=== PATIENT | female | born 1955 | race Caucasian/White ===

== ENCOUNTER → 2017-12-18 15:18 | Outpatient (CLI) | payer BC, SELFPAY ==
--- NOTE | 2017-12-18 15:23 | MM_ITS ---
MM Dig screening mamm BI w/CAD CAD Screening COMPARISON: Digital mammograms 03/10/2014 and 05/18/2015 INDICATION: There is a history of breast cancer patient's mother diagnosed before menopause. TECHNIQUE: Standard CC and MLO images were obtained. R2 CAD reviewed. FINDINGS: Prominent somewhat heterogenic fibroglandular densities are seen in both breast. There is a mole marker left breast. There is arterial calcification left breast along with a benign-appearing calcification. There is no suspicious lesion and no suspicious microcalcifications. IMPRESSION: Moderately dense parenchymal pattern with no suspicious lesion seen BI-RADS Category: 2 Benign Finding(s) RECOMMENDED FOLLOW-UP: 1YR - 1 YEAR FOLLOW-UP (A letter has been sent to the patient regarding results of the study.)
== END ==
PROVIDERS: Family Provider Nurse Practitioner Family; PCP Nurse Practitioner Family; Visit Provider Nurse Practitioner Family
DX: Z12.31 Encounter for screening mammogram for malignant neoplasm of breast (principal)
CPT/HCPCS: 77067

== ENCOUNTER → 2020-05-11 10:08 | Outpatient (CLI) | payer OTHER, SELFPAY ==
[2020-05-11 14:39] LABS: Free T4 (Free Thyroxine) 0.85 ng/dl (0.78-2.19)
[2020-05-12 13:42] LABS: Triiodothyronine (T3) Free 3.4 pg/mL (2.0-4.4)
== END ==
PROVIDERS: Visit Provider Internal Medicine
DX: D49.7 Neoplasm of unspecified behavior of endocrine glands and other parts of nervous system (principal)
CPT/HCPCS: 36415; 82533; 82787; 84439; 84481

== ENCOUNTER → 2020-07-03 09:39 | Outpatient (CLI) | payer MEDICARE, OTHER, SELFPAY ==
[2020-07-03 15:10] LABS: Free T4 (Free Thyroxine) 0.92 ng/dl (0.78-2.19)
[2020-07-03 15:23] LABS: Thyroid Stimulating Hormone 3.71 uIU/mL (0.465-4.68)
== END ==
PROVIDERS: PCP Nurse Practitioner Family; Visit Provider Internal Medicine
DX: E03.9 Hypothyroidism, unspecified (principal)
CPT/HCPCS: 36415; 84439; 84443

== ENCOUNTER → 2020-09-25 14:14 | Outpatient (CLI) | payer MEDICARE, OTHER, SELFPAY ==
--- NOTE | 2020-09-25 14:16 | CA_ITS ---
APPROVED REPORT EXAM: Comprehensive 2D, Doppler, and color-flow Echocardiogram Body Artist: Antonieta Maharaj RT(R) Ht: 5 ft 4 in Wt: 103lbs BSA: 1.48 BP: 130/96 mmHg Indications: CP, ex smoker, fatigue, HTN, SOB, hyperlipidemia, anxiety, tachycardia 2D Dimensions LVOT 1.83 cm (M/F) 1.5-2.5 LVEF (Morales's) 56.10 % F: 54 - 74 LV Volume 64.40 mL F: 46 - 106 LV Volume Index 43.80 mL/m2 F: 29 - 61 M-Mode Dimensions RVDd 1.91 cm (0.9-2.6) LA Diam 2.07 cm (1.9-4.0) LVDd 4.20 cm (3.5-5.7) Ao Diam 2.61 cm (2.0-3.7) LVDs 3.20 cm (3.5-5.7) IVSd 1.16 cm (0.6-1.1) PWd 0.69 cm (0.6-1.1) EF (Teich) 47.80% FS 23.80% EDV (Teich) 78.60 mL ESV (Teich) 41.00 mL LV Diastology E Decel Time 153.00 (160-240 msec) E/A Ratio 0.7 MED E' 13.20 (< 7 cm/sec) E'/MED E' Ratio 3.80 (>14) LAT E' 12.20 (<10 cm/sec) E/LAT E' Ratio 4.11 (>14) Mitral Valve MV E Max Sj. 50.00 (40-130 cm/s) MV A Velocity 72.00 (40-130 cm/s) E/A Ratio 0.70 MV Decel. Time 153.00 (160-240 ms) MV PHT 45.00 ms Left Ventricle Left atrium is normal size, left ventricular normal size, left ventricle wall thickness is upper limit of the normal, there is preserved left ventricular systolic function, visually estimated ejection fraction 50% with no regional wall motion abnormality, diastolic parameters are within normal range. Right Ventricle Right atrium and right ventricle are normal size and contractility. Aortic Valve Aortic valve is minimally thickened and fibrosed. There is no aortic stenosis or aortic insufficiency. Mitral Valve Mitral valve is grossly normal, there is mild mitral regurgitation. Tricuspid Valve Tricuspid valve grossly normal, there is mild tricuspid regurgitation, tricuspid regurgitation jet velocity is inadequate for calculation of the right ventricular systolic pressure. Pulmonic Valve Pulmonic valve is poorly visualized. Great Vessels Aortic root is normal size. Pericardium No significant pericardial effusion noted. Conclusion 1. Normal left ventricular size, preserved left ventricular systolic function, visually estimated ejection fraction 50% with no regional wall motion abnormality, diastolic parameters are within normal range. 2. Mild mitral and tricuspid regurgitation. 3. No significant pericardial effusion noted. Electronically signed by : Indra Delgado, 09/26/2020 06:08:16
--- NOTE | 2020-09-25 14:18 | CT_ITS ---
PROCEDURE: CT CHEST WO CON CLINICAL INDICATION: cp/tachycardia Chest pain, tachycardia COMPARISON: No exams were available for comparison TECHNIQUE: Axial images obtained with sagittal and coronal reformats. All CT scans at the facility use one or more dose reduction, viz: automated exposure control, ma/kV adjustment per patient size (including targeted exams where dose is matched to indication, i.e. head), or iterative reconstruction technique. FINDINGS: HEART AND MEDIASTINAL STRUCTURES: No mediastinal or hilar mass or adenopathy. No evidence of aortic aneurysm. Cannot evaluate pulmonary embolus without IV contrast. Coronary artery calcifications are present. LUNGS AND PLEURAL SPACES: There is a 3 mm noncalcified pulmonary nodule in the right lower lobe laterally image number 49. A 4 mm noncalcified nodules present in the left lower lobe image 58 there is a linear area of increased density in the right middle lobe and may be due to and bronchial impaction. There is a 4 mm noncalcified nodule in the right middle lobe image 48. No evidence of pneumothorax. No acute bony findings. There is a mild pectus deformity. Upper abdominal images are unremarkable. IMPRESSION: 1. No acute finding. 2. Coronary artery calcifications. 3. Scattered small noncalcified pulmonary nodules. These are nonspecific. Consider 6-12 month follow-up to confirm stability. Dictated by: Slade Quintanilla MD 09/25/2020 14:59 Slade Quintanilla MD in [place] 09/25/2020 14:59
== END ==
PROVIDERS: PCP Nurse Practitioner Family; Visit Provider Physician Assistant
DX: R00.0 Tachycardia, unspecified (principal); R07.9 Chest pain, unspecified
CPT/HCPCS: 71250; 93306

== ENCOUNTER → 2020-10-02 14:05 | Outpatient (CLI) | payer MEDICARE, OTHER, SELFPAY | PROVIDERS: PCP Nurse Practitioner Family; Visit Provider Nurse Practitioner Family | DX: I25.10 Atherosclerotic heart disease of native coronary artery without angina pectoris (principal); R00.0 Tachycardia, unspecified; R06.00 Dyspnea, unspecified; R07.9 Chest pain, unspecified; R94.31 Abnormal electrocardiogram [ECG] [EKG]; Z87.891 Personal history of nicotine dependence | CPT/HCPCS: 93270 ==

== ENCOUNTER → 2020-10-09 06:52 | Outpatient (CLI) | payer MEDICARE, OTHER, SELFPAY ==
--- NOTE | 2020-10-09 06:53 | CA_ITS ---
APPROVED REPORT Exam: Pharmacologic Technologist: Alessia De La Garza, Ht: 5 ft 4 in Wt: 104 lbs BSA: 1.48 m2 HR: 93 bpm BP: 137/82 mmHg Medical History Medical History: HTN, Hyperlipidemia Medications: Amlodipine,,,,, Omeprazole,,,,, Lisinopril/HCTZ,,,,, Albuterol,,,,, FluTICASONE,,,,, Cardiac Risk Factors: HTN, Hyperlipidemia, FHX of CAD Stress Test Details Test: LEXISCAN HR Resting HR: 88 bpm Max Heart Rate (APMHR): 155 bpm Max HR Achieved: 125 bpm Target HR (85% APMHR): 131 bpm % of APMHR: 80 Recovery HR: 121 bpm BP Resting BP: 137.0/82.0 mmHg Max BP: 172.0/96.0 mmHg Recovery BP: 134.0/85.0 mmHg ECG Resting ECG: NSR,FREQUENT PVC'S,RAD Clinical Exercise duration: 04:01 min Highest Stage Achieved: Exercise capacity: 1.0 METs Stress ECG Conclusion DURING INFUSION PATIENT HAD A MILD HEADACHE. NO CHEST PAIN. FREQUENT ISOLATED PVC'S. 0.5-0.75MM HORIZONTAL ST DEPRESSION INFERIORLY AND LATERALLY. NON-DIAGNOSTIC LEXISCAN STRESS. MYOVIEW IMAGES REPORTED SEPARATELY. Test Summary REST . . . . . . . Sitting REST 04:53 . . 95 . 137/ 82 . . Stage 1 . . . . . . . Cardiolite injected Stage 1 01:00 . . 138 . . . . Stage 2 01:00 . . 135 . 172/ 96 . . Stage 3 01:00 . . 132 . 146/ 94 . . Stage 4 01:00 . . 127 . 158/ 89 . . Stage 4 01:14 . . 127 . 135/ 80 . Stop exercise at 04:14 RECOVERY 01:00 . . 120 . . . . RECOVERY 02:00 . . 119 . 134/ 85 . . RECOVERY 03:00 . . 117 . 139/ 85 . . RECOVERY 04:00 . . 110 . 145/ 87 . . RECOVERY 04:19 . . 115 . 145/ 87 . . Electronically signed by : Indra Delgado, 10/10/2020 06:33:17
--- NOTE | 2020-10-09 06:53 | NM_ITS ---
APPROVED REPORT Exam: Nuclear Stress Test Indication: Chest pain, SOB, Fatigue, HTN, High cholesterol, Family history Patient Location: Outpatient Stress Tech: Negin Veloz [place] Tech:Fe Zavaleta, ARRT, RT (R)(N) Ht: 5 ft 4 in Wt: 104 lbs Bra Size: 34B HR: 93 bpm BP: 137/82 mmHg BSA: 1.48 m2 BMI: 17.8 History: Chest pain, SOB, Fatigue, HTN, High cholesterol, Family history Procedure: Patient received a 0.4 mg of intravenous Lexiscan, resting heart rate 93 bpm, resting blood pressure 137/82 mmHg, with Lexiscan maximum heart rate achived was 138 bpm which is Less than 85 % of the maximum predicted heart rate and blood pressure was 172/96 mmHg. With Lexiscan, patient denied any complaint of chest pain. Electrocardiogram Resting electrocardiogram showed sinus rhythm, with Lexiscan there is less than 1.[address] segment depression noted from the baseline EKG. The EKG portion of the Lexiscan is nondiagnostic. Cardiac Stress and Resting SPECT Images: Cardiac Stress and Resting SPECT images were obtained using technetium 99m Myoview 31.2 mCi stress and 10.88 mCi at rest. Gated SPECT for analysis of segmental wall motion and calculation of the ejection fraction also done. Cardiac stress and resting SPECT images show uniform myocardial activity without segmental perfusion abnormality, computer derived ejection fraction is 59% with no regional wall motion abnormality, right ventricle is normal size and contractility. Conclusion: 1. The EKG portion of the Lexiscan is nondiagnostic. 2. No scintigraphic evidence of reversible ischemia seen, computer derived ejection fraction is 59% with no regional wall motion abnormality, right ventricle is normal size and contractility. 3. Normal Lexiscan Myoview study. Electronically signed by : Indra Delgado, 10/10/2020 06:40:57
--- NOTE | 2020-10-09 08:43 | HMH.ITSHM ---
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 []VENLAFAXINE METOPROLOL LISINOPRIL LEVOTHYROXINE HYDROXYZINE ATORVASTATIN ASA
== END ==
PROVIDERS: PCP Nurse Practitioner Family; Visit Provider Nurse Practitioner Family
DX: R07.9 Chest pain, unspecified
CPT/HCPCS: 78452; 93017; A9502; J2785

== ENCOUNTER → 2020-10-16 14:21 | Outpatient (CLI) | payer MEDICARE, OTHER, SELFPAY ==
[2020-10-16 15:40] LABS: Free T4 (Free Thyroxine) 1.19 ng/dl (0.78-2.19)
[2020-10-16 15:53] LABS: Thyroid Stimulating Hormone 1.77 uIU/mL (0.465-4.68)
== END ==
PROVIDERS: Visit Provider Urology
DX: F41.9 Anxiety disorder, unspecified (principal); I25.10 Atherosclerotic heart disease of native coronary artery without angina pectoris; R00.0 Tachycardia, unspecified; R06.00 Dyspnea, unspecified; R07.9 Chest pain, unspecified; R94.31 Abnormal electrocardiogram [ECG] [EKG]; Z82.49 Family history of ischemic heart disease and other diseases of the circulatory system; Z87.891 Personal history of nicotine dependence
CPT/HCPCS: 36415; 84439; 84443

== ENCOUNTER 2020-10-16 23:14 | Emergency (ER) | payer MEDICARE, OTHER, SELFPAY ==
[2020-10-16 23:10] VITALS: BP 171/88; PULSE 88; RESP 16; TEMP 36.7; O2SAT 98; BMI 17.8
--- NOTE | 2020-10-16 23:19 | ECG_ITS ---
APPROVED REPORT Exam: Resting ECG HR:75 bpm ECG Measurements Heart Rate 75 AXES MD 136 P 74 QRSd 98 QRS 88 QT 414 T 73 QTc 462 Conclusion Normal sinus rhythm Normal ECG Electronically signed by : Jose David Us, 10/17/2020 07:16:53
[2020-10-16 23:26] LABS: Microscopic, Urine URINE MICROSCOPIC (MICROSCOPIC)
[2020-10-16 23:30] LABS: Appearance,Urine CLEAR (Clear); Bilirubin,Urine Negative (Negative); Blood, Urine TRACE-I (Negative); Color,Urine YELLOW (Yellow); Glucose,Urine (UA) Negative (Negative); Ketones,Urine Negative (Negative); Leukocyte Esterase,Urine Negative (Negative); Nitrate,Urine Negative (Negative); Protein,Urine Negative (Negative); Urobilinogen,Urine 0.2 EU/dl (0.2)
[2020-10-16 23:31] LABS: Basophils # 0.1 K/mm3 (0-0.2); Basophils % 1.1 % (0.1-2.0); Eosinophils # 0.3 K/mm3 (0.0-0.4); Hematocrit 47.1 % (37.0-47.0); Hemoglobin 15.4 g/dL (12.2-16.2); Lymphocytes # 2.9 K/mm3 (0.7-4.5); Lymphocytes % 28.5 % (10-50); Mean Corpuscular HGB Conc 32.7 g/dL (31.8-35.4); Mean Corpuscular Hemoglobin 31.9 pg (27.0-31.2); Mean Corpuscular Volume 97.5 fl (81-99); Monocytes # 0.6 K/mm3 (0.1-1.0); Monocytes % 5.4 % (1.7-9.3); Neutrophils # 6.3 K/mm3 (1.8-7.8); Neutrophils % 62.1 % (37.0-80.0); Platelet Count 336 K/mm3 (142-424); Red Blood Count 4.83 M/mm3 (4.20-5.40); Red Cell Distribution Width 13.3 % (11.5-17.5); White Blood Count 10.2 K/mm3 (4.8-10.8)
--- NOTE | 2020-10-16 23:32 | PC.NURSE ---
pt on phone with daughter
[2020-10-16 23:40] VITALS: BP 121/75; PULSE 69; RESP 15; O2SAT 94
[2020-10-16 23:47] LABS: Chloride 104 mmol/L (98-107)
--- NOTE | 2020-10-16 23:47 | HMH.EDCP ---
ED Disposition Clinical Impression: Palpitations Chest pain Qualifiers: Chest pain type: precordial pain Qualified Code(s): R07.2 - Precordial pain Disposition: Home, Self-Care Condition on Discharge: Good Instructions: DI for Chest Pain Additional Instructions: see pcp and card for follow up Referrals: PCP,No [Primary Care Provider] - - Critical Care Critical Care Time: No Attestation: On 10/16/20, the high probability of a clinically significant, sudden or life threatening deterioration of the following system(s) required my full and direct attention, intervention and personal management. The time I documented below is in addition to time spent performing reported procedures but includes the following listed in this critical care notation. Medical Decision Making - Medical Records Medical records reviewed: Yes: I reviewed the patient's medical records. - Jefry Inquiry Pt receiving controlled substance: No Vital Signs: 10/16/20 23:10 10/16/20 23:40 10/17/20 00:20 Temperature 98.1 F Temperature Source Oral Pulse Rate [Left Radial] 88 69 64 Respiratory Rate 16 15 16 Blood Pressure [Right Arm] 171/88 H 121/75 124/72 Blood Pressure Mean [Right Arm] 115 90 89 Blood Pressure Source [Right Arm] Automatic Cuff Automatic Cuff Automatic Cuff Blood Pressure Position [Right Arm] Sitting Sitting Sitting 02 Sat by Pulse Oximetry 98 94 L 96 Oxygen Delivery Method Room Air Room Air Room Air - Lab Data Lab results reviewed: Yes: I reviewed the patient's lab results. Lab Results 10/16/20 23:10: WBC 10.2, RBC 4.83, Hgb 15.4, Hct 47.1 H, MCV 97.5, MCH 31.9 H, MCHC 32.7, RDW 13.3, Plt Count 336, MPV 8.0, Neut % (Auto) 62.1, Lymph % (Auto) 28.5, [place] % (Auto) 5.4, Eos % (Auto) 3.0, Baso % (Auto) 1.1, Neut # (Auto) 6.3, Lymph # (Auto) 2.9, [place] # (Auto) 0.6, Eos # (Auto) 0.3, Baso # (Auto) 0.1 10/16/20 23:10: Sodium 137, Potassium 3.4 L, Chloride 104, Carbon Dioxide 25, Anion Gap 11.4, BUN 13, Creatinine 0.80, Estimated Creat Clear 42, Estimated GFR 72, Est GFR ( Amer) 87, Glucose 118 H, Calcium 9.6, Troponin I < 0.01 10/16/20 23:10: Plasma/Serum Alcohol < 10 10/16/20 23:10: D-Dimer 0.79 10/16/20 23:18: Urine Color Yellow, Urine Appearance Clear, Urine pH 6.0, Ur Specific [place] 1.020, Urine Protein Negative, Urine Glucose (UA) Negative, Urine Ketones Negative, Urine Blood Trace-i, Urine Nitrate Negative, Urine Bilirubin Negative, Urine Urobilinogen 0.2, Ur Leukocyte Esterase Negative, Urine RBC 3-5, Urine WBC 3-5, Ur Squamous Epith Cells 3-5, Urine Bacteria 1+, Urine Mucus 1+ Result diagrams: 10/16/20 23:10 10/16/20 23:10 Orders (Tests/Meds): ED MEDICATIONS Generic Name Dose Route Start Last Admin Trade Name Freq PRN Reason Stop Dose Admin Sodium Chloride 1,000 mls @ 999 mls/hr 10/16/20 23:30 10/16/20 23:44 Sod Chlor 0.9% 1000ml Bag IV 10/17/20 00:30 999 mls/hr .Q1H1M YURIY Administration Sodium Chloride 10 ml 10/16/20 23:42 Sodium Chloride 0.9% 10ml Vial IV 11/15/20 23:41 NEEDED PRN to Dilute Lorazepam inj Discontinued Medications Generic Name Dose Route Start Last Admin Trade Name Freq PRN Reason Stop Dose Admin Lorazepam 0.5 mg 10/16/20 23:42 10/16/20 23:43 Lorazepam 2mg/Ml Vial IV 10/16/20 23:43 0.5 mg ONCE ONE Administration ORDERS Category Date Time Status XR chest 2V Stat Exams 10/17/20 00:02 Ordered Troponin I Q3H Lab 10/17/20 02:30 Ordered Troponin I Q3H Lab 10/17/20 05:30 Ordered - Radiology Data #1 Image(s): Chest Image Reviewed: Yes I reviewed the patient's radiology image Preliminary Findings: Normal/NAD - ECG Data Tracing #1 Normal Sinus Rhythm: Yes Ischemic changes: non-specific ST-T wave changes Medical Decision Narrative: will ask pt to use meds as directed and call card and pcp for follo wup Chest Pain HPI - General Chief Complaint: Arrhythmia/Palpitations Stated Complaint: palpitations
[2020-10-16 23:48] LABS: Potassium 3.4 mmoL/L (3.5-5.1); Sodium 137 mmol/L (136-145)
[2020-10-16 23:49] LABS: Bacteria,Urine 1+ /lpf; Mucus,Urine 1+ /lpf
[2020-10-16 23:51] LABS: Anion Gap 11.4 mEq/L (5-15); Blood Urea Nitrogen 13 mg/dl (7-17); Calcium 9.6 mg/dl (8.4-10.2); Carbon Dioxide 25 mmol/L (22.0-30.0); Creatinine Clearance Estimated 42 mL/min (50-200); Estimated Glomerular Filt Rate 72 ml/min (>60); GFR (African American) 87 ML/MIN (>60); Glucose 118 mg/dl (74-100)
[2020-10-16 23:55] LABS: Ethyl Alcohol < 10 mg/dl (0-10)
--- NOTE | 2020-10-17 00:02 | XR_ITS ---
PROCEDURE: XR CHEST 2V CLINICAL HISTORY: palpitations COMPARISON: CT CT CHEST WO CON from 09/25/2020 FINDINGS: The cardiomediastinal silhouette and pulmonary vascularity are within normal limits. Increased density is present in the right lung base which may in part be due to vascular crowding and pectus deformity. Cannot exclude superimposed infiltrate. The remaining lungs are clear. Bilateral nipple shadows are noted. No acute bony findings. IMPRESSION: Possible right basilar infiltrate Dictated by: Slade Quintanilla MD 10/17/2020 05:46 Slade Quintanilla MD in [place] 10/17/2020 05:46
[2020-10-17 00:06] LABS: Troponin I < 0.01 ng/ml (0.00-0.034)
[2020-10-17 00:20] VITALS: BP 124/72; PULSE 64; RESP 16; O2SAT 96
[2020-10-17 00:34] LABS: D-Dimer 0.79 ug/mL (0.15-8.0)
--- NOTE | 2020-10-17 00:54 | PC.NURSE ---
pt to XRAY
--- NOTE | 2020-10-17 01:01 | PC.NURSE ---
pt back from XRAY
--- NOTE | 2020-10-17 01:46 | PC.NURSE ---
pt attempting to find a ride
[2020-10-17 02:52] VITALS: BP 123/74; PULSE 71; RESP 17; TEMP 36.6; O2SAT 99
--- NOTE | 2020-10-17 20:09 | ECG_ITS ---
APPROVED REPORT Exam: Resting ECG HR:77 bpm ECG Measurements Heart Rate 77 AXES MO 132 P 74 QRSd 92 QRS 29 QT 402 T 70 QTc 454 Conclusion Normal sinus rhythm Normal ECG Electronically signed by : Jose David Us, 10/18/2020 14:26:06
== END 2020-10-17 02:55 | disposition home or self-care (01) ==
PROVIDERS: Emergency Provider Emergency Medicine
DX: R00.2 Palpitations (principal); R07.2 Precordial pain; F41.8 Other specified anxiety disorders; E78.5 Hyperlipidemia, unspecified; I10 Essential (primary) hypertension; E03.9 Hypothyroidism, unspecified; Z79.899 Other long term (current) drug therapy
CPT/HCPCS: 36415; 71046; 80048; 81001; 84439; 84443; 84484; 85025; 85378; 93005; 96365; 96375; 99283

== ENCOUNTER 2020-10-17 20:17 | Emergency (ER) | payer MEDICARE, OTHER, SELFPAY ==
[2020-10-17 20:17] VITALS: BP 162/91; PULSE 91; RESP 14; TEMP 37.3; O2SAT 97; BMI 17.8
--- NOTE | 2020-10-17 20:27 | XR_ITS ---
PROCEDURE: XR CHEST 2V CLINICAL HISTORY: chest pain COMPARISON: CT CT CHEST WO CON from 09/25/2020 CR XR CHEST 2V from 10/17/2020 FINDINGS: The cardiomediastinal silhouette and pulmonary vascularity are within normal limits. The lungs are clear without infiltrates, suspicious nodules, or pleural effusions. No acute bony abnormalities. IMPRESSION: No acute findings. Dictated by: Slade Quintanilla MD 10/18/2020 07:17 Slade Quintanilla MD in [place] 10/18/2020 07:17
--- NOTE | 2020-10-17 20:32 | HMH.EDCP ---
ED Disposition Clinical Impression: Atypical chest pain Disposition: Home, Self-Care Condition on Discharge: Good Instructions: DI for Atypical Chest Pain Additional Instructions: see card thursday at 0900 for follow up Referrals: PCPGabriela [Primary Care Provider] - Shawn Wolf MD [Staff Physician] - - Critical Care Critical Care Time: No Attestation: On 10/17/20, the high probability of a clinically significant, sudden or life threatening deterioration of the following system(s) required my full and direct attention, intervention and personal management. The time I documented below is in addition to time spent performing reported procedures but includes the following listed in this critical care notation. Medical Decision Making - Medical Records Medical records reviewed: Yes: I reviewed the patient's medical records. - Jefry Inquiry Pt receiving controlled substance: No Vital Signs: 10/17/20 20:17 10/17/20 21:19 Temperature 99.1 F Temperature Source Oral Pulse Rate [Right] 91 H 68 Respiratory Rate 14 16 Blood Pressure [Right Arm] 162/91 H 131/78 Blood Pressure Mean [Right Arm] 114 95 Blood Pressure Source [Right Arm] Automatic Cuff Automatic Cuff Blood Pressure Position [Right Arm] Supine Supine 02 Sat by Pulse Oximetry 97 98 Oxygen Delivery Method Room Air Room Air - Lab Data Lab results reviewed: Yes: I reviewed the patient's lab results. Lab Results 10/17/20 20:21: WBC 10.3, RBC 4.94, Hgb 15.6, Hct 48.8 H, MCV 98.7, MCH 31.5 H, MCHC 31.9, RDW 13.5, Plt Count 341, MPV 7.9, Neut % (Auto) 62.8, Lymph % (Auto) 28.9, [place] % (Auto) 5.0, Eos % (Auto) 2.4, Baso % (Auto) 0.9, Neut # (Auto) 6.4, Lymph # (Auto) 3.0, [place] # (Auto) 0.5, Eos # (Auto) 0.2, Baso # (Auto) 0.1, ESR 14 10/17/20 20:21: Sodium 137, Potassium 3.5, Chloride 105, Carbon Dioxide 25, Anion Gap 10.5, BUN 10, Creatinine 0.80, Estimated Creat Clear 42, Estimated GFR 72, Est GFR ( Amer) 87, Glucose 121 H, Calcium 9.7, Total Bilirubin 0.9, Direct Bilirubin 0.0, Conjugated Bilirubin 0.0, Indirect Bilirubin 0.9, Unconjugated Bilirubin 0.8, AST 34, ALT 35, Alkaline Phosphatase 71, Troponin I < 0.01, C-Reactive Protein 0.4, Total Protein 7.1, Albumin 4.4, Amylase 88, Lipase 122, Procalcitonin < 0.030 Result diagrams: 10/17/20 20:21 10/17/20 20:21 Orders (Tests/Meds): ED MEDICATIONS Generic Name Dose Route Start Last Admin Trade Name Freq PRN Reason Stop Dose Admin Sodium Chloride 1,000 mls @ 999 mls/hr 10/17/20 20:30 10/17/20 20:31 Sod Chlor 0.9% 1000ml Bag IV 10/17/20 21:30 999 mls/hr .Q1H1M YURIY Administration Sodium Chloride 8 ml 10/17/20 20:27 Sodium Chloride 0.9% 10ml Vial IV 11/16/20 20:26 NEEDED PRN dilute pepcid Discontinued Medications Generic Name Dose Route Start Last Admin Trade Name Freq PRN Reason Stop Dose Admin Famotidine 20 mg 10/17/20 20:27 10/17/20 20:31 Famotidine 20mg/2ml Vial IV 10/17/20 20:28 20 mg ONCE ONE Administration Ketorolac Tromethamine 30 mg 10/17/20 20:27 10/17/20 20:32 Ketorolac 30mg/Ml Vial IV 10/17/20 20:28 30 mg ONCE ONE Administration Metoclopramide HCl 10 mg 10/17/20 20:27 10/17/20 20:31 Metoclopramide Hcl 10mg/2ml Vial IVP 10/17/20 20:28 10 mg ONCE ONE Administration Ondansetron HCl 4 mg 10/17/20 20:27 10/17/20 20:32 Ondansetron 4mg/2ml Vial IV 10/17/20 20:28 4 mg ONCE ONE Administration ORDERS Category Date Time Status XR chest 2V Stat Exams 10/17/20 20:27 Taken Troponin I Q3H Lab 10/17/20 23:30 Ordered Troponin I Q3H Lab 10/18/20 02:30 Ordered - Radiology Data #1 Image(s): Chest Image Reviewed: Yes I reviewed the patient's radiology image Preliminary Findings: Normal/NAD - ECG Data Tracing #1 Normal Sinus Rhythm: Yes Ischemic changes: non-specific ST-T wave changes Medical Decision Narrative: atypical pain with stable eval in ed - Chest Pain HPI - Genera
[2020-10-17 20:36] LABS: Chloride 105 mmol/L (98-107); Potassium 3.5 mmoL/L (3.5-5.1); Sodium 137 mmol/L (136-145)
[2020-10-17 20:39] LABS: Alanine Aminotransferase 35 U/L (12-78); Alkaline Phosphatase 71 U/L (38-126); Amylase 88 U/L (30-110); Anion Gap 10.5 mEq/L (5-15); Aspartate Amino Transferase 34 U/L (14-36); Basophils # 0.1 K/mm3 (0-0.2); Basophils % 0.9 % (0.1-2.0); Bilirubin,Indirect 0.9 mg/dL (0.0-0.9); Bilirubin,Total 0.9 mg/dl (0.2-1.3); Bilirubin,Unconjugated 0.8 mg/dL (0.0-1.1); Blood Urea Nitrogen 10 mg/dl (7-17); Calcium 9.7 mg/dl (8.4-10.2); Carbon Dioxide 25 mmol/L (22.0-30.0); Creatinine Clearance Estimated 42 mL/min (50-200); Eosinophils # 0.2 K/mm3 (0.0-0.4); Eosinophils % 2.4 % (0.1-12.0); Estimated Glomerular Filt Rate 72 ml/min (>60); GFR (African American) 87 ML/MIN (>60); Glucose 121 mg/dl (74-100); Hematocrit 48.8 % (37.0-47.0); Hemoglobin 15.6 g/dL (12.2-16.2); Lymphocytes % 28.9 % (10-50); Mean Corpuscular HGB Conc 31.9 g/dL (31.8-35.4); Mean Corpuscular Hemoglobin 31.5 pg (27.0-31.2); Mean Corpuscular Volume 98.7 fl (81-99); Mean Platelet Volume 7.9 fl (7.4-10.4); Monocytes # 0.5 K/mm3 (0.1-1.0); Neutrophils # 6.4 K/mm3 (1.8-7.8); Neutrophils % 62.8 % (37.0-80.0); Platelet Count 341 K/mm3 (142-424); Red Blood Count 4.94 M/mm3 (4.20-5.40); Red Cell Distribution Width 13.5 % (11.5-17.5); White Blood Count 10.3 K/mm3 (4.8-10.8)
[2020-10-17 20:40] LABS: Albumin Level 4.4 g/dl (3.5-5.0); Lipase 122 U/L (23-300); Total Protein,Serum 7.1 g/dl (6.3-8.2)
[2020-10-17 20:56] LABS: C-Reactive Protein 0.4 mg/L (0-4)
[2020-10-17 21:08] LABS: Procalcitonin < 0.030 ng/mL (0.0-2.0)
[2020-10-17 21:11] LABS: Troponin I < 0.01 ng/ml (0.00-0.034)
[2020-10-17 21:19] VITALS: BP 131/78; PULSE 68; RESP 16; O2SAT 98
[2020-10-17 21:30] VITALS: BP 140/82; PULSE 80; O2SAT 96
[2020-10-17 21:33] LABS: Erythrocyte Sedimentation Rate 14 mm/hr (0-30)
[2020-10-17 22:01] VITALS: BP 140/82; PULSE 78; RESP 16; TEMP 37; O2SAT 97
== END 2020-10-17 22:05 | disposition home or self-care (01) ==
PROVIDERS: Emergency Provider Emergency Medicine
DX: R07.89 Other chest pain (principal); R10.13 Epigastric pain; F41.8 Other specified anxiety disorders; I10 Essential (primary) hypertension; E78.5 Hyperlipidemia, unspecified; Z87.891 Personal history of nicotine dependence; Z79.899 Other long term (current) drug therapy
CPT/HCPCS: 71046; 80048; 80076; 82150; 83690; 84145; 84484; 85025; 85651; 86140; 96365; 96375; 99283; J2405

== ENCOUNTER 2020-11-06 14:20 | Emergency (ER) | payer MEDICARE, OTHER, SELFPAY ==
--- NOTE | 2020-11-06 14:18 | ECG_ITS ---
APPROVED REPORT Exam: Resting ECG HR:77 bpm ECG Measurements Heart Rate 77 AXES RI 132 P 89 QRSd 94 QRS 67 QT 406 T 66 QTc 459 Conclusion Normal sinus rhythm Normal ECG Electronically signed by : Jose David Us, 11/08/2020 19:31:57
[2020-11-06 14:21] VITALS: BP 166/91; PULSE 87; RESP 18; TEMP 36.9; O2SAT 99; BMI 17.2
[2020-11-06 14:22] VITALS: BMI 17.2
--- NOTE | 2020-11-06 14:22 | XR_ITS ---
PROCEDURE: XR CHEST 2V CLINICAL HISTORY: epigastric pain Pain COMPARISON: CT CT CHEST WO CON from 09/25/2020 CR XR CHEST 2V from 10/17/2020 CR XR CHEST 2V from 10/17/2020 FINDINGS: The cardiomediastinal silhouette and pulmonary vascularity are within normal limits. There is a mild pectus deformity. Lungs are clear bilaterally. No acute bony abnormalities. IMPRESSION: No acute findings. Dictated by: Slade Quintanilla MD 11/06/2020 16:26 Slade Quintanilla MD in [place] 11/06/2020 16:26
--- NOTE | 2020-11-06 14:29 | HMH.EDGENADL ---
ED Disposition Clinical Impression: Atypical chest pain, Anxiety state Disposition: Home, Self-Care Condition on Discharge: Good Instructions: DI for Atypical Chest Pain Additional Instructions: Protonix as prescribed. Additional instructions for CHEST PAIN: See your physician as soon as possible for further evaluation. Return immediately if worsening chest pain, vomiting, shortness of breath, fever, coughing of blood. Prescriptions: Pantoprazole Sodium [Protonix 40mg tablet] 40 mg PO DAILY #15 tab Transmission Status: Received by Joosy Referrals: PCP,No [Non-Staff] - - Critical Care Critical Care Time: No Attestation: On , the high probability of a clinically significant, sudden or life threatening deterioration of the following system(s) required my full and direct attention, intervention and personal management. The time I documented below is in addition to time spent performing reported procedures but includes the following listed in this critical care notation. Medical Decision Making - Medical Records Medical records reviewed: Yes: I reviewed the patient's medical records. MR Comment: Reviewed prior Myoview stress result. Reviewed last cardiology office visit on 10/30/2020. At that time it appears that her complaints were felt to be mostly anxiety related. I would concur that that is also the appearance today. - Jefry Inquiry Pt receiving controlled substance: No Vital Signs: 11/06/20 14:21 11/06/20 16:35 11/06/20 17:17 Temperature 98.5 F Temperature Source Oral Pulse Rate Pulse Rate [Apical] 87 72 70 Respiratory Rate 18 Blood Pressure Blood Pressure [Right Arm] 166/91 H 139/77 132/79 Blood Pressure Mean [Right Arm] 116 97 96 Blood Pressure Source [Right Arm] Automatic Cuff Automatic Cuff Automatic Cuff Blood Pressure Position [Right Arm] Sitting Sitting 02 Sat by Pulse Oximetry 99 97 98 Oxygen Delivery Method Room Air Room Air Room Air 11/06/20 18:00 11/06/20 18:27 Temperature 98.5 F Temperature Source Pulse Rate 70 Pulse Rate [Apical] 70 Respiratory Rate 18 Blood Pressure 119/78 Blood Pressure [Right Arm] 119/78 Blood Pressure Mean [Right Arm] 91 Blood Pressure Source [Right Arm] Automatic Cuff Blood Pressure Position [Right Arm] Sitting 02 Sat by Pulse Oximetry 97 Oxygen Delivery Method Room Air Room Air - Lab Data Lab Results 11/06/20 14:34: WBC 9.8, RBC 5.27, Hgb 16.9 H, Hct 51.4 H, MCV 97.5, MCH 32.1 H, MCHC 32.9, RDW 12.9, Plt Count 291, MPV 8.3, Neut % (Auto) 69.9, Lymph % (Auto) 24.5, [place] % (Auto) 4.0, Eos % (Auto) 0.6, Baso % (Auto) 1.0, Neut # (Auto) 6.9, Lymph # (Auto) 2.4, [place] # (Auto) 0.4, Eos # (Auto) 0.1, Baso # (Auto) 0.1 11/06/20 14:34: Sodium 139, Potassium 3.6, Chloride 104, Carbon Dioxide 26, Anion Gap 12.6, BUN 19 H, Creatinine 0.90, Estimated Creat Clear 40, Estimated GFR 63, Est GFR ( Amer) 76, Glucose 130 H, Calcium 10.0 11/06/20 14:34: Total Bilirubin 1.1, Direct Bilirubin 0.2, Conjugated Bilirubin 0.0, Indirect Bilirubin 0.9, Unconjugated Bilirubin 0.9, AST 40 H, ALT 39, Alkaline Phosphatase 71, Total Protein 7.9, Albumin 4.9, Lipase 122 11/06/20 14:34: Troponin I < 0.01 11/06/20 17:35: Troponin I < 0.01 Result diagrams: 11/06/20 14:34 11/06/20 14:34 Orders (Tests/Meds): ORDERS Category Date Time Status Troponin I Q3H Lab 11/06/20 21:15 Ordered - Radiology Data #1 Image(s): Chest Image Reviewed: Yes I reviewed the patient's radiology image Preliminary Findings: Normal/NAD No change from 10/17/2020 - ECG Data Tracing #1 EKG interpreted by Barrington Menendez MD: Rhythm: sinus Rate: 77 [place]: normal Ectopy: none Conduction: normal ST Segment Changes: none T Wave Changes: none Q Waves: none No evidence of acute ischemia or injury Baseline artifact and wander present, but I consider the EKG adequate for accurate interpretation. Normal electrocardiogram. - KIZZY Fuentes
[2020-11-06 14:50] LABS: Basophils # 0.1 K/mm3 (0-0.2); Eosinophils # 0.1 K/mm3 (0.0-0.4); Eosinophils % 0.6 % (0.1-12.0); Hematocrit 51.4 % (37.0-47.0); Hemoglobin 16.9 g/dL (12.2-16.2); Lymphocytes # 2.4 K/mm3 (0.7-4.5); Lymphocytes % 24.5 % (10-50); Mean Corpuscular HGB Conc 32.9 g/dL (31.8-35.4); Mean Corpuscular Hemoglobin 32.1 pg (27.0-31.2); Mean Corpuscular Volume 97.5 fl (81-99); Mean Platelet Volume 8.3 fl (7.4-10.4); Monocytes # 0.4 K/mm3 (0.1-1.0); Neutrophils # 6.9 K/mm3 (1.8-7.8); Neutrophils % 69.9 % (37.0-80.0); Platelet Count 291 K/mm3 (142-424); Red Blood Count 5.27 M/mm3 (4.20-5.40); Red Cell Distribution Width 12.9 % (11.5-17.5); White Blood Count 9.8 K/mm3 (4.8-10.8)
[2020-11-06 14:52] LABS: Chloride 104 mmol/L (98-107); Sodium 139 mmol/L (136-145)
[2020-11-06 14:53] LABS: Potassium 3.6 mmoL/L (3.5-5.1)
[2020-11-06 14:55] LABS: Blood Urea Nitrogen 19 mg/dl (7-17); Creatinine Clearance Estimated 40 mL/min (50-200); Estimated Glomerular Filt Rate 63 ml/min (>60); GFR (African American) 76 ML/MIN (>60)
[2020-11-06 14:56] LABS: Alanine Aminotransferase 39 U/L (12-78); Albumin Level 4.9 g/dl (3.5-5.0); Alkaline Phosphatase 71 U/L (38-126); Anion Gap 12.6 mEq/L (5-15); Aspartate Amino Transferase 40 U/L (14-36); Bilirubin,Direct 0.2 mg/dl (0.0-0.4); Bilirubin,Indirect 0.9 mg/dL (0.0-0.9); Bilirubin,Total 1.1 mg/dl (0.2-1.3); Bilirubin,Unconjugated 0.9 mg/dL (0.0-1.1); Carbon Dioxide 26 mmol/L (22.0-30.0); Glucose 130 mg/dl (74-100); Lipase 122 U/L (23-300); Total Protein,Serum 7.9 g/dl (6.3-8.2)
[2020-11-06 15:38] LABS: Troponin I < 0.01 ng/ml (0.00-0.034)
[2020-11-06 16:35] VITALS: BP 139/77; PULSE 72; O2SAT 97
[2020-11-06 17:17] VITALS: BP 132/79; PULSE 70; O2SAT 98
--- NOTE | 2020-11-06 17:29 | PC.NURSE ---
lab drawing second trop
[2020-11-06 18:00] VITALS: BP 119/78; PULSE 70; O2SAT 97
[2020-11-06 18:10] LABS: Troponin I < 0.01 ng/ml (0.00-0.034)
[2020-11-06 18:27] VITALS: BP 119/78; PULSE 70; RESP 18; TEMP 36.9; O2SAT 97
== END 2020-11-06 18:29 | disposition home or self-care (01) ==
PROVIDERS: Emergency Provider Emergency Medicine; PCP Nurse Practitioner Family
DX: R07.89 Other chest pain (principal); F41.8 Other specified anxiety disorders; I10 Essential (primary) hypertension; E78.5 Hyperlipidemia, unspecified; Z87.891 Personal history of nicotine dependence
CPT/HCPCS: 71046; 80048; 80076; 83690; 84484; 85025; 93005; 99283

== ENCOUNTER 2020-11-17 15:04 | Emergency (ER) | payer MEDICARE, OTHER, SELFPAY ==
[2020-11-17] VITALS (9 sets, daily range): BP systolic 125–158; BP diastolic 83–98; PULSE 66–83; RESP 14–16; TEMP 37.1; O2SAT 96–100; BMI 16.9
--- NOTE | 2020-11-17 14:56 | ECG_ITS ---
APPROVED REPORT Exam: Resting ECG HR:72 bpm ECG Measurements Heart Rate 72 AXES DE 126 P 58 QRSd 82 QRS -5 QT 408 T 73 QTc 446 Conclusion Normal sinus rhythm Normal ECG Electronically signed by : Jose David Us, 11/18/2020 20:55:56
--- NOTE | 2020-11-17 15:04 | XR_ITS ---
PROCEDURE: XR CHEST 2V CLINICAL HISTORY: Chest Pain COMPARISON: CT CT CHEST WO CON from 09/25/2020 CR XR CHEST 2V from 10/17/2020 CR XR CHEST 2V from 10/17/2020 CR XR CHEST 2V from 11/06/2020 FINDINGS: The cardiomediastinal silhouette and pulmonary vascularity are within normal limits. The lungs are clear without infiltrates, suspicious nodules, or pleural effusions. Nodular density overlies the left lower lobe and may be due to nipple shadow. IMPRESSION: No acute findings. Dictated by: Slade Quintanilla MD 11/17/2020 18:15 Slade Quintanilla MD in [place] 11/17/2020 18:15
[2020-11-17 15:20] LABS: Basophils # 0.1 K/mm3 (0-0.2); Basophils % 0.9 % (0.1-2.0); Eosinophils # 0.1 K/mm3 (0.0-0.4); Eosinophils % 0.6 % (0.1-12.0); Hematocrit 49.6 % (37.0-47.0); Hemoglobin 16.7 g/dL (12.2-16.2); Lymphocytes # 2.8 K/mm3 (0.7-4.5); Lymphocytes % 34.9 % (10-50); Mean Corpuscular HGB Conc 33.7 g/dL (31.8-35.4); Mean Corpuscular Hemoglobin 31.8 pg (27.0-31.2); Mean Corpuscular Volume 94.5 fl (81-99); Mean Platelet Volume 7.7 fl (7.4-10.4); Monocytes # 0.3 K/mm3 (0.1-1.0); Monocytes % 4.2 % (1.7-9.3); Neutrophils # 4.8 K/mm3 (1.8-7.8); Neutrophils % 59.3 % (37.0-80.0); Platelet Count 288 K/mm3 (142-424); Red Blood Count 5.25 M/mm3 (4.20-5.40); White Blood Count 8.1 K/mm3 (4.8-10.8)
[2020-11-17 15:26] LABS: Chloride 104 mmol/L (98-107); Potassium 3.7 mmoL/L (3.5-5.1); Sodium 141 mmol/L (136-145)
[2020-11-17 15:29] LABS: Anion Gap 11.7 mEq/L (5-15); Blood Urea Nitrogen 11 mg/dl (7-17); Carbon Dioxide 29 mmol/L (22.0-30.0); Creatinine Clearance Estimated 40 mL/min (50-200); Estimated Glomerular Filt Rate 72 ml/min (>60); GFR (African American) 87 ML/MIN (>60)
[2020-11-17 15:30] LABS: Glucose 115 mg/dl (74-100)
--- NOTE | 2020-11-17 15:34 | HMH.EDGENADL ---
ED Disposition Clinical Impression: Chest pain Qualifiers: Chest pain type: unspecified Qualified Code(s): R07.9 - Chest pain, unspecified Disposition: Home, Self-Care Condition on Discharge: Good Instructions: DI for Chest Pain Additional Instructions: See Dr. Wolf in his office at 9 AM on Thursday morning 11/19/2020. Additional instructions for CHEST PAIN: Return immediately if worsening chest pain, vomiting, shortness of breath, fever, coughing of blood. Referrals: PCP,No [Non-Staff] - - Critical Care Critical Care Time: No Attestation: On 11/17/20, the high probability of a clinically significant, sudden or life threatening deterioration of the following system(s) required my full and direct attention, intervention and personal management. The time I documented below is in addition to time spent performing reported procedures but includes the following listed in this critical care notation. Medical Decision Making - Medical Records Medical records reviewed: Yes: I reviewed the patient's medical records. MR Comment: Reviewed prior ER visit on 11/06/2020, cardiology visit on 11/13/2020. Prior echocardiogram and stress test result. Echocardiogram and stress test were unremarkable. She has had a chest CT that showed coronary artery calcifications. She has been to the emergency department several times for chest pain or palpitations. - Jefry Inquiry Pt receiving controlled substance: No Vital Signs: 11/17/20 15:04 11/17/20 15:25 11/17/20 16:02 Temperature 98.7 F Temperature Source Oral Pulse Rate [Left Radial] 77 66 72 Respiratory Rate 14 Blood Pressure [Right Arm] 158/98 H 158/98 H 125/83 Blood Pressure Mean [Right Arm] 118 118 97 Blood Pressure Source [Right Arm] Automatic Cuff Automatic Cuff Automatic Cuff Blood Pressure Position [Right Arm] Sitting Sitting Sitting 02 Sat by Pulse Oximetry 99 100 96 Oxygen Delivery Method Room Air Room Air Room Air 11/17/20 16:33 11/17/20 17:05 11/17/20 17:40 Temperature Temperature Source Pulse Rate [Left Radial] 69 70 69 Respiratory Rate Blood Pressure [Right Arm] 137/84 134/85 148/87 H Blood Pressure Mean [Right Arm] 101 101 107 Blood Pressure Source [Right Arm] Automatic Cuff Automatic Cuff Automatic Cuff Blood Pressure Position [Right Arm] Sitting Sitting Sitting 02 Sat by Pulse Oximetry 97 97 98 Oxygen Delivery Method Room Air Room Air Room Air 11/17/20 18:06 Temperature Temperature Source Pulse Rate [Left Radial] 69 Respiratory Rate Blood Pressure [Right Arm] 146/84 H Blood Pressure Mean [Right Arm] 104 Blood Pressure Source [Right Arm] Automatic Cuff Blood Pressure Position [Right Arm] Sitting 02 Sat by Pulse Oximetry 97 Oxygen Delivery Method Room Air - Lab Data Lab Results 11/17/20 15:05: WBC 8.1, RBC 5.25, Hgb 16.7 H, Hct 49.6 H, MCV 94.5, MCH 31.8 H, MCHC 33.7, RDW 13.0, Plt Count 288, MPV 7.7, Neut % (Auto) 59.3, Lymph % (Auto) 34.9, [place] % (Auto) 4.2, Eos % (Auto) 0.6, Baso % (Auto) 0.9, Neut # (Auto) 4.8, Lymph # (Auto) 2.8, [place] # (Auto) 0.3, Eos # (Auto) 0.1, Baso # (Auto) 0.1 11/17/20 15:05: Sodium 141, Potassium 3.7, Chloride 104, Carbon Dioxide 29, Anion Gap 11.7, BUN 11, Creatinine 0.80, Estimated Creat Clear 40, Estimated GFR 72, Est GFR ( Amer) 87, Glucose 115 H, Calcium 10.0, Troponin I < 0.01 11/17/20 17:47: Troponin I < 0.01 Result diagrams: 11/17/20 15:05 11/17/20 15:05 Orders (Tests/Meds): ORDERS Category Date Time Status Troponin I Q3 Lab 11/17/20 21:15 Ordered - ECG Data Tracing #1 EKG interpreted by Barrington Menendez MD: Rhythm: sinus Rate: 72 [place]: normal Ectopy: none Conduction: normal ST Segment Changes: none T Wave Changes: none Q Waves: none No evidence of acute ischemia or injury Normal electrocardiogram - Physician Consults Physician Consulted: Maryann Time: 17:22 Reason -: Cardiology Eval/Care Comment/Response: Discharge if second troponin
--- NOTE | 2020-11-17 15:37 | PC.NURSE ---
Pt going to rad.
[2020-11-17 15:42] LABS: Troponin I < 0.01 ng/ml (0.00-0.034)
--- NOTE | 2020-11-17 15:42 | PC.NURSE ---
Pt returned from rad
--- NOTE | 2020-11-17 17:15 | PC.NURSE ---
paged Dr Wolf
[2020-11-17 18:22] LABS: Troponin I < 0.01 ng/ml (0.00-0.034)
== END 2020-11-17 18:57 | disposition home or self-care (01) ==
PROVIDERS: Emergency Provider Emergency Medicine; PCP Nurse Practitioner Family
DX: R07.9 Chest pain, unspecified (principal); E78.5 Hyperlipidemia, unspecified; I10 Essential (primary) hypertension; F41.9 Anxiety disorder, unspecified; Z79.899 Other long term (current) drug therapy
CPT/HCPCS: 36415; 71046; 80048; 84484; 85025; 93005; 99283

== ENCOUNTER → 2020-11-27 13:02 | Outpatient (CLI) | payer MEDICARE, OTHER, SELFPAY | PROVIDERS: PCP Nurse Practitioner Family; Visit Provider Urology | DX: Z87.891 Personal history of nicotine dependence (principal); R00.0 Tachycardia, unspecified; R07.89 Other chest pain; R06.00 Dyspnea, unspecified; F41.9 Anxiety disorder, unspecified; I25.10 Atherosclerotic heart disease of native coronary artery without angina pectoris; R00.2 Palpitations; Z82.49 Family history of ischemic heart disease and other diseases of the circulatory system; G47.33 Obstructive sleep apnea (adult) (pediatric) | CPT/HCPCS: G0399 ==

== ENCOUNTER 2020-12-01 12:39 | Emergency (ER) | payer MEDICARE, OTHER, SELFPAY ==
--- NOTE | 2020-12-01 12:36 | ECG_ITS ---
APPROVED REPORT Exam: Resting ECG HR:68 bpm ECG Measurements Heart Rate 68 AXES AL 140 P QRSd 94 QRS 126 QT 404 T 124 QTc 429 Conclusion Normal sinus rhythm Left posterior fascicular block Abnormal ECG Electronically signed by : Jose David Us, 12/01/2020 17:25:56
[2020-12-01 12:39] VITALS: BP 165/92; PULSE 78; RESP 16; TEMP 37.2; O2SAT 98; BMI 17.3
--- NOTE | 2020-12-01 12:45 | HMH.EDGENADL ---
ED Disposition Clinical Impression: Atypical chest pain Disposition: Home, Self-Care Condition on Discharge: Good Instructions: DI for Atypical Chest Pain Additional Instructions: Additional instructions for CHEST PAIN: See your physician as soon as possible for further evaluation. Return immediately if worsening chest pain, vomiting, shortness of breath, fever, coughing of blood. Referrals: Argelia Hughes [Primary Care Provider] - - Critical Care Critical Care Time: No Attestation: On , the high probability of a clinically significant, sudden or life threatening deterioration of the following system(s) required my full and direct attention, intervention and personal management. The time I documented below is in addition to time spent performing reported procedures but includes the following listed in this critical care notation. Medical Decision Making - Medical Records Medical records reviewed: Yes: I reviewed the patient's medical records. MR Comment: Reviewed cardiology office visit on 11/19/2020. Reviewed Myoview result, see below. - Jefry Inquiry Pt receiving controlled substance: No Vital Signs: 12/01/20 12:39 12/01/20 13:05 12/01/20 13:36 Temperature 99.0 F Temperature Source Oral Pulse Rate [Right Radial] 78 67 68 Respiratory Rate 16 Blood Pressure [Right Arm] 165/92 H 149/84 H 142/80 H Blood Pressure Mean [Right Arm] 116 105 100 Blood Pressure Source [Right Arm] Automatic Cuff Automatic Cuff Automatic Cuff Blood Pressure Position [Right Arm] Sitting Sitting Sitting 02 Sat by Pulse Oximetry 98 97 97 Oxygen Delivery Method Room Air Room Air Room Air 12/01/20 14:04 Temperature Temperature Source Pulse Rate [Right Radial] 67 Respiratory Rate Blood Pressure [Right Arm] 142/83 H Blood Pressure Mean [Right Arm] 102 Blood Pressure Source [Right Arm] Automatic Cuff Blood Pressure Position [Right Arm] Sitting 02 Sat by Pulse Oximetry 98 Oxygen Delivery Method Room Air - Lab Data Lab Results 12/01/20 12:00: WBC 9.1, RBC 5.04, Hgb 15.6, Hct 48.0 H, MCV 95.4, MCH 31.0, MCHC 32.6, RDW 12.9, Plt Count 279, MPV 8.5, Neut % (Auto) 61.7, Lymph % (Auto) 31.7, [place] % (Auto) 5.0, Eos % (Auto) 0.9, Baso % (Auto) 0.8, Neut # (Auto) 5.6, Lymph # (Auto) 2.9, [place] # (Auto) 0.5, Eos # (Auto) 0.1, Baso # (Auto) 0.1 12/01/20 12:00: Sodium 141, Potassium 3.7, Chloride 105, Carbon Dioxide 29, Anion Gap 10.7, BUN 18 H, Creatinine 0.90, Estimated Creat Clear 41, Estimated GFR 63, Est GFR ( Amer) 76, Glucose 152 H, Calcium 9.5, Troponin I < 0.01 Result diagrams: 12/01/20 12:00 12/01/20 12:00 Orders (Tests/Meds): ORDERS Category Date Time Status Troponin I Q3H Lab 12/01/20 16:15 Ordered Troponin I Q3H Lab 12/01/20 19:15 Ordered - Radiology Data #1 Image(s): Chest Image Reviewed: Yes I reviewed the patient's radiology image PROCEDURE: XR CHEST PORTABLE CLINICAL HISTORY: chest pain COMPARISON: CT CT CHEST WO CON from 09/25/2020 CR XR CHEST 2V from 10/17/2020 CR XR CHEST 2V from 11/06/2020 CR XR CHEST 2V from 11/17/2020 FINDINGS: The cardiomediastinal silhouette and pulmonary vascularity are within normal limits. The lungs are clear without infiltrates, suspicious nodules, or pleural effusions. No acute bony abnormalities. IMPRESSION: No acute findings. Dictated by: Slade Quintanilla MD 12/01/2020 13:33 Slade Quintanilla MD in [place] 12/01/2020 13:33 - ECG Data Tracing #1 EKG interpreted by Barrington Menendez MD: Rhythm: sinus Rate: 68 [place]: normal Ectopy: none Conduction: normal ST Segment Changes: none T Wave Changes: none Q Waves: none No evidence of acute ischemia or injury Prior electrocardiagrams reviewed. No change from prior tracings. Medical Decision Narrative: History: Chest pain, SOB, Fatigue, HTN, High cholesterol, Family history Procedure: Patient received a 0.4 mg of intravenous Lexiscan, resting heart rate 93 bpm,
[2020-12-01 13:05] VITALS: BP 149/84; PULSE 67; O2SAT 97
--- NOTE | 2020-12-01 13:05 | XR_ITS ---
PROCEDURE: XR CHEST PORTABLE CLINICAL HISTORY: chest pain COMPARISON: CT CT CHEST WO CON from 09/25/2020 CR XR CHEST 2V from 10/17/2020 CR XR CHEST 2V from 11/06/2020 CR XR CHEST 2V from 11/17/2020 FINDINGS: The cardiomediastinal silhouette and pulmonary vascularity are within normal limits. The lungs are clear without infiltrates, suspicious nodules, or pleural effusions. No acute bony abnormalities. IMPRESSION: No acute findings. Dictated by: Slade Quintanilla MD 12/01/2020 13:33 Slade Quintanilla MD in [place] 12/01/2020 13:33
[2020-12-01 13:12] LABS: Basophils # 0.1 K/mm3 (0-0.2); Basophils % 0.8 % (0.1-2.0); Eosinophils # 0.1 K/mm3 (0.0-0.4); Eosinophils % 0.9 % (0.1-12.0); Hemoglobin 15.6 g/dL (12.2-16.2); Lymphocytes # 2.9 K/mm3 (0.7-4.5); Lymphocytes % 31.7 % (10-50); Mean Corpuscular HGB Conc 32.6 g/dL (31.8-35.4); Mean Corpuscular Volume 95.4 fl (81-99); Mean Platelet Volume 8.5 fl (7.4-10.4); Monocytes # 0.5 K/mm3 (0.1-1.0); Neutrophils # 5.6 K/mm3 (1.8-7.8); Neutrophils % 61.7 % (37.0-80.0); Platelet Count 279 K/mm3 (142-424); Red Blood Count 5.04 M/mm3 (4.20-5.40); Red Cell Distribution Width 12.9 % (11.5-17.5); White Blood Count 9.1 K/mm3 (4.8-10.8)
[2020-12-01 13:13] LABS: Sodium 141 mmol/L (136-145)
[2020-12-01 13:14] LABS: Potassium 3.7 mmoL/L (3.5-5.1)
[2020-12-01 13:16] LABS: Blood Urea Nitrogen 18 mg/dl (7-17); Creatinine Clearance Estimated 41 mL/min (50-200); Estimated Glomerular Filt Rate 63 ml/min (>60); GFR (African American) 76 ML/MIN (>60)
[2020-12-01 13:17] LABS: Calcium 9.5 mg/dl (8.4-10.2); Carbon Dioxide 29 mmol/L (22.0-30.0); Glucose 152 mg/dl (74-100)
[2020-12-01 13:21] LABS: Anion Gap 10.7 mEq/L (5-15); Chloride 105 mmol/L (98-107)
[2020-12-01 13:31] LABS: Troponin I < 0.01 ng/ml (0.00-0.034)
[2020-12-01 13:36] VITALS: BP 142/80; PULSE 68; O2SAT 97
[2020-12-01 14:04] VITALS: BP 142/83; PULSE 67; O2SAT 98
[2020-12-01 15:15] VITALS: BP 147/85; PULSE 67; RESP 16; TEMP 37.2; O2SAT 98
== END 2020-12-01 15:15 | disposition home or self-care (01) ==
PROVIDERS: Emergency Provider Emergency Medicine; PCP Nurse Practitioner Family
DX: R07.89 Other chest pain (principal); F41.8 Other specified anxiety disorders; E78.5 Hyperlipidemia, unspecified; I10 Essential (primary) hypertension; E03.9 Hypothyroidism, unspecified; Z79.899 Other long term (current) drug therapy
CPT/HCPCS: 71045; 80048; 84484; 85025; 93005; 99283

== ENCOUNTER → 2020-12-25 12:37 | Outpatient (CLI) | payer MEDICARE, OTHER, SELFPAY ==
[2020-12-25 13:44] LABS: Coronavirus 19 IgG Antibody Negative (Negative); Coronavirus 19 IgM Antibody Negative (Negative)
== END ==
PROVIDERS: Visit Provider Urology
DX: Z01.818 Encounter for other preprocedural examination (principal); Z20.822 Contact with and (suspected) exposure to COVID-19; G47.30 Sleep apnea, unspecified
CPT/HCPCS: 36415; 86328

== ENCOUNTER → 2020-12-26 19:34 | Outpatient (CLI) | payer MEDICARE, OTHER, SELFPAY | PROVIDERS: PCP Nurse Practitioner Family; Visit Provider Urology | DX: G47.30 Sleep apnea, unspecified (principal); R06.83 Snoring; R06.00 Dyspnea, unspecified | CPT/HCPCS: 95810 ==

== ENCOUNTER → 2021-01-02 14:27 | Outpatient (CLI) | payer MEDICARE, OTHER, SELFPAY ==
[2021-01-02 16:10] LABS: Ferritin 216 ng/ml (11.1-264)
[2021-01-02 16:16] LABS: Thyroid Stimulating Hormone 2.63 uIU/mL (0.465-4.68)
== END ==
PROVIDERS: Visit Provider Nurse Practitioner Family
DX: E83.10 Disorder of iron metabolism, unspecified (principal); G25.81 Restless legs syndrome; E07.9 Disorder of thyroid, unspecified; F41.9 Anxiety disorder, unspecified; Z68.1 Body mass index [BMI] 19.9 or less, adult
CPT/HCPCS: 36415; 82728; 84443

== ENCOUNTER 2021-01-05 13:44 | Emergency (ER) | payer MEDICARE, OTHER, SELFPAY ==
--- NOTE | 2021-01-05 13:38 | ECG_ITS ---
APPROVED REPORT Exam: Resting ECG HR:78 bpm ECG Measurements Heart Rate 78 AXES GA 130 P 65 QRSd 94 QRS 75 QT 400 T 67 QTc 456 Conclusion Normal sinus rhythm Normal ECG Electronically signed by : Jose David Us, 01/06/2021 20:24:52
[2021-01-05 13:44] VITALS: BP 143/97; PULSE 77; RESP 16; TEMP 36.9; O2SAT 99; BMI 17.6
--- NOTE | 2021-01-05 13:49 | XR_ITS ---
PROCEDURE: XR CHEST PORTABLE CLINICAL HISTORY: cp Chest pain and chest tightness COMPARISON: CT CT CHEST WO CON from 09/25/2020 CR XR CHEST 2V from 11/06/2020 CR XR CHEST 2V from 11/17/2020 CR XR CHEST PORTABLE from 12/01/2020 FINDINGS: The cardiomediastinal silhouette and pulmonary vascularity are within normal limits. The lungs are clear without infiltrates, suspicious nodules, or pleural effusions. Nipple shadows are present bilaterally. No acute bony finding. Minimal midthoracic scoliosis convex left. IMPRESSION: No acute findings. Dictated by: Slade Quintanilla MD 01/05/2021 19:55 Slade Quintanilla MD in [place] 01/05/2021 19:55
--- NOTE | 2021-01-05 13:52 | HMH.EDCP ---
ED Disposition Clinical Impression: Atypical chest pain Disposition: Home, Self-Care Condition on Discharge: Good Referrals: PCP,No [Non-Staff] - - Critical Care Critical Care Time: No Attestation: On 01/05/21, the high probability of a clinically significant, sudden or life threatening deterioration of the following system(s) required my full and direct attention, intervention and personal management. The time I documented below is in addition to time spent performing reported procedures but includes the following listed in this critical care notation. Medical Decision Making - Medical Records Medical records reviewed: Yes: I reviewed the patient's medical records. - Jefry Inquiry Pt receiving controlled substance: No Vital Signs: 01/05/21 13:44 01/05/21 13:59 Temperature 98.5 F Temperature Source Oral Pulse Rate [Right Radial] 77 71 Respiratory Rate 16 16 Blood Pressure [Right Arm] 143/97 H 96/54 L Blood Pressure Mean [Right Arm] 112 68 Blood Pressure Source [Right Arm] Automatic Cuff Automatic Cuff Blood Pressure Position [Right Arm] Sitting Supine 02 Sat by Pulse Oximetry 99 98 Oxygen Delivery Method Room Air - Lab Data Lab results reviewed: Yes: I reviewed the patient's lab results. Lab Results 01/05/21 13:45: WBC 10.7, RBC 4.85, Hgb 14.5, Hct 46.0, MCV 94.8, MCH 29.8, MCHC 31.4 L, RDW 12.8, Plt Count 298, MPV 7.6, Neut % (Auto) 67.7, Lymph % (Auto) 27.1, [place] % (Auto) 4.0, Eos % (Auto) 0.4, Baso % (Auto) 0.8, Neut # (Auto) 7.2, Lymph # (Auto) 2.9, [place] # (Auto) 0.4, Eos # (Auto) 0.0, Baso # (Auto) 0.1 01/05/21 13:45: Sodium 140, Potassium 3.7, Chloride 106, Carbon Dioxide 27, Anion Gap 10.7, BUN 15, Creatinine 0.90, Estimated Creat Clear 41, Estimated GFR 63, Est GFR ( Amer) 76, Glucose 113 H, Calcium 9.7, Troponin I < 0.01, NT-Pro-B Natriuret Pep 138 H 01/05/21 13:50: VBG pH 7.33, VBG pCO2 49.1, VBG pO2 46.0 H, VBG HCO3 25.2, VBG Total CO2 26.7, VBG O2 Saturation 80.6 H, VBG Base Excess -0.8 Result diagrams: 01/05/21 13:45 01/05/21 13:45 Orders (Tests/Meds): ED MEDICATIONS Generic Name Dose Route Start Last Admin Trade Name Freq PRN Reason Stop Dose Admin Nitroglycerin 0.4 mg 01/05/21 13:51 01/05/21 13:52 Nitroglycerin 0.4mg Sl Tablet SL 02/04/21 13:50 0.4 mg Q5MINP PRN Administration Chest Pain Discontinued Medications Generic Name Dose Route Start Last Admin Trade Name Freq PRN Reason Stop Dose Admin Aspirin 243 mg 01/05/21 13:50 01/05/21 13:52 Aspirin 81mg Chewable Tablet PO 01/05/21 13:51 243 mg ONCE ONE Administration ORDERS Category Date Time Status XR chest portable Stat Exams 01/05/21 13:49 Taken Troponin I Q3H Lab 01/05/21 17:00 Ordered Troponin I Q3H Lab 01/05/21 20:00 Ordered - Radiology Data #1 Image(s): Chest Image Reviewed: Yes I reviewed the patient's radiology results Preliminary Findings: Normal/NAD - ECG Data Tracing #1 ECG initial impression date: 01/05/21 ECG initial impression time: 13:40 ECG normal with no acute: arrhythmias, ischemia, conduction abnormalities, chamber hypertrophy Normal Sinus Rhythm: Yes Chest Pain HPI - General Chief Complaint: Chest Pain Stated Complaint: chest tightness Time Seen by Provider: 01/05/21 13:45 Mode of Arrival: Ambulatory Limitations: No Limitations Description of Symptoms (Recalled from ER Triage Doc. by RN): Pt reports chest tightness, states tightness began lastnight. Pt also reports her bp has been elevated today. - History of Present Illness HPI narrative: This is a 65-year-old female who presents with chest discomfort. She describes this as tightness. Pain is rated at 5 out of 10 in intensity currently. Pain ongoing since last night approximately 18 hours since initiation of her symptoms. No shortness of breath or nausea or vomiting. No diaphoresis. No exacerbating or alleviating measures. - Related Data Home Medicatio
--- NOTE | 2021-01-05 13:53 | PC.NURSE ---
notified rt of vbg order
[2021-01-05 13:59] VITALS: BP 96/54; PULSE 71; RESP 16; O2SAT 98
[2021-01-05 13:59] LABS: Basophils # 0.1 K/mm3 (0-0.2); Basophils % 0.8 % (0.1-2.0); Eosinophils % 0.4 % (0.1-12.0); Hemoglobin 14.5 g/dL (12.2-16.2); Lymphocytes # 2.9 K/mm3 (0.7-4.5); Lymphocytes % 27.1 % (10-50); Mean Corpuscular HGB Conc 31.4 g/dL (31.8-35.4); Mean Corpuscular Hemoglobin 29.8 pg (27.0-31.2); Mean Corpuscular Volume 94.8 fl (81-99); Mean Platelet Volume 7.6 fl (7.4-10.4); Monocytes # 0.4 K/mm3 (0.1-1.0); Neutrophils # 7.2 K/mm3 (1.8-7.8); Neutrophils % 67.7 % (37.0-80.0); Platelet Count 298 K/mm3 (142-424); Red Blood Count 4.85 M/mm3 (4.20-5.40); Red Cell Distribution Width 12.8 % (11.5-17.5); White Blood Count 10.7 K/mm3 (4.8-10.8)
[2021-01-05 14:08] LABS: Anion Gap 10.7 mEq/L (5-15); Blood Urea Nitrogen 15 mg/dl (7-17); Calcium 9.7 mg/dl (8.4-10.2); Carbon Dioxide 27 mmol/L (22.0-30.0); Chloride 106 mmol/L (98-107); Creatinine Clearance Estimated 41 mL/min (50-200); Estimated Glomerular Filt Rate 63 ml/min (>60); GFR (African American) 76 ML/MIN (>60); Glucose 113 mg/dl (74-100); Potassium 3.7 mmoL/L (3.5-5.1); Sodium 140 mmol/L (136-145)
[2021-01-05 14:09] LABS: VBG Base Excess -0.8 mmol/L (-2.4-2.3); VBG HCO3 25.2 mmol/L (23-30); VBG Oxygen Saturation 80.6 % (50-70); VBG PCO2 49.1 mmol/L (35-51); VBG PH 7.33 mmol/L (7.31-7.41); VBG Total CO2 26.7 mmol/L (23-27)
--- NOTE | 2021-01-05 14:11 | PC.NURSE ---
rad in room taking chest xray
[2021-01-05 14:21] LABS: NT Pro Brain Natriuretic Pep. 138 pg/mL (0-125)
[2021-01-05 14:31] LABS: Troponin I < 0.01 ng/ml (0.00-0.034)
[2021-01-05 14:49] VITALS: BP 120/78; PULSE 66; RESP 16; TEMP 36.9; O2SAT 99
== END 2021-01-05 14:49 | disposition home or self-care (01) ==
PROVIDERS: Emergency Provider Emergency Medicine; PCP Nurse Practitioner Family
DX: R07.89 Other chest pain (principal); I10 Essential (primary) hypertension; F41.8 Other specified anxiety disorders; E78.5 Hyperlipidemia, unspecified; Z87.891 Personal history of nicotine dependence; Z79.899 Other long term (current) drug therapy; E03.9 Hypothyroidism, unspecified
CPT/HCPCS: 71045; 80048; 82803; 83880; 84484; 85025; 93005; 99283

== ENCOUNTER 2021-01-07 15:52 | Emergency (ER) | payer MEDICARE, OTHER, SELFPAY ==
[2021-01-07 15:54] VITALS: BP 160/107; PULSE 85; RESP 18; TEMP 37.4; O2SAT 99; BMI 17.5
--- NOTE | 2021-01-07 15:55 | XR_ITS ---
PROCEDURE: XR CHEST PORTABLE CLINICAL HISTORY: sob Shortness of breath COMPARISON: CT CT CHEST WO CON from 09/25/2020 CR XR CHEST 2V from 11/17/2020 CR XR CHEST PORTABLE from 12/01/2020 CR XR CHEST PORTABLE from 01/05/2021 FINDINGS: The cardiomediastinal silhouette and pulmonary vascularity are within normal limits. The lungs are clear without infiltrates, suspicious nodules, or pleural effusions. No acute bony abnormalities. IMPRESSION: No acute findings. Dictated by: Slade Quintanilla MD 01/07/2021 16:44 Slade Quintanilla MD in [place] 01/07/2021 16:44
--- NOTE | 2021-01-07 15:55 | HMH.EDGENADL ---
ED Disposition Clinical Impression: Acute anxiety Disposition: Home, Self-Care Condition on Discharge: Good Referrals: Argelia Hughes [Primary Care Provider] - Time of Disposition: 17:20 - Critical Care Critical Care Time: No Attestation: On , the high probability of a clinically significant, sudden or life threatening deterioration of the following system(s) required my full and direct attention, intervention and personal management. The time I documented below is in addition to time spent performing reported procedures but includes the following listed in this critical care notation. Medical Decision Making - Medical Records Medical records reviewed: Yes: I reviewed the patient's medical records. - Jefry Inquiry Pt receiving controlled substance: No Vital Signs: 01/07/21 15:54 Temperature 99.3 F Temperature Source Oral Pulse Rate [Right Radial] 85 Respiratory Rate 18 Blood Pressure [Right Arm] 160/107 H Blood Pressure Mean [Right Arm] 124 Blood Pressure Source [Right Arm] Automatic Cuff Blood Pressure Position [Right Arm] Sitting 02 Sat by Pulse Oximetry 99 Oxygen Delivery Method Room Air - Lab Data Lab results reviewed: Yes: I reviewed the patient's lab results. Lab Results 01/07/21 16:17: Troponin I < 0.01 01/07/21 16:17: Sodium 140, Potassium 3.7, Chloride 106, Carbon Dioxide 26, Anion Gap 11.7, BUN 11 D, Creatinine 0.90, Estimated Creat Clear 41, Estimated GFR 63, Est GFR ( Amer) 76, Glucose 120 H, Calcium 9.8 Result diagrams: 01/07/21 16:17 Orders (Tests/Meds): ORDERS Category Date Time Status Troponin I Q3H Lab 01/07/21 19:00 Ordered Troponin I Q3H Lab 01/07/21 22:00 Ordered - Radiology Data #1 Image(s): Chest Image Reviewed: Yes I have reviewed radiologist's interpretation Preliminary Findings: Normal/NAD - ECG Data Tracing #1 71 bpm, normal sinus rhythm, no ST elevation or depression, no ectopy, normal intervals. ECG initial impression date: 01/07/21 ECG initial impression time: 16:17 Medical Decision Narrative: 65yo F evaluated for tremor. Patient appears anxious on initial evaluation. Her EKG is unremarkable. Patient has been seen numerous times for this. Patient reports undergoing stress test and echocardiogram with normal findings. Patient is taking home medications as directed. Labs are unremarkable. Troponin is 0.01. Chest x-ray unremarkable. EKG unremarkable as above. Patient is appropriate stable for discharge home at this time follow-up with PCP versus counseling for better control of her anxiety. General Adult HPI - General Stated complaint: cant stop shaking short of breath Time Seen by Provider: 01/07/21 15:55 Mode of Arrival: Ambulatory Source of Information: Patient - History of Present Illness HPI narrative: 65yo F with past medical history significant for anxiety and hypertension presents the emergency department secondary to tremor and anxiety. Patient reports symptoms began earlier today. She reports taking extra anxiety medication. She states this happens frequently. 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 She is concerned that her radiation treatments have permanently changed her brain and made her feel this way. She states that she has these symptoms frequently and this episode is no different than previous episodes. She denies chest pain, shortness of breath, nausea/vomit/diarrhea. No recent sick contact. - Related Data Home Medications Medication Instructions Recorded Confirmed aspirin 81 mg tablet,delayed 81 mg PO DAILY 09/25/20 01/02/21 release atorvastatin 10 mg tablet 10 mg PO DAILY tab 09/25/20 01/02/21 hydroxyzine pamoate 25 mg capsule 25 mg PO TID PRN cap 09/25/20 01/02/21 levothyroxine 25 mcg tablet 25 mcg PO DAILY tab 09/25/20 01/02/21 lisinopril 10 mg tablet 10 mg PO BID tab 09/25/20 01/02/21 Previous Rx's Medication Ins
--- NOTE | 2021-01-07 16:10 | ECG_ITS ---
APPROVED REPORT Exam: Resting ECG HR:71 bpm ECG Measurements Heart Rate 71 AXES [place] 144 P 67 QRSd 90 QRS 34 QT 408 T 58 QTc 443 Conclusion Normal sinus rhythm Normal ECG Electronically signed by : Jose David Us, 01/08/2021 19:37:17
[2021-01-07 16:53] LABS: Troponin I < 0.01 ng/ml (0.00-0.034)
[2021-01-07 17:00] VITALS: BP 132/82; PULSE 77; RESP 19; O2SAT 97
[2021-01-07 17:01] LABS: Anion Gap 11.7 mEq/L (5-15); Blood Urea Nitrogen 11 mg/dl (7-17); Calcium 9.8 mg/dl (8.4-10.2); Carbon Dioxide 26 mmol/L (22.0-30.0); Chloride 106 mmol/L (98-107); Creatinine Clearance Estimated 41 mL/min (50-200); Estimated Glomerular Filt Rate 63 ml/min (>60); GFR (African American) 76 ML/MIN (>60); Glucose 120 mg/dl (74-100); Potassium 3.7 mmoL/L (3.5-5.1); Sodium 140 mmol/L (136-145)
[2021-01-07 17:27] VITALS: BP 142/78; PULSE 77; RESP 19; TEMP 36.6; O2SAT 98
== END 2021-01-07 17:29 | disposition home or self-care (01) ==
PROVIDERS: Emergency Provider Family Medicine; PCP Nurse Practitioner Family
DX: F41.0 Panic disorder [episodic paroxysmal anxiety] (principal); I10 Essential (primary) hypertension; E78.5 Hyperlipidemia, unspecified; E03.9 Hypothyroidism, unspecified; Z87.891 Personal history of nicotine dependence; Z79.899 Other long term (current) drug therapy
CPT/HCPCS: 71045; 80048; 84484; 93005; 99283

== ENCOUNTER 2021-03-23 10:12 | Emergency (ER) | payer MEDICARE, OTHER, SELFPAY ==
[2021-03-23 10:13] VITALS: BP 164/95; PULSE 84; RESP 18; TEMP 36.8; O2SAT 97; BMI 18.8
--- NOTE | 2021-03-23 10:25 | HMH.EDGENADL ---
ED Disposition Clinical Impression: UTI (urinary tract infection) Qualifiers: Urinary tract infection type: site unspecified Hematuria presence: with hematuria Qualified Code(s): N39.0 - Urinary tract infection, site not specified; R31.9 - Hematuria, unspecified Diarrhea Qualifiers: Diarrhea type: unspecified type Qualified Code(s): R19.7 - Diarrhea, unspecified Disposition: Home, Self-Care Condition on Discharge: Good Instructions: DI for Urinary Tract Infection (UTI), DI for Diarrhea and Traveler's Diarrhea -- Adult Additional Instructions: Additional instructions for URINARY TRACT INFECTION: Take antibiotic as prescribed. See your physician in 2-3 days for follow up and culture results. Return immediately if you have an uncontrollable fever greater than 102 degrees, severe back or abdominal pain, inability to urinate, or repetitive vomiting. Prescriptions: Cefdinir [Omnicef 300mg Capsule] 300 mg PO BID #20 cap Transmission Status: Pending to [facility] Referrals: Argelia Hughes [Primary Care Provider] - - Critical Care Critical Care Time: No Attestation: On , the high probability of a clinically significant, sudden or life threatening deterioration of the following system(s) required my full and direct attention, intervention and personal management. The time I documented below is in addition to time spent performing reported procedures but includes the following listed in this critical care notation. Medical Decision Making - Jefry Inquiry Pt receiving controlled substance: No Vital Signs: 03/23/21 10:13 03/23/21 10:30 03/23/21 10:46 Temperature 98.2 F Temperature Source Oral Pulse Rate 80 75 Pulse Rate [Right] 84 Respiratory Rate 18 Blood Pressure 162/94 H 128/81 Blood Pressure [Right Arm] 164/95 H Blood Pressure Mean [Right Arm] 118 02 Sat by Pulse Oximetry 97 97 96 Oxygen Delivery Method Room Air 03/23/21 11:30 Temperature Temperature Source Pulse Rate 69 Pulse Rate [Right] Respiratory Rate Blood Pressure 140/80 Blood Pressure [Right Arm] Blood Pressure Mean [Right Arm] 02 Sat by Pulse Oximetry 97 Oxygen Delivery Method - Lab Data Lab Results 03/23/21 10:20: WBC 11.6 H, RBC 5.03, Hgb 15.0, Hct 45.0, MCV 89.5, MCH 29.7, MCHC 33.2, RDW 13.4, Plt Count 289, MPV 9.0, Neut % (Auto) 75.8, Lymph % (Auto) 19.1, [place] % (Auto) 3.2, Eos % (Auto) 1.1, Baso % (Auto) 0.9, Neut # (Auto) 8.8 H, Lymph # (Auto) 2.2, [place] # (Auto) 0.4, Eos # (Auto) 0.1, Baso # (Auto) 0.1 03/23/21 10:20: Sodium 139, Potassium 4.2, Chloride 107, Carbon Dioxide 27, Anion Gap 9.2, BUN 10, Creatinine 0.80, Estimated Creat Clear 44, Estimated GFR 72, Est GFR ( Amer) 87, Glucose 101 H, Calcium 9.0, Total Bilirubin 0.5, AST 36, ALT 33, Alkaline Phosphatase 79, Total Protein 6.8, Albumin 4.1, Globulin 2.7, Albumin/Globulin Ratio 1.5 03/23/21 11:05: Lactate 0.6 L 03/23/21 11:09: Urine Color Yellow, Urine Appearance Clear, Urine pH 6.0, Ur Specific [place] 1.020, Urine Protein Negative, Urine Glucose (UA) Negative, Urine Ketones Negative, Urine Blood Trace-i, Urine Nitrate Negative, Urine Bilirubin Negative, Urine Urobilinogen 0.2, Ur Leukocyte Esterase 2+ A, Urine RBC 3-5, Urine WBC 10-20, Ur Squamous Epith Cells 3-5, Urine Bacteria 1+ Result diagrams: 03/23/21 10:20 03/23/21 10:20 Orders (Tests/Meds): ED MEDICATIONS Generic Name Dose Route Start Last Admin Trade Name [place]selmo PRN Reason Stop Dose Admin Ceftriaxone Sodium 1 gm/ 50 mls @ 100 mls/hr 03/23/21 11:53 Sodium Chloride IV 03/23/21 12:22 ONCE ONE Protocol ORDERS Category Date Time Status Diarrhea 6-11 Panel, Cdiff PCR Stat Lab 03/23/21 10:36 Ordered Blood Culture Stat Micro 03/23/21 10:37 Received Urine Culture Stat Micro 03/23/21 11:09 Received - Radiology Data #1 Image(s): Chest Image Reviewed: Yes I have reviewed radiologist's interpretation PROCEDURE INFORMATION: Exam: XR Chest
[2021-03-23 10:30] VITALS: BP 162/94; PULSE 80; O2SAT 97
--- NOTE | 2021-03-23 10:36 | XR_ITS ---
PROCEDURE INFORMATION: Exam: XR Chest Exam date and time: 03/23/2021 10:36 AM Age: 65 years old Clinical indication: Other: Shakiness; Patient HX: Shaking since this morning, headache TECHNIQUE: Imaging protocol: XR of the chest. Views: 2 views. COMPARISON: CR XR CHEST PORTABLE 01/07/2021 4:15 PM FINDINGS: Lungs: No consolidation. Pleural spaces: No pleural effusion. No pneumothorax. Heart/Mediastinum: No cardiomegaly. Bones/joints: No acute abnormality. IMPRESSION: No acute cardiopulmonary disease.
[2021-03-23 10:44] LABS: Basophils # 0.1 K/mm3 (0-0.2); Basophils % 0.9 % (0.1-2.0); Eosinophils # 0.1 K/mm3 (0.0-0.4); Eosinophils % 1.1 % (0.1-12.0); Lymphocytes # 2.2 K/mm3 (0.7-4.5); Lymphocytes % 19.1 % (10-50); Mean Corpuscular HGB Conc 33.2 g/dL (31.8-35.4); Mean Corpuscular Hemoglobin 29.7 pg (27.0-31.2); Mean Corpuscular Volume 89.5 fl (81-99); Monocytes # 0.4 K/mm3 (0.1-1.0); Monocytes % 3.2 % (1.7-9.3); Neutrophils # 8.8 K/mm3 (1.8-7.8); Neutrophils % 75.8 % (37.0-80.0); Platelet Count 289 K/mm3 (142-424); Red Blood Count 5.03 M/mm3 (4.20-5.40); Red Cell Distribution Width 13.4 % (11.5-17.5); White Blood Count 11.6 K/mm3 (4.8-10.8)
[2021-03-23 10:46] VITALS: BP 128/81; PULSE 75; O2SAT 96
--- NOTE | 2021-03-23 10:50 | ECG_ITS ---
APPROVED REPORT Exam: Resting ECG HR:73 bpm ECG Measurements Heart Rate 73 AXES [place] 132 P 88 QRSd 92 QRS -7 QT 402 T 41 QTc 442 Conclusion Sinus rhythm with occasional premature ventricular complexes Otherwise normal ECG Electronically signed by : Jose David Us, 03/24/2021 07:53:22
[2021-03-23 11:12] LABS: Microscopic, Urine URINE MICROSCOPIC (MICROSCOPIC)
[2021-03-23 11:18] LABS: Appearance,Urine CLEAR (Clear); Bilirubin,Urine Negative (Negative); Blood, Urine TRACE-I (Negative); Color,Urine YELLOW (Yellow); Glucose,Urine (UA) Negative (Negative); Ketones,Urine Negative (Negative); Leukocyte Esterase,Urine 2+ (Negative); Nitrate,Urine Negative (Negative); Protein,Urine Negative (Negative); Urobilinogen,Urine 0.2 EU/dl (0.2)
[2021-03-23 11:20] LABS: Chloride 107 mmol/L (98-107); Sodium 139 mmol/L (136-145)
[2021-03-23 11:21] LABS: Potassium 4.2 mmoL/L (3.5-5.1)
[2021-03-23 11:23] LABS: Lactic Acid 0.6 mmol/L (0.7-2.1)
[2021-03-23 11:23] LABS: Alanine Aminotransferase 33 U/L (12-78); Albumin Level 4.1 g/dl (3.5-5.0); Albumin/Globulin Ratio 1.5 (1.1-1.8); Alkaline Phosphatase 79 U/L (38-126); Anion Gap 9.2 mEq/L (5-15); Aspartate Amino Transferase 36 U/L (14-36); Bilirubin,Total 0.5 mg/dl (0.2-1.3); Blood Urea Nitrogen 10 mg/dl (7-17); Carbon Dioxide 27 mmol/L (22.0-30.0); Creatinine Clearance Estimated 44 mL/min (50-200); Estimated Glomerular Filt Rate 72 ml/min (>60); GFR (African American) 87 ML/MIN (>60); Globulin 2.7 g/dL (1.3-3.2); Glucose 101 mg/dl (74-100); Total Protein,Serum 6.8 g/dl (6.3-8.2)
[2021-03-23 11:26] LABS: Bacteria,Urine 1+ /lpf
[2021-03-23 11:30] VITALS: BP 140/80; PULSE 69; O2SAT 97
[2021-03-23 12:12] VITALS: BP 140/80; PULSE 69; RESP 18; TEMP 36.7; O2SAT 97
== END 2021-03-23 12:14 | disposition home or self-care (01) ==
PROVIDERS: Emergency Provider Emergency Medicine; PCP Nurse Practitioner Family
DX: N30.01 Acute cystitis with hematuria (principal); F41.8 Other specified anxiety disorders; I10 Essential (primary) hypertension; Z79.899 Other long term (current) drug therapy
CPT/HCPCS: 71046; 80053; 81001; 83605; 85025; 87040; 87086; 93005; 96365; 99282

== ENCOUNTER → 2021-04-15 13:40 | Outpatient (CLI) | payer MEDICARE, OTHER, SELFPAY ==
--- NOTE | 2021-04-15 13:52 | XR_ITS ---
PROCEDURE: XR CHEST 2V CLINICAL HISTORY: chest pain COMPARISON: CT CT CHEST WO CON from 09/25/2020 CR XR CHEST PORTABLE from 01/05/2021 CR XR CHEST PORTABLE from 01/07/2021 CR XR CHEST 2V from 03/23/2021 FINDINGS: The cardiomediastinal silhouette and pulmonary vascularity are within normal limits. The lungs are clear without infiltrates, suspicious nodules, or pleural effusions. Nodular opacity overlies the left lower lobe and may be due to nipple artifact. No acute bony findings. There is a mild pectus deformity. IMPRESSION: No change with no acute finding Dictated by: Slade Quintanilla MD 04/15/2021 14:12 Slade Quintanilla MD in [place] 04/15/2021 14:12
[2021-04-15 14:50] LABS: Alanine Aminotransferase 29 U/L (12-78); Albumin Level 4.7 g/dl (3.5-5.0); Alkaline Phosphatase 85 U/L (38-126); Aspartate Amino Transferase 36 U/L (14-36); Bilirubin,Direct 0.3 mg/dl (0.0-0.4); Bilirubin,Indirect 0.5 mg/dL (0.0-0.9); Bilirubin,Total 0.8 mg/dl (0.2-1.3); Bilirubin,Unconjugated 0.6 mg/dL (0.0-1.1); Chol/HDL Ratio 2.5 (1-3.5); Cholesterol 203 mg/dl (140-200); HDL Cholesterol 81 mg/dl (40-60); Total Protein,Serum 7.6 g/dl (6.3-8.2); Triglycerides 119 mg/dl (30-150); VLDL Cholesterol 24 mg/dL (0-40)
[2021-04-15 15:01] LABS: Direct LDL Cholesterol 89.92 mg/dL (100-129)
== END ==
PROVIDERS: Visit Provider Urology
DX: F41.9 Anxiety disorder, unspecified (principal); I25.10 Atherosclerotic heart disease of native coronary artery without angina pectoris; R06.00 Dyspnea, unspecified; R00.2 Palpitations
CPT/HCPCS: 36415; 71046; 80061; 80076

== ENCOUNTER 2021-04-18 19:10 | Emergency (ER) | payer MEDICARE, OTHER, SELFPAY ==
[2021-04-18] VITALS (9 sets, daily range): BP systolic 130–145; BP diastolic 82–96; PULSE 58–80; RESP 12–16; TEMP 37.1; O2SAT 95–99; BMI 18.7
--- NOTE | 2021-04-18 19:05 | ECG_ITS ---
APPROVED REPORT Exam: Resting ECG HR:84 bpm ECG Measurements Heart Rate 84 AXES KS 142 P 72 QRSd 94 QRS 57 QT 402 T 65 QTc 475 Conclusion Sinus rhythm with occasional premature ventricular complexes Otherwise normal ECG Electronically signed by : Jose David Us, 04/19/2021 15:58:36
--- NOTE | 2021-04-18 19:11 | HMH.EDGENADL ---
ED Disposition Condition on Discharge: Good - Critical Care Critical Care Time: No <GemmaBarrington - Last Filed: 04/18/21 20:06> Condition on Discharge: Good <Torsten Wilkerson - Last Filed: 04/18/21 23:03> Clinical Impression: Atypical chest pain Disposition: Home, Self-Care Referrals: Argelia Hughes [Primary Care Provider] - Attestation: On 04/18/21, the high probability of a clinically significant, sudden or life threatening deterioration of the following system(s) required my full and direct attention, intervention and personal management. The time I documented below is in addition to time spent performing reported procedures but includes the following listed in this critical care notation. Medical Decision Making - Medical Records Medical records reviewed: Yes: I reviewed the patient's medical records. Comment: Reviewed recent cardiology office visit 04/15/2021. Reported intermittent chest pain since her last visit. Chest x-ray ordered, EKG performed, return to clinic in 1 week. Reviewed previous stress Myoview September 2020, see results below. Repeated visits for chest pain since September 2020. She is also had a chest CT which showed coronary artery calcifications, she has had an echocardiogram that was unremarkable. - Jefry Inquiry Pt receiving controlled substance: No - Lab Data Result diagrams: 04/18/21 19:10 04/18/21 19:10 - Radiology Data #1 Image(s): Chest Image Reviewed: Yes I reviewed the patient's radiology image, Yes I have reviewed radiologist's interpretation <GemmaBarrington - Last Filed: 04/18/21 20:06> - Lab Data Result diagrams: 04/18/21 19:10 04/18/21 19:10 <Torsten Wilkerson - Last Filed: 04/18/21 23:03> Vital Signs: 04/18/21 19:12 04/18/21 19:31 04/18/21 20:00 Temperature 98.7 F Temperature Source Oral Pulse Rate 77 69 Pulse Rate [Right] 80 Respiratory Rate 14 15 14 Blood Pressure 142/85 H 137/88 Blood Pressure [Right Arm] 139/86 Blood Pressure Mean Blood Pressure Mean [Right Arm] 103 Blood Pressure Source [Right Arm] Automatic Cuff Blood Pressure Position [Right Arm] Supine 02 Sat by Pulse Oximetry 99 96 96 Oxygen Delivery Method Room Air 04/18/21 20:30 04/18/21 21:00 04/18/21 21:30 Temperature Temperature Source Pulse Rate 73 69 74 Pulse Rate [Right] Respiratory Rate 14 12 14 Blood Pressure 130/89 143/90 H 140/96 H Blood Pressure [Right Arm] Blood Pressure Mean 109 113 117 Blood Pressure Mean [Right Arm] Blood Pressure Source [Right Arm] Blood Pressure Position [Right Arm] 02 Sat by Pulse Oximetry 96 96 95 Oxygen Delivery Method Room Air Room Air Room Air 04/18/21 22:00 04/18/21 22:30 Temperature Temperature Source Pulse Rate 60 58 L Pulse Rate [Right] Respiratory Rate 12 13 Blood Pressure 141/88 H 145/90 H Blood Pressure [Right Arm] Blood Pressure Mean 110 Blood Pressure Mean [Right Arm] Blood Pressure Source [Right Arm] Blood Pressure Position [Right Arm] 02 Sat by Pulse Oximetry 97 97 Oxygen Delivery Method Room Air - Lab Data Lab Results 04/18/21 19:10: WBC 10.8, RBC 4.73, Hgb 14.4, Hct 42.5, MCV 89.9, MCH 30.4, MCHC 33.8, RDW 13.1, Plt Count 251, MPV 8.4, Neut % (Auto) 46.3, Lymph % (Auto) 47.0, [place] % (Auto) 4.8, Eos % (Auto) 0.7, Baso % (Auto) 1.2, Neut # (Auto) 5.0, Lymph # (Auto) 5.1 H, [place] # (Auto) 0.5, Eos # (Auto) 0.1, Baso # (Auto) 0.1 04/18/21 19:10: Sodium 138, Potassium 3.2 L, Chloride 101, Carbon Dioxide 27, Anion Gap 13.2, BUN 15, Creatinine 0.90, Estimated Creat Clear 44, Estimated GFR 63, Est GFR ( Amer) 76, Glucose 96, Calcium 8.8, Troponin I < 0.01 04/18/21 22:15: Troponin I < 0.01 Orders (Tests/Meds): ED MEDICATIONS Discontinued Medications Generic Name Dose Route Start Last Admin Trade Name Freq PRN Reason Stop Dose Admin Aspirin 243 mg 04/18/21 19:32 04/18/21 19:34 Aspirin 81mg Chewable Tablet PO 04/18/21 19:33 243 mg
--- NOTE | 2021-04-18 19:26 | XR_ITS ---
PROCEDURE INFORMATION: Exam: XR Chest Exam date and time: 04/18/21 07:26 PM Age: 65 years old Clinical indication: Left-sided; Patient HX: Left sided chest pain TECHNIQUE: Imaging protocol: XR of the chest. Views: 2 views. COMPARISON: CR XR CHEST 2V 04/15/21 01:54 PM FINDINGS: Lungs: Unremarkable. No consolidation. Pleural spaces: Unremarkable. No pleural effusion. No pneumothorax. Heart/Mediastinum: Unremarkable. No cardiomegaly. Bones/joints: Unremarkable. IMPRESSION: No acute findings.
--- NOTE | 2021-04-18 19:33 | PC.NURSE ---
Pt took an 81 mg ASA today, 3 more given in ED
[2021-04-18 19:44] LABS: Basophils # 0.1 K/mm3 (0-0.2); Basophils % 1.2 % (0.1-2.0); Eosinophils # 0.1 K/mm3 (0.0-0.4); Eosinophils % 0.7 % (0.1-12.0); Hematocrit 42.5 % (37.0-47.0); Hemoglobin 14.4 g/dL (12.2-16.2); Lymphocytes # 5.1 K/mm3 (0.7-4.5); Mean Corpuscular HGB Conc 33.8 g/dL (31.8-35.4); Mean Corpuscular Hemoglobin 30.4 pg (27.0-31.2); Mean Corpuscular Volume 89.9 fl (81-99); Mean Platelet Volume 8.4 fl (7.4-10.4); Monocytes # 0.5 K/mm3 (0.1-1.0); Monocytes % 4.8 % (1.7-9.3); Neutrophils % 46.3 % (37.0-80.0); Platelet Count 251 K/mm3 (142-424); Red Blood Count 4.73 M/mm3 (4.20-5.40); Red Cell Distribution Width 13.1 % (11.5-17.5); White Blood Count 10.8 K/mm3 (4.8-10.8)
[2021-04-18 19:45] LABS: Anion Gap 13.2 mEq/L (5-15); Blood Urea Nitrogen 15 mg/dl (7-17); Calcium 8.8 mg/dl (8.4-10.2); Carbon Dioxide 27 mmol/L (22.0-30.0); Chloride 101 mmol/L (98-107); Creatinine Clearance Estimated 44 mL/min (50-200); Estimated Glomerular Filt Rate 63 ml/min (>60); GFR (African American) 76 ML/MIN (>60); Glucose 96 mg/dl (74-100); Potassium 3.2 mmoL/L (3.5-5.1); Sodium 138 mmol/L (136-145)
[2021-04-18 20:01] LABS: Troponin I < 0.01 ng/ml (0.00-0.034)
[2021-04-18 22:45] LABS: Troponin I < 0.01 ng/ml (0.00-0.034)
== END 2021-04-18 23:11 | disposition home or self-care (01) ==
PROVIDERS: Emergency Provider Emergency Medicine; PCP Nurse Practitioner Family
DX: R07.89 Other chest pain (principal); F41.9 Anxiety disorder, unspecified; E78.5 Hyperlipidemia, unspecified; I10 Essential (primary) hypertension; Z87.891 Personal history of nicotine dependence
CPT/HCPCS: 71046; 80048; 84484; 85025; 93005; 96365; 99283

== ENCOUNTER → 2021-04-22 15:33 | Outpatient (CLI) | payer MEDICARE, OTHER, SELFPAY | PROVIDERS: Visit Provider Nurse Practitioner Family | DX: F41.9 Anxiety disorder, unspecified (principal); I25.118 Atherosclerotic heart disease of native coronary artery with other forms of angina pectoris; R06.00 Dyspnea, unspecified; Z01.818 Encounter for other preprocedural examination; Z11.52 Encounter for screening for COVID-19 | CPT/HCPCS: U0003 ==

== ENCOUNTER 2021-04-24 08:22 | Day surgery (SDC) | payer MEDICARE, OTHER, SELFPAY ==
[2021-04-24] VITALS (13 sets, daily range): BP systolic 81–146; BP diastolic 51–101; PULSE 51–77; RESP 13–18; TEMP 36.8–36.9; O2SAT 95–98; BMI 19.9
--- NOTE | 2021-04-24 | IR_ITS ---
APPROVED REPORT Patient Location: Outpatient PROCEDURES Left heart catheterization Left ventriculogram Selective coronary angiogram INDICATION Angina pectoris, Calcification on coronary CT, Informed consent was obtained prior to the procedure. COMPLICATIONS None Estimated Blood Loss: Less than 10 mls TECHNIQUE One percent lidocaine used to anesthetize the right anterior aspect of the wrist. The right radial artery was accessed via the Seldinger technique. A 6 Malay sheath was placed in the right radial artery. 2.5 mg of verapamil, 800 mcg of nitroglycerin, 1mg Lidocaine and 5000 U Heparin were given through the arterial sheath. The trap catheter was also used to perform left heart catheterization, left ventriculogram and selective coronary angiogram. At the end of the procedure the sheath was removed good hemostasis was achieved using Traclet band, patient was transferred to the postop holding area in stable condition. ANGIOGRAPHIC RESULTS The left main artery Normal The left anterior descending artery Normal The circumflex artery Small nondominant normal The right coronary artery Massively large dominant and normal The RYAN ventriculogram reveals Normal 65% The left ventricular end-diastolic pressure 10 mmHg IMPRESSION Normal coronary arteries Normal ejection fraction Normal left ventricular end-diastolic pressure PLAN 1. Evaluate for noncardiac symptoms Electronically signed by : Shawn Wolf, 04/24/2021 12:00:45
== END 2021-04-24 14:39 | disposition home or self-care (01) ==
LOC: CATHLAB 08:24
PROVIDERS: PCP Nurse Practitioner Family; Visit Provider Internal Medicine
DX: I25.118 Atherosclerotic heart disease of native coronary artery with other forms of angina pectoris (principal); F41.9 Anxiety disorder, unspecified; R06.00 Dyspnea, unspecified; E78.5 Hyperlipidemia, unspecified; Z79.899 Other long term (current) drug therapy
CPT/HCPCS: 93458; 99152; 99153; C1725; C1769; J1644; Q9967

== ENCOUNTER 2021-05-12 15:20 | Emergency (ER) | payer MEDICARE, OTHER, SELFPAY ==
[2021-05-12 15:21] VITALS: BP 159/94; PULSE 78; RESP 24; TEMP 37; O2SAT 97; BMI 18.3
[2021-05-12 16:30] VITALS: BP 155/88; PULSE 66; RESP 16; O2SAT 97
--- NOTE | 2021-05-12 16:57 | HMH.EDGENADL ---
ED Disposition Clinical Impression: Burning sensation, Shakiness Disposition: Home, Self-Care Condition on Discharge: Good Additional Instructions: See your primary care provider tomorrow as scheduled. Referrals: Argelia Hughes [Primary Care Provider] - - Critical Care Critical Care Time: No Attestation: On 05/12/21, the high probability of a clinically significant, sudden or life threatening deterioration of the following system(s) required my full and direct attention, intervention and personal management. The time I documented below is in addition to time spent performing reported procedures but includes the following listed in this critical care notation. Medical Decision Making - Jefry Inquiry Pt receiving controlled substance: No Vital Signs: 05/12/21 15:21 05/12/21 16:30 05/12/21 17:00 Temperature 98.6 F Temperature Source Oral Pulse Rate 66 70 Pulse Rate [Right] 78 Respiratory Rate 24 16 16 Blood Pressure 155/88 H 161/92 H Blood Pressure [Right Arm] 159/94 H Blood Pressure Mean 110 115 Blood Pressure Mean [Right Arm] 115 Blood Pressure Source [Right Arm] Automatic Cuff 02 Sat by Pulse Oximetry 97 97 94 L Oxygen Delivery Method Room Air - Lab Data Lab Results 05/12/21 15:50: WBC 9.9, RBC 4.87, Hgb 14.6, Hct 43.5, MCV 89.2, MCH 29.9, MCHC 33.5, RDW 13.4, Plt Count 249, MPV 8.3, Neut % (Auto) 68.6, Lymph % (Auto) 26.0, [place] % (Auto) 4.2, Eos % (Auto) 0.3, Baso % (Auto) 0.9, Neut # (Auto) 6.8, Lymph # (Auto) 2.6, [place] # (Auto) 0.4, Eos # (Auto) 0.0, Baso # (Auto) 0.1 05/12/21 15:50: Sodium 139, Potassium 3.8, Chloride 104, Carbon Dioxide 25, Anion Gap 13.8, BUN 11, Creatinine 0.90, Estimated Creat Clear 43, Estimated GFR 63, Est GFR ( Amer) 76, Glucose 109 H, Calcium 9.2, Troponin I < 0.01 Result diagrams: 05/12/21 15:50 05/12/21 15:50 Orders (Tests/Meds): ORDERS Category Date Time Status Troponin I Q3H Lab 05/12/21 20:00 Ordered Troponin I Q3H Lab 05/12/21 23:00 Ordered ECG Request by /Lilian Stat Y 05/12/21 16:59 Ordered - ECG Data Tracing #1 EKG interpreted by Barrington Menendez MD: Rhythm: sinus Rate: 72 Follett: normal Ectopy: none Conduction: normal ST Segment Changes: none T Wave Changes: none Q Waves: none No evidence of acute ischemia or injury Normal electrocardiogram Medical Decision Narrative: Blood pressure is consistently elevated in the emergency department and I advised her she will need to follow-up with her primary care provider for this tomorrow. She does not need acute intervention. General Adult HPI - General Chief complaint: Anxiety Stated complaint: KIM,Burning all over body,shanking Time Seen by Provider: 05/12/21 16:58 Mode of Arrival: Ambulatory Limitations: No Limitations Description of Symptoms (Recalled from ER Triage Doc. by RN): patient states that she has had an intermittent burning sensation in her chest since this am, plus a continuous headache 6/10 pain. patient states that she was on pantoprazole, but quit taking medication because she read online that youre only supposed to take that medication for 8 weeks. patient states now that her burning sensation is now localized in her chest area. patient also states that she started jerking and uncontrollably shaking since around 1500 today and cant stop it. - History of Present Illness HPI narrative: States that off and on all day today she has had a sensation that her whole body is burning, seems to particularly bother her in her armpits. Also shakiness. She has been getting this symptom off and on for six or 7 months, but says it is just worse today. Denies chest pain. The patient is known to me for multiple previous emergency department visits. She has had cardiology work-up, recent normal cardiac cath in March. She also takes medications for GERD, but says that she stopped taking that 4 days ago. She is also on anxiety medication. She has an appoint wi
--- NOTE | 2021-05-12 16:59 | ECG_ITS ---
APPROVED REPORT Exam: Resting ECG HR:72 bpm ECG Measurements Heart Rate 72 AXES PA 144 P 78 QRSd 92 QRS 75 QT 424 T 73 QTc 464 Conclusion Normal sinus rhythm Normal ECG Electronically signed by : Jose David Us, 05/13/2021 22:12:10
[2021-05-12 17:00] VITALS: BP 161/92; PULSE 70; RESP 16; O2SAT 94
[2021-05-12 17:15] LABS: Basophils # 0.1 K/mm3 (0-0.2); Basophils % 0.9 % (0.1-2.0); Eosinophils % 0.3 % (0.1-12.0); Hematocrit 43.5 % (37.0-47.0); Hemoglobin 14.6 g/dL (12.2-16.2); Lymphocytes # 2.6 K/mm3 (0.7-4.5); Mean Corpuscular HGB Conc 33.5 g/dL (31.8-35.4); Mean Corpuscular Hemoglobin 29.9 pg (27.0-31.2); Mean Corpuscular Volume 89.2 fl (81-99); Mean Platelet Volume 8.3 fl (7.4-10.4); Monocytes # 0.4 K/mm3 (0.1-1.0); Monocytes % 4.2 % (1.7-9.3); Neutrophils # 6.8 K/mm3 (1.8-7.8); Neutrophils % 68.6 % (37.0-80.0); Platelet Count 249 K/mm3 (142-424); Red Blood Count 4.87 M/mm3 (4.20-5.40); Red Cell Distribution Width 13.4 % (11.5-17.5); White Blood Count 9.9 K/mm3 (4.8-10.8)
[2021-05-12 18:11] LABS: Chloride 104 mmol/L (98-107); Sodium 139 mmol/L (136-145)
[2021-05-12 18:12] LABS: Potassium 3.8 mmoL/L (3.5-5.1)
[2021-05-12 18:14] LABS: Blood Urea Nitrogen 11 mg/dl (7-17); Creatinine Clearance Estimated 43 mL/min (50-200); Estimated Glomerular Filt Rate 63 ml/min (>60); GFR (African American) 76 ML/MIN (>60)
[2021-05-12 18:15] LABS: Anion Gap 13.8 mEq/L (5-15); Calcium 9.2 mg/dl (8.4-10.2); Carbon Dioxide 25 mmol/L (22.0-30.0); Glucose 109 mg/dl (74-100)
[2021-05-12 18:30] LABS: Troponin I < 0.01 ng/ml (0.00-0.034)
[2021-05-12 18:42] VITALS: BP 143/80; PULSE 71; RESP 18; TEMP 36.7; O2SAT 97
== END 2021-05-12 19:06 | disposition home or self-care (01) ==
PROVIDERS: Emergency Provider Emergency Medicine; PCP Nurse Practitioner Family
DX: R20.8 Other disturbances of skin sensation (principal); R25.1 Tremor, unspecified; K21.9 Gastro-esophageal reflux disease without esophagitis; F41.9 Anxiety disorder, unspecified; I10 Essential (primary) hypertension; E78.5 Hyperlipidemia, unspecified; E03.9 Hypothyroidism, unspecified; Z79.899 Other long term (current) drug therapy
CPT/HCPCS: 80048; 84484; 85025; 93005; 99283

== ENCOUNTER 2021-06-25 14:10 | Emergency (ER) | payer MEDICARE, OTHER, SELFPAY ==
[2021-06-25 15:45] VITALS: BP 180/104; PULSE 90; RESP 19; TEMP 37; O2SAT 96; BMI 19.5
--- NOTE | 2021-06-25 16:12 | HMH.EDUTC ---
[facility] [place] Disposition Clinical Impression: Exposure to COVID-19 virus Headache Qualifiers: Headache type: unspecified Headache chronicity pattern: unspecified pattern Intractability: not intractable Qualified Code(s): R51.9 - Headache, unspecified Disposition: Home, Self-Care Condition on Discharge: Good Instructions: DI for Headache, DI for COVID-19 (Suspected or Confirmed ), Preventing the Spread of Coronavirus Discharge Instructions Additional Instructions: Go home and rest and try to sleep off remaining of your headache Make sure to follow up with your Family Doctor and discuss where you said that at night you sometimes have hallucinations Return if needed Straight to ER if any life threatening symptoms Referrals: Argelia Hughes [Primary Care Provider] - As needed Time of Disposition: 16:58 Medical Decision Making - Jefry Inquiry Pt receiving controlled substance: No Jefry was queried for this patient: No Vital Signs: 06/25/21 15:45 06/25/21 16:15 06/25/21 16:21 Temperature 98.6 F 98.6 F Temperature Source Oral Pulse Rate 90 Pulse Rate [Right Brachial] 90 Respiratory Rate 19 19 Blood Pressure 164/72 H Blood Pressure [Right Arm] 180/104 H 176/86 H Blood Pressure Mean [Right Arm] 129 116 Blood Pressure Source [Right Arm] Automatic Cuff Automatic Cuff Blood Pressure Position [Right Arm] Sitting Sitting 02 Sat by Pulse Oximetry 96 Oxygen Delivery Method Room Air 06/25/21 16:30 Temperature Temperature Source Pulse Rate Pulse Rate [Right Brachial] Respiratory Rate Blood Pressure Blood Pressure [Right Arm] 164/72 H Blood Pressure Mean [Right Arm] 102 Blood Pressure Source [Right Arm] Automatic Cuff Blood Pressure Position [Right Arm] Sitting 02 Sat by Pulse Oximetry Oxygen Delivery Method Orders (Tests/Meds): ED MEDICATIONS Discontinued Medications Generic Name Dose Route Start Last Admin Trade Name Freq PRN Reason Stop Dose Admin Ketorolac Tromethamine 30 mg 06/25/21 16:24 06/25/21 16:29 Ketorolac 60mg/2ml Vial IM 06/25/21 16:25 30 mg ONCE ONE Administration ORDERS Category Date Time Status Covid-19 Nasal PCR ([facility]) Routine Lab 06/25/21 16:16 Received Medical Decision Narrative: Patient aware of surrounding and where she is states that when she has hallucinations it is at night States that she is not having them now Discussed transfer to the ED for further evaluation of headache due to blood pressure being elevated and PMH and patient declined States that it is time for her blood pressure medication and she took it in the [facility] and states that she is worried that she may have COVID due to son in law having it and she was around him and wanted to get tested because someone told her that headache is a symptom of it Medication discussed with Pharmacy patient has taken Toradol in the past Patient state that headache is almost gone now and she is feeling much better Patient still alert and able to advise where she is, what time it is and her name Recommended again transfer to the ED for more extensive workup and evaluation and patient declined blood pressure now appears to be coming down 164/72 and patient state that she wanted to go home Patient advised that she has been taking Benadryl at night to help her rest informed patient to make sure to discuss this with her PCP as this maybe aiding to her hallucinations and possibly even the cause them [facility] [place] HPI - General Stated complaint: headache Time Seen by Provider: 06/25/21 16:12 Mode of Arrival: Ambulatory Source of Information: Patient Limitations: No Limitations Description of Symptoms (Recalled from Triage Doc. by RN): PATIENT C/O NON-STOP HEADACHE THAT STARTED LAST NIGHT, ALONG WITH HALLUCINATIONS AT NIGHT. HEENT Symptoms (Recalled from RN notes): Yes Resp Symptoms (Recalled from RN notes): No Skin Symptoms (Recalled from RN notes): No MS Symptoms (Recalled from RN notes): No Functional Status (Recall
[2021-06-25 16:15] VITALS: BP 176/86
[2021-06-25 16:21] VITALS: BP 164/72; PULSE 90; RESP 19; TEMP 37; O2SAT 96
[2021-06-25 16:30] VITALS: BP 164/72
--- NOTE | 2021-06-26 17:50 | PC.NURSE ---
RELAYED POSITIVE COVID RESULTS.
== END 2021-06-25 17:00 | disposition home or self-care (01) ==
PROVIDERS: Emergency Provider Nurse Practitioner; PCP Nurse Practitioner Family
DX: U07.1 COVID-19 (principal); I10 Essential (primary) hypertension; E78.5 Hyperlipidemia, unspecified; F41.8 Other specified anxiety disorders; Z87.891 Personal history of nicotine dependence
CPT/HCPCS: G0463; 96372; 99202; U0003

== ENCOUNTER 2021-06-26 18:36 | Emergency (ER) | payer MEDICARE, OTHER, SELFPAY ==
--- NOTE | 2021-06-26 18:34 | ECG_ITS ---
APPROVED REPORT Exam: Resting ECG HR:79 bpm ECG Measurements Heart Rate 79 AXES [place] 128 P 38 QRSd 84 QRS 40 QT 412 T 64 QTc 472 Conclusion Normal sinus rhythm Nonspecific ST abnormality Abnormal ECG Electronically signed by : Jose David Us MD 07/01/2021 21:06:32
[2021-06-26 18:36] VITALS: BP 187/103; PULSE 80; RESP 13; TEMP 36.9; O2SAT 95; BMI 19.5
[2021-06-26 18:54] LABS: Basophils # 0.1 K/mm3 (0-0.2); Basophils % 1.3 % (0.1-2.0); Eosinophils % 0.5 % (0.1-12.0); Hematocrit 44.3 % (37.0-47.0); Hemoglobin 14.6 g/dL (12.2-16.2); Lymphocytes # 1.8 K/mm3 (0.7-4.5); Lymphocytes % 25.3 % (10-50); Mean Corpuscular Hemoglobin 30.5 pg (27.0-31.2); Mean Corpuscular Volume 92.3 fl (81-99); Mean Platelet Volume 8.7 fl (7.4-10.4); Monocytes # 0.6 K/mm3 (0.1-1.0); Monocytes % 9.1 % (1.7-9.3); Neutrophils # 4.4 K/mm3 (1.8-7.8); Neutrophils % 63.7 % (37.0-80.0); Platelet Count 212 K/mm3 (142-424); Red Cell Distribution Width 14.6 % (11.5-17.5); White Blood Count 6.9 K/mm3 (4.8-10.8)
[2021-06-26 18:59] LABS: Anion Gap 12.5 mEq/L (5-15); Blood Urea Nitrogen 10 mg/dl (7-17); Calcium 8.7 mg/dl (8.4-10.2); Carbon Dioxide 27 mmol/L (22.0-30.0); Chloride 104 mmol/L (98-107); Creatinine Clearance Estimated 45 mL/min (50-200); Estimated Glomerular Filt Rate 63 ml/min (>60); GFR (African American) 76 ML/MIN (>60); Glucose 90 mg/dl (74-100); Potassium 3.5 mmoL/L (3.5-5.1); Sodium 140 mmol/L (136-145)
--- NOTE | 2021-06-26 19:04 | HMH.EDGENADL ---
ED Disposition Clinical Impression: COVID-19 Disposition: Home, Self-Care Condition on Discharge: Good Instructions: DI for COVID-19 (Suspected or Confirmed ) Referrals: Argelia Hughes [Primary Care Provider] - - Critical Care Critical Care Time: No Attestation: On 06/26/21, the high probability of a clinically significant, sudden or life threatening deterioration of the following system(s) required my full and direct attention, intervention and personal management. The time I documented below is in addition to time spent performing reported procedures but includes the following listed in this critical care notation. Medical Decision Making - Medical Records Medical records reviewed: Yes: I reviewed the patient's medical records. - Jefry Inquiry Pt receiving controlled substance: No Vital Signs: 06/26/21 18:36 Temperature 98.4 F Temperature Source Oral Pulse Rate [Right Radial] 80 Respiratory Rate 13 Blood Pressure [Right Arm] 187/103 H Blood Pressure Mean [Right Arm] 131 Blood Pressure Source [Right Arm] Automatic Cuff Blood Pressure Position [Right Arm] Sitting 02 Sat by Pulse Oximetry 95 Oxygen Delivery Method Room Air - Lab Data Lab Results 06/26/21 18:42: WBC 6.9, RBC 4.80, Hgb 14.6, Hct 44.3, MCV 92.3, MCH 30.5, MCHC 33.0, RDW 14.6, Plt Count 212, MPV 8.7, Neut % (Auto) 63.7, Lymph % (Auto) 25.3, [place] % (Auto) 9.1, Eos % (Auto) 0.5, Baso % (Auto) 1.3, Neut # (Auto) 4.4, Lymph # (Auto) 1.8, [place] # (Auto) 0.6, Eos # (Auto) 0.0, Baso # (Auto) 0.1 06/26/21 18:42: Sodium 140, Potassium 3.5, Chloride 104, Carbon Dioxide 27, Anion Gap 12.5, BUN 10, Creatinine 0.90, Estimated Creat Clear 45, Estimated GFR 63, Est GFR ( Amer) 76, Glucose 90, Calcium 8.7, Troponin I < 0.01 Result diagrams: 06/26/21 18:42 06/26/21 18:42 Orders (Tests/Meds): ORDERS Category Date Time Status Troponin I Q3H Lab 09/01/21 22:00 Ordered Troponin I Q3H Lab 06/27/21 01:00 Ordered Medical Decision Narrative: 66-year-old female presents the ED today for evaluation of Covid concerns. Patient is endorsing chest pain has a recent cardiac cath that is negative. Differential diagnosis includes ACS, PE, pneumonia, pleural effusion, COVID-19 related pneumonia., CBC CMP troponin for further evaluation. Has declined chest x-ray, states that her proofer black and white has told her that she has had a lot of chest x-rays and that she should not get any more. Reiterated that we are unable to diagnose majority of pulmonary conditions that could be emergent without this, the patient states she understands this risk and does not want to have a chest x-ray. I have also discussed the requirement of the patient possibly for having a CT pulmonary embolism study, which would be more radiation than her chest x-ray and she has declined this as well. Have had extensive discussion with the patient regarding risk of pulmonary embolism, symptoms, none of which she meets better we are unable to rule out since her age without D-dimer testing and pulmonary embolism study CT. Patient's labs have been obtained, troponin within normal limits, no significant elevation of creatinine, liver enzymes within normal limits, do not believe patient is dehydrated. Have extensive discussion return precautions given to the patient for worsening symptoms at home, specifically discussed worsening shortness of breath with exertion, chest pain, abdominal pain, nausea or vomiting. General Adult HPI - General Chief complaint: PAIN Stated complaint: Chest Pain, COVID + Time Seen by Provider: 06/26/21 19:04 Mode of Arrival: Ambulatory Limitations: No Limitations Description of Symptoms (Recalled from ER Triage Doc. by RN): Pt c/o CP that began today after she called to receive her COVID test results, which were positive. Pt denies cardiac history. Pt states that she was told that her blood becomes thicker with COVID and increases her risk of blood clots that can go to he
[2021-06-26 19:12] LABS: Troponin I < 0.01 ng/ml (0.00-0.034)
[2021-06-26 20:55] VITALS: BP 156/95; PULSE 77; RESP 20; TEMP 37.2; O2SAT 95
== END 2021-06-26 20:57 | disposition home or self-care (01) ==
PROVIDERS: Emergency Provider Student in an Organized Health Care Education/Training Program; PCP Nurse Practitioner Family
DX: U07.1 COVID-19 (principal); F41.8 Other specified anxiety disorders; E78.5 Hyperlipidemia, unspecified; I10 Essential (primary) hypertension; Z87.891 Personal history of nicotine dependence; Z79.899 Other long term (current) drug therapy
CPT/HCPCS: 80048; 84484; 85025; 93005; 99282

== ENCOUNTER 2021-07-14 12:50 | Emergency (ER) | payer MEDICARE, OTHER, SELFPAY ==
[2021-07-14 14:48] VITALS: BP 151/96; PULSE 80; RESP 18; TEMP 36.7; O2SAT 98; BMI 18.8
--- NOTE | 2021-07-14 14:56 | HMH.EDUTC ---
[facility] [place] Clinical Impression: Generalized body aches Disposition: Home, Self-Care Condition on Discharge: Good Instructions: DI for Headache Additional Instructions: Over the counter Tylenol may help with body aches and headache Follow up with your Family Doctor for further evaluation and treatment Return if needed Straight to ER if any life threatening symptoms Referrals: Argelia Hughes [Primary Care Provider] - As needed Time of Disposition: 15:00 Medical Decision Making - Jefry Inquiry Pt receiving controlled substance: No Jefry was queried for this patient: No Vital Signs: 07/14/21 14:48 Temperature 98.1 F Temperature Source Oral Pulse Rate [Right Brachial] 80 Respiratory Rate 18 Blood Pressure [Right Arm] 151/96 H Blood Pressure Mean [Right Arm] 114 Blood Pressure Source [Right Arm] Automatic Cuff Blood Pressure Position [Right Arm] Sitting 02 Sat by Pulse Oximetry 98 Oxygen Delivery Method Room Air Orders (Tests/Meds): ED MEDICATIONS Discontinued Medications Generic Name Dose Route Start Last Admin Trade Name Freq PRN Reason Stop Dose Admin Ketorolac Tromethamine 30 mg 07/14/21 14:58 07/14/21 15:05 Ketorolac 60mg/2ml Vial IM 07/14/21 14:59 30 mg ONCE ONE Administration [facility] [place] HPI - General Stated complaint: headache, soa, congestin loss of taste and smell Time Seen by Provider: 07/14/21 14:56 Mode of Arrival: Ambulatory Source of Information: Patient Description of Symptoms (Recalled from Triage Doc. by RN): feel bad all over HEENT Symptoms (Recalled from RN notes): No Resp Symptoms (Recalled from RN notes): No Skin Symptoms (Recalled from RN notes): No MS Symptoms (Recalled from RN notes): No Functional Status (Recalled from RN notes): yes - History of Present Illness Provider Complaint: Patient state that she recently had COVID and that she was given and shot for her headache and it worked really well States that today she is having body aches and hurting all over and wanted to come in and get another shot to help her Denies any other symptoms - Related Data Home Medications Medication Instructions Recorded Confirmed aspirin 81 mg tablet,delayed 81 mg PO DAILY 09/25/20 05/07/21 release atorvastatin 10 mg tablet 10 mg PO DAILY tab 09/25/20 05/07/21 hydroxyzine pamoate 25 mg capsule 25 mg PO TID PRN cap 09/25/20 05/07/21 levothyroxine 25 mcg tablet 25 mcg PO DAILY tab 09/25/20 05/07/21 lisinopril 10 mg tablet 10 mg PO BID tab 09/25/20 05/07/21 lorazepam 0.5 mg tablet 0.5 mg PO BID PRN tab 01/28/21 05/07/21 Omeprazole 40 mg PO DAILY 04/24/21 05/07/21 Previous Rx's Medication Instructions Recorded bisoprolol fumarate 5 mg tablet 5 mg PO DAILY #90 tab 05/07/21 Allergies Allergy/AdvReac Type Severity Reaction Status Date / Time isosorbide AdvReac chest pain Verified 07/14/21 14:56 - Worker's Comp Is this a Worker's Comp case?: No Is this an H Worker's Comp?: No Is this a [place] Worker's Comp?: No [facility] History - Hepatitis A Screen Drug use history?: No High risk sexual behaviors?: No History of sexually transmitted infection?: No Currently employed?: No Childcare worker?: No Do you have indoor plumbing?: Yes Do you have electricity?: Yes Attestation statement:: This patient has been screened for Hepatitis A risk factors. Medical History: Reports:: Anxiety, Depression, Hyperlipidemia, Hypertension Denies:: Diabetes Mellitus Type 1, Diabetes Mellitus Type 2, Seizures Other Medical History: Reports: Thyroid Disease Other Surgeries: Yes: Cancer Surgery, Cardiac Catheterization, Colonoscopy, Hysterectomy-Partial Amputation: No Fractures: No - Social History Smoking Status: Former smoker Tobacco Type: cigarettes # Packs/Day (cigarettes): 1 #Yrs smoked (if former smoker): 20 Alcohol Intake: never Alcohol Intake Frequency:: a few times a week Substance Use Type: denies use Occupational Status: other Housing: house
[2021-07-14 15:50] VITALS: BP 151/96; PULSE 80; RESP 18; TEMP 36.7; O2SAT 98
== END 2021-07-14 15:50 | disposition home or self-care (01) ==
PROVIDERS: Emergency Provider Nurse Practitioner; PCP Nurse Practitioner Family
DX: R51.9 Headache, unspecified (principal); R43.9 Unspecified disturbances of smell and taste; I10 Essential (primary) hypertension; E78.5 Hyperlipidemia, unspecified; Z87.891 Personal history of nicotine dependence; M79.18 Myalgia, other site
CPT/HCPCS: G0463; 96372; 99202

== ENCOUNTER 2021-08-13 11:56 | Emergency (ER) | payer MEDICARE, OTHER, SELFPAY ==
[2021-08-13 13:28] VITALS: BP 174/103; PULSE 71; RESP 16; TEMP 36.8; O2SAT 98; BMI 18.8
--- NOTE | 2021-08-13 13:37 | HMH.EDUTC ---
[facility] [place] Clinical Impression: Chest pain Qualifiers: Chest pain type: unspecified Qualified Code(s): R07.9 - Chest pain, unspecified Disposition: Still a Patient Condition on Discharge: Fair Referrals: Argelia Hughes [Primary Care Provider] - Time of Disposition: 13:45 Medical Decision Making - Medical Records Medical records reviewed: No: I reviewed the patient's medical records. - Jefry Inquiry Pt receiving controlled substance: No Vital Signs: 08/13/21 13:28 Temperature 98.2 F Temperature Source Oral Pulse Rate [Left] 71 Respiratory Rate 16 Blood Pressure [Right Arm] 174/103 H Blood Pressure Mean [Right Arm] 126 02 Sat by Pulse Oximetry 98 Medical Decision Narrative: She was transferred to the er for her complaints of chest pain and her elevated blood pressure [facility] [place] - General Stated complaint: bloated Time Seen by Provider: 08/13/21 13:37 Mode of Arrival: Ambulatory Source of Information: Patient Limitations: No Limitations Description of Symptoms (Recalled from Triage Doc. by RN): pt states she has been having intermittant L sided chest pain x1 year. pt states it happens 3-4x per day. pt has been seen in the ED here previously for the same thing. pt also states she has had a heart cath, xrays, and a stress test without any obvious answers to whats going on. pt states she is not having pain at this time but it is coming and going. HEENT Symptoms (Recalled from RN notes): No Resp Symptoms (Recalled from RN notes): No Skin Symptoms (Recalled from RN notes): No MS Symptoms (Recalled from RN notes): No Functional Status (Recalled from RN notes): na - History of Present Illness Provider Complaint: She states that she has been having intermittent chest pain today. She denies any pain now, but it was hurting before she came in today. She denies any shortness of breath. She states she has been seen in the Er multiple times for these same complaints. She is also followed by Dr. Wolf (cardiology) and he has performed a heart cath on her several months ago and it was ok. - Related Data Home Medications Medication Instructions Recorded Confirmed aspirin 81 mg tablet,delayed 81 mg PO DAILY 09/25/20 05/07/21 release atorvastatin 10 mg tablet 10 mg PO DAILY tab 09/25/20 05/07/21 hydroxyzine pamoate 25 mg capsule 25 mg PO TID PRN cap 09/25/20 05/07/21 levothyroxine 25 mcg tablet 25 mcg PO DAILY tab 09/25/20 05/07/21 lisinopril 10 mg tablet 10 mg PO BID tab 09/25/20 05/07/21 lorazepam 0.5 mg tablet 0.5 mg PO BID PRN tab 01/28/21 05/07/21 Omeprazole 40 mg PO DAILY 04/24/21 05/07/21 Previous Rx's Medication Instructions Recorded bisoprolol fumarate 5 mg tablet 5 mg PO DAILY #90 tab 05/07/21 Allergies Allergy/AdvReac Type Severity Reaction Status Date / Time isosorbide AdvReac chest pain Verified 07/14/21 14:56 - Worker's Comp Is this a Worker's Comp case?: No [facility] History - Hepatitis A Screen Drug use history?: No High risk sexual behaviors?: No History of sexually transmitted infection?: No Currently employed?: No Childcare worker?: No Do you have indoor plumbing?: Yes Do you have electricity?: Yes Attestation statement:: This patient has been screened for Hepatitis A risk factors. I have reviewed the patient's past medical history: Yes Medical History: Reports:: Anxiety, Depression, Hyperlipidemia, Hypertension Denies:: Diabetes Mellitus Type 1, Diabetes Mellitus Type 2, Seizures Other Medical History: Reports: Thyroid Disease Other Surgeries: Yes: Cancer Surgery, Cardiac Catheterization, Colonoscopy, Hysterectomy-Partial Amputation: No Fractures: No - Social History Smoking Status: Former smoker Tobacco Type: cigarettes # Packs/Day (cigarettes): 1 #Yrs smoked (if former smoker): 20 Alcohol Intake: never Alcohol Intake Frequency:: a few times a week Substance Use Type: denies use Occupational Status: other Housing: house Household Members: spouse
[2021-08-13 14:00] VITALS: BP 206/113; PULSE 78; RESP 16; TEMP 37.2; O2SAT 98; BMI 18.8
--- NOTE | 2021-08-13 14:24 | ECG_ITS ---
APPROVED REPORT Exam: Resting ECG HR:60 bpm ECG Measurements Heart Rate 60 AXES TN 140 P 55 QRSd 90 QRS 52 QT 434 T 69 QTc 434 Conclusion Normal sinus rhythm Normal ECG Electronically signed by : Jose David Us MD 08/14/2021 17:28:15
--- NOTE | 2021-08-13 14:25 | HMH.EDGENADL ---
ED Disposition Clinical Impression: Atypical chest pain, Essential hypertension Disposition: Home, Self-Care Condition on Discharge: Good Instructions: DI for Atypical Chest Pain, DI for High Blood Pressure Additional Instructions: Take your usual dose of lorazepam when you get home. Continue your usual blood pressure medication. Call your primary care provider tomorrow to arrange follow-up. Referrals: Argelia Hughes [Primary Care Provider] - - Critical Care Critical Care Time: No Attestation: On 08/13/21, the high probability of a clinically significant, sudden or life threatening deterioration of the following system(s) required my full and direct attention, intervention and personal management. The time I documented below is in addition to time spent performing reported procedures but includes the following listed in this critical care notation. Medical Decision Making - Jefry Inquiry Pt receiving controlled substance: No Vital Signs: 08/13/21 13:28 08/13/21 14:00 Temperature 98.2 F 99 F Temperature Source Oral Oral Pulse Rate [Left] 71 78 Respiratory Rate 16 16 Blood Pressure [Right Arm] 174/103 H 206/113 H Blood Pressure Mean [Right Arm] 126 144 Blood Pressure Position [Right Arm] Sitting 02 Sat by Pulse Oximetry 98 98 Oxygen Delivery Method Room Air Orders (Tests/Meds): ORDERS Category Date Time Status Troponin I Q3H Lab 08/13/21 17:30 Ordered Troponin I Q3H Lab 08/13/21 20:30 Ordered - ECG Data Tracing #1 EKG interpreted by Barrington Menendez MD: Rhythm: sinus Rate: 60 [place]: normal Ectopy: none Conduction: normal ST Segment Changes: none T Wave Changes: none Q Waves: none No evidence of acute ischemia or injury Normal electrocardiogram Medical Decision Narrative: The patient has the same symptoms that she has had recurrently for 1 year and that have been extensively evaluated including numerous emergency department visits as well as cardiac cath/cardiology evaluation. I do not feel that she needs another complete evaluation. Her EKG is normal. Her blood pressure is again elevated and I have again advised her to follow-up with her primary care provider. Her blood pressure very well may improve when she goes home and takes her lorazepam. She also has another dose of lisinopril coming up this evening. General Adult HPI - General Chief complaint: Chest Pain Stated complaint: bloated Time Seen by Provider: 08/13/21 13:37 Mode of Arrival: Ambulatory Limitations: No Limitations Description of Symptoms (Recalled from ER Triage Doc. by RN): TO ED PT SENT FROM [facility] FOR EVAL DUE TO LT SIDE CHEST PAIN. PT DENIES PAIN AT PRESENT. STATES HAS HAD INTERMITTENT EPISODES OF CP LASTING SEVERAL SECONDS X 1 YEAR PT HAS SEEN DR MALDONADO AND HAS HAD A HEART CATH SEVERAL MONTHS AGO WITH NORMAL RESULTS. PT DENIES ANY SOB, NAUSEA, VOMITING, RADIATION OF PAIN. PT STATES I JUST WANT TO KNOW WHAT IS CAUSING THIS PAIN . PT ALSO STATES SHE HAS HAD COVID 06/26. - History of Present Illness HPI narrative: Sent from the urgent treatment center. The patient is known to me from multiple previous emergency department visits for the same complaint. She complains of intermittent very brief fleeting chest pains in her left anterior chest that has been going on for a year. They seem to come on in flurries at which time she presents to the emergency department, then they will go away for days at a time. She has been extensively evaluated including a heart cath, which was normal. Cardiology has cleared her as noncardiac chest pain. She also had Covid diagnosed on 06/25/2021. She has recovered except she has not recovered her sense of taste and smell. Last time I saw the patient emergency department she had a negative work-up for chest pain and had hypertension and was advised to follow-up with her primary care provider. She says she followed up and was started on lorazepam. She says she has not take
[2021-08-13 15:32] VITALS: BP 206/113; PULSE 78; RESP 16; TEMP 37.2; O2SAT 99
== END 2021-08-13 15:15 | disposition home or self-care (01) ==
LOC: UTC 13:45 → ER 13:53
PROVIDERS: Emergency Provider Emergency Medicine; PCP Nurse Practitioner Family
DX: R07.89 Other chest pain (principal); I10 Essential (primary) hypertension; E78.5 Hyperlipidemia, unspecified; F41.8 Other specified anxiety disorders; Z87.891 Personal history of nicotine dependence
CPT/HCPCS: 93005; 99282

== ENCOUNTER → 2021-09-16 09:12 | Outpatient (CLI) | payer MEDICARE, OTHER, SELFPAY ==
[2021-09-16 14:46] LABS: Albumin Level 3.7 g/dl (3.5-5.0); Anion Gap 10.1 mEq/L (5-15); Blood Urea Nitrogen 18 mg/dl (7-17); Calcium 8.3 mg/dl (8.4-10.2); Carbon Dioxide 28 mmol/L (22.0-30.0); Chloride 94 mmol/L (98-107); Estimated Glomerular Filt Rate 63 ml/min (>60); GFR (African American) 76 ML/MIN (>60); Glucose 79 mg/dl (74-100); Phosphorous 4.4 mg/dl (2.5-4.5); Potassium 4.1 mmoL/L (3.5-5.1); Sodium 128 mmol/L (136-145)
== END ==
PROVIDERS: Visit Provider Nurse Practitioner Family
DX: R10.30 Lower abdominal pain, unspecified (principal)
CPT/HCPCS: 36415; 80069

== ENCOUNTER → 2021-09-18 10:03 | Outpatient (CLI) | payer MEDICARE, OTHER, SELFPAY ==
--- NOTE | 2021-09-18 10:09 | CT_ITS ---
PROCEDURE: CT ABDOMEN PELVIS W CON CLINICAL INDICATION: LOWER ABD PAIN COMPARISON: No exams were available for comparison TECHNIQUE: IV Contrast: 75ML Isovue 370 Oral Contrast 450ml Redicat Axial images obtained with sagittal and coronal reformats. All CT scans at the facility use one or more dose reduction, viz: automated exposure control, ma/kV adjustment per patient size (including targeted exams where dose is matched to indication, i.e. head), or iterative reconstruction technique. FINDINGS: LOWER THORAX: No acute finding ABDOMEN & PELVIS: There is is a 7 mm hypodensity in lobe inferiorly segment 6 with a peripheral focus of possibly due to a hemangioma. Liver is otherwise. The spleen, adrenal glands, and pancreas have an unremarkable appearance. There are small bilateral renal cyst and there is prominence of the right pelvis. No renal or ureteral calculi evident. No intestinal obstruction or free air. Prior appendectomy. Small umbilical hernia containing fat. Mild thickening of the urinary bladder. Prior hysterectomy. No acute bony findings. There is mild posterior angulation of the coccyx which could be due to an old injury. IMPRESSION: 1. 7 mm liver lesion possibly due to a hemangioma. 2. There is mild urinary bladder wall thickening which may be seen with incomplete distention or cystitis 3. Prominent right renal pelvicaliceal system. No obstructing ureteral calculi. 4. Other nonacute findings as described above Dictated by: Slade Quintanilla MD 09/19/2021 09:46 Slade Quintanilla MD in [place] 09/19/2021 09:46
== END ==
PROVIDERS: PCP Nurse Practitioner Family; Visit Provider Nurse Practitioner Family
DX: R10.30 Lower abdominal pain, unspecified (principal)
CPT/HCPCS: 74177; Q9967

== ENCOUNTER 2021-10-07 17:45 | Emergency (ER) | payer MEDICARE, OTHER, SELFPAY ==
[2021-10-07 19:30] VITALS: BP 144/88; PULSE 70; RESP 20; TEMP 36.8; O2SAT 98; BMI 19.5
--- NOTE | 2021-10-07 20:15 | ECG_ITS ---
APPROVED REPORT Exam: Resting ECG HR:67 bpm ECG Measurements Heart Rate 67 AXES MS 136 P 51 QRSd 92 QRS 81 QT 416 T 59 QTc 439 Conclusion Normal sinus rhythm Normal ECG Electronically signed by : Jose David Us MD 10/08/2021 17:56:39
[2021-10-07 20:35] LABS: Basophils # 0.1 K/mm3 (0-0.2); Eosinophils # 0.1 K/mm3 (0.0-0.4); Eosinophils % 0.8 % (0.1-12.0); Hematocrit 45.2 % (37.0-47.0); Hemoglobin 14.6 g/dL (12.2-16.2); Lymphocytes # 2.4 K/mm3 (0.7-4.5); Lymphocytes % 25.6 % (10-50); Mean Corpuscular HGB Conc 32.4 g/dL (31.8-35.4); Mean Corpuscular Hemoglobin 31.3 pg (27.0-31.2); Mean Corpuscular Volume 96.6 fl (81-99); Mean Platelet Volume 7.9 fl (7.4-10.4); Monocytes # 0.4 K/mm3 (0.1-1.0); Monocytes % 3.7 % (1.7-9.3); Neutrophils # 6.6 K/mm3 (1.8-7.8); Neutrophils % 68.9 % (37.0-80.0); Platelet Count 247 K/mm3 (142-424); Red Blood Count 4.68 M/mm3 (4.20-5.40); Red Cell Distribution Width 13.7 % (11.5-17.5); White Blood Count 9.5 K/mm3 (4.8-10.8)
--- NOTE | 2021-10-07 20:40 | HMH.EDCP ---
ED Disposition Clinical Impression: Anxiety state, Atypical chest pain Chest pain Qualifiers: Chest pain type: precordial pain Qualified Code(s): R07.2 - Precordial pain Disposition: Home, Self-Care Condition on Discharge: Good Instructions: DI for Atypical Chest Pain Additional Instructions: see pcp for follow up Referrals: Argelia Hughes [Primary Care Provider] - - Critical Care Critical Care Time: No Attestation: On 10/07/21, the high probability of a clinically significant, sudden or life threatening deterioration of the following system(s) required my full and direct attention, intervention and personal management. The time I documented below is in addition to time spent performing reported procedures but includes the following listed in this critical care notation. Medical Decision Making - Medical Records Medical records reviewed: Yes: I reviewed the patient's medical records. - Jefry Inquiry Pt receiving controlled substance: No Vital Signs: 10/07/21 19:30 Temperature 98.2 F Temperature Source Oral Pulse Rate [Right] 70 Respiratory Rate 20 Blood Pressure [Right Arm] 144/88 H Blood Pressure Mean [Right Arm] 106 02 Sat by Pulse Oximetry 98 Oxygen Delivery Method Room Air - Lab Data Lab results reviewed: Yes: I reviewed the patient's lab results. Lab Results 10/07/21 20:10: WBC 9.5, RBC 4.68, Hgb 14.6, Hct 45.2, MCV 96.6, MCH 31.3 H, MCHC 32.4, RDW 13.7, Plt Count 247, MPV 7.9, Neut % (Auto) 68.9, Lymph % (Auto) 25.6, [place] % (Auto) 3.7, Eos % (Auto) 0.8, Baso % (Auto) 1.0, Neut # (Auto) 6.6, Lymph # (Auto) 2.4, [place] # (Auto) 0.4, Eos # (Auto) 0.1, Baso # (Auto) 0.1 10/07/21 20:10: Sodium 141, Potassium 3.8, Chloride 105, Carbon Dioxide 30, Anion Gap 9.8, BUN 10, Creatinine 0.80, Estimated Creat Clear 45, Estimated GFR 72, Est GFR ( Amer) 87, Glucose 103 H, Calcium 9.6, Total Bilirubin 0.5, AST 51 H, ALT 62, Alkaline Phosphatase 79, Troponin I < 0.01, C-Reactive Protein 0.5, Total Protein 7.3, Albumin 4.6, Globulin 2.7, Albumin/Globulin Ratio 1.7 Result diagrams: 10/07/21 20:10 10/07/21 20:10 Orders (Tests/Meds): ORDERS Category Date Time Status C-Reactive Protein Stat Lab 10/07/21 20:10 Results Complete Blood Count Auto Diff Stat Lab 10/07/21 20:10 Results Comprehensive Metabolic Panel Stat Lab 10/07/21 20:10 Results Erythrocyte Sedimentation Rate Stat Lab 10/07/21 20:10 Results Procalcitonin Stat Lab 10/07/21 20:10 Results Troponin I Q3H Lab 10/07/21 23:30 Ordered Troponin I Q3H Lab 10/08/21 02:30 Ordered Troponin I Stat Lab 10/07/21 20:10 Results ECG Request by /Lilian Stat Y 10/07/21 20:23 Ordered - ECG Data Tracing #1 Normal Sinus Rhythm: Yes Ischemic changes: non-specific ST-T wave changes Medical Decision Narrative: stable exam and labs and will ask pt to follow up with pcp Chest Pain HPI - General Chief Complaint: Anxiety Stated Complaint: body shaking since 1600 Time Seen by Provider: 10/07/21 20:00 Mode of Arrival: Family Vehicle Source of Information: Patient, Medical Record Limitations: No Limitations Description of Symptoms (Recalled from ER Triage Doc. by RN): Pt c/o shaking and increased anxiety. Pt took lorazepam and hydroxyzine ~ 1700 and it has gotten a little better but I still want checked out . Pt denies any pain, N/V/D, SOA, or dyspnea. Denies any fever or chills. Denies dizziness. - History of Present Illness HPI narrative: has hx of anxiety related chest pain - feels better now and no new sx reported - has seen card in past has had nl heart cath, myoview and echo MD complaint: chest pain indicative of cardiac Onset (ago): hour(s) Duration: now resolved Activity at onset: during rest Pain location: substernal Severity: similar to previous episodes Quality: aching Pain radiation: none Risk Factors for CAD: Hypertension, Hypercholesterolemia, Family Hx of CAD Treatments prior to or on arrival for Cardiac Chest Lee
[2021-10-07 20:42] LABS: Alanine Aminotransferase 62 U/L (12-78); Albumin Level 4.6 g/dl (3.5-5.0); Albumin/Globulin Ratio 1.7 (1.1-1.8); Alkaline Phosphatase 79 U/L (38-126); Anion Gap 9.8 mEq/L (5-15); Aspartate Amino Transferase 51 U/L (14-36); Bilirubin,Total 0.5 mg/dl (0.2-1.3); Blood Urea Nitrogen 10 mg/dl (7-17); Calcium 9.6 mg/dl (8.4-10.2); Carbon Dioxide 30 mmol/L (22.0-30.0); Chloride 105 mmol/L (98-107); Creatinine Clearance Estimated 45 mL/min (50-200); Estimated Glomerular Filt Rate 72 ml/min (>60); GFR (African American) 87 ML/MIN (>60); Globulin 2.7 g/dL (1.3-3.2); Glucose 103 mg/dl (74-100); Potassium 3.8 mmoL/L (3.5-5.1); Sodium 141 mmol/L (136-145); Total Protein,Serum 7.3 g/dl (6.3-8.2)
[2021-10-07 20:47] LABS: C-Reactive Protein 0.5 mg/L (0-4)
[2021-10-07 20:56] LABS: Troponin I < 0.01 ng/ml (0.00-0.034)
[2021-10-07 20:59] LABS: Erythrocyte Sedimentation Rate 3 mm/hr (0-30)
[2021-10-07 21:01] LABS: Procalcitonin 0.034 ng/mL (0.0-2.0)
[2021-10-07 21:13] VITALS: BP 137/78; PULSE 72; RESP 20; TEMP 36.8; O2SAT 98
== END 2021-10-07 21:14 | disposition home or self-care (01) ==
PROVIDERS: Emergency Provider Emergency Medicine; PCP Nurse Practitioner Family
DX: R07.89 Other chest pain (principal); F41.8 Other specified anxiety disorders; I10 Essential (primary) hypertension; E78.5 Hyperlipidemia, unspecified; Z87.891 Personal history of nicotine dependence; Z79.899 Other long term (current) drug therapy
CPT/HCPCS: 80053; 84145; 84484; 85025; 85651; 86140; 93005; 99282

== ENCOUNTER → 2021-10-16 09:44 | Outpatient (CLI) | payer MEDICARE, OTHER, SELFPAY ==
--- NOTE | 2021-10-16 09:49 | MR_ITS ---
PROCEDURE INFORMATION: Exam: MR Abdomen Without and With Contrast Exam date and time: 10/16/2021 9:49 AM Age: 66 years old Clinical indication: Abnormal findings; Abnormal radiologic finding of the abdomen; Radiologic exam and body structure: CT abd/pelvis; Patient HX: Hemangioma protocol area seen on liver on prior CT scan TECHNIQUE: Imaging protocol: MR of the abdomen without and with intravenous contrast. Contrast material: PROHANCE; Contrast volume: 22 ml; Contrast route: IV; COMPARISON: CT ABDOMEN PELVIS W CON 09/18/2021 10:21 AM FINDINGS: Liver: A tiny, approximate 6 mm lesion in posterior segment in the right lobe of liver showing STIR hyperintensity series 13, image 11, corresponding with the tiny hypoattenuating lesion seen on the prior CT from 09/18/2021. However, this is poorly seen on both the precontrast and postcontrast T1 series. This is too small to accurately characterize, the imaging characteristics on this study would be compatible with a tiny hemangioma. Aggressive lesion would be much less likely, as no suspicious appearing lesions are seen on the postcontrast scans, but could escape detection due to tiny size. No hepatomegaly. No other hepatic mass. Gallbladder and bile ducts: The gallbladder is unremarkable. No intraluminal filling defects/stones or biliary dilatation. Pancreas: The pancreas is normal. Spleen: The spleen is normal. Adrenal glands: The adrenal glands are normal. Kidneys and ureters: Some tiny left renal cortical cystic lesions, largest approximately 6 mm in the lateral mid left kidney on coronal T2 series 5, image 19, showing no significant enhancement series 21, image 31. Other lesions are approximately 2-3 mm diameter, too small to accurately characterize. No hydronephrosis. No suspicious mass. Stomach and bowel: No acute findings in the visualized bowel and stomach. A tiny fatty umbilical hernia, no herniated bowel loops. Intraperitoneal space: There is no significant free intraperitoneal fluid. Arteries: There is no aortic aneurysm. Veins: Patent enhancing portal vein. Lymph nodes: No significantly enlarged lymph nodes by short axis criteria. Bones/joints: Mild spinal degenerative changes, multilevel disc degeneration and mild spondylosis. No acute fractures or lytic lesions, as visualized. Soft tissues: There are no soft tissue masses or fluid collections. IMPRESSION: 1. 6 mm segment liver lesion is too small to accurately characterize, most likely a tiny hemangioma as suggested on prior CT from 09/18/2021, see discussion above. 2. No aggressive appearing hepatic lesions. 3. Tiny left renal cortical cystic lesions up to 6 mm, also too small to accurately characterize, but with simple benign appearance on this exam. 4. Additional nonemergency and chronic findings as above.
== END ==
PROVIDERS: PCP Nurse Practitioner Family; Visit Provider Nurse Practitioner Family
DX: D37.6 Neoplasm of uncertain behavior of liver, gallbladder and bile ducts (principal)
CPT/HCPCS: 74183; A9576

== ENCOUNTER 2021-11-11 13:08 | Emergency (ER) | payer MEDICARE, OTHER, SELFPAY ==
--- NOTE | 2021-11-11 13:08 | ECG_ITS ---
APPROVED REPORT Exam: Resting ECG HR:81 bpm ECG Measurements Heart Rate 81 AXES NH 134 P 55 QRSd 92 QRS 73 QT 394 T 64 QTc 457 Conclusion Normal sinus rhythm Normal ECG Electronically signed by : Jose David Us MD 11/12/2021 19:57:03
[2021-11-11 13:18] VITALS: BP 162/96; PULSE 80; RESP 19; TEMP 36.8; O2SAT 98; BMI 19.7
--- NOTE | 2021-11-11 13:20 | XR_ITS ---
FINAL REPORT TECHNIQUE: Single view chest CLINICAL HISTORY: chest pain COMPARISON: 04/18/2021 FINDINGS: A single view of the chest was obtained. The heart and mediastinum are within normal limits. There is mild right base atelectasis or pneumonia. There is no pneumothorax. Osseous structures are unremarkable. IMPRESSION: Mild right base atelectasis or pneumonia. Reviewed, Interpreted and Dictated by Campos Ashley III, MD Transcribed by Katia Wisdom Authenticated by Campos Ashley III, MD on 11/11/2021 02:50:15 PM [facility]
--- NOTE | 2021-11-11 13:26 | PC.NURSE ---
Spoke with blair in RAD for chest xray
[2021-11-11 13:30] VITALS: BP 152/89; PULSE 72; RESP 14; O2SAT 97
--- NOTE | 2021-11-11 13:30 | HMH.EDCP ---
ED Disposition Clinical Impression: Pneumonia Disposition: Home, Self-Care Condition on Discharge: Good Instructions: Pneumonia-Adult Additional Instructions: Please follow up with your primary care physician in 2-3 days for further management. Please take tylenol and ibuprofen for pain control. You have also been given zpak antibiotic given concern for pneumonia, please take as prescribed. Please return for difficulty breathing, worsening chest pain, inability to eat and drink or any other concerning symptoms. Prescriptions: Azithromycin [Z-Andrew 250mg Tab*] 250 mg PO UD DOSE PK #6 tab Transmission Status: Received by [facility] Azithromycin [Z-Andrew 250mg Tab] 250 mg PO DIRECTED #6 tab Referrals: Argelia Hughes [Primary Care Provider] - Time of Disposition: 15:15 - Critical Care Critical Care Time: No Attestation: On 11/11/21, the high probability of a clinically significant, sudden or life threatening deterioration of the following system(s) required my full and direct attention, intervention and personal management. The time I documented below is in addition to time spent performing reported procedures but includes the following listed in this critical care notation. Medical Decision Making - Medical Records Medical records reviewed: Yes: I reviewed the patient's medical records. - Jefry Inquiry Pt receiving controlled substance: No Vital Signs: 11/11/21 13:18 11/11/21 13:30 11/11/21 14:00 Temperature 98.3 F Temperature Source Oral Pulse Rate 72 68 Pulse Rate [Right Radial] 80 Respiratory Rate 19 14 14 Blood Pressure 152/89 H 140/88 Blood Pressure [Right Arm] 162/96 H Blood Pressure Mean [Right Arm] 118 Blood Pressure Source Blood Pressure Source [Right Arm] Manual Cuff/ Doppler Blood Pressure Position Blood Pressure Position [Right Arm] Supine 02 Sat by Pulse Oximetry 98 97 97 Oxygen Delivery Method Room Air 11/11/21 14:30 11/11/21 15:00 11/11/21 15:26 Temperature 98.3 F Temperature Source Oral Pulse Rate 72 67 66 Pulse Rate [Right Radial] Respiratory Rate 14 13 19 Blood Pressure 148/90 H 151/89 H 151/89 H Blood Pressure [Right Arm] Blood Pressure Mean [Right Arm] Blood Pressure Source Automatic Cuff Blood Pressure Source [Right Arm] Blood Pressure Position Supine Blood Pressure Position [Right Arm] 02 Sat by Pulse Oximetry 98 98 Oxygen Delivery Method Room Air - Lab Data Lab results reviewed: Yes: I reviewed the patient's lab results. Lab Results 11/11/21 13:27: WBC 8.5, RBC 4.53, Hgb 14.4, Hct 45.3, MCV 100.0 H, MCH 31.9 H, MCHC 31.9, RDW 13.5, Plt Count 261, MPV 8.5, Neut % (Auto) 58.5, Lymph % (Auto) 33.5, [place] % (Auto) 5.9, Eos % (Auto) 1.1, Baso % (Auto) 1.0, Neut # (Auto) 5.0, Lymph # (Auto) 2.9, [place] # (Auto) 0.5, Eos # (Auto) 0.1, Baso # (Auto) 0.1 11/11/21 13:27: Sodium 142, Potassium 3.4 L, Chloride 108 H, Carbon Dioxide 28, Anion Gap 9.4, BUN 16, Creatinine 0.90, Estimated Creat Clear 46, Estimated GFR 63, Est GFR ( Amer) 76, Glucose 102 H, Calcium 9.0, Total Bilirubin 0.7, AST 47 H, ALT 47, Alkaline Phosphatase 54, Troponin I < 0.01, Total Protein 7.2, Albumin 4.4, Globulin 2.8, Albumin/Globulin Ratio 1.6 Result diagrams: 11/11/21 13:27 11/11/21 13:27 Orders (Tests/Meds): ED MEDICATIONS Discontinued Medications Generic Name Dose Route Start Last Admin Trade Name Zayq PRN Reason Stop Dose Admin Aspirin 324 mg 11/11/21 13:25 11/11/21 13:29 Aspirin 81mg Chewable Tablet PO 11/11/21 13:26 243 mg ONCE ONE Administration Medical Decision Narrative: Miss Casas is a 66 yo female w/ PMH for chronic left sided chest pain who presents to the ED for intermittent (R) sided chest pain. Patient is afebrile and hemodynamically stable on arrival. Physical exam patient has no pain at this time. Patient has clear breath sounds bilaterally. Pain not reproducible. Differentials to consider inclu
[2021-11-11 13:35] LABS: Basophils # 0.1 K/mm3 (0-0.2); Eosinophils # 0.1 K/mm3 (0.0-0.4); Eosinophils % 1.1 % (0.1-12.0); Hematocrit 45.3 % (37.0-47.0); Hemoglobin 14.4 g/dL (12.2-16.2); Lymphocytes # 2.9 K/mm3 (0.7-4.5); Lymphocytes % 33.5 % (10-50); Mean Corpuscular HGB Conc 31.9 g/dL (31.8-35.4); Mean Corpuscular Hemoglobin 31.9 pg (27.0-31.2); Mean Platelet Volume 8.5 fl (7.4-10.4); Monocytes # 0.5 K/mm3 (0.1-1.0); Monocytes % 5.9 % (1.7-9.3); Neutrophils % 58.5 % (37.0-80.0); Platelet Count 261 K/mm3 (142-424); Red Blood Count 4.53 M/mm3 (4.20-5.40); Red Cell Distribution Width 13.5 % (11.5-17.5); White Blood Count 8.5 K/mm3 (4.8-10.8)
[2021-11-11 13:41] LABS: Chloride 108 mmol/L (98-107); Sodium 142 mmol/L (136-145)
[2021-11-11 13:42] LABS: Potassium 3.4 mmoL/L (3.5-5.1)
[2021-11-11 13:44] LABS: Alanine Aminotransferase 47 U/L (12-78); Albumin Level 4.4 g/dl (3.5-5.0); Albumin/Globulin Ratio 1.6 (1.1-1.8); Alkaline Phosphatase 54 U/L (38-126); Anion Gap 9.4 mEq/L (5-15); Aspartate Amino Transferase 47 U/L (14-36); Bilirubin,Total 0.7 mg/dl (0.2-1.3); Blood Urea Nitrogen 16 mg/dl (7-17); Carbon Dioxide 28 mmol/L (22.0-30.0); Creatinine Clearance Estimated 46 mL/min (50-200); Estimated Glomerular Filt Rate 63 ml/min (>60); GFR (African American) 76 ML/MIN (>60); Globulin 2.8 g/dL (1.3-3.2); Total Protein,Serum 7.2 g/dl (6.3-8.2)
[2021-11-11 13:45] LABS: Glucose 102 mg/dl (74-100)
[2021-11-11 13:57] LABS: Troponin I < 0.01 ng/ml (0.00-0.034)
[2021-11-11 14:00] VITALS: BP 140/88; PULSE 68; RESP 14; O2SAT 97
[2021-11-11 14:30] VITALS: BP 148/90; PULSE 72; RESP 14; O2SAT 98
[2021-11-11 15:00] VITALS: BP 151/89; PULSE 67; RESP 13; O2SAT 98
[2021-11-11 15:26] VITALS: BP 151/89; PULSE 66; RESP 19; TEMP 36.8; O2SAT 98
== END 2021-11-11 15:26 | disposition home or self-care (01) ==
PROVIDERS: Emergency Provider Student in an Organized Health Care Education/Training Program; PCP Nurse Practitioner Family
DX: J18.9 Pneumonia, unspecified organism (principal); I10 Essential (primary) hypertension; E78.5 Hyperlipidemia, unspecified; F41.8 Other specified anxiety disorders
CPT/HCPCS: 71045; 80053; 84484; 85025; 93005; 99283

== ENCOUNTER → 2021-11-25 11:04 | Outpatient (CLI) | payer MEDICARE, OTHER, SELFPAY | PROVIDERS: PCP Nurse Practitioner Family; Visit Provider Internal Medicine Gastroenterology | DX: Z01.812 Encounter for preprocedural laboratory examination; Z11.52 Encounter for screening for COVID-19 | CPT/HCPCS: C9803; U0003; U0005 ==

== ENCOUNTER 2022-01-12 13:25 | Emergency (ER) | payer MEDICARE, OTHER, SELFPAY ==
[2022-01-12] VITALS (7 sets, daily range): BP systolic 161–177; BP diastolic 89–106; PULSE 70–98; RESP 20; TEMP 37.1; O2SAT 98–99; BMI 17.5
--- NOTE | 2022-01-12 16:37 | ECG_ITS ---
APPROVED REPORT Exam: Resting ECG HR:72 bpm ECG Measurements Heart Rate 72 AXES GA 150 P 51 QRSd 95 QRS 72 QT 412 T 58 QTc 436 Conclusion SINUS RHYTHM NORMAL ECG UNCONFIRMED REPORT Electronically signed by : Jose David Us MD 01/14/2022 16:50:43
--- NOTE | 2022-01-12 17:26 | HMH.EDGENADL ---
ED Disposition Clinical Impression: Anxiety state, Atypical chest pain Disposition: Home, Self-Care Condition on Discharge: Good Instructions: DI for Anxiety -- Adult, DI for Atypical Chest Pain Additional Instructions: Take your evening medications when you return home, including Ativan. Follow-up with primary care provider, call for appointment. Referrals: Argelia Hughes [Primary Care Provider] - - Critical Care Critical Care Time: No Attestation: On 01/12/22, the high probability of a clinically significant, sudden or life threatening deterioration of the following system(s) required my full and direct attention, intervention and personal management. The time I documented below is in addition to time spent performing reported procedures but includes the following listed in this critical care notation. Medical Decision Making - Jefry Inquiry Pt receiving controlled substance: No Vital Signs: 01/12/22 13:26 01/12/22 15:30 01/12/22 15:42 Temperature 98.7 F Temperature Source Oral Pulse Rate 88 77 Pulse Rate [Left Radial] 98 H Respiratory Rate 20 Blood Pressure 161/90 H 168/106 H Blood Pressure [Right Arm] 177/105 H Blood Pressure Mean 126 126 Blood Pressure Mean [Right Arm] 129 Blood Pressure Source [Right Arm] Automatic Cuff Blood Pressure Position [Right Arm] Sitting 02 Sat by Pulse Oximetry 98 Oxygen Delivery Method Room Air 01/12/22 16:00 01/12/22 16:30 01/12/22 17:00 Temperature Temperature Source Pulse Rate 88 70 70 Pulse Rate [Left Radial] Respiratory Rate Blood Pressure 174/99 H 170/104 H 163/94 H Blood Pressure [Right Arm] Blood Pressure Mean 124 126 126 Blood Pressure Mean [Right Arm] Blood Pressure Source [Right Arm] Blood Pressure Position [Right Arm] 02 Sat by Pulse Oximetry Oxygen Delivery Method - ECG Data Tracing #1 EKG interpreted by Barrington Menendez MD: Rhythm: sinus Rate: 72 [place]: normal Ectopy: none Conduction: normal ST Segment Changes: none T Wave Changes: none Q Waves: none No evidence of acute ischemia or injury Normal electrocardiogram General Adult HPI - General Chief complaint: Anxiety Stated complaint: shaking and can't calm down Time Seen by Provider: 01/12/22 16:15 Mode of Arrival: Ambulatory Limitations: No Limitations Description of Symptoms (Recalled from ER Triage Doc. by RN): c/o feeling anxious, shaking, cant relax, took anxiety meds today but hasnt help - History of Present Illness HPI narrative: Patient is known to me from multiple previous emergency department visits. She says that she was at home today at about noon, just prior to coming to the emergency department and felt like she just could not calm down. She has Ativan at home which she takes twice a day. She had already taken her morning dose earlier. She says after leaving here in the emergency room she feels better. However she says that she has some sharp chest pains while lying in the emergency department. They are now gone. She has a history of atypical chest pain. She has been extensively evaluated including a heart cath. - Related Data Home Medications Medication Instructions Recorded Confirmed aspirin 81 mg tablet,delayed 81 mg PO DAILY 09/25/20 10/01/21 release atorvastatin 10 mg tablet 10 mg PO DAILY tab 09/25/20 10/01/21 hydroxyzine pamoate 25 mg capsule 25 mg PO TID PRN cap 09/25/20 10/01/21 levothyroxine 25 mcg tablet 25 mcg PO DAILY tab 09/25/20 10/01/21 lisinopril 10 mg tablet 10 mg PO BID tab 09/25/20 10/01/21 lorazepam 0.5 mg tablet 0.5 mg PO BID PRN tab 01/28/21 10/01/21 Omeprazole 40 mg PO DAILY 04/24/21 10/01/21 Previous Rx's Medication Instructions Recorded bisoprolol fumarate 5 mg tablet 5 mg PO DAILY #90 tab 05/07/21 Azithromycin [Z-Andrew 250mg Tab] 250 mg PO DIRECTED #6 tab 11/11/21 Azithromycin [Z-Andrew 250mg Tab*] 250 mg PO UD DOSE PK #6 tab 11/11/21 Allergies
== END 2022-01-12 18:32 | disposition home or self-care (01) ==
PROVIDERS: Emergency Provider Emergency Medicine; PCP Nurse Practitioner Family
DX: F41.9 Anxiety disorder, unspecified (principal); R07.89 Other chest pain; Z91.19 Patient's noncompliance with other medical treatment and regimen; F32.A Depression, unspecified; E78.5 Hyperlipidemia, unspecified; I10 Essential (primary) hypertension; Z87.891 Personal history of nicotine dependence
CPT/HCPCS: 93005; 99283

== ENCOUNTER → 2022-01-13 14:58 | Outpatient (CLI) | payer MEDICARE, OTHER, SELFPAY ==
[2022-01-13 16:43] LABS: Free T4 (Free Thyroxine) 0.76 ng/dl (0.78-2.19)
[2022-01-13 16:52] LABS: Erythrocyte Sedimentation Rate 11 mm/hr (0-30)
[2022-01-13 16:59] LABS: Thyroid Stimulating Hormone 2.44 uIU/mL (0.465-4.68)
[2022-01-13 17:34] LABS: Vitamin B12 337 pg/mL (239-931)
[2022-01-13 17:42] LABS: Folate 6.72 ng/mL
[2022-01-15 08:36] LABS: Prolactin 38.3 ng/mL (4.8-23.3)
[2022-01-15 12:14] LABS: Rapid Plasma Reagin Ab Titer Non Reactive (NonRea<1:1)
[2022-01-15 13:15] LABS: Anti-Centromere B Antibodies <0.2 AI (0.0-0.9); Anti-DNA (DS) Ab Qn 1 IU/mL (0-9); Anti-Jo-1 <0.2 AI (0.0-0.9); Anti-Smith Antibody <0.2 AI (0.0-0.9); Antichromatin Antibodies <0.2 AI (0.0-0.9); Antiscleroderma-70 Antibodies <0.2 AI (0.0-0.9); RNP Antibodies 0.2 AI (0.0-0.9); Sjogren's Anti-SS-A <0.2 AI (0.0-0.9); Sjogren's Anti-SS-B <0.2 AI (0.0-0.9)
== END ==
PROVIDERS: PCP Nurse Practitioner Family; Visit Provider Specialist
DX: F41.1 Generalized anxiety disorder (principal); G93.40 Encephalopathy, unspecified; R44.1 Visual hallucinations; Z86.011 Personal history of benign neoplasm of the brain; Z92.3 Personal history of irradiation
CPT/HCPCS: 36415; 82607; 82746; 84146; 84439; 84443; 85651; 86225; 86235; 86592

== ENCOUNTER → 2022-01-21 09:39 | Outpatient (CLI) | payer MEDICARE, OTHER, SELFPAY ==
--- NOTE | 2022-01-21 09:39 | MR_ITS ---
FINAL REPORT CLINICAL HISTORY: Bilateral mydriasis, history of macrodenoma, hx of pituitary tumor FINDINGS: Multiplanar MR imaging of the brain was performed without and with contrast with attention to the pituitary. There are scattered foci of increased signal in the cerebral white matter bilaterally which are nonspecific, may represent mild chronic ischemic/gliotic changes. There is no evidence of intracranial hemorrhage or mass. No abnormal extra-axial fluid collection is seen. The ventricular size is within normal limits. There is no evidence of shift of the midline structures. The posterior fossa and brainstem have an unremarkable appearance. No area of abnormal restricted diffusion is identified. No abnormal contrast enhancement is seen. Normal major vessel vascular flow voids are noted. There is soft tissue in the left side of the sella measuring 6 x 5 mm on the coronal images, may represent residual pituitary tissue after postoperative change. The pituitary stalk is markedly deviated to the left. There is a cystic mass involving the right side of the sella extending into the right cavernous sinus measuring 18 x 15 x 14 mm. There is increased signal on the T1-weighted images, may represent a hematoma or proteinaceous fluid. This abuts the cavernous and post-cavernous ICA. This does not show definite contrast enhancement, may represent postoperative change versus residual cystic mass. There is mucosal thickening versus postoperative change in the posterior sphenoid region. There is postoperative change in the posterior ethmoid region. The optic chiasm is normal. IMPRESSION: Presumed postoperative changes of the pituitary, sella, and sphenoid sinuses. Cystic area on the right, may represent postoperative change versus residual cystic mass. Comparison with prior study may be helpful or MRI follow-up to evaluate for stability. Reviewed, Interpreted and Dictated by Campos Ashley III, MD Transcribed by Loretta Jones Authenticated by Campos Ashley III, MD on 01/21/2022 02:06:44 PM [facility]
[2022-01-21 11:26] LABS: Alanine Aminotransferase 55 U/L (12-78); Albumin Level 4.4 g/dl (3.5-5.0); Albumin/Globulin Ratio 1.6 (1.1-1.8); Alkaline Phosphatase 60 U/L (38-126); Anion Gap 7.2 mEq/L (5-15); Aspartate Amino Transferase 50 U/L (14-36); Bilirubin,Total 0.8 mg/dl (0.2-1.3); Blood Urea Nitrogen 19 mg/dl (7-17); Calcium 8.6 mg/dl (8.4-10.2); Carbon Dioxide 29 mmol/L (22.0-30.0); Chloride 108 mmol/L (98-107); Estimated Glomerular Filt Rate 84 ml/min (>60); GFR (African American) 101 ML/MIN (>60); Globulin 2.7 g/dL (1.3-3.2); Glucose 105 mg/dl (74-100); Potassium 4.2 mmoL/L (3.5-5.1); Sodium 140 mmol/L (136-145); Total Protein,Serum 7.1 g/dl (6.3-8.2)
== END ==
PROVIDERS: PCP Nurse Practitioner Family; Visit Provider Specialist
DX: H57.04 Mydriasis (principal); Z86.011 Personal history of benign neoplasm of the brain; G93.40 Encephalopathy, unspecified; R44.1 Visual hallucinations
CPT/HCPCS: 36415; 70553; 80053; A9576

== ENCOUNTER 2022-01-21 12:38 | Emergency (ER) | payer MEDICARE, OTHER, SELFPAY ==
[2022-01-21 15:10] VITALS: BP 145/86; PULSE 81; RESP 21; TEMP 37.1; O2SAT 100; BMI 19.7
[2022-01-21 15:28] LABS: Strep Scrn Group A (Rapid) Negative (Negative)
--- NOTE | 2022-01-21 15:31 | HMH.EDUTC ---
[facility] [place] Disposition Clinical Impression: URI (upper respiratory infection) Qualifiers: URI type: unspecified URI Qualified Code(s): J06.9 - Acute upper respiratory infection, unspecified Disposition: Home, Self-Care Condition on Discharge: Good Instructions: Sore Throat, DI for Sinusitis Additional Instructions: * No sign of bacterial infection. Likely viral. Virus can take 7-14 days to run their course *Nasal saline and bulb syringe or nose meg to remove nasal drainage and help with nasal congestion. Hard to eat, drink, or sleep with nasal congestion so important to keep nose cleaned out. *Monitor Temp, Over the counter Motrin or Tylenol as directed/as needed Tylenol every 4 hours and Motrin every 6 hours (as long as your family doctor has told you that you can take it) for fever or pain. and straight to ER if unable to lower temp less than 101.0 after medication given *Warm salt water gargles may help to soothe the throat *Throat Lozenges *Warm fluids like tea with honey may help to soothe the throat *Sleep elevated *Humidifier/Vaporizer *Take medication as prescribed Your throat swab was sent for culture. Those results are typically sent to your primary care. Be sure to follow up in 2-3 days with your family doctor/primary care physician if no improvement so they can review those result and treat if necessary. If you don?t have a primary care doctor, I recommend you get one but in the mean time, you will have to return to a walk in clinic Follow up IMMEDIATELY for new or worsening symptoms or no Noticeable improvement over the next 48-72 hours. 911 for difficulty breathing or swallowing Prescriptions: Azithromycin [Z-Andrew 250mg Tab] 250 mg PO DIRECTED #6 tab Transmission Status: Pending to [facility] Referrals: Argelia Hughes [Primary Care Provider] - As needed Time of Disposition: 15:41 Medical Decision Making - Jefry Inquiry Pt receiving controlled substance: No Jefry was queried for this patient: No Vital Signs: 01/21/22 15:10 Temperature 98.8 F Temperature Source Oral Pulse Rate [Left] 81 Respiratory Rate 21 Blood Pressure [Right Arm] 145/86 H Blood Pressure Mean [Right Arm] 105 02 Sat by Pulse Oximetry 100 - Lab Data Lab results reviewed: Yes: I reviewed the patient's lab results. Lab Results 01/21/22 15:10: Group A Strep Rapid Negative Orders (Tests/Meds): ORDERS Category Date Time Status Full Resp Panel w/COVID ([facility]) Routine Lab 01/21/22 15:35 Ordered Strep Screen Confirmation Stat Micro 01/21/22 15:10 Received [facility] [place] HPI - General Stated complaint: sore throat, congestion Time Seen by Provider: 01/21/22 15:31 Mode of Arrival: Ambulatory Source of Information: Patient Limitations: No Limitations Description of Symptoms (Recalled from Triage Doc. by RN): pt c/o a sore throat x3 days. HEENT Symptoms (Recalled from RN notes): Yes Resp Symptoms (Recalled from RN notes): No Skin Symptoms (Recalled from RN notes): No MS Symptoms (Recalled from RN notes): No Functional Status (Recalled from RN notes): wnl - History of Present Illness Provider Complaint: Patient states that she has been having sore throat for 3 days and sinus pain and pressure for a couple of weeks State that she thinks she may have a sinus infection or strep thrato States that she tested yesterday for COVID and Flu - Related Data Home Medications Medication Instructions Recorded Confirmed aspirin 81 mg tablet,delayed 81 mg PO DAILY 09/25/20 01/13/22 release atorvastatin 10 mg tablet 10 mg PO DAILY tab 09/25/20 01/13/22 levothyroxine 25 mcg tablet 25 mcg PO DAILY tab 09/25/20 01/13/22 lisinopril 10 mg tablet 10 mg PO BID tab 09/25/20 01/13/22 Omeprazole 40 mg PO DAILY 04/24/21 01/13/22 diphenhydramine HCl 25 mg capsule 25 mg PO HS 01/13/22 01/13/22 hydroxyzine pamoate 25 mg capsule 25 mg PO BID cap 01/13/22 01/13/22 lorazepam 0.5 mg tablet 0.5 mg PO BID tab 01/13/22 01/13/22 polyethyl
[2022-01-21 15:47] LABS: Adenovirus,PCR Not Detected (NotDetected); Bordetella Pertussis Not Detected (NotDetected); Chlamydophila Pneumoniae, PCR Not Detected (NotDetected); Coronavirus 19, PCR Not Detected (NotDetected); Coronavirus 229E Not Detected (NotDetected); Coronavirus NL63 Not Detected (NotDetected); Coronavirus OC43 Not Detected (NotDetected); Coronovirus HKU1,PCR Not Detected (NotDetected); Human Metapneumovirus Not Detected (NotDetected); Influenza A, PCR Not Detected (NotDetected); Influenza AH1, 2009 Not Detected (NotDetected); Influenza AH1, PCR Not Detected (NotDetected); Influenza AH3,PCR Not Detected (NotDetected); Influenza B, PCR Not Detected (NotDetected); Mycoplasma Pneumoniae, PCR Not Detected (NotDetected); Parainfluenza 1, PCR Not Detected (NotDetected); Parainfluenza 2, PCR Not Detected (NotDetected); Parainfluenza 3, PCR Not Detected (NotDetected); Parainfluenza 4, PCR Not Detected (NotDetected); Respiratory Syncytial Virus Not Detected (NotDetected); Rhinovirus/Enterovirus Not Detected (NotDetected)
[2022-01-21 15:56] VITALS: BP 145/86; PULSE 81; RESP 21; TEMP 37.1
== END 2022-01-21 16:10 | disposition home or self-care (01) ==
PROVIDERS: Emergency Provider Nurse Practitioner; PCP Nurse Practitioner Family
DX: J06.9 Acute upper respiratory infection, unspecified (principal); F41.8 Other specified anxiety disorders; E78.5 Hyperlipidemia, unspecified; I10 Essential (primary) hypertension; Z87.891 Personal history of nicotine dependence
CPT/HCPCS: 36415; 70553; 80053; 87430; 87581; 87632; 87798; 96372; 99213; A9576; C9803; G0463; U0003; U0005

== ENCOUNTER → 2022-01-28 11:17 | Outpatient (CLI) | payer MEDICARE, OTHER, SELFPAY ==
--- NOTE | 2022-01-28 11:22 | CT_ITS ---
FINAL REPORT CLINICAL HISTORY: Ascitis COMPARISON: September 18, 2021 FINDINGS: Axial CT images of the abdomen and pelvis were obtained without intravenous contrast. Coronal reformatted images were also obtained.This study was performed with techniques to keep radiation doses as low as reasonably achievable (ALARA). Individualized dose reduction techniques using automated exposure control or adjustment of mA and/or kV according to the patient's size were employed. Abdomen: There is a small left pleural effusion. There is no evidence of renal stone or hydronephrosis. The small mass previously seen in the posterior right hepatic lobe is not identified on this non-contrast exam. There are possible stones or sludge in the gallbladder. The spleen and pancreas have an unremarkable, unenhanced appearance. There is a small umbilical hernia containing fat. No inflammatory process is identified. Pelvis: Images of the pelvis reveal no evidence of ureteral dilation or ureteral stone.No mass or abnormal fluid collection is identified. The appendix is not identified. There has been hysterectomy. IMPRESSION: Possible stones or sludge in the gallbladder. Consider right upper quadrant ultrasound. Small left pleural effusion. No ascites. Reviewed, Interpreted and Dictated by Campos Ashley III, MD Transcribed by Lasha Schwartz Authenticated by Campos Ashley III, MD on 01/28/2022 02:05:54 PM [facility]
--- NOTE | 2022-01-28 11:23 | XR_ITS ---
FINAL REPORT CLINICAL HISTORY: ABN FINDING OF LUNG FIELD FINDINGS: Two views of the chest were obtained. The heart size and pulmonary vascularity are within normal limits. The mediastinum is normal. No acute pulmonary abnormality is identified. There is no pneumothorax. The bony thorax is intact. IMPRESSION: No active cardiopulmonary disease. Reviewed, Interpreted and Dictated by Campos Ashley III, MD Transcribed by Loretta Jones Authenticated by Campos Ashley III, MD on 01/28/2022 01:53:13 PM [facility]
== END ==
PROVIDERS: PCP Nurse Practitioner Family; Visit Provider Specialist
DX: R14.0 Abdominal distension (gaseous) (principal); R18.8 Other ascites
CPT/HCPCS: 71046; 74176

== ENCOUNTER 2022-03-19 22:15 | Emergency (ER) | payer MEDICARE, OTHER, SELFPAY ==
[2022-03-19 22:15] VITALS: BP 169/104; PULSE 77; RESP 17; TEMP 37.4; O2SAT 100; BMI 20.5
--- NOTE | 2022-03-19 22:37 | XR_ITS ---
PROCEDURE INFORMATION: Exam: XR Chest Exam date and time: 03/19/22 10:39 PM Age: 66 years old Clinical indication: Shortness of breath; Patient HX: PT states she started taking new medicine and was unsure if that could be affecting her breathing; Additional info: Chest pain TECHNIQUE: Imaging protocol: XR of the chest. Views: 2 views. COMPARISON: CR XR CHEST 2V 01/28/22 11:27 AM FINDINGS: Lungs: Unremarkable. No consolidation. Pleural spaces: Unremarkable. No pleural effusion. No pneumothorax. Heart/Mediastinum: Unremarkable. No cardiomegaly. Bones/joints: Unremarkable. IMPRESSION: No acute findings.
--- NOTE | 2022-03-19 22:40 | ECG_ITS ---
APPROVED REPORT Exam: Resting ECG HR:78 bpm ECG Measurements Heart Rate 78 AXES [place] 155 P 64 QRSd 90 QRS 74 QT 376 T 70 QTc 409 Conclusion SINUS RHYTHM WITH OCCASIONAL VENTRICULAR PREMATURE COMPLEXES BORDERLINE ECG UNCONFIRMED REPORT Electronically signed by : Jose David Us MD 03/21/2022 10:31:46
--- NOTE | 2022-03-19 22:47 | PC.NURSE ---
Pt gone to RAD
--- NOTE | 2022-03-19 22:50 | PC.NURSE ---
Pt back from RAD
[2022-03-19 22:51] LABS: Basophils # 0.3 K/mm3 (0-0.2); Basophils % 3.6 % (0.1-2.0); Eosinophils # 0.2 K/mm3 (0.0-0.4); Eosinophils % 2.1 % (0.1-12.0); Hematocrit 42.1 % (37.0-47.0); Hemoglobin 14.3 g/dL (12.2-16.2); Lymphocytes # 3.2 K/mm3 (0.7-4.5); Lymphocytes % 43.6 % (10-50); Mean Corpuscular Hemoglobin 32.7 pg (27.0-31.2); Mean Corpuscular Volume 96.1 fl (81-99); Mean Platelet Volume 9.1 fl (7.4-10.4); Monocytes # 0.5 K/mm3 (0.1-1.0); Monocytes % 6.9 % (1.7-9.3); Neutrophils # 3.3 K/mm3 (1.8-7.8); Neutrophils % 43.7 % (37.0-80.0); Platelet Count 212 K/mm3 (142-424); Red Blood Count 4.38 M/mm3 (4.20-5.40); Red Cell Distribution Width 14.1 % (11.5-17.5); White Blood Count 7.4 K/mm3 (4.8-10.8)
[2022-03-19 23:00] VITALS: BP 177/99; PULSE 86; RESP 17; O2SAT 97
[2022-03-19 23:03] LABS: Alanine Aminotransferase 47 U/L (12-78); Albumin Level 4.3 g/dl (3.5-5.0); Albumin/Globulin Ratio 1.7 (1.1-1.8); Alkaline Phosphatase 69 U/L (38-126); Anion Gap 11.7 mEq/L (5-15); Aspartate Amino Transferase 50 U/L (14-36); Bilirubin,Total 0.4 mg/dl (0.2-1.3); Blood Urea Nitrogen 9 mg/dl (7-17); Calcium 9.3 mg/dl (8.4-10.2); Carbon Dioxide 27 mmol/L (22.0-30.0); Chloride 105 mmol/L (98-107); Creatinine Clearance Estimated 48 mL/min (50-200); Estimated Glomerular Filt Rate 72 ml/min (>60); GFR (African American) 87 ML/MIN (>60); Globulin 2.6 g/dL (1.3-3.2); Glucose 107 mg/dl (74-100); Potassium 3.7 mmoL/L (3.5-5.1); Sodium 140 mmol/L (136-145); Total Protein,Serum 6.9 g/dl (6.3-8.2)
[2022-03-19 23:18] LABS: Troponin I < 0.01 ng/ml (0.00-0.034)
[2022-03-19 23:21] LABS: T4 (Thyroxine) 9.1 ug/dl (5.53-11.0)
[2022-03-19 23:30] VITALS: BP 149/98; PULSE 78; RESP 16; O2SAT 96
[2022-03-20] VITALS: BP 155/90; PULSE 78; RESP 17; O2SAT 97
--- NOTE | 2022-03-20 00:02 | HMH.EDSOB ---
ED Disposition Clinical Impression: Dyspnea Qualifiers: Dyspnea type: unspecified Qualified Code(s): R06.00 - Dyspnea, unspecified Disposition: Home, Self-Care Condition on Discharge: Good Instructions: DI for Shortness of Breath Additional Instructions: call pcp for follow up Referrals: Argelia Hughes [Primary Care Provider] - - Critical Care Critical Care Time: No Attestation: On 03/19/22, the high probability of a clinically significant, sudden or life threatening deterioration of the following system(s) required my full and direct attention, intervention and personal management. The time I documented below is in addition to time spent performing reported procedures but includes the following listed in this critical care notation. Medical Decision Making - Medical Records Medical records reviewed: Yes: I reviewed the patient's medical records. - Jefry Inquiry Pt receiving controlled substance: No Vital Signs: 03/19/22 22:15 03/19/22 23:00 03/19/22 23:30 Temperature 99.3 F Temperature Source Oral Pulse Rate 86 78 Pulse Rate [Left Radial] 77 Respiratory Rate 17 17 16 Blood Pressure 177/99 H 149/98 H Blood Pressure [Right Arm] 169/104 H Blood Pressure Mean 133 120 Blood Pressure Mean [Right Arm] 125 Blood Pressure Position [Right Arm] Sitting 02 Sat by Pulse Oximetry 100 97 96 Oxygen Delivery Method Room Air - Lab Data Lab results reviewed: Yes: I reviewed the patient's lab results. Lab Results 03/19/22 22:45: WBC 7.4, RBC 4.38, Hgb 14.3, Hct 42.1, MCV 96.1, MCH 32.7 H, MCHC 34.0, RDW 14.1, Plt Count 212, MPV 9.1, Neut % (Auto) 43.7, Lymph % (Auto) 43.6, Harvey % (Auto) 6.9, Eos % (Auto) 2.1, Baso % (Auto) 3.6 H, Neut # (Auto) 3.3, Lymph # (Auto) 3.2, Harvey # (Auto) 0.5, Eos # (Auto) 0.2, Baso # (Auto) 0.3 H 03/19/22 22:45: Sodium 140, Potassium 3.7, Chloride 105, Carbon Dioxide 27, Anion Gap 11.7, BUN 9, Creatinine 0.80, Estimated Creat Clear 48, Estimated GFR 72, Est GFR ( Amer) 87, Glucose 107 H, Calcium 9.3, Total Bilirubin 0.4, AST 50 H, ALT 47, Alkaline Phosphatase 69, Troponin I < 0.01, Total Protein 6.9, Albumin 4.3, Globulin 2.6, Albumin/Globulin Ratio 1.7, TSH 13.20 H, Thyroxine (T4) 9.1 Result diagrams: 03/19/22 22:45 03/19/22 22:45 Orders (Tests/Meds): ED MEDICATIONS Generic Name Dose Route Start Last Admin Trade Name Freq PRN Reason Stop Dose Admin Sodium Chloride 1,000 mls @ 999 mls/hr 03/19/22 23:00 03/19/22 22:53 Sod Chlor 0.9% 1000ml Bag IV 03/20/22 00:00 999 mls/hr .Q1H1M YURIY Administration ORDERS Category Date Time Status Troponin I Q3H Lab 03/20/22 01:45 Ordered Troponin I Q3H Lab 03/20/22 04:45 Ordered - Radiology Data #1 Image(s): Chest Image Reviewed: Yes I have reviewed radiologist's interpretation Preliminary Findings: Normal/NAD - ECG Data Tracing #1 Normal Sinus Rhythm: Yes Ischemic changes: non-specific ST-T wave changes Medical Decision Narrative: stable exam and labs and will call pcp for discussion about meds Resp/SOB HPI - General Chief Complaint: Shortness of Breath/Dyspnea Stated Complaint: short of breath, put on new medication today Time Seen by Provider: 03/19/22 23:00 Mode of Arrival: Ambulatory Source of Information: Patient, Medical Record Limitations: No Limitations Description of Symptoms (Recalled from ER Triage Doc. by RN): PT WAS STARTED ON NEW MEDICATION FROM HER PSYCHIATRIST TODAY- SHE TOOK HER FIRST DOSE AT 1900. SHE LAYED DOWN AT 2030 AND BEGAN THINKING SHE WAS SHORT OF BREATH- PT WANTED TO MAKE SURE IT HAD NOTHING TO DO WITH HER NEW MED. - History of Present Illness after taking new med had feeling sob but no chest pain MD Complaint: shortness of breath Onset (ago): hour(s) Context: other (possible medication) Severity: moderate Associated symptoms: denies other symptoms Treatment prior to arrival: none - Related Data Home oxygen amount: none Home Medicati
[2022-03-20 00:46] VITALS: BP 160/100; PULSE 64; RESP 16; TEMP 36.6; O2SAT 97
== END 2022-03-20 00:48 | disposition home or self-care (01) ==
PROVIDERS: Emergency Provider Emergency Medicine; PCP Nurse Practitioner Family
DX: R06.00 Dyspnea, unspecified (principal); I10 Essential (primary) hypertension; F41.8 Other specified anxiety disorders; E78.5 Hyperlipidemia, unspecified; Z87.891 Personal history of nicotine dependence; Z79.899 Other long term (current) drug therapy
CPT/HCPCS: 71046; 80053; 84436; 84443; 84484; 85025; 93005; 99283

== ENCOUNTER → 2022-03-25 14:56 | Outpatient (CLI) | payer MEDICARE, OTHER, SELFPAY ==
[2022-03-27 13:23] LABS: H. pylori Breath Test Negative (Negative)
== END ==
PROVIDERS: PCP Nurse Practitioner Family; Visit Provider Internal Medicine Gastroenterology
DX: B96.81 Helicobacter pylori [H. pylori] as the cause of diseases classified elsewhere (principal); R14.0 Abdominal distension (gaseous)
CPT/HCPCS: 83013

== ENCOUNTER → 2022-05-06 13:56 | Outpatient (CLI) | payer MEDICARE, OTHER, SELFPAY ==
[2022-05-06 17:45] LABS: Blood Urea Nitrogen 7 mg/dl (7-17); Estimated Glomerular Filt Rate 72 ml/min (>60); GFR (African American) 87 ML/MIN (>60)
== END ==
PROVIDERS: PCP Nurse Practitioner Family; Visit Provider Nurse Practitioner Family
DX: R06.00 Dyspnea, unspecified (principal)
CPT/HCPCS: 36415; 82565; 84520

== ENCOUNTER → 2022-05-12 09:26 | Outpatient (CLI) | payer MEDICARE, OTHER, SELFPAY ==
--- NOTE | 2022-05-12 09:26 | US_ITS ---
FINAL REPORT CLINICAL HISTORY: chest pain; diarrhea; low body weight FINDINGS: Sonographic images of the right upper quadrant were obtained. The pancreas is partially obscured.The liver has an unremarkable appearance.The gallbladder appears normal without evidence of gallstones.There is no evidence of biliary ductal dilatation.The common duct measures 2 mm. Limited images of the right kidney are unremarkable. IMPRESSION: Unremarkable right upper quadrant ultrasound. Reviewed, Interpreted and Dictated by Campos Ashley III, MD Transcribed by Jessica Rain Authenticated and . [facility]
--- NOTE | 2022-05-12 10:45 | CT_ITS ---
FINAL REPORT CLINICAL HISTORY: chest pain, gallbladder ultrasound as well, non smoker, lung nodules previously COMPARISON: 09/25/2020 FINDINGS: CT CHEST W/CONTRAST Axial CT images of the chest were obtained with contrast. Coronal reformatted images were also obtained. This study was performed with techniques to keep radiation doses as low as reasonably achievable, (ALARA). Individualized dose reduction techniques using automated exposure control or adjustment of mA and/or KV according to the patient's size were employed. There is no evidence of mediastinal or hilar mass or adenopathy. No axillary mass or adenopathy is identified. On lung window images, there is mild pulmonary scarring. There are several small pulmonary nodules measuring less than 5 mm. For example, there is a 3 mm right lower lobe nodule on image 45 which is stable. Other small nodules are stable. No localized pulmonary inflammatory process is identified. Limited images of the upper abdomen reveal no mass or localized inflammatory process. IMPRESSION: Stable small nodules which are most likely benign. If indicated, follow-up chest CT in 12 months. Reviewed, Interpreted and Dictated by Campos Ashley III, MD Transcribed by Jessica Rain Authenticated and [facility]
== END ==
PROVIDERS: PCP Nurse Practitioner Family; Visit Provider Nurse Practitioner Family
DX: F41.9 Anxiety disorder, unspecified (principal); I25.10 Atherosclerotic heart disease of native coronary artery without angina pectoris; R06.00 Dyspnea, unspecified; R07.9 Chest pain, unspecified
CPT/HCPCS: 71260; 76705

== ENCOUNTER → 2022-05-26 16:20 | Outpatient (CLI) | payer MEDICARE, OTHER, SELFPAY ==
--- NOTE | 2022-05-26 16:22 | MM_ITS ---
PROCEDURE INFORMATION: Exam: MG Bilateral Screening 3D Mammography Exam date and time: 05/26/2022 4:16 PM Age: 66 years old Clinical indication: Screening examination history of intermittent right milky nipple discharge with manual expression. Her mother had breast cancer. TECHNIQUE: Imaging protocol: Bilateral Screening tomosynthesis and 2D mammography including computer-aided detection (CAD) when performed. COMPARISON: 1. MG SCBI MM Dig screening mamm BI w/CAD 12/18/2017 3:27 PM 2. MG DMSB DIG MAMM-SCREEN EMIL 05/18/2015 3:22 PM 3. MG DMSB DIG MAMM-SCREEN EMIL 03/10/2014 3:46 PM 4. MG DIGMAMMS MAMMOGRAM SCREEN-EQUIPMENT VALIDATION ENGINEER N/C 03/28/2010 8:30 AM FINDINGS: MAMMOGRAPHY: Breast composition: The breasts are heterogeneously dense, which may obscure small masses. Mass: None. Architectural distortion: None. Calcifications: No suspicious calcifications. Asymmetric density: Possible 0.5 cm asymmetry in the inner right breast ,CC frame 19 Skin thickening: None. Axillary adenopathy: None. IMPRESSION: Patient to be recalled for right diagnostic mammography with spot compression in the CC projection and full field true right lateral projection, as well as right breast ultrasound, 12-3-6 approximately 5 cm from the nipple. ASSESSMENT: BI-RADS Category 0: Incomplete- Need Additional Imaging Evaluation and/or Prior Mammograms for Comparison
== END ==
PROVIDERS: PCP Nurse Practitioner Family; Visit Provider Nurse Practitioner Family
DX: Z12.31 Encounter for screening mammogram for malignant neoplasm of breast (principal)
CPT/HCPCS: 77063; 77067

== ENCOUNTER → 2022-06-06 13:34 | Outpatient (CLI) | payer MEDICARE, OTHER, SELFPAY ==
--- NOTE | 2022-06-06 13:37 | MM_ITS ---
PROCEDURE INFORMATION: Exam: US Right Breast Limited MG Right Diagnostic Breast Tomosynthesis Exam date and time: 06/06/2022 1:46 PM Age: 67 years old Clinical indication: Patient recalled on the basis of a screening mammogram for further evaluation; Right breast; asymmetry TECHNIQUE: Imaging protocol: Limited ultrasound of Right breast with image documentation, including axilla when performed. Exam focused on the search and evaluation for mass. Right Diagnostic tomosynthesis and 2D mammography including computer-aided detection (CAD) when performed. Unilateral or bilateral exam. COMPARISON: 1. MG MM DIG SCREENING MAMM BI W/CAD 05/26/2022 4:16 PM 2. MG Screening-Bilateral Mammography 05/24/2021 4:18 PM FINDINGS: MAMMOGRAPHY: Digital diagnostic spot compression view of the right breast and 90 degree lateral view of the right breast demonstrate normal overlapping fibroglandular structures without persistent mass or asymmetry identified. ULTRASOUND: Sonographic images of the right breast including the retroareolar region, all 4 quadrants and the axilla do not demonstrate any solid or cystic masses. No architectural distortion or acoustical shadowing. No skin thickening or axillary adenopathy. IMPRESSION: No mammographic or sonographic evidence of malignancy. Annual bilateral mammographic screening is recommended unless otherwise clinically indicated. ASSESSMENT: Assessment: BI-RADS Category 1: Negative
== END ==
PROVIDERS: PCP Nurse Practitioner Family; Visit Provider Nurse Practitioner Family
DX: R92.2 Inconclusive mammogram (principal)
CPT/HCPCS: 76642; 77061; 77065; G0279

== ENCOUNTER 2022-06-18 22:36 | Emergency (ER) | payer MEDICARE, OTHER, SELFPAY ==
[2022-06-18] VITALS (8 sets, daily range): BP systolic 137–151; BP diastolic 92–99; PULSE 64–75; RESP 16; TEMP 36.8; O2SAT 96–98; BMI 19.7
--- NOTE | 2022-06-18 22:34 | ECG_ITS ---
APPROVED REPORT Exam: Resting ECG HR:64 bpm ECG Measurements Heart Rate 64 AXES [place] 155 P 67 QRSd 97 QRS 76 QT 400 T 60 QTc 410 Conclusion SINUS RHYTHM NORMAL ECG UNCONFIRMED REPORT Electronically signed by : Jose David Us MD 06/21/2022 08:10:38
--- NOTE | 2022-06-18 22:52 | XR_ITS ---
PROCEDURE INFORMATION: Exam: XR Chest Exam date and time: 06/18/2022 10:55 PM Age: 67 years old Clinical indication: Sternal or substernal pain; Additional info: Chest pain TECHNIQUE: Imaging protocol: Radiologic exam of the chest. Views: 2 views. COMPARISON: CT CHEST W CON 05/12/2022 10:59 AM FINDINGS: Lungs: Normal pulmonary expansion. Pulmonary vasculature grossly normal. No gross pulmonary infiltrates or edema pattern. Pleural spaces: No pleural effusion. No pneumothorax. Heart/Mediastinum: Heart size normal. No tracheal/mediastinal shift. Vasculature: Mild aortic ectasia/tortuosity. Bones/joints: No acute osseous abnormalities are identified. IMPRESSION: No acute thoracic process.
[2022-06-18 23:01] LABS: Basophils # 0.2 K/mm3 (0-0.2); Basophils % 1.6 % (0.1-2.0); Eosinophils # 0.1 K/mm3 (0.0-0.4); Eosinophils % 1.4 % (0.1-12.0); Hematocrit 45.7 % (37.0-47.0); Hemoglobin 14.4 g/dL (12.2-16.2); Lymphocytes # 3.8 K/mm3 (0.7-4.5); Lymphocytes % 42.1 % (10-50); Mean Corpuscular HGB Conc 31.5 g/dL (31.8-35.4); Mean Corpuscular Hemoglobin 30.8 pg (27.0-31.2); Mean Corpuscular Volume 97.8 fl (81-99); Mean Platelet Volume 8.8 fl (7.4-10.4); Monocytes # 0.6 K/mm3 (0.1-1.0); Monocytes % 6.1 % (1.7-9.3); Neutrophils # 4.5 K/mm3 (1.8-7.8); Neutrophils % 48.8 % (37.0-80.0); Platelet Count 272 K/mm3 (142-424); Red Blood Count 4.67 M/mm3 (4.20-5.40); Red Cell Distribution Width 13.7 % (11.5-17.5); White Blood Count 9.1 K/mm3 (4.8-10.8)
[2022-06-18 23:05] LABS: Alanine Aminotransferase 56 U/L (12-78); Albumin Level 4.3 g/dl (3.5-5.0); Albumin/Globulin Ratio 1.8 (1.1-1.8); Alkaline Phosphatase 63 U/L (38-126); Anion Gap 9.7 mEq/L (5-15); Aspartate Amino Transferase 45 U/L (14-36); Bilirubin,Total 0.6 mg/dl (0.2-1.3); Blood Urea Nitrogen 10 mg/dl (7-17); Calcium 9.5 mg/dl (8.4-10.2); Carbon Dioxide 31 mmol/L (22.0-30.0); Chloride 102 mmol/L (98-107); Creatinine Clearance Estimated 45 mL/min (50-200); Estimated Glomerular Filt Rate 55 ml/min (>60); GFR (African American) 67 ML/MIN (>60); Globulin 2.4 g/dL (1.3-3.2); Glucose 107 mg/dl (74-100); Potassium 3.7 mmoL/L (3.5-5.1); Sodium 139 mmol/L (136-145); Total Protein,Serum 6.7 g/dl (6.3-8.2)
[2022-06-18 23:23] LABS: Troponin I < 0.01 ng/ml (0.00-0.034)
--- NOTE | 2022-06-18 23:34 | HMH.EDCP ---
Discharge Plan Disposition Patient Disposition: Home, Self-Care Chief Complaint: Chest Pain Prescriptions Prescriptions: No Action lorazepam 0.5 mg tablet 0.5 mg PO BID Label Comments: TAKE 1 TABLET 2 TIMES EACH DAY FOR ANXIETY Metamucil 3.4 gram/5.4 gram powder 1 tbsp PO DAILY Rx Instructions: mix into at least 8 oz of water or juice before administering lisinopril 10 mg tablet 10 mg PO BID levothyroxine 25 mcg tablet 25 mcg PO DAILY Label Comments: TAKE 1 TABLET ONCE A DAY IN THE MORNING ON AN EMPTY STOMACH. atorvastatin 10 mg tablet 10 mg PO DAILY aspirin [Adult Low Dose Aspirin] 81 mg tablet,delayed release (DR/EC) 81 mg PO DAILY polyethylene glycol 3350 [Miralax] 17 gram/dose powder 17 g PO DAILY bisoprolol fumarate 5 mg tablet 5 mg PO DAILY Qty: 90 2RF Referrals Referrals: Argelia Hughes [Primary Care Provider] - Enter time for follow up Clinical Impressions Clinical Impression: Chest pain Instructions Patient Instructions: DI for Atypical Chest Pain Discharge ED Provider: Hugo New Chest Pain HPI General Chief Complaint: Chest Pain Stated Complaint: chest pain Time Seen by Provider: 06/18/22 23:35 Mode of Arrival: Ambulatory Source of Information: Patient Limitations: No Limitations Description of Symptoms (Recalled from ER Triage Doc. by RN): pt reports having a brief chest pain that she has been expierencing for a few moths the pt states the pain appears mid sternal then radiates slightly to the left or right a few inches then goes away. pt has seen daksha and had a heart cath recently. pt states nothing has been found History of Present Illness HPI narrative: pt with chest pain with hx of same with no fever or trauma MD complaint: chest pain indicative of cardiac Onset (ago): hour(s) Duration: now resolved Activity at onset: during rest Pain location: left chest Severity: moderate Quality: sharp Pain radiation: none Risk Factors for CAD: Hypertension, Hypercholesterolemia and Family Hx of CAD Treatments prior to or on arrival for Cardiac Chest Pain: none KIZZY Score for Non-Stemi Age of Patient: 60-69 years old Heart Rate: 70-89 bpm Systolic Blood Pressure: 140-159 mmHg Serum Creatinine: 0.80-1.19 mg/dl CHF Kill[place] Class: I-No CHF Other Risk Factors: None Non-Stemi Risk Score: 98 Related Data Prior Cardiac Testing/Procedures: Cardiac Angiogram On Oral Contraceptives: No Home Medications Medication Instructions Recorded Confirmed aspirin 81 mg tablet,delayed 81 mg PO DAILY 09/25/20 05/06/22 release (Adult Low Dose Aspirin) atorvastatin 10 mg tablet 10 mg PO DAILY Cholesterol 09/25/20 05/06/22 levothyroxine 25 mcg tablet 25 mcg PO DAILY thyroid 09/25/20 05/06/22 lisinopril 10 mg tablet 10 mg PO BID High blood pressure 09/25/20 05/06/22 lorazepam 0.5 mg tablet 0.5 mg PO BID Anxiety 01/13/22 05/06/22 polyethylene glycol 3350 17 17 g PO DAILY 01/13/22 05/06/22 gram/dose oral powder (Miralax) psyllium husk 3.4 gram/5.4 gram 1 tbsp PO DAILY 01/28/22 05/06/22 oral powder (Metamucil) Previous Rx's Medication Instructions Recorded bisoprolol fumarate 5 mg tablet 5 mg PO DAILY high blood pressure 04/23/22 #90 tabs Allergies Allergy/AdvReac Type Severity Reaction Status Date / Time buspirone Allergy Mild Verified 05/06/22 13:21 pravastatin Allergy Mild Verified 05/06/22 13:21 paroxetine [From Paxil] Allergy Verified 05/06/22 13:21 isosorbide AdvReac chest pain Verified 05/06/22 13:21 [facility] Medical History (Updated 06/19/22 @ 00:17 by Hugo New MD) Abnormal EKG Anxiety Coronary artery calcification seen on CT scan Dyspnea Ex-smoker Family history of heart disease Social History Smoking Status: Former smoker pack-years: 20 second hand exposure: No alcohol intake: current substance use type: denies use current occupational status: other household members:
[2022-06-19 00:04] VITALS: BP 150/96; PULSE 70; RESP 16; TEMP 36.8; O2SAT 96
== END 2022-06-19 00:22 | disposition home or self-care (01) ==
PROVIDERS: Emergency Provider Emergency Medicine; PCP Nurse Practitioner Family
DX: R07.9 Chest pain, unspecified (principal); Z79.82 Long term (current) use of aspirin; Z79.899 Other long term (current) drug therapy; Z88.8 Allergy status to other drugs, medicaments and biological substances; Z87.891 Personal history of nicotine dependence; I10 Essential (primary) hypertension; I25.10 Atherosclerotic heart disease of native coronary artery without angina pectoris; F41.9 Anxiety disorder, unspecified; E78.5 Hyperlipidemia, unspecified
CPT/HCPCS: 71046; 80053; 84484; 85025; 93005; 96365; 96375; 99284

== ENCOUNTER 2022-07-19 17:54 | Emergency (ER) | payer MEDICARE, OTHER, SELFPAY ==
[2022-07-19 17:56] VITALS: BP 118/82; PULSE 77; RESP 16; TEMP 37.1; O2SAT 98; BMI 19.7
--- NOTE | 2022-07-19 18:11 | HMH.EDGENADL ---
Discharge Plan Disposition Patient Disposition: Home, Self-Care Condition: Good Prescriptions Prescriptions: No Action lorazepam 0.5 mg tablet 0.5 mg PO BID Label Comments: TAKE 1 TABLET 2 TIMES EACH DAY FOR ANXIETY Metamucil 3.4 gram/5.4 gram powder 1 tbsp PO DAILY Rx Instructions: mix into at least 8 oz of water or juice before administering lisinopril 10 mg tablet 10 mg PO BID levothyroxine 25 mcg tablet 25 mcg PO DAILY Label Comments: TAKE 1 TABLET ONCE A DAY IN THE MORNING ON AN EMPTY STOMACH. atorvastatin 10 mg tablet 10 mg PO DAILY aspirin [Adult Low Dose Aspirin] 81 mg tablet,delayed release (DR/EC) 81 mg PO DAILY polyethylene glycol 3350 [Miralax] 17 gram/dose powder 17 g PO DAILY bisoprolol fumarate 5 mg tablet 5 mg PO DAILY Qty: 90 2RF Referrals Follow up/Referrals: Argelia Hughes [Primary Care Provider] - See instructions Clinical Impressions Clinical Impression: Accidental overdose Instructions Patient Instructions: DI for Drug Overdose in Adults, Lisinopril Discharge ED Provider: Vin Culver Adult HPI General Chief complaint: Recheck/Abnormal Lab/Rx Stated complaint: possible OD of Medication Time Seen by Provider: 07/19/22 18:13 Mode of Arrival: Ambulatory Source of Information: Patient Limitations: No Limitations Description of Symptoms (Recalled from ER Triage Doc. 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 pt denies any weakness, dizziness, or feeling lightheaded History of Present Illness HPI narrative: 67-year-old female with history of essential hypertension on lisinopril, takes 10 mg twice daily, took her regular medication and then accidentally forgot and took an additional 10 mg once. She denies any significant symptoms, she was just concerned about dropping blood pressure. Related Data Home Medications Medication Instructions Recorded Confirmed aspirin 81 mg tablet,delayed 81 mg PO DAILY 09/25/20 07/07/22 release (Adult Low Dose Aspirin) atorvastatin 10 mg tablet 10 mg PO DAILY Cholesterol 09/25/20 07/07/22 levothyroxine 25 mcg tablet 25 mcg PO DAILY thyroid 09/25/20 07/07/22 lisinopril 10 mg tablet 10 mg PO BID High blood pressure 09/25/20 07/07/22 lorazepam 0.5 mg tablet 0.5 mg PO BID Anxiety 01/13/22 07/07/22 polyethylene glycol 3350 17 17 g PO DAILY 01/13/22 07/07/22 gram/dose oral powder (Miralax) psyllium husk 3.4 gram/5.4 gram 1 tbsp PO DAILY 01/28/22 07/07/22 oral powder (Metamucil) Previous Rx's Medication Instructions Recorded bisoprolol fumarate 5 mg tablet 5 mg PO DAILY high blood pressure 04/23/22 #90 tabs Allergies Allergy/AdvReac Type Severity Reaction Status Date / Time buspirone Allergy Mild Verified 07/07/22 12:05 pravastatin Allergy Mild Verified 07/07/22 12:05 paroxetine [From Paxil] Allergy Verified 07/07/22 12:05 isosorbide AdvReac chest pain Verified 07/07/22 12:05 [facility] Medical History Abnormal EKG Anxiety Coronary artery calcification seen on CT scan Dyspnea Ex-smoker Family history of heart disease Social History Smoking Status: Never smoker second hand exposure: No alcohol intake: current substance use type: denies use current occupational status: other Travel in the last 8 weeks: None household members: spouse housing: house current occupational exposures/hazards: No ROS Obtained: Yes All systems reviewed & no additional complaints except as documented Constitutional Constitutional: Reports system reviewed and no additional complaints, except as documented Eyes Eyes: Reports system reviewed and no additional complaints, except as documented ENT Ears, Nose, Mouth, and Throat: Reports system reviewed and no additional complaints, except as documented
[2022-07-19 19:00] VITALS: BP 112/75; PULSE 63; O2SAT 97
--- NOTE | 2022-07-19 19:00 | PC.NURSE ---
PT LYING IN BED, NOTHING NEEDED AT THIS TIME,
[2022-07-19 19:26] VITALS: BP 112/75; PULSE 84; PULSE 87; RESP 16; RESP 18; TEMP 36.6; O2SAT 98
--- NOTE | 2022-07-19 19:29 | PC.NURSE ---
PT UPDATED AND AWARE OF PLAN TO CONTINUE MONITORING UNTIL 2114 TONIGHT. PT DENIES DIZZINESS OR CHEST PAIN AT THIS TIME. VS NOTED.
[2022-07-19 19:30] VITALS: BP 132/76; PULSE 73; O2SAT 99
[2022-07-19 19:31] VITALS: BP 132/76; PULSE 81; RESP 16; O2SAT 98
== END 2022-07-19 19:46 | disposition home or self-care (01) ==
PROVIDERS: Emergency Provider Emergency Medicine; PCP Nurse Practitioner Family
DX: T46.4X1A Poisoning by angiotensin-converting-enzyme inhibitors, accidental (unintentional), initial encounter (principal)
CPT/HCPCS: 99282

== ENCOUNTER 2022-09-14 16:40 | Emergency (ER) | payer MEDICARE, OTHER, SELFPAY ==
[2022-09-14 16:46] VITALS: BP 139/100; PULSE 81; RESP 17; TEMP 36.7; O2SAT 97; BMI 20.5
--- NOTE | 2022-09-14 17:09 | XR_ITS ---
PROCEDURE INFORMATION: Exam: XR Chest Exam date and time: 09/14/2022 5:35 PM Age: 67 years old Clinical indication: Sternal or substernal pain; Additional info: Chest pain TECHNIQUE: Imaging protocol: Radiologic exam of the chest. Views: 1 view. COMPARISON: CR XR CHEST 2V 06/18/2022 10:55 PM FINDINGS: Lungs: Unremarkable. No consolidation. Pleural spaces: Unremarkable. No pleural effusion. No pneumothorax. Heart/Mediastinum: Unremarkable. No cardiomegaly. Bones/joints: Unremarkable. IMPRESSION: No acute findings.
--- NOTE | 2022-09-14 17:09 | ECG_ITS ---
APPROVED REPORT Exam: Resting ECG HR:75 bpm ECG Measurements Heart Rate 75 AXES DC 132 P 25 QRSd 96 QRS 45 QT 369 T 57 QTc 398 Conclusion SINUS RHYTHM NORMAL ECG UNCONFIRMED REPORT Electronically signed by : Jose David Us MD 09/14/2022 20:48:57
[2022-09-14 17:22] LABS: Chloride 104 mmol/L (98-107); Potassium 3.3 mmoL/L (3.5-5.1); Sodium 142 mmol/L (136-145)
[2022-09-14 17:25] LABS: Anion Gap 12.3 mEq/L (5-15); Blood Urea Nitrogen 13 mg/dl (7-17); Calcium 9.5 mg/dl (8.4-10.2); Carbon Dioxide 29 mmol/L (22.0-30.0); Creatinine Clearance Estimated 47 mL/min (50-200); Estimated Glomerular Filt Rate 72 ml/min (>60); GFR (African American) 87 ML/MIN (>60); Glucose 101 mg/dl (74-100)
[2022-09-14 17:26] LABS: Basophils # 0.1 K/mm3 (0-0.2); Basophils % 1.6 % (0.1-2.0); Eosinophils # 0.1 K/mm3 (0.0-0.4); Eosinophils % 0.8 % (0.1-12.0); Hematocrit 42.6 % (37.0-47.0); Hemoglobin 13.8 g/dL (12.2-16.2); Lymphocytes # 2.6 K/mm3 (0.7-4.5); Lymphocytes % 30.4 % (10-50); Mean Corpuscular HGB Conc 32.4 g/dL (31.8-35.4); Mean Corpuscular Hemoglobin 31.1 pg (27.0-31.2); Mean Corpuscular Volume 95.9 fl (81-99); Mean Platelet Volume 8.8 fl (7.4-10.4); Monocytes # 0.5 K/mm3 (0.1-1.0); Monocytes % 5.4 % (1.7-9.3); Neutrophils # 5.2 K/mm3 (1.8-7.8); Neutrophils % 61.8 % (37.0-80.0); Platelet Count 274 K/mm3 (142-424); Red Blood Count 4.44 M/mm3 (4.20-5.40); Red Cell Distribution Width 13.3 % (11.5-17.5); White Blood Count 8.5 K/mm3 (4.8-10.8)
[2022-09-14 17:30] VITALS: BP 144/89; BP 153/87; PULSE 71; PULSE 78; RESP 16; RESP 18; O2SAT 98
[2022-09-14 17:52] LABS: Troponin I < 0.01 ng/ml (0.00-0.034)
--- NOTE | 2022-09-14 18:48 | HMH.EDGENADL ---
Discharge Plan Disposition Patient Disposition: Home, Self-Care Condition: Good Prescriptions Prescriptions: New ibuprofen 600 mg tablet 600 mg PO Q6H PRN (Reason: moderate pain ) Qty: 20 0RF No Action lorazepam 0.5 mg tablet 0.5 mg PO BID Label Comments: TAKE 1 TABLET 2 TIMES EACH DAY FOR ANXIETY Metamucil 3.4 gram/5.4 gram powder 1 tbsp PO DAILY Rx Instructions: mix into at least 8 oz of water or juice before administering lisinopril 10 mg tablet 10 mg PO BID levothyroxine 25 mcg tablet 25 mcg PO DAILY Label Comments: TAKE 1 TABLET ONCE A DAY IN THE MORNING ON AN EMPTY STOMACH. atorvastatin 10 mg tablet 10 mg PO DAILY aspirin [Adult Low Dose Aspirin] 81 mg tablet,delayed release (DR/EC) 81 mg PO DAILY polyethylene glycol 3350 [Miralax] 17 gram/dose powder 17 g PO DAILY bisoprolol fumarate 5 mg tablet 5 mg PO DAILY Qty: 90 2RF Referrals Follow up/Referrals: Argelia Hughes [Primary Care Provider] - See instructions Activity Restrictions/Add. Instructions Additional Instructions/Restrictions: Ibuprofen for pain. Additional instructions for CHEST PAIN: See your physician as soon as possible for further evaluation. Return immediately if worsening chest pain, vomiting, shortness of breath, fever, coughing of blood. Clinical Impressions Clinical Impression: Acute costochondritis Instructions Patient Instructions: DI for Atypical Chest Pain, DI for Costochondritis Discharge ED Provider: Barrington Menendez Adult HPI General Chief complaint: Chest Pain Stated complaint: chest pain Time Seen by Provider: 09/14/22 18:47 Mode of Arrival: Ambulatory Limitations: No Limitations Description of Symptoms (Recalled from ER Triage Doc. by RN): PT REPORTS STERNAL CHEST PAIN THAT STARTED LAST NIGHT, DENIES SHORTNESS OF BREATH OR RADIATION OF PAIN. PAINFUL TO PALPATION History of Present Illness HPI narrative: The patient is known to me from previous emergency department visits for chest pain. She has been extensively evaluated for chest pain including a heart cath that showed normal coronary arteries last year. She now presents stating that she has a new pain, different than her usual. It has been there since last night. She has a constant pain but notices that it is tender in her right parasternal area she says it feels like it is in the bone . Denies associated symptoms. No injury. No radiation, no shortness of breath. Related Data Home Medications Medication Instructions Recorded Confirmed aspirin 81 mg tablet,delayed 81 mg PO DAILY 09/25/20 07/07/22 release (Adult Low Dose Aspirin) atorvastatin 10 mg tablet 10 mg PO DAILY Cholesterol 09/25/20 07/07/22 levothyroxine 25 mcg tablet 25 mcg PO DAILY thyroid 09/25/20 07/07/22 lisinopril 10 mg tablet 10 mg PO BID High blood pressure 09/25/20 07/07/22 lorazepam 0.5 mg tablet 0.5 mg PO BID Anxiety 01/13/22 07/07/22 polyethylene glycol 3350 17 17 g PO DAILY 01/13/22 07/07/22 gram/dose oral powder (Miralax) psyllium husk 3.4 gram/5.4 gram 1 tbsp PO DAILY 01/28/22 07/07/22 oral powder (Metamucil) Previous Rx's Medication Instructions Recorded bisoprolol fumarate 5 mg tablet 5 mg PO DAILY high blood pressure 04/23/22 #90 tabs ibuprofen 600 mg tablet 600 mg PO Q6H PRN moderate pain 09/14/22 #20 tabs Allergies Allergy/AdvReac Type Severity Reaction Status Date / Time buspirone Allergy Mild Verified 07/07/22 12:05 pravastatin Allergy Mild Verified 07/07/22 12:05 paroxetine [From Paxil] Allergy Verified 07/07/22 12:05 isosorbide AdvReac chest pain Verified 07/07/22 12:05 [facility] [place] Medical History Abnormal EKG Anxiety Coronary artery calcification seen on CT scan Dyspnea Ex-smoker Family history of heart disease Family History (Updated 09/14/22 @ 18:55 by Elisa Bassett RN) Other No significa
--- NOTE | 2022-09-14 18:51 | PC.NURSE ---
REBECCA VELASQUEZ AT BEDSIDE FOR EVALUATION
[2022-09-14 19:09] VITALS: BP 142/82; PULSE 64; RESP 16; TEMP 36.6; O2SAT 98
== END 2022-09-14 19:11 | disposition home or self-care (01) ==
PROVIDERS: Emergency Provider Emergency Medicine; PCP Nurse Practitioner Family
DX: R07.2 Precordial pain (principal); M94.0 Chondrocostal junction syndrome [Tietze]; R94.31 Abnormal electrocardiogram [ECG] [EKG]; F41.9 Anxiety disorder, unspecified; Z79.1 Long term (current) use of non-steroidal anti-inflammatories (NSAID); Z79.82 Long term (current) use of aspirin; Z79.899 Other long term (current) drug therapy; Z88.8 Allergy status to other drugs, medicaments and biological substances; Z87.891 Personal history of nicotine dependence; Z82.49 Family history of ischemic heart disease and other diseases of the circulatory system
CPT/HCPCS: 71045; 80048; 84484; 85025; 93005; 99284

== ENCOUNTER 2022-10-13 08:30 | Emergency (ER) | payer MEDICARE, OTHER, SELFPAY ==
[2022-10-13 09:30] VITALS: BP 124/84; PULSE 74; RESP 18; TEMP 36.7; O2SAT 98; BMI 19.7
--- NOTE | 2022-10-13 09:46 | EXP.UTC ---
Discharge Plan Disposition Patient Disposition: Home, Self-Care Condition: Good Prescriptions Prescriptions: New benzonatate 100 mg capsule 100 mg PO TID PRN (Reason: cough) Qty: 15 0RF cefdinir 300 mg capsule 300 mg PO BID Qty: 20 0RF No Action lorazepam 0.5 mg tablet 0.5 mg PO BID Label Comments: TAKE 1 TABLET 2 TIMES EACH DAY FOR ANXIETY Metamucil 3.4 gram/5.4 gram powder 1 tbsp PO DAILY Rx Instructions: mix into at least 8 oz of water or juice before administering lisinopril 10 mg tablet 10 mg PO BID levothyroxine 25 mcg tablet 25 mcg PO DAILY Label Comments: TAKE 1 TABLET ONCE A DAY IN THE MORNING ON AN EMPTY STOMACH. atorvastatin 10 mg tablet 10 mg PO DAILY aspirin [Adult Low Dose Aspirin] 81 mg tablet,delayed release (DR/EC) 81 mg PO DAILY polyethylene glycol 3350 [Miralax] 17 gram/dose powder 17 g PO DAILY bisoprolol fumarate 5 mg tablet 5 mg PO DAILY Qty: 90 2RF ibuprofen 600 mg tablet 600 mg PO Q6H PRN (Reason: moderate pain ) Qty: 20 0RF Referrals Follow up/Referrals: Argelia Hughes [Primary Care Provider] - See instructions Activity Restrictions/Add. Instructions Additional Instructions/Restrictions: *Monitor Temp, Over the counter Motrin or Tylenol as directed/as needed Tylenol every 4 hours and Motrin every 6 hours (as long as your family doctor has told you that you can take it) for fever or pain. and straight to ER if unable to lower temp less than 101.0 after medication given *Warm salt water gargles may help to soothe the throat *Throat Lozenges? *Warm fluids like tea with honey may help to soothe the throat? *Sleep elevated *Humidifier/Vaporizer Your throat swab was sent for culture. Those results are typically sent to your primary care. Be sure to follow up in 2-3 days with your family doctor/primary care physician if no improvement so they can review those result and treat if necessary. If you don?t have a primary care doctor, I recommend you get one but in the mean time, you will have to return to a walk in clinic Follow up IMMEDIATELY for new or worsening symptoms or no Noticeable improvement over the next 48-72 hours. 911 for difficulty breathing or swallowing Clinical Impressions Clinical Impression: Sinusitis Instructions Patient Instructions: DI for Sinusitis, Sinusitis Discharge ED Provider: Leida Evans [facility] [place] General Stated complaint: Sore throat,Cough,Burning nose Time Seen by Provider: 10/13/22 09:46 History of Present Illness Provider Complaint: Patient states that she has been sick for over a week States that she was seen at her PCP last week and they did some tests and they was all negative States that she has continued to get worse and can barely swallow because of the pain States that today she was having pressure behind her eyes and her throat had blisters on it so she came in Related Data Home Medications Medication Instructions Recorded Confirmed aspirin 81 mg tablet,delayed 81 mg PO DAILY 09/25/20 07/07/22 release (Adult Low Dose Aspirin) atorvastatin 10 mg tablet 10 mg PO DAILY Cholesterol 09/25/20 07/07/22 levothyroxine 25 mcg tablet 25 mcg PO DAILY thyroid 09/25/20 07/07/22 lisinopril 10 mg tablet 10 mg PO BID High blood pressure 09/25/20 07/07/22 lorazepam 0.5 mg tablet 0.5 mg PO BID Anxiety 01/13/22 07/07/22 polyethylene glycol 3350 17 17 g PO DAILY 01/13/22 07/07/22 gram/dose oral powder (Miralax) psyllium husk 3.4 gram/5.4 gram 1 tbsp PO DAILY 01/28/22 07/07/22 oral powder (Metamucil) Previous Rx's Medication Instructions Recorded bisoprolol fumarate 5 mg tablet 5 mg PO DAILY high blood pressure 04/23/22 #90 tabs ibuprofen 600 mg tablet 600 mg PO Q6H PRN moderate pain 09/14/22 #20 tabs benzonatate 100 mg capsule 100 mg PO TID PRN cough #15 caps 10/13/22 cefdinir 300 mg capsule 300 mg PO BID #20 caps 10/13/22
[2022-10-13 10:07] LABS: UTC Strep Screen (Rapid) Negative (Negative)
[2022-10-13 10:22] VITALS: BP 124/84; PULSE 74; RESP 18; TEMP 36.7; O2SAT 98
== END 2022-10-13 10:26 | disposition home or self-care (01) ==
PROVIDERS: Emergency Provider Nurse Practitioner; PCP Nurse Practitioner Family
DX: J32.9 Chronic sinusitis, unspecified (principal)
CPT/HCPCS: 87880; 99212; G0463

== ENCOUNTER → 2022-11-25 12:13 | Outpatient (CLI) | payer MEDICARE, OTHER, SELFPAY | PROVIDERS: PCP Nurse Practitioner Family; Visit Provider Obstetrics & Gynecology | DX: N64.52 Nipple discharge (principal) | CPT/HCPCS: 36415; 84146 ==

== ENCOUNTER → 2022-12-01 13:39 | Outpatient (CLI) | payer MEDICARE, OTHER, SELFPAY ==
--- NOTE | 2022-12-01 13:39 | MM_ITS ---
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 Unilateral or bilateral exam. COMPARISON: 1. MG MM DIG MAMM DX UNILAT RT CAD 06/06/2022 1:46 PM 2. MG MM DIG SCREENING MAMM BI W/CAD 05/26/2022 4:16 PM FINDINGS: MAMMOGRAPHY: The breasts are heterogeneously dense, which may obscure small masses. There is no stellate mass, architectural distortion or suspicious microcalcifications in either breast to suggest malignancy. No skin thickening or axillary adenopathy. IMPRESSION: No mammographic evidence of malignancy. Patient has a known pituitary tumor. If the discharge is galactorrhea than further evaluation with serum prolactin levels would prove useful. If however the nipple discharge is hemorrhagic and/or spontaneous and clear, unrelated to galactorrhea, MRI may be performed for further evaluation. Annual bilateral mammographic screening is recommended unless otherwise clinically indicated. ASSESSMENT: BI-RADS Category 1: Negative
--- NOTE | 2022-12-01 14:15 | US_ITS ---
FINAL REPORT CLINICAL HISTORY: . FINDINGS: Transvaginal Ultrasound Technique: Transvaginal sonographic images of the pelvis were obtained. Findings: The uterus is surgically absent. The ovaries are not visualized. No abnormal fluid collection identified. IMPRESSION: Ovaries not visualized. Uterus surgically absent. Reviewed, Interpreted and Dictated by Martin Fragoso MD Transcribed by Lasha Schwartz Authenticated and [facility]
== END ==
PROVIDERS: PCP Nurse Practitioner Family; Visit Provider Obstetrics & Gynecology
DX: N64.59 Other signs and symptoms in breast (principal); R14.0 Abdominal distension (gaseous)
CPT/HCPCS: 76830; 77062; 77066; G0279

== ENCOUNTER → 2023-01-06 13:53 | Outpatient (CLI) | payer MEDICARE, OTHER, SELFPAY ==
--- NOTE | 2023-01-06 13:55 | CA_ITS ---
APPROVED REPORT EXAM: Comprehensive 2D, Doppler, and color-flow Echocardiogram Chemical Supervisor: Kelli Medina, RCS, RVS Ht: 5 ft 4 in Wt: 19lbs BSA: 0.72 BP: 122/72 mmHg Indications: CP, Dyspnea, Ex-smoker, Hx-pituitary tumor with partial removal, HLD 2D Dimensions IVSd 0.97 cm LVEF (Visual) 63.10 % PWd 1.01 cm LA Volume 23.50 mL LVDd 4.14 cm LA Volume Index 31.80 mL/m2 (M/F) 16-34 LVDs 2.74 cm Aortic Root 2.86 cm Left Atrium 2.57 cm LVOT 2.09 cm (M/F) 1.5-2.5 M-Mode Dimensions RVDd 2.11 cm (0.9-2.6) LA Diam 3.00 cm (1.9-4.0) LVDd 4.79 cm (3.5-5.7) Ao Diam 3.01 cm (2.0-3.7) LVDs 2.86 cm (3.5-5.7) IVSd 1.11 cm (0.6-1.1) PWd 0.79 cm (0.6-1.1) EF (Teich) 70.90% EPSs 0.61 cm FS 40.30% EDV (Teich) 107.00 mL ESV (Teich) 31.10 mL LV Diastology E Decel Time 198.00 (160-240 msec) E/A Ratio 0.81 MED E' 6.20 (< 7 cm/sec) MED A' 7.20 cm/s E'/MED E' Ratio 7.92 (>14) LAT E' 5.60 (<10 cm/sec) LAT A' 7.80 cm/s E/LAT E' Ratio 8.77 (>14) Aortic Valve LVOT Max 78.00 (70-110 cm/s) LVOT VTI 16.43 cm AoV Peak Sj. 99.00 (50-130 cm/s) AO Peak GR. 3.90 mmHg AO Mean GR. 2.00 (<5 mmHg) AO VTI 21.25 (18-25 cm) DANIEL (VTI) 2.65 (2.5-4.5 cm2) Mitral Valve MV A Velocity 60.00 (40-130 cm/s) E/A Ratio 0.81 MV Decel. Time 198.00 (160-240 ms) Pulmonary Valve PV Peak Velocity 69.00 (50-150 cm/s) Tricuspid Valve TR P. Velocity 169.00 cm/s RAP Estimate 10.00 mmHg RVSP 21.40 mmHg Left Ventricle Left atrium is mildly enlarged left ventricle is normal size, estimated ejection fraction 55% with no regional wall motion abnormality, grade 1 diastolic dysfunction seen without tissue Doppler evidence of late left atrial pressure. Right Ventricle Right atrium and right ventricular normal size and contractility. Aortic Valve Aortic valve is minimally thickened and fibrosed there is no aortic stenosis or aortic insufficiency. Mitral Valve Mitral valve is grossly normal, there is trace mitral regurgitation. Tricuspid Valve Tricuspid grossly normal, there is trace tricuspid regurgitation, tricuspid regurgitation jet velocity is inadequate for calculation of the right ventricular systolic pressure. Pulmonic Valve Pulmonic valve is poorly visualized. Great Vessels Aortic root is normal size. Inferior vena cava is poorly visualized. Pericardium No significant pericardial effusion noted. Conclusion 1. Mildly enlarged left atrium, normal left ventricular size, mild concentric left ventricular hypertrophy, estimated ejection fraction 55% with no regional wall motion abnormality, grade 1 diastolic dysfunction seen without tissue Doppler evidence of late left atrial pressure. 2. Trace mitral and tricuspid regurgitation. 3. No significant pericardial effusion. 4. Inferior vena cava is poorly visualized. Electronically signed by : Indra Delgado MD 01/06/2023 19:23:55
== END ==
PROVIDERS: PCP Nurse Practitioner Family; Visit Provider Nurse Practitioner Family
DX: E78.2 Mixed hyperlipidemia (principal); I10 Essential (primary) hypertension; R06.00 Dyspnea, unspecified; R07.9 Chest pain, unspecified; R91.8 Other nonspecific abnormal finding of lung field
CPT/HCPCS: 93306

== ENCOUNTER → 2023-05-20 12:29 | Outpatient (CLI) | payer MEDICARE, OTHER, SELFPAY ==
--- NOTE | 2023-05-20 13:47 | CT_ITS ---
FINAL REPORT TECHNIQUE: Axial images were obtained from the lung apex to the mid abdomen by computed tomography. Coronal reformatted images were obtained. This study was performed with techniques to keep radiation doses as low as reasonably achievable, (ALARA). Individualized dose reduction techniques using automated exposure control or adjustment of mA and/or kV according to the patient''s size were employed. CLINICAL HISTORY: Nodule F/U COMPARISON: 05/12/2022 FINDINGS: A few scattered pulmonary nodules are stable within the bilateral lungs, right greater than left, and most likely represent granulomas. There is mild bronchiectasis. No pleural or pericardial effusion is seen. No adenopathy or mass lesion is present. IMPRESSION: Stable benign-appearing nodules. No acute lung disease Reviewed, Interpreted and Dictated by Mayur Guzman MD Transcribed by Sarah Sainz Authenticated and [facility]
== END ==
PROVIDERS: PCP Nurse Practitioner Family; Visit Provider Internal Medicine Pulmonary Disease
DX: R91.8 Other nonspecific abnormal finding of lung field (principal); R06.02 Shortness of breath
CPT/HCPCS: 71250; 94060; 94618; 94726; 94729

== ENCOUNTER 2023-05-24 04:22 | Emergency (ER) | payer MEDICARE, OTHER, SELFPAY ==
[2023-05-24 04:24] VITALS: BP 116/105; PULSE 66; RESP 18; TEMP 36.9; O2SAT 98; BMI 21.2
--- NOTE | 2023-05-24 04:45 | HMH.EDGENADL ---
Discharge Plan Disposition Chief Complaint: Shortness of Breath/Dyspnea Prescriptions Prescriptions: No Action lorazepam 0.5 mg tablet 0.5 mg PO BID Patient Comments: TAKE 1 TABLET 2 TIMES EACH DAY FOR ANXIETY Metamucil 3.4 gram/5.4 gram powder 1 tbsp PO DAILY Rx Instructions: mix into at least 8 oz of water or juice before administering cabergoline 0.5 mg tablet 0.5 mg PO lisinopril 10 mg tablet 10 mg PO BID levothyroxine 25 mcg tablet 25 mcg PO DAILY Patient Comments: TAKE 1 TABLET ONCE A DAY IN THE MORNING ON AN EMPTY STOMACH. atorvastatin 10 mg tablet 10 mg PO DAILY aspirin [Adult Low Dose Aspirin] 81 mg tablet,delayed release (DR/EC) 81 mg PO DAILY polyethylene glycol 3350 [Miralax] 17 gram/dose powder 17 g PO DAILY levomefolate calcium [L-Methylfolate] 7.5 mg tablet 7.5 mg PO DAILY bisoprolol fumarate 5 mg tablet 5 mg PO DAILY Qty: 90 2RF Referrals Follow up/Referrals: Argelia Hughes [Primary Care Provider] - See instructions Discharge ED Provider: Izaiah Bliss General Adult HPI General Chief complaint: Shortness of Breath/Dyspnea Stated complaint: SOA,diarrhea Time Seen by Provider: 05/24/23 04:25 Mode of Arrival: Ambulatory Source of Information: Patient Limitations: No Limitations Description of Symptoms (Recalled from ER Triage Doc. by RN): Pt presents with complaints of feeling SOA due to abdominal swelling that she states has been going on for 8 weeks. PCP in process of scheduling CT of abdomen. Pt denies any pain at this time. Oxygenation is 98% on room air. History of Present Illness HPI narrative: 67-year-old female presents for multiple complaints. She reports that she is having worsening abdominal swelling for the last 8 weeks or so. No significant abdominal pain. She is being worked up for this by PCP. Reports that she has had normal blood work recently. Patient also presents for shortness of breath. She reports that her shortness of breath has been present for quite some time, but was worse tonight, especially with laying down. She was unable to sleep secondary to shortness of breath. Denies any history of DVT or PE, denies any recent infectious symptoms. Reports that she has chronic chest pain but is currently chest pain free. Related Data Home Medications Medication Instructions Recorded Confirmed aspirin 81 mg tablet,delayed 81 mg PO DAILY 09/25/20 02/20/23 release (Adult Low Dose Aspirin) atorvastatin 10 mg tablet 10 mg PO DAILY Cholesterol 09/25/20 02/20/23 levothyroxine 25 mcg tablet 25 mcg PO DAILY thyroid 09/25/20 02/20/23 lisinopril 10 mg tablet 10 mg PO BID High blood pressure 09/25/20 02/20/23 lorazepam 0.5 mg tablet 0.5 mg PO BID Anxiety 01/13/22 02/20/23 polyethylene glycol 3350 17 17 g PO DAILY 01/13/22 02/20/23 gram/dose oral powder (Miralax) psyllium husk 3.4 gram/5.4 gram 1 tbsp PO DAILY 01/28/22 02/20/23 oral powder (Metamucil) cabergoline 0.5 mg tablet 0.5 mg PO 12/29/22 02/20/23 levomefolate calcium 7.5 mg tablet 7.5 mg PO DAILY 02/20/23 02/20/23 (L-Methylfolate) Previous Rx's Medication Instructions Recorded bisoprolol fumarate 5 mg tablet 5 mg PO DAILY high blood pressure 04/23/22 #90 tabs Allergies Allergy/AdvReac Type Severity Reaction Status Date / Time buspirone Allergy Mild Verified 02/20/23 11:09 pravastatin Allergy Mild Verified 02/20/23 11:09 paroxetine [From Paxil] Allergy Verified 02/20/23 11:09 isosorbide AdvReac chest pain Verified 02/20/23 11:09 [facility] Disclaimer: The information contained in this section may have been updated after the patient was seen, as this information can be updated by other users. Medical History (Updated 02/20/23 @ 11:34 by Sae Gilliam MD) Abnormal EKG Anxiety Chest pain Coronary artery calcification seen on CT scan Depression Dyspnea Dyspnea on exertion Ex-smoker Family history of heart diseas
--- NOTE | 2023-05-24 04:46 | XR_ITS ---
PROCEDURE INFORMATION: Exam: XR Chest Exam date and time: 05/24/2023 4:50 AM Age: 67 years old Clinical indication: Shortness of breath; Additional info: SOA TECHNIQUE: Imaging protocol: Radiologic exam of the chest. Views: 1 view. COMPARISON: CT CHEST WO CON 05/20/2023 1:47 PM and chest x-ray 09/14/2022 FINDINGS: Lungs: Unremarkable. No consolidation. Pleural spaces: Unremarkable. No pleural effusion. No pneumothorax. Heart/Mediastinum: Unremarkable. No cardiomegaly. Bones/joints: Unremarkable. IMPRESSION: Stable chest x-ray with no acute disease.
[2023-05-24 04:59] LABS: Basophils # 0.1 K/mm3 (0-0.2); Basophils % 1.1 % (0.1-2.0); Eosinophils # 0.2 K/mm3 (0.0-0.4); Eosinophils % 2.4 % (0.1-12.0); Hematocrit 44.1 % (37.0-47.0); Lymphocytes # 3.5 K/mm3 (0.7-4.5); Lymphocytes % 48.4 % (10-50); Mean Corpuscular HGB Conc 31.7 g/dL (31.8-35.4); Mean Corpuscular Hemoglobin 29.7 pg (27.0-31.2); Mean Corpuscular Volume 93.6 fl (81-99); Mean Platelet Volume 8.6 fl (7.4-10.4); Monocytes # 0.5 K/mm3 (0.1-1.0); Neutrophils % 41.1 % (37.0-80.0); Platelet Count 237 K/mm3 (142-424); Red Blood Count 4.72 M/mm3 (4.20-5.40); Red Cell Distribution Width 13.4 % (11.5-17.5); White Blood Count 7.2 K/mm3 (4.8-10.8)
[2023-05-24 05:08] LABS: Alanine Aminotransferase 45 U/L (12-78); Albumin Level 4.1 g/dl (3.5-5.0); Albumin/Globulin Ratio 1.6 (1.1-1.8); Alkaline Phosphatase 85 U/L (38-126); Anion Gap 7.7 mEq/L (5-15); Aspartate Amino Transferase 47 U/L (14-36); Bilirubin,Total 0.4 mg/dl (0.2-1.3); Blood Urea Nitrogen 14 mg/dl (7-17); Calcium 9.2 mg/dl (8.4-10.2); Carbon Dioxide 29 mmol/L (22.0-30.0); Chloride 105 mmol/L (98-107); Creatinine Clearance Estimated 48 mL/min (50-200); Estimated Glomerular Filt Rate 55 ml/min (>60); GFR (African American) 67 ML/MIN (>60); Globulin 2.6 g/dL (1.3-3.2); Glucose 108 mg/dl (74-100); Potassium 3.7 mmoL/L (3.5-5.1); Sodium 138 mmol/L (136-145); Total Protein,Serum 6.7 g/dl (6.3-8.2)
[2023-05-24 05:11] LABS: Lipase 191 U/L (23-300)
[2023-05-24 05:14] LABS: D-Dimer 0.58 ug/mL (0.0-0.5)
--- NOTE | 2023-05-24 05:16 | ECG_ITS ---
APPROVED REPORT Exam: Resting ECG HR:76 bpm ECG Measurements Heart Rate [address] 160 P 41 QRSd 89 QRS 53 QT 403 T 41 QTc 433 Conclusion SINUS RHYTHM WITH FREQUENT VENTRICULAR PREMATURE COMPLEXES ABNORMAL RHYTHM ECG UNCONFIRMED REPORT Electronically signed by : Jose David Us MD 05/25/2023 19:56:03
--- NOTE | 2023-05-24 05:22 | CT_ITS ---
PROCEDURE INFORMATION: Exam: CTA Chest With Contrast Exam date and time: 05/24/2023 5:40 AM Age: 67 years old Clinical indication: Shortness of breath; Additional info: SOA, positive d-dimer TECHNIQUE: Imaging protocol: Computed tomographic angiography of the chest with contrast. Exam focused on the arteries. 3D rendering (Not supervised by radiologist): MIP and/or 3D reconstructed images were created by the technologist. Radiation optimization: All CT scans at this facility use at least one of these dose optimization techniques: automated exposure control; mA and/or kV adjustment per patient size (includes targeted exams where dose is matched to clinical indication); or iterative reconstruction. Contrast material: ISOVUE; Contrast volume: 70 ml; Contrast route: INTRAVENOUS (IV); REPORTING DATA: Count of CT and Cardiac NM exams in prior 12 months: This patient has received [address] and 0 known cardiac nuclear medicine studies in the 12 months prior to the current study. COMPARISON: 1. CT CHEST WO CON 05/20/2023 1:[address] CHEST W CON 05/12/2022 10:59 AM FINDINGS: Limitations: Mild motion artifact. Pulmonary arteries: No vascular intraluminal filling defects to suggest pulmonary embolism. Aorta: Mild atherosclerotic tortuosity of the thoracic aorta. No aortic aneurysm or dissection. Lungs: Mild bronchiectasis. Small right hilar and right lower lobe calcified granulomas as well as redemonstrated scattered small bilateral noncalcified nodules or granulomas measuring up to 5 mm. Minimal biapical scarring. No consolidation. Pleural spaces: No pleural effusion. No pneumothorax. Heart: Heart size is normal. Coronary arteries: Coronary artery calcifications. Lymph nodes: Small calcified right hilar lymph nodes. Bones/joints: No acute osseous abnormality. No acute fracture. Soft tissues: No significant soft tissue abnormalities. Other findings: Abdomen and pelvis findings reported separately. IMPRESSION: 1. No evidence of pulmonary embolism. 2. Mild bronchiectasis. 3. Small right hilar and right lower lobe calcified granulomas as well as redemonstrated scattered small bilateral noncalcified nodules or granulomas measuring up to 5 mm. Given 1 year stability no additional follow-up is recommended. 4. Atherosclerotic vascular disease including coronary artery disease.
--- NOTE | 2023-05-24 05:22 | CT_ITS ---
PROCEDURE INFORMATION: Exam: CT Abdomen And Pelvis With Contrast Exam date and time: 05/24/2023 5:40 AM Age: 67 years old Clinical indication: Abdominal pain; Additional info: Abd swelling TECHNIQUE: Imaging protocol: Computed tomography of the abdomen and pelvis with contrast. Radiation optimization: All CT scans at this facility use at least one of these dose optimization techniques: automated exposure control; mA and/or kV adjustment per patient size (includes targeted exams where dose is matched to clinical indication); or iterative reconstruction. Contrast material: ISOVUE; Contrast volume: 70 ml; Contrast route: IV; REPORTING DATA: Count of CT and Cardiac NM exams in prior 12 months: This patient has received [address] and 0 known cardiac nuclear medicine studies in the 12 months prior to the current study. COMPARISON: CT ABDOMEN PELVIS WO CON 01/28/2022 11:29 AM FINDINGS: Liver: No acute abnormality. No mass. Gallbladder and bile ducts: Small contracted gallbladder. No biliary ductal dilatation. Pancreas: No acute abnormality. No ductal dilation. Spleen: No acute abnormality. Adrenal glands: No significant or acute abnormality. Kidneys and ureters: Incidental tiny simple appearing left renal cysts measuring up to 7 mm. No hydronephrosis or hydroureter. Stomach and bowel: Small amount of fluid and ingested contents within stomach. No significant large or small bowel distention. Appearance of mild colonic thickening which may be secondary to nondistention versus mild nonspecific diffuse colitis. No evidence of diverticulitis. Appendix: No findings to suggest acute appendicitis. Intraperitoneal space: No significant fluid collection. No free air. Vasculature: No acute abnormality. No abdominal aortic aneurysm. Lymph nodes: No enlarged lymph nodes. Urinary bladder: Mildly thickened but incompletely distended urinary bladder. Reproductive: Previous hysterectomy. Bones/joints: No acute osseous abnormality. No dislocation. Soft tissues: Small fat containing umbilical hernia. IMPRESSION: 1. Appearance of mild colonic thickening which may be secondary to nondistention versus mild nonspecific diffuse colitis. 2. Mildly thickened urinary bladder which may be secondary to incomplete distention versus cystitis/UTI. 3. Previous hysterectomy. COMMENTS: Consistent with the [employer]'s Incidental Findings Committee white paper (J Am Oneyda Radiol 2018): Any incidental renal lesion less than 1 cm or classified as too small to characterize, or any incidental cystic renal lesion characterized as simple-appearing, is likely benign. No follow-up imaging is recommended for these lesions per consensus recommendations based on imaging criteria.
[2023-05-24 05:27] LABS: Troponin I < 0.01 ng/ml (0.00-0.034)
[2023-05-24 06:28] VITALS: BP 130/77; PULSE 74; RESP 18; TEMP 37
== END 2023-05-24 06:40 | disposition home or self-care (01) ==
PROVIDERS: Emergency Provider Emergency Medicine; PCP Nurse Practitioner Family
DX: R06.02 Shortness of breath (principal); R14.0 Abdominal distension (gaseous); F41.9 Anxiety disorder, unspecified; F32.A Depression, unspecified; I10 Essential (primary) hypertension; E78.5 Hyperlipidemia, unspecified; E07.9 Disorder of thyroid, unspecified
CPT/HCPCS: 71045; 71275; 74177; 80053; 83690; 84484; 85025; 85378; 93005; 99285; Q9967

== ENCOUNTER → 2023-05-30 14:19 | Outpatient (CLI) | payer MEDICARE, OTHER, SELFPAY ==
[2023-05-30 14:40] LABS: Adenovirus F 40/41, stool Not Detected (NotDetected); Astrovirus Not Detected (NotDetected); Clostridium Difficile A/B, PCR Not Detected (NotDetected); Cryptosporidium Not Detected (NotDetected); Cyclospora Cayetanesis Not Detected (NotDetected); Entamoeba histolytica Not Detected (NotDetected); Enteroaggregative E coli Not Detected (NotDetected); Enteropathogenic E coli Not Detected (NotDetected); Enterotoxigenic E coli Not Detected (NotDetected); Giardia lamblia Not Detected (NotDetected); Norovirus Not Detected (NotDetected); Plesimonas Shigalloides, PCR Not Detected (NotDetected); Rotavirus A Not Detected (NotDetected); Salmonella, PCR Not Detected (NotDetected); Sapovirus Not Detected (NotDetected); Shiga-like toxin E coli Not Detected (NotDetected); Shigella Enterovasive E coli Not Detected (NotDetected); Vibrio Cholerae Not Detected (NotDetected); Vibrio, PCR Not Detected (NotDetected); Yersinia Entercolitica, PCR Not Detected (NotDetected)
[2023-05-31 09:54] LABS: Campylobacter Detected (NotDetected)
[2023-06-03 14:45] LABS: Pancreatic Elastase, Fecal 168 (>200)
== END ==
PROVIDERS: PCP Nurse Practitioner Family; Visit Provider Nurse Practitioner Family
DX: R19.4 Change in bowel habit (principal); R14.0 Abdominal distension (gaseous); R93.3 Abnormal findings on diagnostic imaging of other parts of digestive tract; A04.5 Campylobacter enteritis
CPT/HCPCS: 82656; 87507

== ENCOUNTER → 2023-06-03 09:19 | Outpatient (CLI) | payer MEDICARE, OTHER, SELFPAY ==
--- NOTE | 2023-06-03 09:22 | NM_ITS ---
FINAL REPORT TECHNIQUE: Sequential anterior images were obtained after the ingestion of 2 whole eggs, white toast with butter, and 6 ounces of water radiolabeled with 0.55 mCi technetium 99M sulfur colloid. CLINICAL HISTORY: ALTERED BOWEL FUNCTION,BLOATING,CONSTIPATION,ABD DISTENTION, 10:00 am .55 uci sulfur colloid injected into 2 whole eggs white toast with butter 6oz of water COMPARISON: None FINDINGS: GASTRIC EMPTYING SCAN Static images show normal emptying of the stomach into the small bowel. Based on the time activity curve, the estimated half-emptying time is 104 minutes. IMPRESSION: Normal gastric emptying study. Reviewed, Interpreted and Dictated by Campos Ashley III, MD Transcribed by Sarah Sainz Authenticated and [facility]
== END ==
PROVIDERS: PCP Nurse Practitioner Family; Visit Provider Nurse Practitioner Family
DX: K59.00 Constipation, unspecified (principal); R14.0 Abdominal distension (gaseous); R93.3 Abnormal findings on diagnostic imaging of other parts of digestive tract
CPT/HCPCS: 78264; A9541

== ENCOUNTER → 2023-06-18 12:47 | Outpatient (CLI) | payer MEDICARE, OTHER, SELFPAY | PROVIDERS: PCP Nurse Practitioner Family; Visit Provider Nurse Practitioner Family | DX: Z12.31 Encounter for screening mammogram for malignant neoplasm of breast (principal) ==

== ENCOUNTER 2023-07-13 11:29 | Emergency (ER) | payer MEDICARE, SELFPAY ==
[2023-07-13] VITALS (8 sets, daily range): BP systolic 135–148; BP diastolic 67–99; PULSE 62–98; RESP 16–18; TEMP 36.5–36.6; O2SAT 96–99; BMI 21.2
--- NOTE | 2023-07-13 11:57 | CT_ITS ---
FINAL REPORT TECHNIQUE: After the administration of oral and intravenous contrast, axial images were obtained through the abdomen and pelvis by computed tomography. The study was performed with techniques to keep radiation dose as low as reasonably achievable, (ALARA). Individual dose reduction techniques using automated exposure control or adjustment of mA and/or kV according to the patient's size were employed. CLINICAL HISTORY: progressive abdominal swelling, previous pit tumor COMPARISON: 05/24/2023 FINDINGS: Abdomen: There is mild scarring in the lung bases. The liver parenchyma is homogeneous. The gallbladder is present. The spleen, pancreas, adrenals and kidneys appear unremarkable. The aorta is normal in caliber. There is no free fluid or adenopathy. Pelvis: The appendix is not identified. The urinary bladder is remarkable for mild wall thickening, noted on the prior CT of May 24.. There is no free fluid or adenopathy. The uterus is surgically absent. IMPRESSION: Mild wall thickening of the bladder is again noted, unchanged from the prior CT examination, compatible with mild chronic cystitis. Reviewed, Interpreted and Dictated by Martin Fragoso MD Transcribed by Sil Faustin Authenticated and [facility]
--- NOTE | 2023-07-13 12:00 | HMH.EDGENADL ---
Discharge Plan Disposition Patient Disposition: Home, Self-Care Prescriptions Prescriptions: New ondansetron 4 mg tablet,disintegrating 4 mg PO Q8H 4 Days Qty: 12 0RF No Action lorazepam 0.5 mg tablet 0.5 mg PO BID Patient Comments: TAKE 1 TABLET 2 TIMES EACH DAY FOR ANXIETY lisinopril 10 mg tablet 10 mg PO BID levothyroxine 25 mcg tablet 25 mcg PO DAILY Patient Comments: TAKE 1 TABLET ONCE A DAY IN THE MORNING ON AN EMPTY STOMACH. atorvastatin 10 mg tablet 10 mg PO DAILY aspirin [Adult Low Dose Aspirin] 81 mg tablet,delayed release (DR/EC) 81 mg PO DAILY bisoprolol fumarate 5 mg tablet 5 mg PO DAILY Qty: 90 2RF Referrals Follow up/Referrals: Argelia Hughes [Primary Care Provider] - See instructions Activity Restrictions/Add. Instructions Additional Instructions/Restrictions: At this time it was felt you are safe to be discharged home. If new or worsening symptoms please do not hesitate to return the emergency department. For constipation please take MiraLAX 1 capful a day and titrate to desired effect, generally 2 bowel movements per day that are soft. Please continue to follow-up with your doctor on an outpatient basis. Urine was negative for infection, no antibiotics needed at this time. 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 Patient has had early satiety and pancreatic exocrine insufficiency at baseline. Over the last 24 hours she has had rapidly progressive bloating. Still stooling and urinating. No vomiting however decreased p.o. intake at baseline. No other acute complaints at this time. Related Data Home Medications Medication Instructions Recorded Confirmed aspirin 81 mg tablet,delayed 81 mg PO DAILY 09/25/20 07/01/23 release (Adult Low Dose Aspirin) atorvastatin 10 mg tablet 10 mg PO DAILY Cholesterol 09/25/20 07/01/23 levothyroxine 25 mcg tablet 25 mcg PO DAILY thyroid 09/25/20 07/01/23 lisinopril 10 mg tablet 10 mg PO BID High blood pressure 09/25/20 07/01/23 lorazepam 0.5 mg tablet 0.5 mg PO BID Anxiety 01/13/22 07/01/23 Previous Rx's Medication Instructions Recorded bisoprolol fumarate 5 mg tablet 5 mg PO DAILY high blood pressure 04/23/22 #90 tabs ondansetron 4 mg disintegrating 4 mg PO Q8H 4 days #12 tabs 07/13/23 tablet Allergies Allergy/AdvReac Type Severity Reaction Status Date / Time buspirone Allergy Mild Verified 07/01/23 13:44 pravastatin Allergy Mild Verified 07/01/23 13:44 paroxetine [From Paxil] Allergy Verified 07/01/23 13:44 isosorbide AdvReac chest pain Verified 07/01/23 13:44 [facility] <Killian Becker MD - Last Filed: 07/13/23 15:36> [facility] Disclaimer: The information contained in this section may have been updated after the patient was seen, as this information can be updated by other users. Medical History Abnormal EKG Anxiety Chest pain Coronary artery calcification seen on CT scan Depression Dyspnea Dyspnea on exertion Ex-smoker Family history of heart disease Hyperlipidemia Hypertension Multiple lung nodules on CT SOB (shortness of breath) Thyroid disease Surgical History History of colonoscopy History of hysterectomy Family History (Reviewed 07/01/23 @ 13:44 by Erin Trujillo
[2023-07-13 12:22] LABS: Basophils # 0.1 K/mm3 (0-0.2); Basophils % 1.2 % (0.1-2.0); Eosinophils # 0.1 K/mm3 (0.0-0.4); Eosinophils % 1.2 % (0.1-12.0); Hematocrit 48.7 % (37.0-47.0); Hemoglobin 15.6 g/dL (12.2-16.2); Lymphocytes # 2.1 K/mm3 (0.7-4.5); Lymphocytes % 27.8 % (10-50); Mean Corpuscular Hemoglobin 29.7 pg (27.0-31.2); Mean Corpuscular Volume 92.8 fl (81-99); Mean Platelet Volume 8.5 fl (7.4-10.4); Monocytes # 0.3 K/mm3 (0.1-1.0); Monocytes % 4.2 % (1.7-9.3); Neutrophils # 4.9 K/mm3 (1.8-7.8); Neutrophils % 65.6 % (37.0-80.0); Platelet Count 246 K/mm3 (142-424); Red Blood Count 5.25 M/mm3 (4.20-5.40); Red Cell Distribution Width 13.1 % (11.5-17.5); White Blood Count 7.5 K/mm3 (4.8-10.8)
[2023-07-13 12:27] LABS: Alanine Aminotransferase 41 U/L (12-78); Albumin Level 4.4 g/dl (3.5-5.0); Albumin/Globulin Ratio 1.6 (1.1-1.8); Alkaline Phosphatase 60 U/L (38-126); Anion Gap 13.9 mEq/L (5-15); Aspartate Amino Transferase 43 U/L (14-36); Blood Urea Nitrogen 10 mg/dl (7-17); Calcium 9.2 mg/dl (8.4-10.2); Carbon Dioxide 24 mmol/L (22.0-30.0); Chloride 108 mmol/L (98-107); Creatinine Clearance Estimated 48 mL/min (50-200); Estimated Glomerular Filt Rate 62 ml/min (>60); GFR (African American) 75 ML/MIN (>60); Globulin 2.8 g/dL (1.3-3.2); Glucose 112 mg/dl (74-100); Lipase 131 U/L (23-300); Potassium 3.9 mmoL/L (3.5-5.1); Sodium 142 mmol/L (136-145); Total Protein,Serum 7.2 g/dl (6.3-8.2)
--- NOTE | 2023-07-13 14:42 | PC.NURSE ---
Rounded on patient; pt given a pillow for comfort. No other needs at this time. Call heart within reach.
--- NOTE | 2023-07-13 15:59 | PC.NURSE ---
pt ambulatory to restroom without complications
[2023-07-13 16:15] LABS: Microscopic, Urine URINE MICROSCOPIC (MICROSCOPIC)
[2023-07-13 16:30] LABS: Appearance,Urine CLEAR (Clear); Bilirubin,Urine Negative (Negative); Blood, Urine TRACE-I (Negative); Color,Urine YELLOW (Yellow); Glucose,Urine (UA) Negative (Negative); Ketones,Urine Negative (Negative); Leukocyte Esterase,Urine Negative (Negative); Nitrate,Urine Negative (Negative); PH,Urine 5.5 (5.0-8.5); Protein,Urine Negative (Negative); Specific Gravity, Urine 1.015 (1.005-1.030); Urobilinogen,Urine 0.2 EU/dl (0.2)
[2023-07-13 16:43] LABS: WBC,Urine Occasional #/hpf (0-3)
[2023-07-13 16:44] LABS: Squamous Epithelial Cell,Urine Occasional #/hpf (0-5)
== END 2023-07-13 16:54 | disposition home or self-care (01) ==
PROVIDERS: Emergency Medicine; Emergency Provider Emergency Medicine; PCP Nurse Practitioner Family
DX: R14.0 Abdominal distension (gaseous) (principal); K86.81 Exocrine pancreatic insufficiency; F41.9 Anxiety disorder, unspecified; F32.A Depression, unspecified; E78.5 Hyperlipidemia, unspecified; I10 Essential (primary) hypertension; E07.9 Disorder of thyroid, unspecified
CPT/HCPCS: 74177; 80053; 81001; 83690; 85025; 96374; 96375; 96376; 99285; J0131; J2405; Q9967

== ENCOUNTER → 2023-07-29 13:01 | Outpatient (CLI) | payer MEDICARE, SELFPAY ==
--- NOTE | 2023-07-29 13:25 | MM_ITS ---
PROCEDURE INFORMATION: Exam: US Left Breast, Complete MG Left Diagnostic Breast Tomosynthesis Exam date and time: 07/29/2023 2:52 PM Age: 68 years old Clinical indication: The patient describes sharp pain within her left nipple 1 single time 5 weeks ago with no pain since TECHNIQUE: Imaging protocol: Complete ultrasound of all four quadrants of the left breast and the retroareolar regions, including ultrasound of the axilla when performed. Left Diagnostic tomosynthesis and 2D mammography including computer-aided detection (CAD) when performed. Unilateral or bilateral exam. COMPARISON: MG MM DIG MAMM DX UNILAT LT CAD 07/29/2023 1:31 PM FINDINGS: MAMMOGRAPHY: The breast is heterogeneously dense, which may obscure small masses. Stable benign-appearing calcifications are present. No new mass, architectural distortion, or suspicious calcifications have developed to suggest malignancy. No axillary adenopathy. ULTRASOUND: Four quadrant and retroareolar left breast ultrasound and left axilla ultrasound Only normal glandular structures are present in the regions assessed No suspicious solid or cystic mass is present. No benign-appearing solid or cystic mass is present. No architectural distortion or shadowing is present. No axillary adenopathy is present. IMPRESSION: No mammographic or sonographic evidence of malignancy. Recommend annual screening mammography unless otherwise clinically indicated. ASSESSMENT: BI-RADS category 1: Negative
== END ==
PROVIDERS: PCP Nurse Practitioner Family; Visit Provider Nurse Practitioner Family
DX: N64.4 Mastodynia (principal)
CPT/HCPCS: 76641; 77061; 77065; G0279

== ENCOUNTER 2023-08-09 15:36 | Emergency (ER) | payer MEDICARE, SELFPAY ==
[2023-08-09 15:49] VITALS: BP 147/92; PULSE 87; RESP 19; TEMP 36.5; O2SAT 97; BMI 20.5
[2023-08-09 16:00] VITALS: BP 143/92; PULSE 79; O2SAT 95
--- NOTE | 2023-08-09 16:00 | HMH.EDGENADL ---
Discharge Plan Disposition Patient Disposition: Home, Self-Care Prescriptions Prescriptions: No Action lorazepam 0.5 mg tablet 0.5 mg PO BID Patient Comments: TAKE 1 TABLET 2 TIMES EACH DAY FOR ANXIETY lisinopril 10 mg tablet 10 mg PO BID levothyroxine 25 mcg tablet 25 mcg PO DAILY Patient Comments: TAKE 1 TABLET ONCE A DAY IN THE MORNING ON AN EMPTY STOMACH. atorvastatin 10 mg tablet 10 mg PO DAILY aspirin [Adult Low Dose Aspirin] 81 mg tablet,delayed release (DR/EC) 81 mg PO DAILY bisoprolol fumarate 5 mg tablet 5 mg PO DAILY Qty: 90 2RF ondansetron 4 mg tablet,disintegrating 4 mg PO Q8H 4 Days Qty: 12 0RF Referrals Follow up/Referrals: Argelia Hughes [Primary Care Provider] - See instructions Activity Restrictions/Add. Instructions Additional Instructions/Restrictions: At this time is felt you are safe to be discharged home. If new or worsening symptoms please do not hesitate to return the emergency department. Please follow-up with your ignition expert as soon as you are able for continued evaluation and management. Clinical Impressions Clinical Impression: Abdominal bloating, Chronic diarrhea Discharge ED Provider: Killian Becker General Adult HPI General Chief complaint: Nausea/Vomiting/Diarrhea Stated complaint: diarrhea X 2 weeks, stomach swollen Time Seen by Provider: 08/09/23 15:46 Mode of Arrival: Ambulatory Source of Information: Patient Limitations: No Limitations Description of Symptoms (Recalled from ER Triage Doc. by RN): pt to ed c/o diarrhea, abd distention and nausea. pt states she has been seeing GI for similar complaints and was started on creon. pt denies vomiting. pt denies abd pain. History of Present Illness HPI narrative: Patient is a 68-year-old female with past medical history of pancreatic exocrine insufficiency on Creon managed by GI who presents emergency department for repeat evaluation of bloating and diarrhea. Patient has had persistent bloating and diarrhea since she was last seen in the emergency department, no vomiting, no abdominal pain. Due to persistent symptoms and inability to follow-up with GI in an expeditious manner she presents here for repeat evaluation. Patient has had stool studies previously. Intermittent dysuria, no other acute complaints at this time. Related Data Home Medications Medication Instructions Recorded Confirmed aspirin 81 mg tablet,delayed 81 mg PO DAILY 09/25/20 07/01/23 release (Adult Low Dose Aspirin) atorvastatin 10 mg tablet 10 mg PO DAILY Cholesterol 09/25/20 07/01/23 levothyroxine 25 mcg tablet 25 mcg PO DAILY thyroid 09/25/20 07/01/23 lisinopril 10 mg tablet 10 mg PO BID High blood pressure 09/25/20 07/01/23 lorazepam 0.5 mg tablet 0.5 mg PO BID Anxiety 01/13/22 07/01/23 Previous Rx's Medication Instructions Recorded bisoprolol fumarate 5 mg tablet 5 mg PO DAILY high blood pressure 04/23/22 #90 tabs ondansetron 4 mg disintegrating 4 mg PO Q8H 4 days #12 tabs 07/13/23 tablet Allergies Allergy/AdvReac Type Severity Reaction Status Date / Time buspirone Allergy Mild Verified 07/01/23 13:44 pravastatin Allergy Mild Verified 07/01/23 13:44 paroxetine [From Paxil] Allergy Verified 07/01/23 13:44 isosorbide AdvReac chest pain Verified 07/01/23 13:44 [facility] Disclaimer: The information contained in this section may have been updated after the patient was seen, as this information can be updated by other users. Medical History Abnormal EKG Anxiety Chest pain Coronary artery calcification seen on CT scan Depression Dyspnea Dyspnea on exertion Ex-smoker Family history of heart disease Hyperlipidemia Hypertension Multiple lung nodules on CT SOB (shortness of breath) Thyroid disease Surgical History History of colonoscopy History of hysterectomy
[2023-08-09 16:02] LABS: Microscopic, Urine URINE MICROSCOPIC (MICROSCOPIC)
[2023-08-09 16:05] LABS: Appearance,Urine CLEAR (Clear); Bilirubin,Urine Negative (Negative); Blood, Urine Negative (Negative); Color,Urine YELLOW (Yellow); Glucose,Urine (UA) Negative (Negative); Ketones,Urine Negative (Negative); Leukocyte Esterase,Urine Negative (Negative); Nitrate,Urine Negative (Negative); Protein,Urine Negative (Negative); Urobilinogen,Urine 0.2 EU/dl (0.2)
[2023-08-09 16:18] LABS: Basophils % 0.6 % (0.1-2.0); Eosinophils # 0.1 K/mm3 (0.0-0.4); Eosinophils % 1.7 % (0.1-12.0); Lymphocytes # 2.7 K/mm3 (0.7-4.5); Lymphocytes % 35.4 % (10-50); Mean Corpuscular HGB Conc 34.9 g/dL (31.8-35.4); Mean Corpuscular Hemoglobin 31.8 pg (27.0-31.2); Mean Corpuscular Volume 91.2 fl (81-99); Mean Platelet Volume 8.4 fl (7.4-10.4); Monocytes # 0.4 K/mm3 (0.1-1.0); Monocytes % 5.5 % (1.7-9.3); Neutrophils # 4.3 K/mm3 (1.8-7.8); Neutrophils % 56.7 % (37.0-80.0); Platelet Count 222 K/mm3 (142-424); Red Blood Count 4.72 M/mm3 (4.20-5.40); Red Cell Distribution Width 13.2 % (11.5-17.5); White Blood Count 7.7 K/mm3 (4.8-10.8)
[2023-08-09 16:19] LABS: Squamous Epithelial Cell,Urine Occasional #/hpf (0-5)
[2023-08-09 16:22] LABS: Chloride 109 mmol/L (98-107); Potassium 3.5 mmoL/L (3.5-5.1); Sodium 138 mmol/L (136-145)
--- NOTE | 2023-08-09 16:22 | PC.NURSE ---
pt was given a warm blanket
[2023-08-09 16:24] LABS: Alanine Aminotransferase 42 U/L (12-78); Aspartate Amino Transferase 41 U/L (14-36); Blood Urea Nitrogen 10 mg/dl (7-17); Creatinine Clearance Estimated 46 mL/min (50-200); Estimated Glomerular Filt Rate 71 ml/min (>60); GFR (African American) 86 ML/MIN (>60)
[2023-08-09 16:25] LABS: Albumin Level 3.9 g/dl (3.5-5.0); Albumin/Globulin Ratio 1.4 (1.1-1.8); Alkaline Phosphatase 61 U/L (38-126); Anion Gap 11.5 mEq/L (5-15); Bilirubin,Total 0.7 mg/dl (0.2-1.3); Calcium 8.6 mg/dl (8.4-10.2); Carbon Dioxide 21 mmol/L (22.0-30.0); Globulin 2.8 g/dL (1.3-3.2); Glucose 137 mg/dl (74-100); Lipase 191 U/L (23-300); Total Protein,Serum 6.7 g/dl (6.3-8.2)
--- NOTE | 2023-08-09 16:48 | PC.NURSE ---
given water per ER MD for po challenge
[2023-08-09 17:03] VITALS: BP 133/80; PULSE 71; RESP 18; TEMP 36.5; O2SAT 94
== END 2023-08-09 17:06 | disposition home or self-care (01) ==
PROVIDERS: Emergency Provider Emergency Medicine; PCP Nurse Practitioner Family
DX: R19.7 Diarrhea, unspecified (principal); R14.0 Abdominal distension (gaseous); K86.81 Exocrine pancreatic insufficiency; E03.9 Hypothyroidism, unspecified; E78.5 Hyperlipidemia, unspecified; I10 Essential (primary) hypertension; R91.8 Other nonspecific abnormal finding of lung field; F41.9 Anxiety disorder, unspecified; F32.A Depression, unspecified; Z87.891 Personal history of nicotine dependence
CPT/HCPCS: 80053; 81001; 83690; 85025; 99283

== ENCOUNTER → 2023-08-14 14:43 | Outpatient (CLI) | payer MEDICARE, SELFPAY ==
[2023-08-14 15:19] LABS: Basophils # 0.1 K/mm3 (0-0.2); Basophils % 1.1 % (0.1-2.0); Eosinophils # 0.1 K/mm3 (0.0-0.4); Eosinophils % 1.3 % (0.1-12.0); Hematocrit 45.7 % (37.0-47.0); Hemoglobin 15.4 g/dL (12.2-16.2); Lymphocytes % 37.1 % (10-50); Mean Corpuscular HGB Conc 33.6 g/dL (31.8-35.4); Mean Corpuscular Hemoglobin 31.5 pg (27.0-31.2); Mean Corpuscular Volume 93.7 fl (81-99); Mean Platelet Volume 8.9 fl (7.4-10.4); Monocytes # 0.4 K/mm3 (0.1-1.0); Neutrophils # 4.5 K/mm3 (1.8-7.8); Neutrophils % 55.4 % (37.0-80.0); Platelet Count 261 K/mm3 (142-424); Red Blood Count 4.88 M/mm3 (4.20-5.40); Red Cell Distribution Width 13.2 % (11.5-17.5); White Blood Count 8.1 K/mm3 (4.8-10.8)
[2023-08-14 16:09] LABS: C-Reactive Protein 0.6 mg/L (0-4)
[2023-08-19 13:33] LABS: Antinuclear Antibodies (ANA) NEGATIVE
== END ==
PROVIDERS: Internal Medicine Pulmonary Disease; PCP Nurse Practitioner Family; Visit Provider Internal Medicine Gastroenterology
DX: R06.09 Other forms of dyspnea (principal); J45.909 Unspecified asthma, uncomplicated; J84.9 Interstitial pulmonary disease, unspecified
CPT/HCPCS: 36415; 85025; 86038; 86140

== ENCOUNTER → 2023-08-15 11:57 | Outpatient (CLI) | payer MEDICARE, SELFPAY ==
[2023-08-17 13:20] LABS: C difficile Toxins AB, EIA Negative (Negative)
== END ==
PROVIDERS: PCP Nurse Practitioner Family; Visit Provider Nurse Practitioner Family
DX: R19.4 Change in bowel habit (principal); R19.7 Diarrhea, unspecified
CPT/HCPCS: 87324

== ENCOUNTER 2023-09-07 17:11 | Emergency (ER) | payer MEDICARE, SELFPAY ==
[2023-09-07 17:14] VITALS: BP 143/93; PULSE 81; RESP 20; TEMP 36.9; O2SAT 96; BMI 20.5
[2023-09-07 17:30] VITALS: BP 143/89; PULSE 81; O2SAT 96
[2023-09-07 18:00] VITALS: BP 142/97; PULSE 74; O2SAT 94
--- NOTE | 2023-09-07 18:08 | CT_ITS ---
PROCEDURE INFORMATION: Exam: CT Head Without Contrast Exam date and time: 09/07/2023 6:41 PM Age: 68 years old Clinical indication: Pain; Headache not specified; Additional info: Headache severe calvarial TECHNIQUE: Imaging protocol: Computed tomography of the head without contrast. Radiation optimization: All CT scans at this facility use at least one of these dose optimization techniques: automated exposure control; mA and/or kV adjustment per patient size (includes targeted exams where dose is matched to clinical indication); or iterative reconstruction. REPORTING DATA: Count of CT and Cardiac NM exams in prior 12 months: This patient has received 4 known [address]s and 0 known cardiac nuclear medicine studies in the 12 months prior to the current study. COMPARISON: MR HEAD/BRAIN WO/W CON 01/21/2022 10:11 AM FINDINGS: Brain: Age-related involutional changes and chronic microvascular ischemic disease. No evidence for acute transcortical infarct. No mass effect or midline shift. No extra-axial collection. No acute intracranial hemorrhage. Basal cisterns are patent. Cerebral ventricles: No ventriculomegaly. Pituitary gland and sella: Enlarged sella turcica. Cystic area within the right sellar region appearing to invade the right cavernous sinus, similar in size to prior study. Paranasal sinuses: Visualized sinuses are unremarkable. No fluid levels. Mastoid air cells: Visualized mastoid air cells are well aerated. Bones/joints: Unremarkable. No acute fracture. Soft tissues: Unremarkable. IMPRESSION: 1. Enlarged sella turcica. Cystic area within the right sellar region appearing to invade the right cavernous sinus, similar in size to prior study. 2. No hydrocephalus, acute intracranial hemorrhage, or mass effect.
--- NOTE | 2023-09-07 18:13 | HMH.EDGENADL ---
Discharge Plan Disposition Patient Disposition: Home, Self-Care Chief Complaint: Nausea/Vomiting/Diarrhea Prescriptions Prescriptions: No Action lorazepam 0.5 mg tablet 0.5 mg PO BID Patient Comments: TAKE 1 TABLET 2 TIMES EACH DAY FOR ANXIETY lisinopril 10 mg tablet 10 mg PO BID levothyroxine 25 mcg tablet 25 mcg PO DAILY Patient Comments: TAKE 1 TABLET ONCE A DAY IN THE MORNING ON AN EMPTY STOMACH. atorvastatin 10 mg tablet 10 mg PO DAILY aspirin [Adult Low Dose Aspirin] 81 mg tablet,delayed release (DR/EC) 81 mg PO DAILY bisoprolol fumarate 5 mg tablet 5 mg PO DAILY Qty: 90 2RF ondansetron 4 mg tablet,disintegrating 4 mg PO Q8H 4 Days Qty: 12 0RF Referrals Follow up/Referrals: Argelia Hughes [Primary Care Provider] - See instructions Activity Restrictions/Add. Instructions Additional Instructions/Restrictions: At this time it was felt you are safe to be discharged home. If new or worsening symptoms please do not hesitate to return the emergency department. Please continue to follow-up with your family doctor if your diarrhea persists for possible diarrhea studies. Clinical Impressions Clinical Impression: Headache, Abnormal CT of the head, Diarrhea Discharge ED Provider: Killian Becker General Adult HPI General Chief complaint: Nausea/Vomiting/Diarrhea Stated complaint: Just feels sick and diarrhea Time Seen by Provider: 09/07/23 17:40 Mode of Arrival: Ambulatory Source of Information: Patient Limitations: No Limitations Description of Symptoms (Recalled from ER Triage Doc. by RN): pt is here today because she just dont feel right. she feels weak, anxious and shaky. she has also had yellow watery diarhhea for 3 weeks, dx with a uti last week and given macrobid and has two pills left. she feels dehydrated and has a headache and is scheduled for a colonoscopy with on thursday of this week History of Present Illness HPI narrative: Patient is a 68-year-old female with past medical history of hypertension, hyperlipidemia who presents emergency department for evaluation of weakness. Patient states that she has had yellow watery diarrhea for 3 weeks, recently diagnosed with urinary tract infection for which she has been compliant with her Macrobid. She has a calvarial headache that was onset over the last 24 hours. No sick contacts. No significant vomiting. No other acute complaints at this time. Related Data Home Medications Medication Instructions Recorded Confirmed aspirin 81 mg tablet,delayed 81 mg PO DAILY 09/25/20 07/01/23 release (Adult Low Dose Aspirin) atorvastatin 10 mg tablet 10 mg PO DAILY Cholesterol 09/25/20 07/01/23 levothyroxine 25 mcg tablet 25 mcg PO DAILY thyroid 09/25/20 07/01/23 lisinopril 10 mg tablet 10 mg PO BID High blood pressure 09/25/20 07/01/23 lorazepam 0.5 mg tablet 0.5 mg PO BID Anxiety 01/13/22 07/01/23 Previous Rx's Medication Instructions Recorded bisoprolol fumarate 5 mg tablet 5 mg PO DAILY high blood pressure 04/23/22 #90 tabs ondansetron 4 mg disintegrating 4 mg PO Q8H 4 days #12 tabs 07/13/23 tablet Allergies Allergy/AdvReac Type Severity Reaction Status Date / Time buspirone Allergy Mild Verified 07/01/23 13:44 pravastatin Allergy Mild Verified 07/01/23 13:44 paroxetine [From Paxil] Allergy Verified 07/01/23 13:44 isosorbide AdvReac chest pain Verified 07/01/23 13:44 [facility] Disclaimer: The information contained in this section may have been updated after the patient was seen, as this information can be updated by other users. Medical History Abnormal EKG Anxiety Chest pain Coronary artery calcification seen on CT scan Depression Dyspnea Dyspnea on exertion Ex-smoker Family history of heart disease Hyperlipidemia Hypertension Multiple lung nodules on CT SOB (shortness of breath) Thyroid disease Surgical
[2023-09-07 18:14] LABS: Microscopic, Urine URINE MICROSCOPIC (MICROSCOPIC)
[2023-09-07 18:19] LABS: Appearance,Urine CLEAR (Clear); Bilirubin,Urine Negative (Negative); Blood, Urine Negative (Negative); Color,Urine YELLOW (Yellow); Glucose,Urine (UA) Negative (Negative); Ketones,Urine Negative (Negative); Leukocyte Esterase,Urine Negative (Negative); Nitrate,Urine Negative (Negative); Protein,Urine Negative (Negative); Urobilinogen,Urine 0.2 EU/dl (0.2)
[2023-09-07 18:30] VITALS: BP 139/82; PULSE 70; O2SAT 93
[2023-09-07 18:37] LABS: Basophils # 0.1 K/mm3 (0-0.2); Basophils % 0.6 % (0.1-2.0); Eosinophils % 0.4 % (0.1-12.0); Hematocrit 44.8 % (37.0-47.0); Hemoglobin 15.5 g/dL (12.2-16.2); Lymphocytes % 28.2 % (10-50); Mean Corpuscular HGB Conc 34.6 g/dL (31.8-35.4); Mean Corpuscular Hemoglobin 31.7 pg (27.0-31.2); Mean Corpuscular Volume 91.5 fl (81-99); Mean Platelet Volume 8.8 fl (7.4-10.4); Monocytes # 0.6 K/mm3 (0.1-1.0); Monocytes % 5.5 % (1.7-9.3); Neutrophils # 6.9 K/mm3 (1.8-7.8); Neutrophils % 65.3 % (37.0-80.0); Platelet Count 275 K/mm3 (142-424); Red Blood Count 4.89 M/mm3 (4.20-5.40); Red Cell Distribution Width 13.3 % (11.5-17.5); White Blood Count 10.6 K/mm3 (4.8-10.8)
[2023-09-07 18:43] LABS: Squamous Epithelial Cell,Urine Occasional #/hpf (0-5)
[2023-09-07 18:46] LABS: Alanine Aminotransferase 47 U/L (12-78); Albumin Level 4.5 g/dl (3.5-5.0); Albumin/Globulin Ratio 1.6 (1.1-1.8); Alkaline Phosphatase 61 U/L (38-126); Anion Gap 13.4 mEq/L (5-15); Aspartate Amino Transferase 47 U/L (14-36); Blood Urea Nitrogen 5 mg/dl (7-17); Calcium 9.1 mg/dl (8.4-10.2); Carbon Dioxide 25 mmol/L (22.0-30.0); Chloride 102 mmol/L (98-107); Creatinine Clearance Estimated 46 mL/min (50-200); Estimated Glomerular Filt Rate 62 ml/min (>60); GFR (African American) 75 ML/MIN (>60); Globulin 2.9 g/dL (1.3-3.2); Glucose 125 mg/dl (74-100); Lipase 145 U/L (23-300); Potassium 3.4 mmoL/L (3.5-5.1); Sodium 137 mmol/L (136-145); Total Protein,Serum 7.4 g/dl (6.3-8.2)
[2023-09-07 19:04] LABS: Coronavirus 19, PCR Not Detected (NotDetected); Influenza A, PCR Not Detected (NotDetected); Influenza B, PCR Not Detected (NotDetected)
--- NOTE | 2023-09-07 19:43 | PC.NURSE ---
Anders Roman assisted patient to the bathroom, provided warm blanket and call light within reach.
[2023-09-07 20:03] VITALS: BP 143/90; PULSE 62; RESP 18; TEMP 36.9
== END 2023-09-07 20:04 | disposition home or self-care (01) ==
PROVIDERS: Emergency Provider Emergency Medicine; PCP Nurse Practitioner Family
DX: R51.9 Headache, unspecified (principal); R93.0 Abnormal findings on diagnostic imaging of skull and head, not elsewhere classified; R19.7 Diarrhea, unspecified; R53.1 Weakness; I10 Essential (primary) hypertension; E78.5 Hyperlipidemia, unspecified; E03.9 Hypothyroidism, unspecified; R91.8 Other nonspecific abnormal finding of lung field; Z87.891 Personal history of nicotine dependence
CPT/HCPCS: 70450; 80053; 81001; 83690; 85025; 87636; 96361; 96374; 96375; 99284; J0131

== ENCOUNTER 2023-09-13 13:26 | Emergency (ER) | payer MEDICARE, SELFPAY ==
[2023-09-13 13:45] VITALS: BP 104/64; PULSE 86; RESP 18; TEMP 36.8; O2SAT 96; BMI 20.5
[2023-09-13 14:06] LABS: Apearance,Urine Cloudy (Clear); Color,Urine Dark Yellow (Yellow)
[2023-09-13 14:08] LABS: Bilirubin,Urine Negative (Negative); Blood, Urine 2+ (Negative); Glucose,Urine (UA) Negative (Negative); Ketones,Urine Negative (Negative); Protein,Urine 1+ (Negative); Specific Gravity, Urine 1.015 (1.005-1.030); UTC Leukocyte Esterase,Urine 1+ (Negative); UTC Nitrate,Urine Negative (Negative); Urobilinogen,Urine 0.2 EU/dl (0.2)
--- NOTE | 2023-09-13 14:26 | EXP.UTC ---
Discharge Plan Disposition Patient Disposition: Home, Self-Care Condition: Good Prescriptions Prescriptions: New sulfamethoxazole-trimethoprim [Bactrim DS] 800-160 mg Tablet 1 tab PO BID Qty: 14 0RF phenazopyridine [Pyridium] 200 mg tablet 200 mg PO Q8H 2 Days Qty: 6 0RF No Action lorazepam 0.5 mg tablet 0.5 mg PO BID Patient Comments: TAKE 1 TABLET 2 TIMES EACH DAY FOR ANXIETY lisinopril 10 mg tablet 10 mg PO BID levothyroxine 25 mcg tablet 25 mcg PO DAILY Patient Comments: TAKE 1 TABLET ONCE A DAY IN THE MORNING ON AN EMPTY STOMACH. atorvastatin 10 mg tablet 10 mg PO DAILY aspirin [Adult Low Dose Aspirin] 81 mg tablet,delayed release (DR/EC) 81 mg PO DAILY bisoprolol fumarate 5 mg tablet 5 mg PO DAILY Qty: 90 2RF ondansetron 4 mg tablet,disintegrating 4 mg PO Q8H 4 Days Qty: 12 0RF sertraline 50 mg tablet 50 mg PO DAILY Patient Comments: TAKE ONE TABLET BY MOUTH EVERY DAY Creon 36,000-114,000- 180,000 unit capsule,delayed release(DR/EC) 1 cap PO TID Patient Comments: Take 1 capsule by mouth three times a day with meals Referrals Follow up/Referrals: Argelia Hughes [Primary Care Provider] - See instructions Activity Restrictions/Add. Instructions Additional Instructions/Restrictions: Drink plenty of fluids. Take tylenol or ibuprofen for pain or fever. Take the medications as directed. Follow up with your regular doctor. GO TO THE ER FOR ANY WORSENING SYMPTOMS The pyridium will make your urine turn orange, this is an expected side effect. It will stain your clothes if it comes into contact with them. We will culture the urine. That will tell what bacteria is causing your infection and which antibiotics will treat it best. Sometimes the first antibiotic we prescribe turns out to not work against different bacteria. So, make sure you follow up within 3 days if you are not getting better. Clinical Impressions Clinical Impression: UTI (urinary tract infection) Instructions Patient Instructions: Urinary Tract Infection, DI for Urinary Tract Infection (UTI) Discharge ED Provider: Haresh Tamayo [facility] General Stated complaint: BLOOD IN URINE, BURNING WHEN PEEING Mode of Arrival: Ambulatory Source of Information: Patient Limitations: No Limitations Time Seen by Provider: 09/13/23 14:26 Description of Symptoms (Recalled from Triage Doc. by RN): burning urination, blood in urine, Pt stated that she feels like she needs to urinate, but sometimes cannot. HEENT Symptoms (Recalled from RN notes): No Resp Symptoms (Recalled from RN notes): No Skin Symptoms (Recalled from RN notes): No MS Symptoms (Recalled from RN notes): No Functional Status (Recalled from RN notes): n/a History of Present Illness Provider Complaint: She states that for the past 2 days she has had urinary frequency and low back pain. She was being treated for a uti with macrobid, but she stopped the macrobid because it was upsetting her stomach. She states that once she stopped the macrobid her symptoms came back. Related Data Home Medications Medication Instructions Recorded Confirmed aspirin 81 mg tablet,delayed 81 mg PO DAILY 09/25/20 09/13/23 release (Adult Low Dose Aspirin) atorvastatin 10 mg tablet 10 mg PO DAILY Cholesterol 09/25/20 09/13/23 levothyroxine 25 mcg tablet 25 mcg PO DAILY thyroid 09/25/20 09/13/23 lisinopril 10 mg tablet 10 mg PO BID High blood pressure 09/25/20 09/13/23 lorazepam 0.5 mg tablet 0.5 mg PO BID Anxiety 01/13/22 09/13/23 [id number] 1 cap PO TID 09/13/23 09/13/23 36,000-114,000-180,000 unit capsule,delay rel (Creon) sertraline 50 mg tablet 50 mg PO DAILY 09/13/23 09/13/23 Previous Rx's Medication Instructions Recorded bisoprolol fumarate 5 mg tablet 5 mg PO DAILY high blood pressure 04/23/22 #90 tabs ondansetron 4 mg disintegrating 4 mg PO Q8H 4 days #12 tabs 07/13/23 tab
[2023-09-13 14:36] VITALS: BP 104/64; PULSE 86; RESP 18; TEMP 36.8; O2SAT 96
== END 2023-09-13 14:36 | disposition home or self-care (01) ==
PROVIDERS: Emergency Provider Nurse Practitioner Family; PCP Nurse Practitioner Family
DX: N39.0 Urinary tract infection, site not specified (principal); B96.5 Pseudomonas (aeruginosa) (mallei) (pseudomallei) as the cause of diseases classified elsewhere; I10 Essential (primary) hypertension; E78.5 Hyperlipidemia, unspecified; E03.9 Hypothyroidism, unspecified; Z87.891 Personal history of nicotine dependence
CPT/HCPCS: 81003; 87086; 99212; 99214; G0463

== ENCOUNTER 2024-02-04 09:48 | Outpatient (CLI) | payer MEDICARE, SELFPAY ==
--- NOTE | 2024-02-04 10:19 | US_ITS ---
FINAL REPORT CLINICAL HISTORY: ABD DISTENTION,BLOATING,COLITIS,PANCREATIC INSUFFICIENCY FINDINGS: Sonographic images of the right upper quadrant were obtained. The pancreas is partially obscured.The liver has an unremarkable appearance.The gallbladder appears normal without evidence of gallstones.There is no evidence of biliary ductal dilatation.The common duct measures 3mm. Limited images of the right kidney demonstrate cortical thinning but are otherwise unremarkable. IMPRESSION: Unremarkable right upper quadrant ultrasound. Reviewed, Interpreted and Dictated by Campos Ashley III, MD Transcribed by Katia Wisdom Authenticated and [facility]
[2024-02-04 10:41] LABS: Basophils # 0.1 K/mm3 (0-0.2); Basophils % 1.6 % (0.1-2.0); Eosinophils # 0.1 K/mm3 (0.0-0.4); Eosinophils % 0.8 % (0.1-12.0); Hematocrit 47.7 % (37.0-47.0); Hemoglobin 15.4 g/dL (12.2-16.2); Lymphocytes # 2.6 K/mm3 (0.7-4.5); Lymphocytes % 38.2 % (10-50); Mean Corpuscular HGB Conc 32.4 g/dL (31.8-35.4); Mean Corpuscular Hemoglobin 32.8 pg (27.0-31.2); Mean Corpuscular Volume 101.3 fl (81-99); Mean Platelet Volume 8.6 fl (7.4-10.4); Monocytes # 0.4 K/mm3 (0.1-1.0); Monocytes % 6.4 % (1.7-9.3); Neutrophils # 3.6 K/mm3 (1.8-7.8); Platelet Count 228 K/mm3 (142-424); Red Blood Count 4.71 M/mm3 (4.20-5.40); Red Cell Distribution Width 13.8 % (11.5-17.5); White Blood Count 6.8 K/mm3 (4.8-10.8)
[2024-02-04 11:19] LABS: Alanine Aminotransferase 55 U/L (12-78); Albumin Level 4.1 g/dl (3.5-5.0); Albumin/Globulin Ratio 1.8 (1.1-1.8); Alkaline Phosphatase 58 U/L (38-126); Aspartate Amino Transferase 43 U/L (14-36); Bilirubin,Total 0.9 mg/dl (0.2-1.3); Blood Urea Nitrogen 7 mg/dl (7-17); Calcium 9.6 mg/dl (8.4-10.2); Carbon Dioxide 32 mmol/L (22.0-30.0); Chloride 107 mmol/L (98-107); Estimated Glomerular Filt Rate 62 ml/min (>60); GFR (African American) 75 ML/MIN (>60); Globulin 2.3 g/dL (1.3-3.2); Glucose 96 mg/dl (74-100); Sodium 141 mmol/L (136-145); Total Protein,Serum 6.4 g/dl (6.3-8.2)
[2024-02-09 09:28] LABS: Fibrosis Stage F0-NO FIBROSIS; Steatosis Score 0.59
[2024-02-09 09:29] LABS: Alpha 2-Macroglobulins, Qn 171; Haptoglobin 99; NASH Grade N2; NASH Score 0.69; Steatosis Grade S2-S3
[2024-02-09 09:30] LABS: ALT (SGPT) P5P 55; AST (SGOT) P5P 34; Apolipoprotein A-1 174; Bilirubin, Total 0.6; GGT 27
[2024-02-09 09:31] LABS: Cholesterol, Total 204; Glucose 96; Triglycerides 126
== END 2024-02-04 23:59 | disposition home or self-care (01) ==
LOC: RAD 09:48
PROVIDERS: PCP Nurse Practitioner Family; Visit Provider Nurse Practitioner Family
DX: R14.0 Abdominal distension (gaseous) (principal); F10.21 Alcohol dependence, in remission; K52.89 Other specified noninfective gastroenteritis and colitis; K86.81 Exocrine pancreatic insufficiency
CPT/HCPCS: 36415; 76705; 80053; 85025

== ENCOUNTER 2024-02-08 13:11 | Emergency (ER) | payer MEDICARE, SELFPAY ==
[2024-02-08 13:40] VITALS: BP 164/91; PULSE 64; RESP 18; TEMP 36.7; O2SAT 98; BMI 21.8
--- NOTE | 2024-02-08 14:00 | ED_ITS ---
Discharge Plan Disposition Patient Disposition: Home, Self-Care Condition: Good Prescriptions Prescriptions: New metoclopramide HCl [Reglan] 5 mg tablet 5 mg PO BID Qty: 20 0RF No Action lorazepam 0.5 mg tablet 0.5 mg PO BID Patient Comments: TAKE 1 TABLET 2 TIMES EACH DAY FOR ANXIETY omeprazole 20 mg capsule,delayed release(DR/EC) 20 mg PO DAILY Patient Comments: Take 1 capsule by mouth every morning for 30 days budesonide 3 mg capsule,delayed,extend.release PO Patient Comments: TAKE THREE CAPSULES BY MOUTH EVERY DAY AT BEDTIME Creon 24,000-76,000 -120,000 unit capsule,delayed release(DR/EC) PO Patient Comments: Take 1 capsule by mouth three times a day with meals levothyroxine 25 mcg tablet 25 mcg PO DAILY Patient Comments: TAKE 1 TABLET ONCE A DAY IN THE MORNING ON AN EMPTY STOMACH. atorvastatin 10 mg tablet 10 mg PO DAILY aspirin [Adult Low Dose Aspirin] 81 mg tablet,delayed release (DR/EC) 81 mg PO DAILY bisoprolol fumarate 10 mg tablet 10 mg PO DAILY Qty: 30 2RF lisinopril 40 mg tablet 40 mg PO DAILY Qty: 30 3RF sertraline 50 mg tablet 50 mg PO DAILY Patient Comments: TAKE ONE TABLET BY MOUTH EVERY DAY Creon 36,000-114,000- 180,000 unit capsule,delayed release(DR/EC) 1 cap PO TID Patient Comments: Take 1 capsule by mouth three times a day with meals Referrals Follow up/Referrals: Argelia Hughes [Primary Care Provider] - See instructions Activity Restrictions/Add. Instructions Additional Instructions/Restrictions: Take tylenol for pain. Continue the medications that you are already on. Follow up with your regular doctor. Follow up with the GI specialist. GO TO THE ER FOR ANY WORSENING SYMPTOMS Clinical Impressions Clinical Impression: Abdominal bloating Instructions Patient Instructions: Acute Abdominal Pain Discharge ED Provider: Haresh Tamayo [facility] General Stated complaint: distended abd, no pain Mode of Arrival: Ambulatory Source of Information: Patient Limitations: No Limitations Time Seen by Provider: 02/08/24 14:00 Description of Symptoms (Recalled from Triage Doc. by RN): Pt stated that stomach has been distended for months and has had multiple tests done on it. Primary care doctor stated that we need to wait for all the tests to come back. Pt stated that there is no pain associated with it. HEENT Symptoms (Recalled from RN notes): No Resp Symptoms (Recalled from RN notes): No Skin Symptoms (Recalled from RN notes): No MS Symptoms (Recalled from RN notes): No Functional Status (Recalled from RN notes): n/a History of Present Illness Provider Complaint: She states that for the past approx 1 month she has had recurrent abdominal bloating. She has had multiple tests done. She has been ref erred to a security administrator. She states that she came in today because she is not getting any answers and she would like to know why she is having this issue. She denies any abdominal pain. She denies nausea/vomiting/diarrhea/constipation. She does say that she has had a poor appetite since her bloating started. Her last bowel movement was yesterday and she describes it as normal . Related Data Home Medications Medication Instructions Recorded Confirmed aspirin 81 mg tablet,delayed 81 mg PO DAILY 09/25/20 02/03/24 release (Adult Low Dose Aspirin) atorvastatin 10 mg tablet 10 mg PO DAILY Cholesterol 09/25/20 02/03/24 levothyroxine 25 mcg tablet 25 mcg PO DAILY thyroid 09/25/20 02/03/24 lorazepam 0.5 mg tablet 0.5 mg PO BID Anxiety 01/13/22 02/03/24 [id number] 1 cap PO TID 09/13/23 02/03/24 36,000-114,000-180,000 unit capsule,delay rel (Creon) sertraline 50 mg tablet 50 mg PO DAILY 09/13/23 02/03/24 budesonide 3 mg mg PO 12/30/23 02/03/24 capsule,delayed,extended release [id number] cap PO 12/30/23 02/03/24 24,000-76,000-120,000 unit capsule,delayed rel (Creon) omeprazole 20 mg capsule,delayed 20 mg PO DAILY 12/30/23 02/03/24 release Previous Rx's Medication Instructions Recorded lisinopril 40 mg tablet 40 mg PO DAILY #30 tabs 01/21/24 bisoprolol fumarate 10 mg tablet 10 mg PO DAILY #30 tabs 02/03/24 metoclopramide HCl 5 mg tablet 5 mg PO BID abdominal distenstion 02/08/24 (Reglan) #20 tabs Allergies Allergy/AdvReac Type Severity Reaction Status Date / Time buspirone Allergy Mild Verified 02/08/24 13:55 pravastatin Allergy Mild Verified 02/08/24 13:55 nitrofurantoin Allergy Verified 02/08/24 13:55 [From Macrobid] paroxetine [From Paxil] Allergy Verified 02/08/24 13:55 sulfamethoxazole Allergy Verified 02/08/24 13:55 [From Bactrim] trimethoprim [From Bactrim] Allergy Verified 02/08/24 13:55 isosorbide AdvReac chest pain Verified 02/08/24 13:55 Worker's Comp Is this a Worker's Comp case?: No [facility] Disclaimer: The information contained in this section may have been updated after the patient was seen, as this information can be updated by other users. Medical History SOB (shortness of breath) Multiple lung nodules on CT Dyspnea on exertion Chest pain Thyroid disease Depression Hyperlipidemia Hypertension Anxiety Family history of heart disease Ex-smoker Coronary artery calcification seen on CT scan Abnormal EKG Dyspnea Surgical History History of colonoscopy History of hysterectomy Family History Other Cancer No significant family history Social History Smoking Status: Never smoker second hand exposure: No alcohol intake: current substance use type: denies use current occupational status: other Travel in the last 8 weeks: None household members: spouse housing: house current occupational exposures/hazards: No ROS Obtained: Yes All systems reviewed & no additional complaints except as documented Constitutional Constitutional: Denies chills and Denies fever(s) Eyes Eyes: Denies eye discharge ENT Ears, Nose, Mouth, and Throat: Denies dizziness, Denies otalgia and Denies sore throat Cardiovascular Cardiovascular: Denies chest pain Respiratory Respiratory: Denies shortness of breath, Denies chest congestion, Denies cough, Denies stridor and Denies wheezing Gastrointestinal Gastrointestingal: Reports as per HPI, bloating and nausea; Denies constipation, diarrhea or vomiting Musculoskeletal Musculoskeletal: Reports system reviewed and no additional complaints, except as documented and Denies arthralgias Integumentary/Breasts Skin/Breast: Denies rash Neurologic Neurologic: Denies dizziness and Denies paresthesias Allergic/Immunologic Allergic/Immunologic: Denies wheezing Physical Exam General General appearance: alert and in no apparent distress Head Head exam: atraumatic, normocephalic and normal inspection Eye Eye exam: Present normal appearance, PERRL and EOMI ENT ENT exam: Present normal exam, normal oropharynx, mucous membranes moist, TM's normal bilaterally and normal external ear exam Neck Neck exam: Present normal inspection, full ROM and trachea midline; Absent meningismus or lymphadenopathy Chest Chest inspection: Present normal inspection and symmetric chest wall rise; Absent tenderness Respiratory Respiratory exam: Present normal lung sounds bilaterally; Absent respiratory distress Cardiovascular Cardiovascular exam: Present regular rate and normal rhythm; Absent JVD Abdominal Exam Abdominal exam: Present soft and normal bowel sounds; Absent distention, tenderness, guarding, rebound, rigidity, psoas sign, obturator sign, heel tap sign, Fonseca's sign, Rovsing's sign or tenderness at McBurney's Point Extremities Exam Extremities exam: Present normal inspection, full ROM and normal capillary refill; Absent calf tenderness Back Exam Back exam: Present normal inspection; Absent tenderness Neurological Exam Neurological exam: Present alert and oriented X3 Psychiatric Psychiatric exam: Present normal affect and normal mood Skin Skin exam: Present warm, dry, intact and normal color Lymphatic Lymphatic Findings: no adenopathy Medical Decision Making Medical Records Medical records reviewed: No I reviewed the patient's medical records. Jefry Inquiry Pt receiving controlled substance: No Vital Signs: 02/08/24 13:40 Temperature 98.0 F Temperature Source Oral Pulse Rate [Right Radial] 64 Respiratory Rate 18 Blood Pressure [Right Arm] 164/91 H Blood Pressure Mean [Right Arm] 115 Blood Pressure Source [Right Arm] Automatic Cuff Blood Pressure Position [Right Arm] Sitting 02 Sat by Pulse Oximetry 98 Oxygen Delivery Method Room Air Lab Data Lab results reviewed: Yes I reviewed the patient's lab results. Radiology Data #1: Image(s): Abdomen Image Reviewed: Yes I reviewed the patient's radiology image and Yes I have reviewed radiologist's interpretation Preliminary Findings: Normal/NAD FINAL REPORT CLINICAL HISTORY: abdominal bloating COMPARISON: None FINDINGS: A PA view of the chest was obtained. The cardiac and mediastinal silhouettes are within normal limits. The lungs are clear. There is no free air beneath the diaphragm. Upright and supine views of the abdomen reveal a normal bowel gas pattern. There is no evidence of small bowel obstruction. There are no pathologic calcifications. No acute osseous abnormalities identified. IMPRESSION: No acute intrathoracic or intraabdominal abnormality. Reviewed, Interpreted and Dictated by Martin Fragoso MD Transcribed by Sil Faustin Authenticated and . [facility]
--- NOTE | 2024-02-08 14:13 | XR_ITS ---
FINAL REPORT CLINICAL HISTORY: abdominal bloating COMPARISON: None FINDINGS: A PA view of the chest was obtained. The cardiac and mediastinal silhouettes are within normal limits. The lungs are clear. There is no free air beneath the diaphragm. Upright and supine views of the abdomen reveal a normal bowel gas pattern. There is no evidence of small bowel obstruction. There are no pathologic calcifications. No acute osseous abnormalities identified. IMPRESSION: No acute intrathoracic or intraabdominal abnormality. Reviewed, Interpreted and Dictated by Martin Fragoso MD Transcribed by Sil Faustin Authenticated and . [facility]
[2024-02-08 15:28] VITALS: BP 164/91; PULSE 64; RESP 18; TEMP 36.7; O2SAT 98
== END 2024-02-08 15:28 | disposition home or self-care (01) ==
PROVIDERS: Emergency Provider Nurse Practitioner Family; PCP Nurse Practitioner Family
DX: R14.0 Abdominal distension (gaseous) (principal); E03.9 Hypothyroidism, unspecified; I10 Essential (primary) hypertension; E78.5 Hyperlipidemia, unspecified
CPT/HCPCS: 74021; 99212; 99214; G0463

== ENCOUNTER 2024-02-18 08:47 | Emergency (ER) | payer MEDICARE, SELFPAY ==
[2024-02-18] VITALS (7 sets, daily range): BP systolic 136–153; BP diastolic 82–101; PULSE 58–78; RESP 15–16; TEMP 37; O2SAT 96–98; BMI 21.9
--- NOTE | 2024-02-18 09:06 | CT_ITS ---
FINAL REPORT TECHNIQUE: Postcontrast axial images through the abdomen and pelvis were performed. This study was performed with techniques to keep radiation doses as low as reasonably achievable, (ALARA). Individualized dose reduction techniques using automated exposure control or adjustment of mA and/or kV according to the patient's size were employed. CLINICAL HISTORY: bloating/distention, diarrhea, pain COMPARISON: 07/13/2023 FINDINGS: Abdomen: The lung bases are clear. The liver parenchyma is homogeneous. The gallbladder is incompletely distended. The spleen is unremarkable. The adrenals are normal. The pancreas is unremarkable. The kidneys enhance appropriately. The aorta is normal in caliber. No free fluid or adenopathy is identified. No findings for mechanical bowel obstruction are identified. Pelvis: The appendix is not identified. The urinary bladder is incompletely distended with mild prominence of the wall, may be related to mild chronic cystitis. Finding is less evident than previous. No free fluid, free air, abscess or adenopathy is identified. IMPRESSION: Chronic cystitis, less evident than previous. Reviewed, Interpreted and Dictated by Martin Fragoso MD Transcribed by Loretta Jones Authenticated and [facility]
--- NOTE | 2024-02-18 09:08 | HMH.EDGENADL ---
Discharge Plan Disposition Patient Disposition: Home, Self-Care Condition: Good Prescriptions Prescriptions: No Action lorazepam 0.5 mg tablet 0.5 mg PO BID Patient Comments: TAKE 1 TABLET 2 TIMES EACH DAY FOR ANXIETY Creon 24,000-76,000 -120,000 unit capsule,delayed release(DR/EC) PO Patient Comments: Take 1 capsule by mouth three times a day with meals levothyroxine 25 mcg tablet 25 mcg PO DAILY Patient Comments: TAKE 1 TABLET ONCE A DAY IN THE MORNING ON AN EMPTY STOMACH. atorvastatin 10 mg tablet 10 mg PO DAILY aspirin [Adult Low Dose Aspirin] 81 mg tablet,delayed release (DR/EC) 81 mg PO DAILY bisoprolol fumarate 10 mg tablet 10 mg PO DAILY Qty: 30 2RF lisinopril 40 mg tablet 40 mg PO DAILY Qty: 30 3RF sertraline 50 mg tablet 50 mg PO DAILY Patient Comments: TAKE ONE TABLET BY MOUTH EVERY DAY metoclopramide HCl [Reglan] 5 mg tablet 5 mg PO BID Qty: 20 0RF Referrals Follow up/Referrals: Argelia Hughes [Primary Care Provider] - See instructions Activity Restrictions/Add. Instructions Additional Instructions/Restrictions: You were evaluated in the emergency department today. Please make sure that you are staying hydrated. I recommend following your plastic duplicator instructions as far as dietary modifications to manage your symptoms, including increasing fiber. Follow-up with your primary care provider over the next 3 days. Return to the emergency department for new or worsening symptoms. Clinical Impressions Clinical Impression: Abdominal bloating, Diarrhea Instructions Patient Instructions: Intestinal Gas (Alternative Therapy), DI for Diarrhea and Traveler's Diarrhea -- Adult, DI for Acute Abdominal Pain Discharge ED Provider: Prisca Mcgarry General Adult HPI General Chief complaint: Abdominal Pain Stated complaint: bloating, heavy diarrea Time Seen by Provider: 02/18/24 08:55 History of Present Illness HPI narrative: This patient is a 68-year-old female with a history of hypertension, hyperlipidemia, anxiety, CAD, chronic diarrhea, and pancreatic insufficiency on Creon presenting to the emergency department for evaluation with concern for bloating, nausea, and diarrhea. Patient reports that she intermittently has had diarrhea for very long time now, however this is different. She notes that with the bloating and distention, she was initially seen in [facility] 02/04/24 and was prescribed Reglan. She states she was told it was likely gas, however it is progressively gotten worse and has not improved at all. She saw her plastic duplicator 02/15/2024 on medical record review, who stated that they advised restarting her omeprazole and increasing fiber in her diet. They mostly commended conservative management with increase in exercise and dietary changes. Patient is well prompted her to come in today, as last night she had explosive green diarrhea the whole night. She states this is unusual for her. No fevers, chills, localizable abdominal pain, vomiting, or other concerns. Related Data Home Medications Medication Instructions Recorded Confirmed aspirin 81 mg tablet,delayed 81 mg PO DAILY 09/25/20 02/15/24 release (Adult Low Dose Aspirin) atorvastatin 10 mg tablet 10 mg PO DAILY Cholesterol 09/25/20 02/15/24 levothyroxine 25 mcg tablet 25 mcg PO DAILY thyroid 09/25/20 02/15/24 lorazepam 0.5 mg tablet 0.5 mg PO BID Anxiety 01/13/22 02/15/24 sertraline 50 mg tablet 50 mg PO DAILY 09/13/23 02/15/24 [id number] cap PO 12/30/23 02/15/24 24,000-76,000-120,000 unit capsule,delayed rel (Creon) Previous Rx's Medication Instructions Recorded lisinopril 40 mg tablet 40 mg PO DAILY #30 tabs 01/21/24 bisoprolol fumarate 10 mg tablet 10 mg PO DAILY #30 tabs 02/03/24 metoclopramide HCl 5 mg tablet 5 mg PO BID abdominal distenstion 02/08/24 (Reglan) #20 tabs Allergies Allergy/AdvReac Type Severity Reaction Status Date / Time buspirone Allergy Mild Verified 02/15/24 14:02 pravastatin Allergy Mild Verified 02/15/24 14:02 nitrofurantoin Allergy Verified 02/15/24 14:02 [From Macrobid] paroxetine [From Paxil] Allergy Verified 02/15/24 14:02 sulfamethoxazole Allergy Verified 02/15/24 14:02 [From Bactrim] trimethoprim [From Bactrim] Allergy Verified 02/15/24 14:02 isosorbide AdvReac chest pain Verified 02/15/24 14:02 PFSH PFS Disclaimer: The information contained in this section may have been updated after the patient was seen, as this information can be updated by other users. Medical History SOB (shortness of breath) Multiple lung nodules on CT Dyspnea on exertion Chest pain Thyroid disease Depression Hyperlipidemia Hypertension Anxiety Family history of heart disease Ex-smoker Coronary artery calcification seen on CT scan Abnormal EKG Dyspnea Surgical History History of colonoscopy History of hysterectomy Family History Mother Cancer Other No significant family history Social History Smoking Status: Never smoker years smoked: 3 second hand exposure: No alcohol intake: current alcohol intake frequency: a few times a week substance use type: denies use current occupational status: retired Travel in the last 8 weeks: None household members: spouse housing: house current occupational exposures/hazards: No caffeine: Yes physical activity: walking do you feel safe at home: Yes victim of physical abuse: No victim of emotional abuse: No victim of sexual abuse: No would you like helpful sources: No ROS Obtained: Yes All systems reviewed & no additional complaints except as documented Physical Exam General General appearance: alert and in no apparent distress Head Head exam: atraumatic and normocephalic Eye Eye exam: Present normal appearance, PERRL and EOMI ENT ENT exam: Present normal exam, normal oropharynx, mucous membranes moist and normal external ear exam Neck Neck exam: Present normal inspection, full ROM and trachea midline; Absent tenderness Chest Chest inspection: Present normal inspection and symmetric chest wall rise; Absent tenderness Respiratory Respiratory exam: Present normal lung sounds bilaterally; Absent respiratory distress, wheezes, stridor or accessory muscle use Cardiovascular Cardiovascular exam: Present regular rate and normal rhythm Abdominal Exam Abdominal exam: Present soft and distention; Absent tenderness, guarding, rebound or rigidity Extremities Exam Extremities exam: Present normal inspection, full ROM and normal capillary refill; Absent tenderness or edema Back Exam Back exam: Present normal inspection and full ROM; Absent tenderness Neurological Exam Neurological exam: Present alert, oriented X3, CN II-XII intact and normal gait; Absent motor sensory deficit Psychiatric Psychiatric exam: Present normal affect and normal mood Skin Skin exam: Present warm and dry Medical Decision Making Medical Records Medical records reviewed: Yes I reviewed the patient's medical records. Jefry Inquiry Pt receiving controlled substance: No Vital Signs: 02/18/24 08:49 02/18/24 08:52 02/18/24 09:00 Temperature 98.6 F Temperature Source Oral Pulse Rate 75 Pulse Rate [Right] 74 Respiratory Rate 16 Blood Pressure 152/101 H 153/101 H Blood Pressure [Right Arm] 152/101 H Blood Pressure Mean 122 127 Blood Pressure Mean [Right Arm] 118 Blood Pressure Source [Right Arm] Automatic Cuff 02 Sat by Pulse Oximetry 98 97 Oxygen Delivery Method Room Air 02/18/24 09:30 02/18/24 10:30 02/18/24 11:00 Temperature Temperature Source Pulse Rate 78 68 61 Pulse Rate [Right] Respiratory Rate Blood Pressure 136/89 139/82 145/86 H Blood Pressure [Right Arm] Blood Pressure Mean 104 95 105 Blood Pressure Mean [Right Arm] Blood Pressure Source [Right Arm] 02 Sat by Pulse Oximetry 97 98 98 Oxygen Delivery Method 02/18/24 11:28 Temperature 98.6 F Temperature Source Oral Pulse Rate 58 L Pulse Rate [Right] Respiratory Rate 15 Blood Pressure 145/86 H Blood Pressure [Right Arm] Blood Pressure Mean Blood Pressure Mean [Right Arm] Blood Pressure Source [Right Arm] 02 Sat by Pulse Oximetry Oxygen Delivery Method Room Air Lab Data Lab results reviewed: Yes I reviewed the patient's lab results. Lab Results 02/18/24 09:20: WBC 7.5, RBC 4.91, Hgb 15.9, Hct 48.4 H, MCV 98.5, MCH 32.4 H, MCHC 32.9, RDW 13.7, Plt Count 258, MPV 8.5, Neut % (Auto) 56.6, Lymph % (Auto) 34.2, Letcher % (Auto) 5.7, Eos % (Auto) 1.4, Baso % (Auto) 2.0, Neut # (Auto) 4.2, Lymph # (Auto) 2.6, Letcher # (Auto) 0.4, Eos # (Auto) 0.1, Baso # (Auto) 0.2, Sodium 139, Potassium 4.0, Chloride 106, Carbon Dioxide 32 H, Anion Gap 5.0, BUN 4 L, Creatinine 0.80, Estimated Creat Clear 49, Estimated GFR 71, Est GFR ( Amer) 86, Glucose 101 H, Calcium 9.1, Total Bilirubin 0.8, AST 61 H, ALT 76, Alkaline Phosphatase 72, Total Protein 6.7, Albumin 4.2, Globulin 2.5, Albumin/Globulin Ratio 1.7, Lipase 156 02/18/24 09:20 02/18/24 09:20 Orders (Tests/Meds): ED MEDICATIONS Discontinued Medications Generic Name Dose Route Start Last Admin Trade Name Freq PRN Reason Stop Dose Admin Lactated Ringer's 1,000 mls @ 999 mls/hr 02/18/24 09:06 02/18/24 09:28 Lactated Ringer's 1000 Ml Bag IV 02/18/24 10:06 999 mls/hr .Q1H1M ONE Administration Iopamidol 75 ml 02/18/24 10:02 02/18/24 10:03 Iopamidol-370 (76%);100ml Bottle IV 02/18/24 10:03 75 ml ONCE ONE Administration Ondansetron HCl 4 mg 02/18/24 09:06 02/18/24 09:28 Ondansetron 4mg/2ml Vial IV 02/18/24 09:07 4 mg ONCE ONE Administration ORDERS Category Date Time Status CT abdomen pelvis w con Stat Cat Scan 02/18/24 09:06 Completed Complete Blood Count Auto Diff Stat Lab 02/18/24 09:20 Completed Comprehensive Metabolic Panel Stat Lab 02/18/24 09:20 Completed Lipase Stat Lab 02/18/24 09:20 Completed Medical Decision Narrative: In summary, this patient is a 68-year-old female presenting to the Emergency Department for evaluation of abdominal bloating, cramping, nausea, and diarrhea. Differential diagnoses considered include but are not limited to colitis, dietary intolerances, pancreatic insufficiency, infectious gastroenteritis, dehydration, electrolyte derangements. Ruling out the most morbid conditions drove assessment. On exam, the patient is nontoxic-appearing. She does have abdominal bloating with no localizable tenderness or pain. Workup included CBC, CMP, lipase, and CT abdomen and pelvis with IV contrast. She was given a bolus of IV fluids as well as IV Zofran. I independently interpreted CT scan prior to the radiologist read and noted no bowel obstruction, no acute inflammation, and no other concerns. Please see their read for final interpretation. Labs were obtained that demonstrated no acutely concerning abnormalities. On reassessment, the patient is resting comfortably benign abdominal exam. She has reassuring vital signs on cardiac telemetry. Given reassuring workup and exam, feel that she is appropriate for discharge. She already has close follow-up with gastroenterology as well as her PCP for these issues. Strict return precautions were given, and the patient was discharged after all questions were answered. Critical Care Critical Care Time Critical Care Time: No
[2024-02-18] MEDS: ONDANSETRON 4MG/2ML VIAL 4 MG IV (09:28)
[2024-02-18] MEDS: LACTATED RINGERS 1000ML 1,000 ML 999 ML IV (09:28)
[2024-02-18 09:33] LABS: Basophils # 0.2 K/mm3 (0-0.2); Eosinophils # 0.1 K/mm3 (0.0-0.4); Eosinophils % 1.4 % (0.1-12.0); Hematocrit 48.4 % (37.0-47.0); Hemoglobin 15.9 g/dL (12.2-16.2); Lymphocytes # 2.6 K/mm3 (0.7-4.5); Lymphocytes % 34.2 % (10-50); Mean Corpuscular HGB Conc 32.9 g/dL (31.8-35.4); Mean Corpuscular Hemoglobin 32.4 pg (27.0-31.2); Mean Corpuscular Volume 98.5 fl (81-99); Mean Platelet Volume 8.5 fl (7.4-10.4); Monocytes # 0.4 K/mm3 (0.1-1.0); Monocytes % 5.7 % (1.7-9.3); Neutrophils # 4.2 K/mm3 (1.8-7.8); Neutrophils % 56.6 % (37.0-80.0); Platelet Count 258 K/mm3 (142-424); Red Blood Count 4.91 M/mm3 (4.20-5.40); Red Cell Distribution Width 13.7 % (11.5-17.5); White Blood Count 7.5 K/mm3 (4.8-10.8)
[2024-02-18 09:41] LABS: Chloride 106 mmol/L (98-107); Sodium 139 mmol/L (136-145)
[2024-02-18 09:43] LABS: Alanine Aminotransferase 76 U/L (12-78); Blood Urea Nitrogen 4 mg/dl (7-17); Creatinine Clearance Estimated 49 mL/min (50-200); Estimated Glomerular Filt Rate 71 ml/min (>60); GFR (African American) 86 ML/MIN (>60)
[2024-02-18 09:44] LABS: Albumin Level 4.2 g/dl (3.5-5.0); Albumin/Globulin Ratio 1.7 (1.1-1.8); Alkaline Phosphatase 72 U/L (38-126); Aspartate Amino Transferase 61 U/L (14-36); Bilirubin,Total 0.8 mg/dl (0.2-1.3); Calcium 9.1 mg/dl (8.4-10.2); Carbon Dioxide 32 mmol/L (22.0-30.0); Globulin 2.5 g/dL (1.3-3.2); Glucose 101 mg/dl (74-100); Lipase 156 U/L (23-300); Total Protein,Serum 6.7 g/dl (6.3-8.2)
[2024-02-18] MEDS: IOPAMIDOL-370 (76%);100ML BOTTLE 75 ML IV (10:03)
== END 2024-02-18 11:56 | disposition home or self-care (01) ==
PROVIDERS: Emergency Provider Emergency Medicine; PCP Nurse Practitioner Family
DX: R14.0 Abdominal distension (gaseous) (principal); R19.7 Diarrhea, unspecified; E78.5 Hyperlipidemia, unspecified; E03.9 Hypothyroidism, unspecified; I11.9 Hypertensive heart disease without heart failure; I25.10 Atherosclerotic heart disease of native coronary artery without angina pectoris
CPT/HCPCS: 74177; 80053; 83690; 85025; 96361; 96374; 99284; J2405; Q9967

== ENCOUNTER 2024-03-08 17:49 | Emergency (ER) | payer MEDICARE, SELFPAY ==
--- NOTE | 2024-03-08 17:42 | ECG_ITS ---
APPROVED REPORT Exam: Resting ECG HR:69 bpm ECG Measurements Heart Rate 69 AXES CA 158 P 54 QRSd 98 QRS 51 QT 410 T 48 QTc 430 Conclusion SINUS RHYTHM Electronically signed by : GUIDO YOUNG, 03/08/2024 22:46:02
[2024-03-08 17:51] VITALS: BP 173/97; PULSE 66; RESP 18; TEMP 37; O2SAT 99; BMI 20.5
--- NOTE | 2024-03-08 18:08 | XR_ITS ---
PROCEDURE INFORMATION: Exam: XR Chest Exam date and time: 03/08/2024 6:10 PM Age: 68 years old Clinical indication: Sternal or substernal pain; Additional info: Chest pain TECHNIQUE: Imaging protocol: Radiologic exam of the chest. Views: 2 views. COMPARISON: CT ANGIO CHEST PE PROTOCOL 05/24/2023 5:40 AM FINDINGS: Lungs: Unremarkable. No consolidation. Pleural spaces: Unremarkable. No pleural effusion. No pneumothorax. Heart/Mediastinum: Unremarkable. No cardiomegaly. Bones/joints: Unremarkable. IMPRESSION: No acute findings.
[2024-03-08 18:17] LABS: Microscopic, Urine URINE MICROSCOPIC (MICROSCOPIC)
[2024-03-08 18:23] LABS: Chloride 105 mmol/L (98-107); Potassium 3.7 mmoL/L (3.5-5.1); Sodium 140 mmol/L (136-145)
[2024-03-08 18:25] LABS: Blood Urea Nitrogen 5 mg/dl (7-17); Creatinine Clearance Estimated 46 mL/min (50-200); Estimated Glomerular Filt Rate 71 ml/min (>60); GFR (African American) 86 ML/MIN (>60)
[2024-03-08 18:26] LABS: Alanine Aminotransferase 81 U/L (12-78); Albumin Level 4.6 g/dl (3.5-5.0); Albumin/Globulin Ratio 1.5 (1.1-1.8); Alkaline Phosphatase 65 U/L (38-126); Anion Gap 11.7 mEq/L (5-15); Aspartate Amino Transferase 68 U/L (14-36); Bilirubin,Total 0.9 mg/dl (0.2-1.3); Calcium 10.5 mg/dl (8.4-10.2); Carbon Dioxide 27 mmol/L (22.0-30.0); Glucose 104 mg/dl (74-100); Total Protein,Serum 7.6 g/dl (6.3-8.2)
[2024-03-08 18:27] LABS: Basophils # 0.2 K/mm3 (0-0.2); Basophils % 1.8 % (0.1-2.0); Eosinophils # 0.1 K/mm3 (0.0-0.4); Eosinophils % 0.9 % (0.1-12.0); Hematocrit 48.6 % (37.0-47.0); Hemoglobin 15.8 g/dL (12.2-16.2); Lymphocytes # 3.8 K/mm3 (0.7-4.5); Lymphocytes % 39.7 % (10-50); Mean Corpuscular HGB Conc 32.5 g/dL (31.8-35.4); Mean Corpuscular Volume 98.6 fl (81-99); Mean Platelet Volume 9.6 fl (7.4-10.4); Monocytes # 0.7 K/mm3 (0.1-1.0); Monocytes % 6.9 % (1.7-9.3); Neutrophils # 4.9 K/mm3 (1.8-7.8); Neutrophils % 50.8 % (37.0-80.0); Platelet Count 259 K/mm3 (142-424); Red Blood Count 4.93 M/mm3 (4.20-5.40); Red Cell Distribution Width 13.9 % (11.5-17.5); White Blood Count 9.6 K/mm3 (4.8-10.8)
[2024-03-08 18:28] LABS: Appearance,Urine CLEAR (Clear); Bilirubin,Urine Negative (Negative); Blood, Urine Negative (Negative); Color,Urine YELLOW (Yellow); Glucose,Urine (UA) Negative (Negative); Ketones,Urine Negative (Negative); Leukocyte Esterase,Urine Negative (Negative); Nitrate,Urine Negative (Negative); Protein,Urine Negative (Negative); Urobilinogen,Urine 0.2 EU/dl (0.2)
[2024-03-08 18:30] VITALS: BP 165/104; PULSE 62; RESP 12; O2SAT 94
[2024-03-08 18:45] LABS: Troponin I < 0.01 ng/ml (0.00-0.034)
[2024-03-08 18:45] LABS: Squamous Epithelial Cell,Urine Occasional #/hpf (0-5)
--- NOTE | 2024-03-08 18:46 | [facility].EDCP ---
Discharge Plan Disposition Patient Disposition: Home, Self-Care Chief Complaint: Chest Pain Prescriptions Prescriptions: No Action lorazepam 0.5 mg tablet 0.5 mg PO BID Patient Comments: TAKE 1 TABLET 2 TIMES EACH DAY FOR ANXIETY Creon 24,000-76,000 -120,000 unit capsule,delayed release(DR/EC) PO Patient Comments: Take 1 capsule by mouth three times a day with meals levothyroxine 25 mcg tablet 25 mcg PO DAILY Patient Comments: TAKE 1 TABLET ONCE A DAY IN THE MORNING ON AN EMPTY STOMACH. atorvastatin 10 mg tablet 10 mg PO DAILY aspirin [Adult Low Dose Aspirin] 81 mg tablet,delayed release (DR/EC) 81 mg PO DAILY bisoprolol fumarate 10 mg tablet 10 mg PO DAILY Qty: 30 2RF lisinopril 40 mg tablet 40 mg PO DAILY Qty: 30 3RF sertraline 50 mg tablet 50 mg PO DAILY Patient Comments: TAKE ONE TABLET BY MOUTH EVERY DAY metoclopramide HCl [Reglan] 5 mg tablet 5 mg PO BID Qty: 20 0RF Referrals Follow up/Referrals: Argelia Hughes [Primary Care Provider] - See instructions Tin Ogden MD [Staff Physician] - See instructions Shawn Wolf MD [Staff Physician] - See instructions Activity Restrictions/Add. Instructions Additional Instructions/Restrictions: Follow-up with Dr. Ogden regarding colonoscopy. Talk to family doctor and Dr. Wolf's group about scheduling cardiology follow-up. Call your family doctor to establish care for this visit to the emergency department and schedule follow-up within 48 hours to ensure improvement. If you have any worsening of your condition or any other concerning signs or symptoms, return to the emergency department or your primary care doctor for further evaluation. Clinical Impressions Clinical Impression: Abdominal distension Chest pain Qualifiers: Chest pain type: unspecified Qualified Code(s): R07.9 - Chest pain, unspecified Discharge ED Provider: Alexis Boss [facility] General Chief Complaint: Chest Pain Stated Complaint: chest pain Time Seen by Provider: 03/08/24 18:03 Mode of Arrival: Ambulatory Source of Information: Patient Limitations: No Limitations Description of Symptoms (Recalled from ER Triage Doc. by RN): Patient reports intermittent left sided chest pain. Patient also reports stomach distention x1 month. History of Present Illness HPI narrative: 68-year-old female with history of pituitary tumor status post partial removal and radiation, hypothyroidism on levothyroxine, hypertension, chronic abdominal pain and distention presenting with chest pain. Patient states that she has been seen for the abdominal distention multiple times, unable to figure out acute causes. They have done multiple pictures of the abdomen, no obvious findings. Patient states that she has been having small bowel movements, loose bowel movements, nausea without vomiting. Still passing gas. Never been told she had a hernia. Last bowel movement was today, small and loose. No fevers or chills, unintended weight loss, rash, or any other concerns. Patient states her biggest concern today is chest pain is left-sided, does not radiate, no other associated symptoms. Please note that above description of symptoms, in this electronic medical record under categorization of recalled from ER triage doctor by RN are reflective of an initial nursing assessment, however, is not reflective of my full history and physical exam that was personally taken and clarified. Consequentially, this preceding description of symptoms, which may include the patient's categorized chief complaint in the EMR, do not reflect my personal clinical impression, and the ultimate description of history of present illness and patient stated complaints should be deferred to this section of the note. Unless stated otherwise or congruent with this section of the note, additional signs, symptoms, or incongruence should be interpreted as inaccurate with my clinical impression. Related Data Home Medications Medication Instructions Recorded Confirmed aspirin 81 mg tablet,delayed 81 mg PO DAILY 09/25/20 02/15/24 release (Adult Low Dose Aspirin) atorvastatin 10 mg tablet 10 mg PO DAILY Cholesterol 09/25/20 02/15/24 levothyroxine 25 mcg tablet 25 mcg PO DAILY thyroid 09/25/20 02/15/24 lorazepam 0.5 mg tablet 0.5 mg PO BID Anxiety 01/13/22 02/15/24 sertraline 50 mg tablet 50 mg PO DAILY 09/13/23 02/15/24 [id number]-[id number] cap PO 12/30/23 02/15/24 24,000-76,000-120,000 unit capsule,delayed rel (Creon) Previous Rx's Medication Instructions Recorded lisinopril 40 mg tablet 40 mg PO DAILY #30 tabs 01/21/24 bisoprolol fumarate 10 mg tablet 10 mg PO DAILY #30 tabs 02/03/24 metoclopramide HCl 5 mg tablet 5 mg PO BID abdominal distenstion 04/15/24 (Reglan) #20 tabs Allergies Allergy/AdvReac Type Severity Reaction Status Date / Time buspirone Allergy Mild Verified 02/15/24 14:02 pravastatin Allergy Mild Verified 02/15/24 14:02 nitrofurantoin Allergy Verified 02/15/24 14:02 [From Macrobid] paroxetine [From Paxil] Allergy Verified 02/15/24 14:02 sulfamethoxazole Allergy Verified 02/15/24 14:02 [From Bactrim] trimethoprim [From Bactrim] Allergy Verified 02/15/24 14:02 isosorbide AdvReac chest pain Verified 02/15/24 14:02 PFSH FOR[facility] Disclaimer: The information contained in this section may have been updated after the patient was seen, as this information can be updated by other users. Medical History SOB (shortness of breath) Multiple lung nodules on CT Dyspnea on exertion Chest pain Thyroid disease Depression Hyperlipidemia Hypertension Anxiety Family history of heart disease Ex-smoker Coronary artery calcification seen on CT scan Abnormal EKG Dyspnea Surgical History History of colonoscopy History of hysterectomy Family History Mother Cancer Other No significant family history Social History Smoking Status: Never smoker years smoked: 3 second hand exposure: No alcohol intake: current alcohol intake frequency: a few times a week substance use type: denies use current occupational status: retired Travel in the last 8 weeks: None household members: spouse housing: house current occupational exposures/hazards: No caffeine: Yes physical activity: walking do you feel safe at home: Yes victim of physical abuse: No victim of emotional abuse: No victim of sexual abuse: No would you like helpful sources: No ROS Obtained: Yes All systems reviewed & no additional complaints except as documented Physical Exam General General appearance: alert Neck Neck exam: Present trachea midline Chest Chest inspection: Present normal inspection and symmetric chest wall rise Respiratory Respiratory exam: Present normal lung sounds bilaterally; Absent respiratory distress, wheezes, stridor, accessory muscle use or prolonged expiratory phase Cardiovascular Cardiovascular exam: Present regular rate and normal rhythm; Absent systolic murmur Abdominal Exam Abdominal exam: Present soft, distention and hernia (umbilical, reducible); Absent tenderness or guarding Extremities Exam Extremities exam: Absent edema Neurological Exam Neurological exam: Present alert, oriented X3 and CN II-XII intact Skin Skin exam: Present warm and dry; Absent cyanosis, diaphoresis or pallor HEART Score HEART Score HEART Score assessment performed?: Yes HEART Score: 4 Critical Care Critical Care Time Critical Care Time: No Medical Decision Making Medical Records Medical records reviewed: Yes I reviewed the patient's medical records. Jefry Inquiry Pt receiving controlled substance: No Jefry was queried for this patient: No Vital Signs Vital Signs: 03/08/24 17:51 03/08/24 18:30 Temperature 98.6 F Temperature Source Oral Pulse Rate 62 Pulse Rate [Right Brachial] 66 Respiratory Rate 18 12 Blood Pressure 165/104 H Blood Pressure [Right Arm] 173/97 H Blood Pressure Mean [Right Arm] 122 Blood Pressure Source [Right Arm] Automatic Cuff Blood Pressure Position [Right Arm] Sitting 02 Sat by Pulse Oximetry 99 94 L Oxygen Delivery Method Room Air Room Air Lab Data Labs: Lab Results 03/08/24 17:50: WBC 9.6, RBC 4.93, Hgb 15.8, Hct 48.6 H, MCV 98.6, MCH 32.0 H, MCHC 32.5, RDW 13.9, Plt Count 259, MPV 9.6, Neut % (Auto) 50.8, Lymph % (Auto) 39.7, [place] % (Auto) 6.9, Eos % (Auto) 0.9, Baso % (Auto) 1.8, Neut # (Auto) 4.9, Lymph # (Auto) 3.8, [place] # (Auto) 0.7, Eos # (Auto) 0.1, Baso # (Auto) 0.2, Sodium 140, Potassium 3.7, Chloride 105, Carbon Dioxide 27, Anion Gap 11.7, BUN 5 L, Creatinine 0.80, Estimated Creat Clear 46, Estimated GFR 71, Est GFR ( Amer) 86, Glucose 104 H, Calcium 10.5 H, Total Bilirubin 0.9, AST 68 H, ALT 81 H, Alkaline Phosphatase 65, Troponin I < 0.01, Total Protein 7.6, Albumin 4.6, Globulin 3.0, Albumin/Globulin Ratio 1.5, Lipase 195 03/08/24 18:05: Urine Color Yellow, Urine Appearance Clear, Urine pH 6.0, Ur Specific [place] 1.010, Urine Protein Negative, Urine Glucose (UA) Negative, Urine Ketones Negative, Urine Blood Negative, Urine Nitrate Negative, Urine Bilirubin Negative, Urine Urobilinogen 0.2, Ur Leukocyte Esterase Negative, Urine RBC None, Urine WBC None, Ur Squamous Epith Cells Occasional, Urine Bacteria None 03/08/24 17:50 03/08/24 17:50 Response Orders (Tests/Meds): ED MEDICATIONS Discontinued Medications Generic Name Dose Route Start Last Admin Trade Name Freq PRN Reason Stop Dose Admin Ketorolac Tromethamine 15 mg 03/08/24 19:53 Ketorolac 30mg/Ml Vial IV 03/08/24 19:54 ONCE ONE ORDERS Category Date Time Status XR chest 2V Stat Exams 03/08/24 18:08 Completed Complete Blood Count Auto Diff Stat Lab 03/08/24 17:50 Completed Comprehensive Metabolic Panel Stat Lab 03/08/24 17:50 Completed Lipase Stat Lab 03/08/24 17:50 Completed Troponin I Q3H Lab 03/08/24 21:15 Ordered Troponin I Q3H Lab 03/09/24 00:15 Ordered Troponin I Stat Lab 03/08/24 17:50 Completed UA [Urinalysis and Microscopic] Stat Lab 03/08/24 18:05 Completed MDM Narrative Medical Decision Narrative: 68-year-old female with history of pituitary tumor status post partial removal and radiation, hypothyroidism on levothyroxine, hypertension, chronic abdominal pain and distention presenting with chest pain. Patient states that she has been seen for the abdominal distention multiple times, unable to figure out acute causes. They have done multiple pictures of the abdomen, no obvious findings. Patient states that she has been having small bowel movements, loose bowel movements, nausea without vomiting. Still passing gas. Never been told she had a hernia. Last bowel movement was today, small and loose. No fevers or chills, unintended weight loss, rash, or any other concerns. Patient states her biggest concern today is chest pain is left-sided, does not radiate, no other associated symptoms. Chest pain started earlier this morning and has been intermittent throughout the day. History was obtained via conversation with patient and chart review. On arrival, patient hemodynamically stable, alert, oriented x4, appropriate, GCS 15, moving all extremities spontaneously, pupils equal and reactive to light. Full physical exam performed and significant for abdomen is soft, but distended. She does have an umbilical hernia that is reducible. Bowel sounds present and unremarkable. Cardiac exam within normal limits, no murmurs, gallops, rubs. Pulses are equal and symmetric in upper and lower extremities. No lower extremity edema. Lungs are clear to auscultation bilaterally. Differential includes microvascular coronary artery disease, CHF, ACS, FL, coronary artery dissection, pneumothorax, PE, dissection, pericarditis, myocarditis, pneumothorax, aortic aneurysm, pneumonia, bronchitis, among others. Patient was given Toradol IV for symptomatic management and correction of underlying abnormalities. Workup independently interpreted and significant for nonactionable CBC or chemistry. LFTs mildly elevated, but nonactionable with AST 68, ALT 81. Initial troponin negative, urinalysis negative. Lipase negative chest x-ray without acute cardiopulmonary airspace disease. See radiology read for full review of final results. Independent interpretation of EKG shows sinus rhythm 69 beats a minute no ST or T wave changes concerning for acute ischemia. IL, QRS, QT intervals within normal limits, axis normal and good R wave progression in precordial leads. On reevaluation, patient without chest pain, having headache. Toradol was given. Further conversation patient was had regarding outpatient colonoscopy and catheterization, she is agreeable to outpatient management for both things. Given patient presentation, workup, history, this most likely represents chronic abdominal distention, acute chest pain. Because patient at baseline without signs or symptoms of clinical decompensation, deemed appropriate for discharge. Results were relayed to patient who voiced understanding and were agreeable to outpatient management and follow up. I discussed my clinical impression with patient and answered all questions. At this time, the evidence for any other entities in the differential is insufficient to warrant any further testing or ED observation. This was explained as well. Advisory was given that persistent or worsening symptoms require further evaluation. I confirmed the understanding of this discussion.
[2024-03-08 19:57] LABS: Lipase 195 U/L (23-300)
[2024-03-08] MEDS: KETOROLAC 30MG/ML VIAL 15 MG IV (20:09)
[2024-03-08 20:18] VITALS: BP 151/93; PULSE 70; RESP 13; TEMP 37; O2SAT 98
== END 2024-03-08 20:19 | disposition home or self-care (01) ==
PROVIDERS: Emergency Provider Emergency Medicine; PCP Nurse Practitioner Family
DX: R07.9 Chest pain, unspecified (principal); R14.0 Abdominal distension (gaseous); R11.0 Nausea; E03.9 Hypothyroidism, unspecified; I10 Essential (primary) hypertension; E78.5 Hyperlipidemia, unspecified
CPT/HCPCS: 71046; 80053; 81001; 83690; 84484; 85025; 93005; 96374; 99284

== ENCOUNTER 2024-03-09 09:51 | Emergency (ER) | payer MEDICARE, SELFPAY ==
[2024-03-09 09:52] VITALS: BP 158/91; PULSE 71; RESP 18; TEMP 36.6; O2SAT 99; BMI 21.4
--- NOTE | 2024-03-09 09:55 | CT_ITS ---
FINAL REPORT CLINICAL HISTORY: abdominal distention. states bloating that has been worsening COMPARISON: 02/18/2024 FINDINGS: CT OF THE ABDOMEN AND PELVIS WITH CONTRAST Axial CT images of the abdomen and pelvis were obtained after the administration of IV contrast. Coronal reformatted images were also obtained and reviewed. This study was performed with techniques to keep radiation doses as low as reasonably achievable (ALARA). Individualized dose reduction techniques using automated exposure control or adjustment of mA and/or kV according to the patient's size were employed. Abdomen: The lung bases are clear. The heart is normal in size. There is a small hiatal hernia. The liver has an unremarkable appearance, without evidence of mass or biliary ductal dilatation. There is mild nonspecific gallbladder wall thickening. The spleen is unremarkable. No adrenal mass is present. The pancreas has an unremarkable appearance. Several less than 1 cm left renal cysts are noted. The aorta is normal in caliber. There is no free fluid or adenopathy. No mass or abnormal fluid collection is seen. There is a small umbilical hernia containing fat. Pelvis: The appendix is not well-visualized. There is mild bladder wall thickening which is stable and likely inflammatory. Postoperative changes are noted from hysterectomy. There is no evidence of mass or adenopathy. There is no evidence of bowel obstruction. IMPRESSION: Stable mild bladder wall thickening, likely inflammatory. Mild nonspecific gallbladder wall thickening. Reviewed, Interpreted and Dictated by Campos Ashley III, MD Transcribed by Sarah Sainz Authenticated and [facility]
[2024-03-09 09:56] VITALS: BP 158/91; PULSE 70; O2SAT 98
[2024-03-09 10:01] VITALS: BP 142/92; PULSE 65; O2SAT 97
[2024-03-09 10:13] LABS: Alanine Aminotransferase 64 U/L (12-78); Albumin Level 4.4 g/dl (3.5-5.0); Albumin/Globulin Ratio 1.6 (1.1-1.8); Alkaline Phosphatase 51 U/L (38-126); Anion Gap 11.5 mEq/L (5-15); Aspartate Amino Transferase 58 U/L (14-36); Bilirubin,Total 1.2 mg/dl (0.2-1.3); Blood Urea Nitrogen 6 mg/dl (7-17); Calcium 9.4 mg/dl (8.4-10.2); Carbon Dioxide 29 mmol/L (22.0-30.0); Chloride 100 mmol/L (98-107); Creatinine Clearance Estimated 48 mL/min (50-200); Estimated Glomerular Filt Rate 62 ml/min (>60); GFR (African American) 75 ML/MIN (>60); Globulin 2.7 g/dL (1.3-3.2); Glucose 115 mg/dl (74-100); Lipase 102 U/L (23-300); Potassium 3.5 mmoL/L (3.5-5.1); Sodium 137 mmol/L (136-145); Total Protein,Serum 7.1 g/dl (6.3-8.2)
[2024-03-09] MEDS: IOPAMIDOL-370 (76%);100ML BOTTLE 75 ML IV (10:16)
[2024-03-09] MEDS: SODIUM CHLORIDE 0.9% 10ML SYR (RAD ONLY) 10 ML IV (10:16)
[2024-03-09 10:20] LABS: Basophils # 0.1 K/mm3 (0-0.2); Basophils % 1.1 % (0.1-2.0); Eosinophils # 0.1 K/mm3 (0.0-0.4); Eosinophils % 0.8 % (0.1-12.0); Hematocrit 47.1 % (37.0-47.0); Hemoglobin 15.4 g/dL (12.2-16.2); Lymphocytes # 2.6 K/mm3 (0.7-4.5); Lymphocytes % 28.9 % (10-50); Mean Corpuscular HGB Conc 32.7 g/dL (31.8-35.4); Mean Corpuscular Hemoglobin 32.6 pg (27.0-31.2); Mean Corpuscular Volume 99.6 fl (81-99); Mean Platelet Volume 8.7 fl (7.4-10.4); Monocytes # 0.4 K/mm3 (0.1-1.0); Monocytes % 4.9 % (1.7-9.3); Neutrophils # 5.8 K/mm3 (1.8-7.8); Neutrophils % 64.3 % (37.0-80.0); Platelet Count 268 K/mm3 (142-424); Red Blood Count 4.73 M/mm3 (4.20-5.40); Red Cell Distribution Width 13.8 % (11.5-17.5); White Blood Count 9.1 K/mm3 (4.8-10.8)
[2024-03-09] MEDS: METOCLOPRAMIDE HCL 10MG/2ML VIAL 10 MG IVP (10:21)
--- NOTE | 2024-03-09 10:24 | ED_ITS ---
Discharge Plan Disposition Patient Disposition: Home, Self-Care Chief Complaint: Recheck/Abnormal Lab/Rx Prescriptions Prescriptions: No Action lorazepam 0.5 mg tablet 0.5 mg PO BID Patient Comments: TAKE 1 TABLET 2 TIMES EACH DAY FOR ANXIETY Creon 24,000-76,000 -120,000 unit capsule,delayed release(DR/EC) PO Patient Comments: Take 1 capsule by mouth three times a day with meals levothyroxine 25 mcg tablet 25 mcg PO DAILY Patient Comments: TAKE 1 TABLET ONCE A DAY IN THE MORNING ON AN EMPTY STOMACH. atorvastatin 10 mg tablet 10 mg PO DAILY aspirin [Adult Low Dose Aspirin] 81 mg tablet,delayed release (DR/EC) 81 mg PO DAILY bisoprolol fumarate 10 mg tablet 10 mg PO DAILY Qty: 30 2RF lisinopril 40 mg tablet 40 mg PO DAILY Qty: 30 3RF sertraline 50 mg tablet 50 mg PO DAILY Patient Comments: TAKE ONE TABLET BY MOUTH EVERY DAY metoclopramide HCl [Reglan] 5 mg tablet 5 mg PO BID Qty: 20 0RF Referrals Follow up/Referrals: Argelia Hughes [Primary Care Provider] - See instructions Activity Restrictions/Add. Instructions Additional Instructions/Restrictions: Call your family doctor to establish care for this visit to the emergency department and schedule follow-up within 48 hours to ensure improvement. Call to get colonoscopy scheduled as well. Clinical Impressions Clinical Impression: Abdominal distension Discharge ED Provider: Alexis Boss General Adult HPI General Chief complaint: Recheck/Abnormal Lab/Rx Stated complaint: possible bowel blockage Time Seen by Provider: 03/09/24 09:52 Mode of Arrival: Ambulatory Source of Information: Patient Limitations: No Limitations Description of Symptoms (Recalled from ER Triage Doc. by RN): Patient reports a swollen abdomen. Denies nausea, vomiting or diarrhea. States she also has no pain. History of Present Illness HPI narrative: Is a 68-year-old female with history pituitary tumor status post partial removal and radiation, hypothyroidism on levothyroxine, hypertension, appendectomy, section, chronic abdominal pain and distention presenting with abdominal distention. Patient states this has been going on for weeks. She was seen by me yesterday, 03/08, in the emergency department. Workup unremarkable, patient able to tolerate p.o. intake, still distended, but very clinically well- appearing. Patient states that she felt constipated today, tried an enema at 5 AM today, 5/15. Minimal output, but also stated she had difficulty inserting enema and medicine. No vomiting, fevers, chills, dysuria, hematuria, hematochezia, unintended weight loss, night sweats. Last bowel movement was this morning and was small for her, as they have been the past few days. Still passing gas. Please note that above description of symptoms, in this electronic medical record under categorization of recalled from ER triage doctor by RN are reflective of an initial nursing assessment, however, is not reflective of my full history and physical exam that was personally taken and clarified. Consequentially, this preceding description of symptoms, which may include the patient's categorized chief complaint in the EMR, do not reflect my personal clinical impression, and the ultimate description of history of present illness and patient stated complaints should be deferred to this section of the note. Unless stated otherwise or congruent with this section of the note, additional signs, symptoms, or incongruence should be interpreted as inaccurate with my clinical impression. Related Data Home Medications Medication Instructions Recorded Confirmed aspirin 81 mg tablet,delayed 81 mg PO DAILY 09/25/20 02/15/24 release (Adult Low Dose Aspirin) atorvastatin 10 mg tablet 10 mg PO DAILY Cholesterol 09/25/20 02/15/24 levothyroxine 25 mcg tablet 25 mcg PO DAILY thyroid 09/25/20 02/15/24 lorazepam 0.5 mg tablet 0.5 mg PO BID Anxiety 01/13/22 02/15/24 sertraline 50 mg tablet 50 mg PO DAILY 09/13/23 02/15/24 [id number] cap PO 12/30/23 02/15/24 24,000-76,000-120,000 unit capsule,delayed rel (Creon) Previous Rx's Medication Instructions Recorded lisinopril 40 mg tablet 40 mg PO DAILY #30 tabs 01/21/24 bisoprolol fumarate 10 mg tablet 10 mg PO DAILY #30 tabs 02/03/24 metoclopramide HCl 5 mg tablet 5 mg PO BID abdominal distenstion 02/08/24 (Reglan) #20 tabs Allergies Allergy/AdvReac Type Severity Reaction Status Date / Time buspirone Allergy Mild Verified 02/15/24 14:02 pravastatin Allergy Mild Verified 02/15/24 14:02 nitrofurantoin Allergy Verified 02/15/24 14:02 [From Macrobid] paroxetine [From Paxil] Allergy Verified 02/15/24 14:02 sulfamethoxazole Allergy Verified 02/15/24 14:02 [From Bactrim] trimethoprim [From Bactrim] Allergy Verified 02/15/24 14:02 isosorbide AdvReac chest pain Verified 02/15/24 14:02 PFSH [facility] Disclaimer: The information contained in this section may have been updated after the patient was seen, as this information can be updated by other users. Medical History SOB (shortness of breath) Multiple lung nodules on CT Dyspnea on exertion Chest pain Thyroid disease Depression Hyperlipidemia Hypertension Anxiety Family history of heart disease Ex-smoker Coronary artery calcification seen on CT scan Abnormal EKG Dyspnea Surgical History History of colonoscopy History of hysterectomy Family History Mother Cancer Other No significant family history Social History Smoking Status: Never smoker years smoked: 3 second hand exposure: No alcohol intake: current alcohol intake frequency: a few times a week substance use type: denies use current occupational status: retired Travel in the last 8 weeks: None household members: spouse housing: house current occupational exposures/hazards: No caffeine: Yes physical activity: walking do you feel safe at home: Yes victim of physical abuse: No victim of emotional abuse: No victim of sexual abuse: No would you like helpful sources: No ROS Obtained: Yes All systems reviewed & no additional complaints except as documented Physical Exam General General appearance: alert and in no apparent distress Head Head exam: atraumatic and normocephalic Eye Eye exam: Present normal appearance, PERRL and EOMI ENT ENT exam: Present mucous membranes moist Neck Neck exam: Present normal inspection, full ROM and trachea midline Respiratory Respiratory exam: Absent respiratory distress, wheezes, stridor, accessory muscle use or prolonged expiratory phase Cardiovascular Cardiovascular exam: Present normal rhythm Abdominal Exam Abdominal exam: Present soft and distention; Absent tenderness, guarding, rebound, rigidity, Fonseca's sign, Rovsing's sign, tenderness at McBurney's Point, ascites or pulsatile mass Extremities Exam Extremities exam: Absent edema Neurological Exam Neurological exam: Present alert, oriented X3, CN II-XII intact and normal gait; Absent motor sensory deficit Skin Skin exam: Present warm and dry; Absent diaphoresis or erythema Medical Decision Making Medical Records Medical records reviewed: Yes I reviewed the patient's medical records. Jefry Inquiry Pt receiving controlled substance: No Jefry was queried for this patient: No Vital Signs: 03/09/24 09:52 03/09/24 09:56 03/09/24 10:01 Temperature 97.9 F Temperature Source Oral Pulse Rate 70 65 Pulse Rate [Radial] 71 Respiratory Rate 18 Blood Pressure 158/91 H 142/92 H Blood Pressure [Left Arm] 158/91 H Blood Pressure Mean [Left Arm] 113 Blood Pressure Source [Left Arm] Automatic Cuff Blood Pressure Position [Left Arm] Sitting 02 Sat by Pulse Oximetry 99 98 97 Oxygen Delivery Method Room Air Room Air Room Air 03/09/24 11:00 03/09/24 11:30 Temperature Temperature Source Pulse Rate 36 L 65 Pulse Rate [Radial] Respiratory Rate Blood Pressure 135/88 128/86 Blood Pressure [Left Arm] Blood Pressure Mean [Left Arm] Blood Pressure Source [Left Arm] Blood Pressure Position [Left Arm] 02 Sat by Pulse Oximetry 94 L 96 Oxygen Delivery Method Room Air Room Air Lab Data Lab Results 03/09/24 09:58: WBC 9.1, RBC 4.73, Hgb 15.4, Hct 47.1 H, MCV 99.6 H, MCH 32.6 H, MCHC 32.7, RDW 13.8, Plt Count 268, MPV 8.7, Neut % (Auto) 64.3, Lymph % (Auto) 28.9, [place] % (Auto) 4.9, Eos % (Auto) 0.8, Baso % (Auto) 1.1, Neut # (Auto) 5.8, Lymph # (Auto) 2.6, [place] # (Auto) 0.4, Eos # (Auto) 0.1, Baso # (Auto) 0.1, Sodium 137, Potassium 3.5, Chloride 100, Carbon Dioxide 29, Anion Gap 11.5, BUN 6 L, Creatinine 0.90, Estimated Creat Clear 48, Estimated GFR 62, Est GFR ( Amer) 75, Glucose 115 H, Lactate 1.3, Calcium 9.4, Total Bilirubin 1.2, AST 58 H, ALT 64, Alkaline Phosphatase 51, Troponin I < 0.01, Total Protein 7.1, Albumin 4.4, Globulin 2.7, Albumin/Globulin Ratio 1.6, Lipase 102 03/09/24 09:58 03/09/24 09:58 Orders (Tests/Meds): ED MEDICATIONS Discontinued Medications Generic Name Dose Route Start Last Admin Trade Name Freq PRN Reason Stop Dose Admin Iopamidol 75 ml 03/09/24 10:15 03/09/24 10:16 Iopamidol-370 (76%);100ml Bottle IV 03/09/24 10:16 75 ml ONCE ONE Administration Metoclopramide HCl 10 mg 03/09/24 09:54 03/09/24 10:21 Metoclopramide Hcl 10mg/2ml Vial IVP 03/09/24 09:55 10 mg ONCE ONE Administration Sodium Chloride 10 ml 03/09/24 10:15 03/09/24 10:16 Sodium Chloride 0.9% 10ml Syr (Rad Only) IV 03/09/24 10:16 10 ml ONCE ONE Administration ORDERS Category Date Time Status CT abdomen pelvis w con Stat Cat Scan 03/09/24 09:55 Completed POCUS Point of Care (ER Only) Stat Exams 03/09/24 10:10 Completed Complete Blood Count Auto Diff Stat Lab 03/09/24 09:58 Completed Comprehensive Metabolic Panel Stat Lab 03/09/24 09:58 Completed Lactic Acid Stat Lab 03/09/24 09:58 Completed Lipase Stat Lab 03/09/24 09:58 Completed Troponin I Q3H Lab 03/09/24 13:00 Ordered Troponin I Q3H Lab 03/09/24 16:00 Ordered Troponin I Stat Lab 03/09/24 09:58 Completed Medical Decision Narrative: Is a 68-year-old female with history pituitary tumor status post partial removal and radiation, hypothyroidism on levothyroxine, hypertension, appendectomy, section, chronic abdominal pain and distention presenting with abdominal distention. Patient states this has been going on for weeks. She was seen by me yesterday, 03/08, in the emergency department. Workup unremarkable, patient able to tolerate p.o. intake, still distended, but very clinically well- appearing. Patient states that she felt constipated today, tried an enema at 5 AM today, 03/09. Minimal output, but also stated she had difficulty inserting enema and medicine. No vomiting, fevers, chills, dysuria, hematuria, hematochezia, unintended weight loss, night sweats. Last bowel movement was this morning and was small for her, as they have been the past few days. Still passing gas. History was obtained via conversation with patient, chart review. On arrival, patient hemodynamically stable, alert, oriented x4, appropriate, GCS 15, moving all extremities spontaneously, pupils equal and reactive to light. Full physical exam performed and significant for very well-appearing female no acute distress. Abdomen is soft, minimally distended objectively, but significantly distended subjectively. No overlying skin changes. She does have small umbilical hernia that is reducible and nontender. No overlying skin changes there either. No flank tenderness. Bowel sounds intact normal. Differential includes PUD, gastritis, ileus, [place]'s, pancreatitis, SBO, colitis, diverticulitis, cholecystitis, choledocholithiasis, torsion, hepatitis, chronic mesenteric ischemia among others. Patient was given Reglan and IV fluids for symptomatic management and correction of underlying abnormalities. Workup independently interpreted and significant for nonactionable CBC or chemistry, lipase negative, labs overall unremarkable. CT abdomen pelvis without acute abnormality other than gallbladder wall thickening which appears chronic. Bedside [id number] ultrasound with gallbladder wall thickness 3 mm, normal common bile duct, nondistended gallbladder and no secondary signs of cholecystitis. No cholelithiasis within the gallbladder. See radiology read for full review of final results. On reevaluation, patient remains at baseline. Results were relayed to patient again, she is disheartened, but understanding. Going to call for colonoscopy scheduling today for further evaluation. Also recommended she start MiraLAX in the setting of concern for constipation. She voiced her understanding. Because patient at baseline without signs or symptoms of clinical decompensation, deemed appropriate for discharge. Results were relayed to patient who voiced understanding and were agreeable to outpatient management and follow up. I discussed my clinical impression with patient and answered all questions. At this time, the evidence for any other entities in the differential is insufficient to warrant any further testing or ED observation. This was explained as well. Advisory was given that persistent or worsening symptoms require further evaluation. I confirmed the understanding of this discussion. Critical Care Critical Care Time Critical Care Time: No
[2024-03-09 10:36] LABS: Troponin I < 0.01 ng/ml (0.00-0.034)
[2024-03-09 10:42] LABS: Lactic Acid 1.3 mmol/L (0.7-2.1)
--- NOTE | 2024-03-09 10:55 | PC.NURSE ---
checked on pt stated she was trying to get comfortable so adjusted head of bed no other needs at this time,call light in reach
[2024-03-09 11:00] VITALS: BP 135/88; PULSE 36; O2SAT 94
[2024-03-09 11:30] VITALS: BP 128/86; PULSE 65; O2SAT 96
--- NOTE | 2024-03-09 11:45 | PC.NURSE ---
AT BS WITH ULTRASOUND
[2024-03-09 12:27] VITALS: BP 148/97; PULSE 66; RESP 20; TEMP 37.1; O2SAT 97
== END 2024-03-09 12:28 | disposition home or self-care (01) ==
PROVIDERS: Emergency Provider Emergency Medicine; PCP Nurse Practitioner Family
DX: R14.0 Abdominal distension (gaseous) (principal); E03.9 Hypothyroidism, unspecified; I10 Essential (primary) hypertension; E78.5 Hyperlipidemia, unspecified
CPT/HCPCS: 74177; 80053; 83605; 83690; 84484; 85025; 96374; 99284; Q9967

== ENCOUNTER 2024-03-17 09:44 | Outpatient (CLI) | payer MEDICARE, SELFPAY ==
[2024-03-17 11:40] LABS: Alanine Aminotransferase 67 U/L (12-78); Albumin Level 4.1 g/dl (3.5-5.0); Alkaline Phosphatase 58 U/L (38-126); Aspartate Amino Transferase 69 U/L (14-36); Bilirubin,Direct 0.1 mg/dl (0.0-0.4); Bilirubin,Indirect 0.4 mg/dL (0.0-0.9); Bilirubin,Total 0.5 mg/dl (0.2-1.3); Bilirubin,Unconjugated 0.4 mg/dL (0.0-1.1); Chol/HDL Ratio 3.9 (1-3.5); Cholesterol 212 mg/dl (140-200); HDL Cholesterol 54 mg/dl (40-60); Total Protein,Serum 6.5 g/dl (6.3-8.2); Triglycerides 259 mg/dl (30-150); VLDL Cholesterol 52 mg/dL (0-40)
[2024-03-17 11:51] LABS: Direct LDL Cholesterol 98.08 mg/dL (100-129)
== END 2024-03-17 23:59 | disposition home or self-care (01) ==
LOC: LAB 09:45
PROVIDERS: PCP Nurse Practitioner Family; Visit Provider Nurse Practitioner Family
DX: R06.02 Shortness of breath; R07.9 Chest pain, unspecified; E78.2 Mixed hyperlipidemia
CPT/HCPCS: 36415; 80061; 80076

== ENCOUNTER 2024-03-28 07:47 | Outpatient (CLI) | payer MEDICARE, SELFPAY ==
--- NOTE | 2024-03-28 07:47 | CA_ITS ---
APPROVED REPORT EXAM: Comprehensive 2D, Doppler, and color-flow Echocardiogram Roll Builder: Radha Todd RDCS Ht: 5 ft 4 in Wt: 125lbs BSA: 1.60 BP: 128/82 mmHg Indications: CP ABN EKG HTN HLP SOA NÚÑEZ M-Mode Dimensions RVDd 2.17 cm (0.9-2.6) LA Diam 3.13 cm (1.9-4.0) LVDd 4.54 cm (3.5-5.7) LVDs 3.32 cm (3.5-5.7) IVSd 0.80 cm (0.6-1.1) PWd 0.72 cm (0.6-1.1) EF (Teich) 52.50% FS 26.90% EDV (Teich) 94.40 mL ESV (Teich) 44.80 mL LV Diastology E Decel Time 237 (160-240 msec) E/A Ratio 0.5 Mitral Valve MV E Max Sj. 28.0 (40-130 cm/s) MV A Velocity 59.0 (40-130 cm/s) E/A Ratio 0.47 MV PHT 69.0 ms Left Ventricle The left ventricle is normal size. The left ventricular systolic function is normal. The left ventricular ejection fraction is within the normal range. There is increased LV wall thickness. There is normal LV segmental wall motion. The left ventricular diastolic function is normal. LVEF is 55%. Right Ventricle The right ventricle is normal size. The right ventricular systolic function is normal. Atria The left atrium size is normal. The right atrium size is normal. There is no Doppler evidence of interatrial shunt. Aortic Valve The aortic valve opens well. There is no aortic valvular stenosis. No aortic regurgitation is present. Mitral Valve The mitral valve is normal in structure. No evidence of mitral valve stenosis. Trace mitral regurgitation. Tricuspid Valve The tricuspid valve leaflets are thin and pliable. Trace tricuspid regurgitation. There is insufficient TR jet to estimate RVSP. Pulmonic Valve The pulmonary valve is normal in structure. Trace pulmonic regurgitation. Great Vessels The aortic root is normal in size. The ascending aorta is normal in size. IVC is normal in size and collapses >50% with inspiration. Pericardium There is no pericardial effusion. Other Information Study Quality: Fair Conclusion Normal biventricular systolic function. No significant valvular stenosis or regurgitation. Electronically signed by : Mattie Marks MD 04/02/2024 00:36:35
--- NOTE | 2024-03-28 08:22 | CT_ITS ---
APPROVED REPORT Chief Technologist: CLINICAL INDICATION Chest Pain TECHNIQUE Image Acquisition: A 128 slice MDCT scanner ([employer]ffitiTech[employer] View) was used for data acquisition. A noncontrast coronary calcium scan was performed. A CT attenuation threshold of 130 Hounsfield units (HU) was used for the detection of calcium in contiguous voxels of 1 sq mm in area to be counted as individual lesions. Bolus tracking in the ascending aorta with a threshold of 180 HU was performed. Immediately afterwards, ECG synchronized cardiac CT was then performed from the cardiac base to apex using retrospective gating with ECG tube current modulation. A total of 85 mL of Isovue 370 mg/mL contrast medium was administered at 5 mL/sec followed by a saline flush using a biphasic injection protocol. A tube voltage of 120 KVp was used. The patient received the following medications prior to the cardiac CT. 50 mg of oral metoprolol 15 mg of oral ivabradine 0.8 mg of sublingual nitroglycerin The average heart rate at the time of acquisition was 52 bpm and regular. Image Reconstruction Transaxial images were reconstructed at 0.67 mm slide thickness. Data was reviewed interactively on an advanced workstation capable of 2 and 3-dimensional displays in all conventional reconstruction formats, including multiplanar reformations, maximum intensity projections, curved multiplanar reformations, and volume rendered reconstructions. When applicable, selected routine images describing the relevant coronary anatomy and pathology were saved and sent to PACS. Complications None Technical Quality Overall image quality was good. Coronary artery opacification was adequate. Total DLP (Dose-Length Product) is 1702.7 mGy-cm. The reported value represents the total of one or more individual components during the CT acquisition of this date and at this time, and as such, the same value may appear in more than one CT report depending on the interpreting/reporting physicians. COMPARISON None FINDINGS CT Coronary Calcium Scoring LMA (Left Main Artery) = 0 LAD (Left Anterior Descending) = 109 LCX (Left Coronary Circumflex) = 0 RCA (Right Coronary Artery) = 16 Total Calcium Score = 125 using the AJ-130 method. The observed calcium score of 125 is at 79th percentile for subjects of the same age, sex, and race/ethnicity. The interpretation of the calcium heart score is based on the following continuum*: 0 = no calcified plaque detected (risk of coronary artery disease is very low ??? less than 5%) 1-10 = calcium detected in extremely minimal levels (risk of coronary diseases is still low ??? less than 10%) 11-100 = mild levels of plaque detected with certainty (mild or minimal narrowing of heart arteries is likely) 101-400 = definite,at least moderate levels of plaque detected (relatively high risk of a heart attack within 3-5 years) >401-999 = extensive levels of plaque detected (high risk of heart attack, high levels of vascular disease are present, high likelihood of at least one significant coronary narrowing) *The calcium heart score quantifies the burden of coronary calcification/plaque in the coronary arteries. The calcium heart score is not able to evaluate the presence or burden of non-calcified (i.e. soft) plaque. There is also identifiable calcification in the ascending and descending thoracic aorta. Coronary CT Angiography The coronary arterial system is right dominant. Quantitative Stenosis Grading: Left Main (LM): The left main originates normally from the left sinus of Valsalva. The LM bifurcates into the left anterior descending artery and left circumflex artery. The LM is patent with no evidence of atherosclerosis. Left Anterior Descending (LAD) and Diagonal Branches: The LAD gives off 2 diagonal branch(es). There is mixed calcified/noncalcified plaque in the proximal LAD, with 25-49% luminal stenosis. There is no evidence of LAD-myocardial bridge. Left Circumflex (LCX) and Obtuse Marginals (OM): The LCX is a small caliber vessel. The LCx gives off 1 Obtuse Marginal (OM) branch(es). The LCX and its branches are patent with no evidence of atherosclerosis. Right Coronary Artery (RCA): The RCA originates normally from the right sinus of Valsalva. The RCA gives off a posterior descending artery (PDA) and posterolateral (PL) branches. There is calcified plaque in the proximal RCA, with no luminal stenosis. Non-Coronary Cardiac Findings: Analysis of the left ventricular (LV) structure and function was performed after 3-D reconstruction of the LV from axial images, with user-corrected automatic contouring for assessment of LV volumes and user-defined reconstruction from oblique planes for measurement of 3-D cardiac structure and function. -The left ventricle systolic function is normal. -There is no left atrial appendage filling defect. Two right pulmonary veins and two left pulmonary veins drain normally into the left atrium. -No pericardial thickening or calcification. -Central and branch pulmonary arteries in the [id number] are unremarkable. -Thoracic aorta within the visualized thoracic aortic-branches in the [id number] is unremarkable. Extracardiac Structures No significant extra-cardiac findings. Note, however, that this study is focused on the cardiac findings. IMPRESSION -Presence of coronary calcification with an Agatston score = 125 using the AJ-130 method. -The observed calcium score of 125 is at 79th percentile for subjects of the same age, sex, and race/ethnicity. -Mild, non-obstructive plaque in the proximal LAD and proximal RCA (up to 25-49% luminal stenosis), but with no evidence of significant flow-limiting atherosclerosis. -CAD-RADS 2. Management recommendations per ACC/AHA guidelines*, as clinically appropriate. *Recommendations: CAD RADS 0: Reassurance. Consider non-atherosclerotic causes of chest pain. CAD RADS 1: Consider non-atherosclerotic causes of chest pain. Consider preventive therapy and risk factor modification. CAD RADS 2: Consider non-atherosclerotic causes of chest pain. Consider preventive therapy and risk factor modification, particularly for patients with nonobstructive plaque in multiple segments. CAD RADS 3: Consider further functional testing. Consider symptom-guided anti-ischemic and preventive pharmacotherapy as well as risk factor modification per published guideline statements. CAD RADS 4A: Consider further functional testing or invasive coronary angiography with revascularization per published guideline statements. Consider symptom-guided anti-ischemic and preventive pharmacotherapy as well as risk factor modification per published guideline statements. CAD RADS 4B: Invasive coronary angiography recommended with revascularization per published guideline statements. Consider symptom-guided anti-ischemic and preventive pharmacotherapy as well as risk factor modification per published guideline statements. CAD RADS 5: Consider invasive angiography and/or viability assessment with revascularization per published guideline statements. Consider symptom-guided anti-ischemic and preventive pharmacotherapy as well as risk factor modification per published guideline statements. CRITICAL RESULT None COMMUNICATION Per this written report The coronary and cardiac findings of this CCTA were reviewed, reported, and signed by Rene Marks MD (Information Technology Associate) Conclusion Electronically signed by : Mattie Marks MD 03/29/2024 16:55:53
[2024-03-28 08:29] VITALS: BMI 21.4
[2024-03-28 08:42] VITALS: BP 131/85; PULSE 67; RESP 18; TEMP 36.3; O2SAT 99
[2024-03-28] MEDS: METOPROLOL TARTRATE 50MG TABLET PO (08:51)
[2024-03-28] MEDS: IVABRADINE HCL 7.5MG TABLET PO (08:52)
[2024-03-28 09:46] VITALS: BP 150/93; PULSE 58; RESP 18; O2SAT 99
[2024-03-28] MEDS: NITROGLYCERIN 0.4MG SL TABLET SL (09:46)
[2024-03-28 09:49] VITALS: BP 147/80; PULSE 58; RESP 16; O2SAT 97
[2024-03-28 09:52] VITALS: BP 109/68; PULSE 59; RESP 16; O2SAT 98
[2024-03-28] MEDS: 0.9 % SODIUM CHLORIDE 50 ML VIAL IV (09:54)
[2024-03-28] MEDS: SODIUM CHLORIDE 0.9% 10ML SYR (RAD ONLY) 10 ML IV (09:54)
[2024-03-28 09:55] VITALS: BP 97/61; PULSE 67; RESP 16; O2SAT 98
[2024-03-28] MEDS: IOPAMIDOL-370 (76%);100ML BOTTLE 85 ML IV (10:02)
[2024-03-28 10:09] VITALS: BP 111/74; PULSE 60; RESP 18; O2SAT 97
== END 2024-03-28 10:13 | disposition home or self-care (01) ==
PROVIDERS: PCP Nurse Practitioner Family; Visit Provider Nurse Practitioner Family
DX: E78.2 Mixed hyperlipidemia (principal); R06.02 Shortness of breath; R07.9 Chest pain, unspecified
CPT/HCPCS: 75574; 93306; Q9967

== ENCOUNTER 2024-05-05 13:28 | Outpatient (CLI) | payer MEDICARE, SELFPAY ==
[2024-05-05 14:02] LABS: Alanine Aminotransferase 55 U/L (12-78); Albumin Level 4.3 g/dl (3.5-5.0); Alkaline Phosphatase 68 U/L (38-126); Aspartate Amino Transferase 49 U/L (14-36); Bilirubin,Indirect 1.1 mg/dL (0.0-0.9); Bilirubin,Total 1.1 mg/dl (0.2-1.3); Bilirubin,Unconjugated 1.2 mg/dL (0.0-1.1); Chol/HDL Ratio 3.2 (1-3.5); Cholesterol 172 mg/dl (140-200); HDL Cholesterol 53 mg/dl (40-60); Total Protein,Serum 6.7 g/dl (6.3-8.2); Triglycerides 107 mg/dl (30-150); VLDL Cholesterol 21 mg/dL (0-40)
[2024-05-05 14:13] LABS: Direct LDL Cholesterol 82.31 mg/dL (100-129)
== END 2024-05-05 23:59 | disposition home or self-care (01) ==
LOC: LAB 13:29
PROVIDERS: PCP Nurse Practitioner Family; Visit Provider Internal Medicine
DX: R14.0 Abdominal distension (gaseous) (principal); R91.8 Other nonspecific abnormal finding of lung field; I10 Essential (primary) hypertension; E78.2 Mixed hyperlipidemia; R94.31 Abnormal electrocardiogram [ECG] [EKG]; Z87.891 Personal history of nicotine dependence
CPT/HCPCS: 36415; 80061; 80076

== ENCOUNTER 2024-05-10 07:34 | Outpatient (CLI) | payer MEDICARE, SELFPAY ==
--- NOTE | 2024-05-10 07:34 | US_ITS ---
FINAL REPORT TECHNIQUE: Sonographic images of the right upper quadrant were obtained. CLINICAL HISTORY: abdominal distension COMPARISON: None FINDINGS: PANCREAS: Unremarkable. LIVER: Homogeneous. No focal hepatic lesion. No intrahepatic biliary ductal dilatation. GALLBLADDER: No gallstones. No gallbladder wall thickening or pericholecystic fluid. COMMON DUCT: 4 mm. Normal for age. RIGHT KIDNEY: The right kidney measures 8.6 cm. No hydronephrosis. Mild cortical thinning.. FREE FLUID: None. IMPRESSION: Right renal cortical thinning. Otherwise unremarkable exam. Reviewed, Interpreted and Dictated by Mela James MD Transcribed by Sarah Sainz Authenticated and [facility]
== END 2024-05-10 23:59 | disposition home or self-care (01) ==
LOC: RAD 07:34
PROVIDERS: PCP Nurse Practitioner Family; Visit Provider Internal Medicine
DX: R14.0 Abdominal distension (gaseous) (principal); E78.2 Mixed hyperlipidemia
CPT/HCPCS: 76705

== ENCOUNTER 2024-06-14 08:02 | Outpatient (CLI) | payer MEDICARE, SELFPAY ==
--- NOTE | 2024-06-14 08:06 | MM_ITS ---
PROCEDURE INFORMATION: Exam: MG Bilateral Screening 3D Mammography Exam date and time: 06/14/2024 8:03 AM Age: 69 years old Clinical indication: Screening examination TECHNIQUE: Imaging protocol: Bilateral Screening tomosynthesis and 2D mammography including computer-aided detection (CAD) when performed. COMPARISON: 1. MG MM DIG MAMM DX UNILAT LT CAD 07/29/2023 1:31 PM 2. MG MM DIG MAMM BI DX W/CAD 12/01/2022 1:44 PM FINDINGS: MAMMOGRAPHY: Breast composition: The breasts are heterogeneously dense, which may obscure small masses. Mass: No suspicious masses. Architectural distortion: None. Calcifications: No suspicious calcifications. Asymmetric density: None. Skin thickening: None. Axillary adenopathy: None. IMPRESSION: No mammographic evidence of malignancy. Annual screening is recommended unless otherwise clinically indicated. ASSESSMENT: BI-RADS Category 1: Negative
== END 2024-06-14 23:59 | disposition home or self-care (01) ==
LOC: RAD 08:02
PROVIDERS: PCP Nurse Practitioner Family; Visit Provider Nurse Practitioner Family
DX: Z12.31 Encounter for screening mammogram for malignant neoplasm of breast (principal)
CPT/HCPCS: 77063; 77067

== ENCOUNTER 2024-07-01 18:51 | Emergency (ER) | payer MEDICARE, SELFPAY ==
[2024-07-01 18:53] VITALS: BP 139/82; PULSE 70; RESP 14; TEMP 36.6; O2SAT 99; BMI 21.4
--- NOTE | 2024-07-01 19:03 | ED_ITS ---
Discharge Plan Disposition Patient Disposition: Home, Self-Care Condition: Good Prescriptions Prescriptions: No Action lorazepam 0.5 mg tablet 0.5 mg PO BID Patient Comments: TAKE 1 TABLET 2 TIMES EACH DAY FOR ANXIETY Creon 24,000-76,000 -120,000 unit capsule,delayed release(DR/EC) 120,000 cap PO DAILY Patient Comments: Take 1 capsule by mouth three times a day with meals atorvastatin 20 mg tablet 20 mg PO HS Qty: 30 5RF levothyroxine 25 mcg tablet 25 mcg PO DAILY Patient Comments: TAKE 1 TABLET ONCE A DAY IN THE MORNING ON AN EMPTY STOMACH. aspirin [Adult Low Dose Aspirin] 81 mg tablet,delayed release (DR/EC) 81 mg PO DAILY amlodipine [Norvasc] 5 mg tablet 5 mg PO DAILY Qty: 30 2RF isosorbide mononitrate 30 mg tablet extended release 24 hr 30 mg PO DAILY Qty: 30 2RF lisinopril 20 mg tablet 20 mg PO DAILY Qty: 30 3RF bisoprolol fumarate 10 mg tablet 10 mg PO DAILY Qty: 90 3RF Referrals Follow up/Referrals: Argelia Hughes [Primary Care Provider] - See instructions Activity Restrictions/Add. Instructions Additional Instructions/Restrictions: As we discussed, your blood pressure appears to be in an acceptable range at this time. I would recommend that you get a blood pressure cuff for your arm rather than your wrist. Please monitor your blood pressure twice a day, in the morning before you take your blood pressure medications, and once in the a fternoon. Please keep a log as this will help your stained glass artist. I recommend you stop taking the amlodipine 5 mg until you follow-up with your stained glass artist. I would recommend that if your blood pressure is in the range of 120s to 140s in the short-term that is an acceptable range until your stained glass artist makes any further blood pressure medication adjustments. Please return with any new or worsening symptoms. Clinical Impressions Clinical Impression: Blood pressure check Print Language Print Language: Italian Discharge ED Provider: Reginald Johnson Adult HPI General Chief complaint: Recheck/Abnormal Lab/Rx Stated complaint: Low B/P 106/60,KIM,extra tired Time Seen by Provider: 07/01/24 19:03 History of Present Illness HPI narrative: The patient presents with a chief complaint of low blood pressure, which she believes is due to two new medications she has recently started taking. She reports feeling tired and having difficulty falling asleep, as well as experiencing headaches. She has been on the new medications for a couple of weeks and has noticed blood pressure readings as low as 106. She is unsure if the symptoms of fatigue and headaches are related to the low blood pressure readings. She has a history of high blood pressure, with readings in the 150s and 40s, and has been prescribed amlodipine and isosorbide. She has also experienced chest pains in the past, which led to the discovery of a partially clogged artery. She denies any known history of diabetes. She has been taking her new medications in the morning and afternoon, with the isosorbide being taken in the morning due to its potential to cause chest pain relief. She has also had her dosage of other blood pressure medications increased recently. She expresses feeling foolish for coming to the emergency department but was scared due to the low blood pressure reading and associated symptoms. She mentions feeling wiped out and headachy, with the headache starting re cently. She reports using a wrist blood pressure monitor at home and has seen readings of 113 and 106. She also notes feeling extra tired today and having a real bad headache before coming to the emergency department. She expresses concern about the accuracy of her home blood pressure monitor. Please note that above description of symptoms, in this electronic medical record under categorization of recalled from ER triage doctor by RN are reflective of an initial nursing assessment, however, is not reflective of my full history and physical exam that was personally taken and clarified. Co nsequentially, this preceding description of symptoms, which may include the patient's categorized chief complaint in the EMR, do not reflect my personal clinical impression, and the ultimate description of history of present illness and patient stated complaints should be deferred to this section of the note. Unless stated otherwise or congruent with this section of the note, additional signs, symptoms, or incongruence should be interpreted as inaccurate with my clinical impression. Related Data Home Medications ?Medication ?Instructions ?Recorded ?Confirmed aspirin 81 mg tablet,delayed 81 mg PO DAILY 09/25/20 06/23/24 release (Adult Low Dose Aspirin) levothyroxine 25 mcg tablet 25 mcg PO DAILY thyroid 09/25/20 06/23/24 lorazepam 0.5 mg tablet 0.5 mg PO BID Anxiety 01/13/22 06/23/24 [id number] 120,000 cap PO DAILY 12/30/23 06/23/24 24,000-76,000-120,000 unit capsule,delayed rel (Creon) Previous Rx's ?Medication ?Instructions ?Recorded atorvastatin 20 mg tablet 20 mg PO HS #30 tabs 04/07/24 amlodipine 5 mg tablet (Norvasc) 5 mg PO DAILY #30 tabs 05/05/24 bisoprolol fumarate 10 mg tablet 10 mg PO DAILY #90 tabs 05/10/24 isosorbide mononitrate 30 mg 30 mg PO DAILY #30 tabs 06/23/24 tablet,extended release 24 hr lisinopril 20 mg tablet 20 mg PO DAILY #30 tabs 06/23/24 Allergies Allergy/AdvReac Type Severity Reaction Status Date / Time buspirone Allergy Mild Verified 06/23/24 15:15 pravastatin Allergy Mild Verified 06/23/24 15:15 nitrofurantoin Allergy Verified 06/23/24 15:15 [From Macrobid] paroxetine [From Paxil] Allergy Verified 06/23/24 15:15 sulfamethoxazole Allergy Verified 06/23/24 15:15 [From Bactrim] trimethoprim [From Bactrim] Allergy Verified 06/23/24 15:15 PFSH PFSH Disclaimer: The information contained in this section may have been updated after the patient was seen, as this information can be updated by other users. Medical History Hx of pituitary neoplasm SOB (shortness of breath) Multiple lung nodules on CT Dyspnea on exertion Chest pain Thyroid disease Depression Hyperlipidemia Hypertension Anxiety Family history of heart disease Ex-smoker Coronary artery calcification seen on CT scan Abnormal EKG Dyspnea Surgical History Hx of appendectomy Hx of cardiac cath H/O section History of colonoscopy History of hysterectomy Family History Mother Cancer Breast Ca Other No significant family history Social History Smoking Status: Never smoker years smoked: 3 second hand exposure: No alcohol intake: current alcohol intake frequency: a few times a week substance use type: denies use current occupational status: retired Travel in the last 8 weeks: None household members: spouse housing: house current occupational exposures/hazards: No caffeine: Yes physical activity: walking do you feel safe at home: Yes victim of physical abuse: No victim of emotional abuse: No victim of sexual abuse: No would you like helpful sources: No ROS Obtained: Yes other As per HPI Physical Exam General General appearance: alert and in no apparent distress Head Head exam: atraumatic and normocephalic Eye Eye exam: Present normal appearance Neck Neck exam: Present normal inspection Chest Chest inspection: Present normal inspection and symmetric chest wall rise Respiratory Respiratory exam: Present normal lung sounds bilaterally; Absent respiratory distress Cardiovascular Cardiovascular exam: Present regular rate and normal rhythm Abdominal Exam Abdominal exam: Present soft Neurological Exam Neurological exam: Present alert and oriented X3 Psychiatric Psychiatric exam: Present normal affect and normal mood Skin Skin exam: Present warm and dry Medical Decision Making Medical Records Medical records reviewed: Yes I reviewed the patient's medical records. Jefry Inquiry Pt receiving controlled substance: No Vital Signs: 07/01/24 18:53 07/01/24 19:39 Temperature 97.9 F 98.1 F Temperature Source Oral Oral Pulse Rate 76 Pulse Rate [Left Radial] 70 Respiratory Rate 14 18 Blood Pressure 133/79 Blood Pressure [Right Arm] 139/82 Blood Pressure Mean [Right Arm] 101 Blood Pressure Source Automatic Cuff Blood Pressure Position Sitting 02 Sat by Pulse Oximetry 99 Oxygen Delivery Method Room Air Room Air Medical Decision Narrative: Patient with history and exam per above presenting for evaluation of concerns with blood pressure and medication adjustment. Diagnoses considered include hypertension, erroneous read of home blood pressure monitor, who currently patient is asymptomatic and normotensive in the emergency department, denying any symptoms at this time. No further workup is indicated at this time. Patient will hold amlodipine 5 mg until bridge to outpatient cardiology follow-up. She was instructed to obtain different home blood pressure monitor, monitor blood pressure closely, return with any new or worsening symptoms I discussed my clinical impression with patient and answered all questions. At this time, the evidence for any other entities in the differential is insufficient to warrant any further testing or ED observation. This was explained to the patient. The patient was advised that persistent or worsening symptoms require further evaluation. Critical Care Critical Care Time Critical Care Time: No
[2024-07-01 19:39] VITALS: BP 133/79; PULSE 76; RESP 18; TEMP 36.7; O2SAT 98
== END 2024-07-01 19:40 | disposition home or self-care (01) ==
PROVIDERS: Emergency Provider Emergency Medicine; PCP Nurse Practitioner Family
DX: I95.9 Hypotension, unspecified (principal); R51.9 Headache, unspecified; R53.83 Other fatigue; I10 Essential (primary) hypertension; E78.5 Hyperlipidemia, unspecified; E07.9 Disorder of thyroid, unspecified
CPT/HCPCS: 99283

== ENCOUNTER 2024-07-05 13:48 | Outpatient (CLI) | payer MEDICARE, SELFPAY | END 2024-07-05 23:59 | disposition home or self-care (01) | LOC: RT 13:50 | PROVIDERS: PCP Nurse Practitioner Family; Visit Provider Internal Medicine | DX: R00.2 Palpitations (principal) | CPT/HCPCS: 93270 ==

== ENCOUNTER 2025-02-01 14:04 | Outpatient (CLI) | payer MEDICARE, SELFPAY ==
[2025-02-01 14:08] LABS: Microscopic, Urine URINE MICROSCOPIC (MICROSCOPIC)
[2025-02-01 14:48] LABS: Basophils # 0.1 K/mm3 (0-0.2); Basophils % 0.9 % (0.1-2.0); Eosinophils # 0.1 K/mm3 (0.0-0.4); Eosinophils % 1.1 % (0.1-12.0); Hematocrit 44.2 % (37.0-47.0); Hemoglobin 14.8 g/dL (12.2-16.2); Lymphocytes # 3.1 K/mm3 (0.7-4.5); Lymphocytes % 39.1 % (10-50); Mean Corpuscular HGB Conc 33.5 g/dL (31.8-35.4); Mean Corpuscular Hemoglobin 30.7 pg (27.0-31.2); Mean Corpuscular Volume 91.7 fl (81-99); Mean Platelet Volume 9.8 fl (7.4-10.4); Monocytes # 0.7 K/mm3 (0.1-1.0); Monocytes % 8.9 % (1.7-9.3); Neutrophils # 3.9 K/mm3 (1.8-7.8); Neutrophils % 49.6 % (37.0-80.0); Nucleated Red Blood Cells # 0 10^3/uL; Nucleated Red Blood Cells % 0 %; Platelet Count 334 K/mm3 (142-424); Red Blood Count 4.82 M/mm3 (4.20-5.40); Red Cell Distribution Width 13.2 % (11.5-17.5); White Blood Count 7.8 K/mm3 (4.8-10.8)
[2025-02-01 14:53] LABS: Appearance,Urine CLEAR (Clear); Bilirubin,Urine Negative (Negative); Blood, Urine TRACE-I (Negative); Color,Urine YELLOW (Yellow); Glucose,Urine (UA) Negative (Negative); Ketones,Urine Negative (Negative); Leukocyte Esterase,Urine Negative (Negative); Nitrate,Urine Negative (Negative); Protein,Urine Negative (Negative); Specific Gravity, Urine 1.015 (1.005-1.030); Urobilinogen,Urine 0.2 EU/dl (0.2)
[2025-02-01 15:19] LABS: Albumin Level 4.6 g/dl (3.5-5.0); Chloride 104 mmol/L (98-107); Potassium 4.3 mmoL/L (3.5-5.1); Sodium 142 mmol/L (136-145)
[2025-02-01 15:21] LABS: Blood Urea Nitrogen 10 mg/dl (7-17); Estimated Glomerular Filt Rate 62 ml/min (>60); GFR (African American) 75 ML/MIN (>60)
[2025-02-01 15:22] LABS: Alanine Aminotransferase 45 U/L (12-78); Alkaline Phosphatase 78 U/L (38-126); Anion Gap 13.3 mEq/L (5-15); Aspartate Amino Transferase 38 U/L (14-36); Bilirubin,Direct 0.1 mg/dl (0.0-0.4); Bilirubin,Indirect 0.8 mg/dL (0.0-0.9); Bilirubin,Total 0.9 mg/dl (0.2-1.3); Bilirubin,Unconjugated 0.8 mg/dL (0.0-1.1); Calcium 10.1 mg/dl (8.4-10.2); Carbon Dioxide 29 mmol/L (22.0-30.0); Cholesterol 215 mg/dl (140-200); Glucose 77 mg/dl (74-100); Magnesium 1.9 mg/dl (1.6-2.3); Total Protein,Serum 7.5 g/dl (6.3-8.2); Triglycerides 287 mg/dl (30-150); VLDL Cholesterol 57 mg/dL (0-40)
[2025-02-01 15:23] LABS: Chol/HDL Ratio 4.2 (1-3.5); HDL Cholesterol 51 mg/dl (40-60)
[2025-02-01 15:34] LABS: Direct LDL Cholesterol 101.82 mg/dL (100-129)
[2025-02-01 15:39] LABS: Free T4 (Free Thyroxine) 0.96 ng/dl (0.78-2.19)
[2025-02-01 15:50] LABS: Bacteria,Urine 1+ /lpf; RBC,Urine Occasional #/hpf (0-3); Squamous Epithelial Cell,Urine Occasional #/hpf (0-5); Trichomonas,Urine 1+ /lpf; WBC,Urine Occasional #/hpf (0-3)
== END 2025-02-01 23:59 | disposition home or self-care (01) ==
LOC: LAB 14:05
PROVIDERS: PCP Nurse Practitioner Family; Visit Provider Internal Medicine
DX: E78.5 Hyperlipidemia, unspecified (principal); I10 Essential (primary) hypertension; E03.9 Hypothyroidism, unspecified
CPT/HCPCS: 36415; 80048; 80061; 80076; 81001; 83735; 84439; 84443; 85025

== ENCOUNTER 2025-04-16 13:18 | Emergency (ER) | payer MEDICARE, SELFPAY ==
--- OUTSIDE RECORDS SUMMARY | 2025-03-24 04:18 | XMS_ITS | Continuity of Care Document ---
Author Organization [facility] Phone Care Team Providers Care Clamp Carrier Operator Name Role Phone ALICJA GEIGER Admitting BECKA KIYA [facility]in [facility] [phone] ALICJA GEIGER Primary Attending ALICJA GEIGER Unavailable RESULTS Patient: BECKA Colon Date of : [birth year] LABORATORY RESULTS ORDER 300: CREATININE (LOINC : 2160-0) ORDER DATE: March 22, 2025 5:23:00 PM UT Specimen Source: Serum/Plasm a Specimen Type: Acellular blo od (serum or plasma) specimen PERFORMING LAB: [address] [id number] Result Comment: Final Result Date: March 22, 2025 5:38:00 PM UT (TECH: HC) LOINC TEST FLAG RESULT REFERENCE RANGE UPDA MAXIMO BY 2160-0 Creatinine [Mass/volume] in Serum or Plasma N 1.0 mg/dL 0.6 mg/dL - 1.0 mg/dL March 22 5:38:00 PM UTC (TECH: HC) 79971-2 Glomerular filtratio n rate/1.73 sq M.predicted by Creatinine-based formula (MDRD) N 61 mL/min >60 March 22, 2025 5:38:00 PM UT (TECH: HC) LABORATORY NARRATIVE RESULTS Information is not available RADIOLOGY RESULTS ORDER 100: MRI BRAIN WOW (LO INC: 74391-1) ORDER DATE: March 22, 2025 5:11:00 PM UT PERFORMING LAB: [address] [id number] Final Result Date: March 22 6:49:[address] [place] [address] Name: AMBAR JOVEL Exam Date: 03/22/2025 : 1955 Age 69 years Gender: F Physician: ALICJA GEIGER Facility: [facility] Facility HSV: Outpatient Exam: MRI BRAIN WOW EXAMINATION: MRI BRAIN with and WITHOUT CONTRAST CLINICAL INDICATION: Female, 69 years old. S/P BRAIN SX TECHNIQUE: Multiplanar multisequence MR images of the brain were obtained with and without intravenous contrast. Unless otherwise specified, incidental findings do not require dedicated imaging follow-up. [id number]. 12 mL of ProHance administered intravenously. COMPARISON: No prior exam. FINDINGS: No restricted diffusion to suggest recent infarct. No hemorrhage or midline shift. There is moderate atrophy and chronic microvascular ischemic disease. There are patent arterial flow voids of the carotid and vertebrobasilar arteries at the base the brain. There is a pituitary mass which expands the sella turcica and invades the right cavernous sinus surrounding the cavernous carotid artery. This lesion measures approximately 2.5 cm in transverse diameter. 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 IMPRESSION: Pituitary mass which expands the sella and invades the right cavernous sinus engulfing the cavernous carotid artery. 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 Atrophy and chronic microvascular ischemic disease. Electronically signed by: Vin Moore MD 03/22/2025 03:03 PM EDT Dictated By: VIN MOORE Transcribed By: Transcribed On: 03/22/2025 2:49 PM Electronically signed by: VIN MOORE 03/22/2025 Thank you for referring AMBAR JOVEL to [facility]. Legally authenticated by OSCAR MARTINEZ MD 2025-03-22 14:49:00 PATHOLOGY NARRATIVE RESULTS Information is not available MICROBIOLOGY RESULTS No Micro Labs/Results Exist for Patient BLOOD ADMIN RESULTS Information is not available MEDICATIONS HOME MEDICATIONS Status RXNORM NDC Medication Dose Route Frequency Dates Comments Reported By Updated By Drug Treatment Unknown DISCHARGE MEDICATIONS Status RXNORM NDC Medication Dose Route Frequency Dates Comments Physician Updated By No Discharge Medication Info rmation Available INPATIENT MEDICATIONS Status RXNORM NDC Medication Dose Route Frequency Rat e Quantity Dates Comments Physician Updated By No Inpatient Medication Info rmation Available SOCIAL HISTORY SOCIAL HISTORY SNOMED-CT Social History Element Description Effective Dates Offered Cessation Comment UpdatedBy [id number] Smoking Status Unknown If Ever Smoked SOCIAL HISTORY - Gender Sex: Female SOCIAL HISTORY - Status : status i nformation is not available Intention in Next Year: intention information is not available SOCIAL HISTORY - Sexual Behavior Sexual Orientation Gender Identity SNOMED-CT Description SNO MED -CT Description Activity Level No of Partners Partner Type UpdatedBy Information is not available HEALTH CONCERNS Problems Concern Status Health Concern problem infor mation not available. Smoking Status Status Years Used Consumed packs p er day Health Concern smoking histo ry information not available. Family History Concern Status Health Concern family histor y information not available. ENCOUNTERS ENCOUNTER INFORMATION Reason for Visit R44.3 Admission March 22, 2025 4:58:[address] [address] Discharge March 22, 2025 4:58:00 PM [facility] DISC HARGED TO HOME OR SELF CARE ENCOUNTER DIAGNOSES Notes information is not obdulio ilable. Code System Diagnosis Onset Date Diagnosis information is not available. 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 [id number] on March 24, 2025 8:18:40 AM [facility] I67.82 ICD10 CEREBRAL ISCHEMIA [id number] on March 24, 2025 8:18:40 AM [facility] G31.9 ICD10 DEGENERATIVE DIS EASE OF NERVOUS SYSTEM, UNSPECIFIED [id number] on March 24, 2025 8:18:40 AM [facility] R44.3 ICD10 HALLUCINATIONS, UNSPECIFIED [id number] on March 24, 2025 8:18:40 AM [facility] Z98.890 ICD10 OTHER SPECIFIED POSTPROCEDUR AL STATES [id number] on March 24, 2025 8:18:40 AM [facility] Z88.2 ICD10 ALLERGY STATUS TO SULFONAMID ES [id number] on March 24, 2025 8:18:40 AM [facility] Z88.8 ICD10 ALLERGY STATUS T O OTHER DRUGS, MEDICAMENTS AND BIOLOGICAL SUBSTANCES [id number] on March 24, 2025 8:18:40 AM [facility] CARE TEAM Care Clamp Carrier Operator Role ALICJA GEIGER Admitting KIYA JOVEL Primary Care ALICJA GEIGER Primary Attending ALICJA GEIGER Referring CARE TEAM CARE drawing in hand Role on Team Status Start Date End Date Update d By BECKA HUERTAS MD PCP normal March 22, 2025 4:00:00 AM [facility] March 22, 2025 4:58:00 PM [facility] [id number] on March 22, 2025 5:00:15 PM [facility] PAT MIX PCP normal March 16 2:38:31 PM [facility] March 22, 2025 4:00:00 AM [facility] [id number] on March 22, 2025 5:00:15 PM [facility] FELY HELM MD Referring normal March 16 2:38:31 PM [facility] March 22, 2025 4:58:00 PM [facility] [id number] on March 22, 2025 5:00:15 PM [facility] FELY HELM MD Attending normal March 16 2:38:31 PM [facility] March 22, 2025 4:58:00 PM [facility] [id number] on March 22, 2025 5:00:15 PM [facility] FELY HELM MD Admitting normal March 16 2:38:31 PM [facility] March 22, 2025 4:58:00 PM [facility] [id number] on March 22, 2025 5:00:15 PM [facility]
--- NOTE | 2025-04-16 13:23 | PC.NURSE ---
pt to restroom
[2025-04-16 13:31] LABS: Microscopic, Urine URINE MICROSCOPIC (MICROSCOPIC)
[2025-04-16 13:36] VITALS: BP 138/80; PULSE 68; RESP 16; TEMP 36.9; O2SAT 94; BMI 23.9
--- NOTE | 2025-04-16 13:43 | CT_ITS ---
PROCEDURE INFORMATION: Exam: CT Abdomen And Pelvis With Contrast Exam date and time: 04/16/2025 2:27 PM Age: 69 years old Clinical indication: Abdominal pain; Additional info: Abd bloating / stool is ribbon like x few months, discomfort TECHNIQUE: Imaging protocol: Computed tomography of the abdomen and pelvis with contrast. Radiation optimization: All CT scans at this facility use at least one of these dose optimization techniques: automated exposure control; mA and/or kV adjustment per patient size (includes targeted exams where dose is matched to clinical indication); or iterative reconstruction. Contrast material: ISOVUE; Contrast volume: 75 ml; Contrast route: IV; COMPARISON: CT ABDOMEN PELVIS W CON 03/09/2024 10:16 AM FINDINGS: Liver: Normal. No mass. Gallbladder and biliary ducts: The gallbladder is unremarkable Pancreas: Normal. No ductal dilation. Spleen: Normal. No splenomegaly. Adrenal glands: Normal. No mass. Kidneys and ureters: Subcentimeter low attenuation area in the left kidney is too small for characterization. There is no evidence of renal or ureteral calcifications. Stomach and bowel: Unremarkable. No obstruction. No mucosal thickening. Appendix: No evidence of appendicitis. Intraperitoneal space: Unremarkable. No free air. No significant fluid collection. Vasculature: Unremarkable. No abdominal aortic aneurysm. Lymph nodes: Unremarkable. No enlarged lymph nodes. Urinary bladder: Unremarkable as visualized. Reproductive: Unremarkable as visualized. Bones/joints: Unremarkable. No acute fracture. Soft tissues: Unremarkable. IMPRESSION: No acute findings.
--- NOTE | 2025-04-16 13:44 | HMH.EDGENADL ---
Discharge Plan Disposition Patient Disposition: Home, Self-Care Prescriptions Prescriptions: No Action aspirin [Adult Low Dose Aspirin] 81 mg tablet,delayed release (DR/EC) 81 mg PO DAILY prucalopride [Motegrity] 2 mg tablet 2 mg PO DAILY Qty: 90 3RF Phazyme 500 mg capsule 500 mg PO DAILY Qty: 30 5RF lisinopril 20 mg tablet 20 mg PO DAILY Qty: 90 3RF amlodipine [Norvasc] 5 mg tablet 5 mg PO DAILY Qty: 90 3RF metoprolol succinate 100 mg tablet extended release 24 hr 100 mg PO DAILY Qty: 90 3RF pantoprazole 40 mg tablet,delayed release (DR/EC) 40 mg PO DAILY Qty: 90 3RF atorvastatin 20 mg tablet 20 mg PO HS Qty: 30 5RF Creon 24,000-76,000 -120,000 unit capsule,delayed release(DR/EC) 1 cap PO TID Qty: 90 11RF lorazepam 0.5 mg tablet 0.5 mg PO TID PRN (Reason: Anxiety) Qty: 90 1RF levothyroxine 25 mcg tablet 25 mcg PO DAILY 90 Days Qty: 90 0RF Linzess 72 mcg capsule 72 mcg PO DAILY Qty: 90 3RF Referrals Follow up/Referrals: Naeem Jones II, MD [Staff Physician, Gastroenterology] - See instructions Gilberto Israel MD [Primary Care Provider, Internal Medicine] - See instructions Activity Restrictions/Add. Instructions Additional Instructions/Restrictions: Today you were evaluated in the emergency department for abdominal distention. Your lab work is overall unremarkable. The CT of your abdomen pelvis does not show anything acute. Although your workup today is negative, I feel that you need to follow-up with GI. Please call Dr. Jones on your discharge papers and make a follow-up appointment as I feel you will need a colonoscopy. Please return to the ED for worsening of condition. Clinical Impressions Clinical Impression: Abdominal distension Instructions Patient Instructions: DI for Acute Abdominal Pain Print Language Print Language: Turkmen Discharge ED Provider: Prisca Mcgarry General Adult HPI <Katie Saenz APRN - Last Filed: 04/16/25 17:48> General Chief complaint: Abdominal Pain Stated complaint: Bloating, Diarr. Time Seen by Provider: 04/16/25 13:32 Mode of Arrival: Ambulatory Source of Information: Patient Description of Symptoms (Recalled from ER Triage Doc. by RN): pts abdomen feels swollen. not having adequate bowel movements. stool is stringy. denies pain. distension noted History of Present Illness HPI narrative: patient is a 69-year-old female PMHx exocrine pancreatic insufficiency (Creon), GERD, HLD, HTN, history of previous tobacco use, who presents to the ED for abdominal bloating and ribbonlike stools. Patient states this has been going on for several months, worsening over the past week. Related Data Home Medications ?Medication ?Instructions ?Recorded ?Confirmed aspirin 81 mg tablet,delayed 81 mg PO DAILY 09/25/20 04/20/25 release (Adult Low Dose Aspirin) Previous Rx's ?Medication ?Instructions ?Recorded amlodipine 5 mg tablet (Norvasc) 5 mg PO DAILY #90 tabs 01/13/25 lisinopril 20 mg tablet 20 mg PO DAILY #90 tabs 01/13/25 metoprolol succinate 100 mg 100 mg PO DAILY #90 tabs 01/13/25 tablet,extended release 24 hr pantoprazole 40 mg tablet,delayed 40 mg PO DAILY #90 tabs 01/13/25 release atorvastatin 20 mg tablet 20 mg PO HS #30 tabs 01/16/25 nnjaes-[id number]-[id number] 1 cap PO TID #90 caps 02/24/25 24,000-76,000-120,000 unit capsule,delayed rel (Creon) simethicone 500 mg capsule 500 mg PO DAILY #30 caps 03/21/25 (Phazyme) lorazepam 0.5 mg tablet 0.5 mg PO TID PRN Anxiety #90 tabs 04/14/25 levothyroxine 25 mcg tablet 25 mcg PO DAILY thyroid 90 days 04/17/25 #90 tabs prucalopride 2 mg tablet 2 mg PO DAILY #90 tabs 04/20/25 (Motegrity) linaclotide 72 mcg capsule 72 mcg PO DAILY #90 caps 05/01/25 (Linzess) Allergies Allergy/AdvReac Type Severity Reaction Status Date / Time buspirone Allergy Mild Verified 04/20/25 10:42 pravastatin Allergy Mild Verified 04/20/25 10:42 nitrofurantoin (From Allergy Verified 04/20/25 10:42 Macrobid) paroxetine (From Paxil) Allergy Verified 04/20/25 10:42 sulfamethoxazole (From Allergy Verified 04/20/25 10:42 Bactrim) trimethoprim (From Bactrim) Allergy Verified 04/20/25 10:42 PFSH <Katie Saenz APRN - Last Filed: 04/16/25 17:48> PFSH Disclaimer: The information contained in this section may have been updated after the patient was seen, as this information can be updated by other users. Medical History GERD (gastroesophageal reflux disease) Hx of pituitary neoplasm SOB (shortness of breath) Multiple lung nodules on CT Dyspnea on exertion Chest pain Thyroid disease Depression Hyperlipidemia Hypertension Anxiety Family history of heart disease Ex-smoker Coronary artery calcification seen on CT scan Abnormal EKG Dyspnea Surgical History Hx of appendectomy Hx of cardiac cath H/O section History of colonoscopy History of hysterectomy Family History Mother Cancer Breast Ca Other No significant family history Social History Smoking Status: Never smoker years smoked: 3 second hand exposure: No alcohol intake: current alcohol intake frequency: a few times a week substance use type: denies use current occupational status: retired Travel in the last 8 weeks?: None household members: spouse housing: house current occupational exposures/hazards: No caffeine: Yes physical activity: walking do you feel safe at home: Yes victim of physical abuse: No victim of emotional abuse: No victim of sexual abuse: No would you like helpful sources: No Other Medical History Have you received the Flu Vaccine for this season: No Have you received the Pneumonia Vaccine: Yes <Katie Saenz APRN - Last Filed: 04/16/25 17:48> ROS Obtained: Yes Systems reviewed as appropriate & no additional complaints except as documented Physical Exam <Katie Saenz APRN - Last Filed: 04/16/25 17:48> General General appearance: alert and in no apparent distress Head Head exam: atraumatic and normocephalic Eye Eye exam: Present normal appearance and PERRL ENT ENT exam: Present normal exam Neck Neck exam: Present normal inspection Chest Chest inspection: Present normal inspection and symmetric chest wall rise; Absent tenderness Respiratory Respiratory exam: Present normal lung sounds bilaterally Cardiovascular Cardiovascular exam: Present regular rate Abdominal Exam Abdominal exam: Present distention and normal bowel sounds; Absent tenderness, rebound or rigidity Extremities Exam Extremities exam: Present normal inspection and full ROM Back Exam Back exam: Present normal inspection and full ROM Neurological Exam Neurological exam: Present alert and oriented X3 Psychiatric Psychiatric exam: Present normal affect and normal mood Skin Skin exam: Present warm and dry Medical Decision Making <Katie Saenz APRN - Last Filed: 04/16/25 17:48> Medical Records Screening: Per USPSTF and CDC recommendations, given the prevalence of disease in our region, it is our hospital?s policy to screen for HIV and viral Hepatitis for all patients aged 18 and over and those with ongoing risk factors. Jefry Inquiry Pt receiving controlled substance: No Vital Signs: 04/16/25 13:36 04/16/25 15:11 04/16/25 16:17 Temperature 98.4 F 98.0 F Temperature Source Oral Pulse Rate 70 68 Pulse Rate [Right] 68 Respiratory Rate 16 18 13 Blood Pressure 129/86 118/78 Blood Pressure [Right Arm] 138/80 Blood Pressure Mean 102 Blood Pressure Mean [Right Arm] 99 02 Sat by Pulse Oximetry 94 L 96 Oxygen Delivery Method Room Air Lab Data Lab Results 04/16/25 13:28: Urine Color Yellow, Urine Appearance Clear, Urine pH 6.0, Ur Specific [place] 1.015, Urine Protein Negative, Urine Glucose (UA) Negative, Urine Ketones Negative, Urine Blood Trace-i, Urine Nitrate Negative, Urine Bilirubin Negative, Urine Urobilinogen 0.2, Ur Leukocyte Esterase Trace, Urine RBC None, Urine WBC 3-5, Ur Squamous Epith Cells Occasional, Urine Bacteria Trace 04/16/25 13:48: WBC 9.2, RBC 4.98, Hgb 15.4, Hct 45.9, MCV 92.2, MCH 30.9, MCHC 33.6, RDW 13.2, Plt Count 288, MPV 10.4, Neut % (Auto) 56.3, Lymph % (Auto) 34.8, [place] % (Auto) 6.8, Eos % (Auto) 0.9, Baso % (Auto) 0.9, Neut # (Auto) 5.2, Lymph # (Auto) 3.2, [place] # (Auto) 0.6, Eos # (Auto) 0.1, Baso # (Auto) 0.1, Sodium 141, Potassium 3.7, Chloride 102, Carbon Dioxide 27, Anion Gap 15.7 H, BUN 10, Creatinine 1.00, Estimated Creat Clear 51, Estimated GFR 55 L, Est GFR ( Amer) 67, Glucose 135 H, Calcium 9.7, Total Bilirubin 1.4 H, AST 53 H, ALT 54, Alkaline Phosphatase 73, Total Protein 8.0, Albumin 4.7, Globulin 3.3 H, Albumin/Globulin Ratio 1.4, Lipase 165, HCV Ab KEIRA w/Rflx PCR Qn Negative, HIV Ag/Ab Combo Qual Negative 04/16/25 13:48 04/16/25 13:48 Orders (Tests/Meds): ED MEDICATIONS Discontinued Medications Generic Name Dose Route Start Last Admin Trade Name Freq PRN Reason Stop Dose Admin Iopamidol 75 ml 04/16/25 14:27 04/16/25 14:28 Iopamidol-370 (76%);100ml Bottle IV 04/16/25 14:28 75 ml ONCE ONE Administration Sodium Chloride 10 ml 04/16/25 14:27 04/16/25 14:28 Sodium Chloride 0.9% 10ml Syr (Rad Only) IV 04/16/25 14:28 10 ml ONCE ONE Administration ORDERS Category Date Time Status CT abdomen pelvis w con Stat Cat Scan 04/16/25 13:43 Completed CBC w/Auto Diff [Complete Blood Count Auto Diff] Stat Lab 04/16/25 13:48 Completed CMP [Comprehensive Metabolic Panel] Stat Lab 04/16/25 13:48 Completed HIV Combo Stat Lab 04/16/25 13:48 Completed Hepatitis C Ab Qual. W/ RFX Stat Lab 04/16/25 13:48 Completed Lipase Stat Lab 04/16/25 13:48 Completed UA [Urinalysis and Microscopic] Stat Lab 04/16/25 13:28 Completed Medical Decision Narrative: In summary, patient is a 69-year-old female PMHx exocrine pancreatic insufficiency (Creon), GERD, HLD, HTN, history of previous tobacco use, who presents to the ED for abdominal bloating and ribbonlike stools. Patient states this has been going on for several months, worsening over the past week. Patient states she has been evaluated for this by her PCP however unable to find diagnosis. She denies any pain, nausea or vomiting. Denies recent weight loss, states she has actually gained weight due to the bloating. Denies fever, chills, headache, diarrhea, dysuria. Upon initial evaluation patient is alert, oriented and cooperative. She is stable. Her abdomen is distended and hard, no tenderness noted. Differential diagnosis include mass, infection, peritonitis, among others. Discussed with patient we will proceed with labs and CT scan of the abdomen pelvis for further evaluation. Labs reviewed. CBC unremarkable for any leukocytosis, stable H&H. CMP unremarkable for any actionable abnormalities. AST 53. ALT 54. Lipase 165. Urinalysis unremarkable for any leuk esterase or nitrates. Occasional squames. Final read of the CT unremarkable for any acute findings. Upon reassessment, patient's condition remains the same. Discussed with her there are no acute findings on her CT however I feel that she needs to follow-up with GI and will need a colonoscopy. I placed GI follow-up on her discharge papers. Discussed that she may need to increase her fluid intake and take MiraLAX. We discussed return precautions to the ED and patient verbalized understanding. <Maylin Whittaker MD - Last Filed: 05/04/25 12:54> Vital Signs: 04/16/25 13:36 04/16/25 15:11 04/16/25 16:17 Temperature 98.4 F 98.0 F Temperature Source Oral Pulse Rate 70 68 Pulse Rate [Right] 68 Respiratory Rate 16 18 13 Blood Pressure 129/86 118/78 Blood Pressure [Right Arm] 138/80 Blood Pressure Mean 102 Blood Pressure Mean [Right Arm] 99 02 Sat by Pulse Oximetry 94 L 96 Oxygen Delivery Method Room Air Lab Data Lab Results 04/16/25 13:28: Urine Color Yellow, Urine Appearance Clear, Urine pH 6.0, Ur Specific [place] 1.015, Urine Protein Negative, Urine Glucose (UA) Negative, Urine Ketones Negative, Urine Blood Trace-i, Urine Nitrate Negative, Urine Bilirubin Negative, Urine Urobilinogen 0.2, Ur Leukocyte Esterase Trace, Urine RBC None, Urine WBC 3-5, Ur Squamous Epith Cells Occasional, Urine Bacteria Trace 04/16/25 13:48: WBC 9.2, RBC 4.98, Hgb 15.4, Hct 45.9, MCV 92.2, MCH 30.9, MCHC 33.6, RDW 13.2, Plt Count 288, MPV 10.4, Neut % (Auto) 56.3, Lymph % (Auto) 34.8, [place] % (Auto) 6.8, Eos % (Auto) 0.9, Baso % (Auto) 0.9, Neut # (Auto) 5.2, Lymph # (Auto) 3.2, [place] # (Auto) 0.6, Eos # (Auto) 0.1, Baso # (Auto) 0.1, Sodium 141, Potassium 3.7, Chloride 102, Carbon Dioxide 27, Anion Gap 15.7 H, BUN 10, Creatinine 1.00, Estimated Creat Clear 51, Estimated GFR 55 L, Est GFR ( Amer) 67, Glucose 135 H, Calcium 9.7, Total Bilirubin 1.4 H, AST 53 H, ALT 54, Alkaline Phosphatase 73, Total Protein 8.0, Albumin 4.7, Globulin 3.3 H, Albumin/Globulin Ratio 1.4, Lipase 165, HCV Ab KEIRA w/Rflx PCR Qn Negative, HIV Ag/Ab Combo Qual Negative Orders (Tests/Meds): ED MEDICATIONS Discontinued Medications Generic Name Dose Route Start Last Admin Trade Name Freq PRN Reason Stop Dose Admin Iopamidol 75 ml 04/16/25 14:27 04/16/25 14:28 Iopamidol-370 (76%);100ml Bottle IV 04/16/25 14:28 75 ml ONCE ONE Administration Sodium Chloride 10 ml 04/16/25 14:27 04/16/25 14:28 Sodium Chloride 0.9% 10ml Syr (Rad Only) IV 04/16/25 14:28 10 ml ONCE ONE Administration ORDERS Category Date Time Status CT abdomen pelvis w con Stat Cat Scan 04/16/25 13:43 Completed CBC w/Auto Diff [Complete Blood Count Auto Diff] Stat Lab 04/16/25 13:48 Completed CMP [Comprehensive Metabolic Panel] Stat Lab 04/16/25 13:48 Completed HIV Combo Stat Lab 04/16/25 13:48 Completed Hepatitis C Ab Qual. W/ RFX Stat Lab 04/16/25 13:48 Completed Lipase Stat Lab 04/16/25 13:48 Completed UA [Urinalysis and Microscopic] Stat Lab 04/16/25 13:28 Completed Medical Decision Narrative: In summary, patient is a 69-year-old female PMHx exocrine pancreatic insufficiency (Creon), GERD, HLD, HTN, history of previous tobacco use, who presents to the ED for abdominal bloating and ribbonlike stools. Patient states this has been going on for several months, worsening over the past week. Patient states she has been evaluated for this by her PCP however unable to find diagnosis. She denies any pain, nausea or vomiting. Denies recent weight loss, states she has actually gained weight due to the bloating. Denies fever, chills, headache, diarrhea, dysuria. Upon initial evaluation patient is alert, oriented and cooperative. She is stable. Her abdomen is distended and hard, no tenderness noted. Differential diagnosis include mass, infection, peritonitis, among others. Discussed with patient we will proceed with labs and CT scan of the abdomen pelvis for further evaluation. Labs reviewed. CBC unremarkable for any leukocytosis, stable H&H. CMP unremarkable for any actionable abnormalities. AST 53. ALT 54. Lipase 165. Urinalysis unremarkable for any leuk esterase or nitrates. Occasional squames. Final read of the CT unremarkable for any acute findings. Upon reassessment, patient's condition remains the same. Discussed with her there are no acute findings on her CT however I feel that she needs to follow-up with GI and will need a colonoscopy. I placed GI follow-up on her discharge papers. Discussed that she may need to increase her fluid intake and take MiraLAX. We discussed return precautions to the ED and patient verbalized understanding. I saw and evaluated pt with MEJIA Saenz and agree with plan as documented. Maylin Whittaker MD Critical Care <Katie Saenz APRN - Last Filed: 04/16/25 17:48> Critical Care Time Critical Care Time: No
--- NOTE | 2025-04-16 13:54 | PC.NURSE ---
Gave the patient a blanket
[2025-04-16 13:59] LABS: Appearance,Urine CLEAR (Clear); Bilirubin,Urine Negative (Negative); Blood, Urine TRACE-I (Negative); Color,Urine YELLOW (Yellow); Glucose,Urine (UA) Negative (Negative); Ketones,Urine Negative (Negative); Leukocyte Esterase,Urine TRACE (Negative); Nitrate,Urine Negative (Negative); Protein,Urine Negative (Negative); Specific Gravity, Urine 1.015 (1.005-1.030); Urobilinogen,Urine 0.2 EU/dl (0.2)
[2025-04-16 14:01] LABS: Basophils # 0.1 K/mm3 (0-0.2); Basophils % 0.9 % (0.1-2.0); Eosinophils # 0.1 Kmm3 (0.0-0.4); Eosinophils % 0.9 % (0.1-12.0); Hematocrit 45.9 % (37.0-47.0); Hemoglobin 15.4 g/dL (12.2-16.2); Immature Granulocytes # 0.03 10^3uL; Immature Granulocytes % 0.3 %; Lymphocytes # 3.2 K/mm3 (0.7-4.5); Lymphocytes % 34.8 % (10-50); Mean Corpuscular HGB Conc 33.6 g/dL (31.8-35.4); Mean Corpuscular Hemoglobin 30.9 pg (27.0-31.2); Mean Corpuscular Volume 92.2 fl (81-99); Mean Platelet Volume 10.4 fl (7.4-10.4); Monocytes # 0.6 K/mm3 (0.1-1.0); Monocytes % 6.8 % (1.7-9.3); Neutrophils # 5.2 K/mm3 (1.8-7.8); Neutrophils % 56.3 % (37.0-80.0); Nucleated Red Blood Cells # 0 10^3/uL; Nucleated Red Blood Cells % 0 %; Platelet Count 288 K/mm3 (142-424); Red Blood Count 4.98 M/mm3 (4.20-5.40); Red Cell Distribution Width 13.2 % (11.5-17.5); Red Cell Distribution Width-SD 44.6 fL; White Blood Count 9.2 K/mm3 (4.8-10.8)
[2025-04-16 14:03] LABS: Albumin Level 4.7 g/dl (3.5-5.0); Chloride 102 mmol/L (98-107); Sodium 141 mmol/L (136-145)
[2025-04-16 14:04] LABS: Potassium 3.7 mmoL/L (3.5-5.1)
[2025-04-16 14:06] LABS: Alanine Aminotransferase 54 U/L (12-78); Albumin/Globulin Ratio 1.4 (1.1-1.8); Alkaline Phosphatase 73 U/L (38-126); Anion Gap 15.7 mEq/L (5-15); Aspartate Amino Transferase 53 U/L (14-36); Bilirubin,Total 1.4 mg/dl (0.2-1.3); Blood Urea Nitrogen 10 mg/dl (7-17); Calcium 9.7 mg/dl (8.4-10.2); Carbon Dioxide 27 mmol/L (22.0-30.0); Creatinine Clearance Estimated 51 mL/min (50-200); Estimated Glomerular Filt Rate 55 ml/min (>60); GFR (African American) 67 ML/MIN (>60); Globulin 3.3 g/dL (1.3-3.2); Glucose 135 mg/dl (74-100); Lipase 165 U/L (23-300)
[2025-04-16 14:13] LABS: Bacteria,Urine Trace /lpf; Squamous Epithelial Cell,Urine Occasional #/hpf (0-5)
[2025-04-16] MEDS: SODIUM CHLORIDE 0.9% 10ML SYR (RAD ONLY) 10 ML IV (14:28)
[2025-04-16] MEDS: IOPAMIDOL-370 (76%);100ML BOTTLE 75 ML IV (14:28)
--- NOTE | 2025-04-16 14:36 | PC.NURSE ---
paged receptionist/telephone operator surgeon
[2025-04-16 15:11] VITALS: BP 129/86; PULSE 70; RESP 18; O2SAT 96
[2025-04-16 15:47] LABS: Hepatitis C Ab Qual. W/ RFX NEGATIVE (Negative)
[2025-04-16 16:17] VITALS: BP 118/78; PULSE 68; RESP 13; TEMP 36.7; O2SAT 98
[2025-04-16 20:02] LABS: HIV Combo NEGATIVE (Negative)
== END 2025-04-16 16:19 | disposition home or self-care (01) ==
PROVIDERS: Nurse Practitioner; Student in an Organized Health Care Education/Training Program; Emergency Provider Emergency Medicine; PCP Family Medicine
DX: R14.0 Abdominal distension (gaseous) (principal)
CPT/HCPCS: 74177; 80053; 81001; 83690; 85025; 86803; 87389; 99284; Q9967

== ENCOUNTER 2025-04-25 12:56 | Outpatient (CLI) | payer MEDICARE, SELFPAY ==
--- OUTSIDE RECORDS SUMMARY | 2025-03-03 13:00 | XMS_ITS | Encounter Summary ---
Author Organization Healthcare Address [address] [place] [address] Care Team Providers Care Asbestos Textile Supervisor Name Role Phone Argelia Hughes APRN Primary Care Provider [phone] Reason for Referral * Consultation (Routine) - Authorized Specialty Diagnoses / Procedures Referred By Dinh spangler Referred To Contact Neurology Diagnoses Hallucinations Memory changes Damián Garcia MD [address] [address] Phone: tel: fax: Referral ID Status Reason Start Date Expiration Date Visits Requested Visits Authorized [id number] Authorized Specialty Services Required 03/03/2025 09/02/2026 1 1 Scheduling Instructions Please schedule with first available provider at [facility] * Imaging (Routine) - Authorized Specialty Diagnoses / Procedures Referred By Dinh spangler Referred To Contact Diagnoses S/P brain surgery Hallucinations Pituitary macroadenoma (CMS/HCC) Procedures MR Head w and wo IV Contrast Damián Garcia MD [address] [address] Phone: tel: fax: Psychiatric () ([employer]) [address] [place] [address] Phone: tel: fax: Referral ID Status Reason Start Date Expiration Date V isits Requested Visits Authorized [id number] Authorized 03/03/2025 09/02/2026 1 1 Reason for Visit * Reason Comments Follow-up * Consultation (Routine) - Closed Specialty Diagnoses / Procedures Referred By Contac t Referred To Contact Neurosurgery Diagnoses S/P brain surgery Hallucinations Argelia Hughes, AGRICULTURAL RESEARCH DIRECTOR [address] [place] [address] Phone: tel: fax: Referral ID Status Reason Start Date Expiration Date V isits Requested Visits Authorized [id number] Closed Specialty Services Required 01/25/2025 07/27/2026 1 1 Encounter Details Date Type Department Care Team (Late st Contact Info) Description 03/03/2025 1:00 PM EDT Office [facility] [address] [place] [address] Damián Garcia MD [address] [place] [address] Pituitary macroadenoma (CMS/HCC) (Primary Dx); S/P brain surgery; Hallucinations; Memory changes Social History Tobacco Use Types Packs/Day Years Used Date Smoking Tobacco: Former Cigarettes 1 1 - 1975 Smokeless Tobacco: Never Tobacco Cessation:Counseling Given: Not Answered Comments:80's -90's is when she stopped smoking Alcohol Use Standard Drinks/Week Comments Yes 0 (1 standard drink = 0.6 oz pur e alcohol) Occ. PHQ-2 Answer Date Recorded Patient Health Questionnaire-2 Score 2 05/24/2024 PHQ-2A Answer Date Recorded Patient Health Questionnaire-2 Score 2 02/12/2023 Comments Unknown Sex and Gender Information Value Date Recorded Sex Assigned at Not on file Legal Sex Female 7:46 PM EDT Gender Identity Not on file Sexual Orientation Not on file documented as of this encounter Last Filed Vital Signs Vital Sign Reading Time Taken Comments Blood Pressure 118/88 03/03/2025 1:41 PM EDT Pulse 77 03/03/2025 1:41 PM EDT Temperature - - Respiratory Rate - - Oxygen Saturation 96% 03/03/2025 1:41 PM EDT Inhaled Oxygen Concentration - - Weight - - Height - - Body Mass Index - - documented in this encounter Miscellaneous Notes * Progress Notes - Mago Finley PA - 03/03/2025 1:00 PM EDT Dear Argelia Hughes APRN, We had the pleasure of seeing your patient in our neurosurgical clinic today. HISTORY OF PRESENT ILLNESS: Yessenia Israel is a 69 y.o. 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 We would plan for a 2 year interval follow-up however she was re-referred due to hallucinations. Hallucinations have been going on for about a year. It is actually little bit better now. In her furniture she sees faces, in curtain she sees people standing. These are not like shadows that might look like faces but she sees an actual distinct face of a human being. She is awake during these times and she knows that they are not real. She is certain she is not dreaming. Past medical history, surgical history, family history, social history and review of systems as well as medications were all reviewed and there are no changes. Last Recorded Vitals Visit Vitals BP 118/88 Pulse 77 SpO2 96% Smoking Status Former PHYSICAL EXAM: -Constitutional: Well developed, well nourished. No acute distress. Alert and oriented to person, place, and time. -Head, Eyes, Nose, Throat: Normocephalic, atraumatic. Pupils are equally round and reactive to light. Extra-ocular movements are intact without nystagmus. Oral mucosa is pink and moist. -Musculoskeletal: Moves all 4 extremities equally. Gait is steady and independent without spasticity. -Extremities: There is no clubbing, cyanosis, or edema. There is no pronator drift. -Neurologic: Alert and Oriented to person, place, and time. Speech is fluent. Patient follows commands and interacts appropriately. ASSESSMENT AND PLAN: Yessenia Israel is a 69 y.o. 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 F/U MRI pituitary + whole brain for evaluation within 6 weeks for radiation necrosis/pituitary residual growth especially ruling out intracranial extension. Hallucinations X one year, wax and wane. Refer to Aiden Veloz Thank you. If there are any questions or concerns please feel free to contact us: [facility] Department of Neurosurgery [address] [facility] [place] [address] [place] [address] ; TIME A total of 30 minutes was spent with the patient in discussion and counseling including face to face discussion, examination, diagnostic research including medical record review, imaging and lab review, order placement, communication with other providers, documentation, and coordinating care. >50% spent in counseling and coordination of care. Cosigned by Damián Garcia MD at 03/17/2025 5:59 PM EDT Associated attestation - Damián Garcia MD - 03/17/2025 5:59 PM EDT I saw and examined the patient with the LUKASZ. I agree with the assessment and plan. A substantive portion of care was provided by the LUKASZ. documented in this encounter Plan of Treatment Upcoming Encounters Date Type Department Care Team (Late st Contact Info) Description 05/04/2025 10:20 AM EDT Office Visit [facility] [address] [place] [address] 05/24/2025 11:00 AM EDT Office Visit [facility] [address] [place] [address] Prisca Martinez MD [address] [place] [address] 08/18/2025 3:00 PM EDT Office Visit [facility] [address] [place] [address] Antonia Garcia MD [address] [place] [address] 08/22/2025 3:00 PM EDT Ovarian Cancer Screening [facility] [address] [place] [address] 09/29/2025 12:40 PM EST Appointment [facility] [address] [place] [phone] 09/29/2025 2:15 PM EST Office Visit [place] [facility] [address] [place] [address] Damián Garcia MD [address] [facility] [address] [place] [address] Scheduled Orders Name Type Priority Associated Diagnoses Orde r Schedule MR Head w and wo IV Contrast Imaging Routine S/P brain surgery Hallucinations Pituitary macroadenoma (CMS/HCC) Expected: 03/17/2025 (Approximate), Expires: 09/03/2026 Scheduled Referrals Name Type Priority Associated Diagnoses Order Schedule Ambulatory referral to Neurology Outpatient Referral Routine Hallucinations Memory changes Expected: 03/03/2025 (Approximate), Expires: 09/03/2026 documented as of this encounter Visit Diagnoses Diagnosis Pituitary macroadenoma (CMS/HCC)- Primary Benign neoplasm of pituitary gland and craniopharyngeal duct (pouch) S/P brain surgery Other postprocedural status Hallucinations Memory changes documented in this encounter Additional Health Concerns Assessment Noted Time A fall risk assessment has been complete d for the patient 03/03/2025 1:41 PM EDT A Body Mass Index follow-up plan has been documented for the patient 03/06/2025 7:06 PM EDT documented as of this encounter Care Teams Asbestos Textile Supervisor Relationship Specialty Start Date End Date Argelia Hughes, AGRICULTURAL RESEARCH DIRECTOR [address] [place], [place] [id number] PCP - General 03/08/21 documented as of this encounter
--- OUTSIDE RECORDS SUMMARY | 2025-03-31 15:00 | XMS_ITS | Encounter Summary ---
Author Organization Healthcare Address [address] [place] [address] Care Team Providers Care Assisted Living Coordinator Name Role Phone Argelia Hughes APRN Primary Care Provider [phone] Reason for Referral * Imaging (Routine) - Pending Review Specialty Diagnoses / Procedures Referred By Contac t Referred To Contact Radiology Diagnoses Pituitary macroadenoma (CMS/HCC) Procedures MR Pituitary w and wo IV Contrast Damián Garcia MD [id number] [place] [address] Phone: tel: fax: Referral ID Status Reason Start Date Expiration Date V isits Requested Visits Authorized [id number] Pending Review 03/31/2025 09/30/2026 1 1 Encounter Details Date Type Department Care Team (Late st Contact Info) Description 03/31/2025 3:00 PM EDT Office Visit [facility] [address] [place] [address] Damián Garcia MD [address] [facility] [address] [place] [address] Pituitary macroadenoma (CMS/HCC) (Primary Dx) [...] feel free to contact us: [facility] Department of Neurosurgery [address] [place] [address] [place] [address] ; Cosigned by Damián Garcia [...] Description 05/04/2025 10:20 AM EDT Office Visit [facility] Endocrinology [address] [place] [address] 05/24/2025 11:00 AM EDT Office Visit [facility] Medicine Specialties [address] [place] [address] Prisca Martinez MD [address] [place] [address] 08/18/2025 3:00 PM EDT Office Visit [facility] [address] [place] [address] Antonia Garcia MD [address] [phone] 08/22/2025 3:00 PM EDT Ovarian Cancer Screening [facility] [address] [facility], 3rd [place] [address] 09/29/2025 12:40 PM EST Appointment [facility] [address] [place] [address] 09/29/2025 2:15 PM EST Office Visit [facility] [address], [address] [place] [phone] Damián Garcia MD [address] [facility] [address] [place] [address] Scheduled Orders Name Type Priority Associated Diagnoses [...] documented as of this encounter Care Teams Assisted Living Coordinator Relationship Specialty Start Date End Date Argelia Hughes, MEJIA [address] [place] [address] PCP - General 03/08/21 documented as of this encounter
--- OUTSIDE RECORDS SUMMARY | 2025-04-25 13:00 | XMS_ITS | Encounter Summary ---
Author Organization Healthcare Address [address] [place] [address] Care Team Providers Care Retail Sales Vitamin Consultant Name Role Phone Ellen Argelia Webster APRN Primary Care Provider [phone] Encounter Details Date Type Department Care Team (Late Contact Info) Description 03/04/2023 Telephone [facility] [address] [phone] Dental, Provider, DDS [facility] [place] [address] Social History Tobacco Use Types Packs/Day Years Used Date Smoking Tobacco: Former Cigarettes Smokeless Tobacco: Never Comments:80's -90's is when she stopped smoking Alcohol Use Standard Drinks/Week Comments Yes 0 (1 standard drink = 0.6 oz pur e alcohol) Occ. PHQ-2 Answer Date Recorded Patient Health Questionnaire-2 Score 2 02/12/2023 PHQ-2A Answer Date Recorded Patient Health Questionnaire-2 Score 2 02/12/2023 Comments Unknown Sex and Gender Information Value Date Recorded Sex Assigned at Not on file Legal Sex Female 7:46 PM EDT Gender Identity Not on file Sexual Orientation Not on file COVID-19 Exposure Response Date Recorded In the last 10 days, have yo u been in contact with someone who was confirmed or suspected to have Coronavirus/COVID-19? No / Unsure 02/16/2023 2:50 PM EDT documented as of this encounter Plan of Treatment Upcoming Encounters Date Type Department Care Team ([facility] Contact Info) Description 05/04/2025 10:20 AM EDT Office Visit Selvin Jones [facility] Endocrinology [facility] [place] [address] 05/24/2025 11:00 AM EDT Office Visit [facility] Medicine Specialties [address], [address] [place] [address] Prisca Martinez MD [address] [place] [address] 08/18/2025 3:00 PM EDT Office Visit [facility] [address] [place] [address] Antonia Garcia MD [address] [place] [address] 08/22/2025 3:00 PM EDT Ovarian Cancer Screening [facility] [address] [facility]rd [place] [phone] 09/29/2025 12:40 PM EST Appointment [facility] Radiology [address] [place] [phone] 09/29/2025 2:15 PM EST Office Visit [facility] [address], [address] [place] [address] Damián Garcia MD [address] [facility] [address] [place] [phone] documented as of this encounter Visit Diagnoses Not on filedocumented in this encounter Additional Health Concerns Assessment Noted Time A fall risk assessment has been complete d for the patient 02/12/2023 10:31 AM EDT documented as of this encounter Care Teams Retail Sales Vitamin Consultant Relationship Specialty Start Date End Date Argelia Hughes, SNAILER [address] [place] [phone] PCP - General 03/08/21 documented as of this encounter
--- OUTSIDE RECORDS SUMMARY | 2025-04-25 13:00 | XMS_ITS | Encounter Summary ---
Author Organization Healthcare Address [address] [place] [address] Care Team Providers Care Photoengraving Helper Name Role Phone Ellen Argelia Webster APRN Primary Care Provider [phone] Encounter Details Date Type Department Care Team (Late Contact Info) Description 03/04/2023 Telephone [facility] fire control [facility] [address] [phone] Dental, Provider, DDS [facility] [place] [address] Social History Tobacco Use Types Packs/Day Years [...] Upcoming Encounters Date Type Department Care Team ([facility] Contact Info) Description 05/04/2025 10:20 AM EDT Office Visit Selvin Jones [facility] Endocrinology [facility] [place] [address] 05/24/2025 11:00 AM EDT Office Visit [facility] Medicine Specialties [address] [place] [address] Prisca Martinez MD [address] [place] [address] 08/18/2025 3:00 PM EDT Office Visit [facility] [address] [place] [address] Antonia Garcia MD [address] [place] [address] 08/22/2025 3:00 PM EDT Ovarian Cancer Screening [facility] [address] [facility], 3rd [place] [phone] 09/29/2025 12:40 PM EST Appointment [facility] Rad[facility] [address] [place] [phone] 09/29/2025 2:15 PM EST Office Visit [facility] [address] [place] [address] Damián Garcia MD [address] [facility] [address] [place] [phone] documented as of this encounter Visit Diagnoses Not on filedocumented in this encounter Additional Health Concerns Assessment Noted Time A fall risk assessment has been complete d for the patient 02/12/2023 10:31 AM EDT documented as of this encounter Care Teams Photoengraving Helper Relationship Specialty Start Date End Date Argelia Hughes, ELECTRODE TURNER AND FINISHER [address] [place] [address] [phone] PCP - General 03/08/21 documented as of this encounter
--- OUTSIDE RECORDS SUMMARY | 2025-04-25 13:01 | XMS_ITS | Clinical Summary ---
Author Organization [facility] Address [address] [place] [address] Care Team Providers Care Cement Storage Worker Name Role Phone Argelia Hughes APRN Primary Care Provider [phone] Allergies Active Allergy Reactions Criticality Noted Date Comments Buspirone Unknown - Patient st ates they do not know rxn details Low 02/03/2024 Isosorbide Palpitations Low 02/03/2024 Nitrofurantoin Other - please docum ent in the comment field Low 02/03/2024 Paroxetine Palpitations Low 02/03/2024 Pravastatin Other - please docum ent in the comment field Low 02/03/2024 Sulfamethoxazole Unknown - Patient st ates they do not know rxn details Low 02/03/2024 Trimethoprim Unknown - Patient st ates they do not know rxn details Low 02/03/2024 Medications atorvastatin (Lipitor) 10 MG tablet 0 Active Aspirin Buf,CaCarb-MgCa rb-MgO, 81 MG tablet TAKE 1 TABLET DAILY. 0 Active lisinopril 10 MG tablet 2 tablets (20 mg). 2 Active levothyroxine (Synthroid, Levoxyl) 25 MCG tablet TAKE 1 TABLET ONCE A DAY IN THE MORNING ON AN EMPTY STOMACH. 2 Active LORazepam (Ativan) 0.5 MG tablet TAKE 1 TABLET 3 TIMES EACH DAY NEEDED 2 Active bisoprolol (Zebeta) 5 MG tablet TAKE 1 TABLET 1 TIME EACH DAY FOR HIGH BLOOD PRESSURE 2 Active cabergoline (Dostinex) 0.5 MG tabletIndicatio ns:Elevated prolactin level Take 0.5 tablets (0.25 mg total) by mouth 2 (two) times a week. 12 tablet 3 3 Active Additional Information Patient not taking.Reported on 07/10/2023 Creon 32847-34064 units capsule Take 1 capsule by mouth three times a day with meals 3 Active sertraline (Zoloft) 25 MG tablet Take 1 tablet (25 mg) by mouth every night. 3 Active amLODIPine (Norvasc) 5 MG tablet 1 tablet (5 mg). 4 Active atorvastatin (Lipitor) 20 MG tablet Take 1 tablet (20 mg) by mouth every night. 4 Active bisoprolol (Zebeta) 10 MG tablet Take 1 tablet (10 mg) by mouth 1 (one) time each day. 4 Active lisinopril 40 MG tablet Take 1 tablet (40 mg) by mouth 1 (one) time each day. 4 Active metoprolol tartrate (Lopressor) 50 MG tablet Take by mouth. Activ e Linzess 72 MCG capsule capsule take one capsule (72 mcg) by mouth daily 5 Active metoprolol succinate XL (Toprol-XL) 100 MG 24 hr tablet 5 Active pantoprazole (Protonix) 40 MG EC tablet 1 tablet. 4 Active lisinopril 20 MG tablet Take 1 tablet by mouth daily. 5 Active Simethicone (Phazyme Ultimate) 500 MG capsule Take by mouth. 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 Encounters Date Type Department Care Team Description 04/03/2025 Telephone [facility] Endocrinology [address] [place] [address] Mercedez Alexander MD HCN - Patient Message 04/03/2025 Telephone [place] [id number] [address] Damián Garcia MD 03/31/2025 3:00 PM EDT Office Visit [place] [id number] [facility], [address] [place] [address] Damián Garcia MD Pituitary macroadenoma (CMS/HCC) (Primary Dx) 03/31/2025 Travel 03/28/[address] [address] Damián Garcia MD 03/22/2025 Orders Only External Location [address] [place] [address] Provider, External 03/03/2025 1:00 PM EDT Office Visit [place] [id number] [facility], [address] [place] [phone] Damián Garcia MD Pituitary macroadenoma (CMS/HCC) (Primary Dx); S/P brain surgery; Hallucinations; Memory changes 03/03/2025 Travel 02/03/[address] [address] Damián Garcia MD from Last 3 Months Immunizations Immunization Administration Dates Next Due Influenza, high-dose, quadrivalent 07/23/2022, Influenza, injectable, quadrivalent 07/29/2019 Influenza, injectable, quadrivalent, preservativ e free 07/16/2021,08/18/2018 Pneumococcal Conjugate PCV 13 03/05/2018 Pneumococcal Polysaccharide PPV23 05/30/2020 Family History Medical History Relation Name Comments Breast cancer Mother Relation Name Status Comments Mother Social History Tobacco Use Types Packs/Day Years [...] on file Sexual Orientation Not on file Last Filed Vital Signs Vital Sign Reading Time Taken Comments Blood Pressure 130/82 03/31/2025 3:01 PM EDT Pulse 79 03/31/2025 3:01 PM EDT Temperature 36.6 C (97.9 F) 05/24/2024 1:32 PM EDT Respiratory Rate 18 03/04/2024 10:38 AM EDT Oxygen Saturation 98% 03/31/2025 3:01 PM EDT Inhaled Oxygen Concentration - - Weight 60.5 kg (133 lb 6.1 oz) 03/31/2025 3:01 P M EDT Height 162.6 cm (5' 4 ) 05/24/2024 1:32 PM EDT Body Mass Index 22.89 05/24/2024 1:32 PM EDT Plan of Treatment Upcoming Encounters Date Type Department Care Team (Late st Contact Info) Description 05/04/2025 10:20 AM EDT Office Visit [facility] Endocrinology [address] [place] [address] 05/24/2025 11:00 AM EDT Office [facility] [address], [address] [place] [address] Prisca Martinez MD [address] [place] [address] 08/18/2025 3:00 PM EDT Office Visit [facility] [address] [place] [address] Antonia Garcia MD 110 [facility] [address] [place] [address] 08/22/2025 3:00 PM EDT Ovarian Cancer Screening [facility] Gynecology [address], 3rd [place] [address] 09/29/2025 12:40 PM EST Appointment [facility] Radiology [address] [place] [phone] 09/29/2025 2:15 PM EST Office Visit [place] [facility] [address], [address] [place] [address] Damián Garcia MD [address] [place] [address] Health Maintenance Due Date Last Done Comments [facility]-Bone Density Scan 1955 [facility]-Hepatitis C Screening 1955 [facility]-Medicare Annual Wellness (AWV) 1955 [facility]-/Child/Adol SDOH Screenings 1955 [facility]-EXAUV-29 Vaccine (#1) 1960 [facility]- SDOH Screenings 1973 [facility]-Adult SDOH Screenings 1973 [facility]-DTaP,Tdap,and Td Vaccines (1 - Tdap) 1974 CT Colonography 2000 Colonoscopy 2000 FIT-DNA 2000 FIT 2000 FOBT 2000 Sigmoidoscopy 2000 [facility]-Colorectal Cancer Screening 2000 [facility]-Breast Cancer Screening 2005 [facility]-Zoster Vaccines (1 of 2) 2005 [facility]-RSV Vaccine: 60+ Years or (1 - Risk 60-74 years 1-dose series) 2015 [facility]-Depression Screening 05/24/2025 05/24/2024 [facility]-Cervical Cancer Screening Discontinued [facility]-HPV/Cotest Discontinued 08/21/1999, 12/13/1998 [facility]-Pap Smear Discontinued 08/21/1999, 12/13/1998 [facility]-Pneumococcal Vaccine: 50+ Years Completed 05/30/2020, 03/05/2018 [facility]-Influenza Vaccine Completed 08/19/2024 , 07/24/2023, 07/23/2022, Additional history exists [facility]-Obesity Intervention Completed 025, 03/03/2025, 08/12/2024, Additional history exists HPV Vaccines Aged Out No longer eligi ble based on patient's age to complete this topic [facility]-HIB Vaccines Aged Out No longer e ligible based on patient's age to complete this topic [facility]-Hepatitis A Vaccines Aged Out No longer eligible based on patient's age to complete this topic [facility]-IPV Vaccines Aged Out No longer e ligible based on patient's age to complete this topic [facility]-Rotavirus Vaccines Aged Out No lo nger eligible based on patient's age to complete this topic Procedures Procedure Name Priority Date/Time Associated Diagnosis Comments MR NEURO OUTSIDE IMAGES 03/22/2025 1:59 PM EDT CYTO DATA CONVERSION Routine 08/21/1999 12:00 AM EDT from Last 3 Months or Most Recently Relevant to Health Maintenance Results * MR NEURO OUTSIDE IMAGES (03/22/2025 1:59 PM EDT) Anatomical Region Laterality Modality Magnetic Resonan ce 03/22/2025 1:59 PM EDT us External Provider IMG MRI PROCEDURES Final Resul t * Cytology (08/21/1999 12:00 AM EDT) 08/21/1999 08/22/1999 Narrative SUNQUEST - 09/17/1999 12:00 AM [facility] MR #: [id number] [facility] [place] YESSENIA ColonOscar [place], [place] [address] 1955 (Age: 44) FW Collect Date: 08/21/1999 00:00 Receipt Date: 08/22/1999 00:00 Page 1 DEPARTMENT OF PATHOLOGY AND LABORATORY MEDICINE CYTOPATHOLOGY REPORT Email: [email or web address] * Converted Case * This report may not match the original report format ATTENDING MD/Practitioner: Pedro Hughes MD Service: OB Location: Reported: 09/17/1999 00:00 Collected: 08/21/1999 00:00 INTERPRETATION CERVICAL/VAGINAL SMEAR. WITHIN NORMAL LIMITS. SATISFACTORY FOR INTERPRETATION. Cervical/vaginal cytology is a screening test with a recognized false negative rate. New technologies may decrease but will not eliminate false negative results. Regular (generally annual) cytology screening is recommended to minimize false negative results. Electronically Signed Out By Beronica Doran MOIRA Mccauley(ASCP) No Signature Required MOIRA Parrish (ASCP) Cervical cytology is a screening test primarily for squamous cancers and precursors and has associated false negative and positive results. New technologies such as liquid based sampling may decrease but will not eliminate all false negative results. Regular screening and follow-up of unexplained clinical signs and symptoms are recommended to minimize false negative results. Please see the ASCCP website (www.asccp.org) for followup recommendations. If HPV testing was requested, correlation with the results is suggested (please call Microbiology at [phone] for results). CLINICAL INFORMATION: Menstrual History: {Not Provided} Date of Last Menstrual Period: {Not Provided} SPECIMEN DESCRIPTION: A: CERVICAL/VAGINAL SMEAR, PAP ICD: F: {Not Entered} SNOMED CODES: 1; [id number] In cases where a pathologist has signed out the report, the service has been rendered in part by a resident. The signing pathologist has performed and is responsible for the reported pathologic evaluation. Norman Hughes MD LAB PATHOLOGY ORDERABLES Final Result SUNQUEST from Last 3 Months or Most Recently Relevant to Health Maintenance Insurance [employer] MEDICARE Care Teams Cement Storage Worker Relationship Specialty Start Date End Date Argelia Hughes APRN [address] [place] [address] PCP - General 03/08/21
--- OUTSIDE RECORDS SUMMARY | 2025-04-25 13:01 | XMS_ITS | Encounter Summary ---
Author Organization Healthcare Address [address] [place] [address] Care Team Providers Care Railroad Wheels And Axle Inspector Name Role Phone Argelia Hughes APRN Primary Care Provider [phone] Encounter Details Date Type Department Care Team (Late st Contact Info) Description 03/28/2025 Telephone [place] [facility] [address], [address] [place] [address] Damián Garcia MD [address] [place] [address] Social History Tobacco Use Types Packs/Day Years Used Date Smoking Tobacco: Former Cigarettes 1 1 - 1975 Smokeless Tobacco: Never Comments:80's [...] on file documented as of this encounter Miscellaneous Notes * Telephone Encounter - Mago Finley PA - 03/28/2025 3:41 PM EDT Spoke to her, let's request images please and then possibly move Jose appt sooner than 04/14?? * Telephone Encounter - Mamie Romero - 03/28/2025 2:00 PM EDT Patient Phone Message Reason for Call: Patient is calling back for MRI results. The primary number on file is correct. Best contact number and optimal time of day to reach caller: [phone] Yessenia Note: Please do not reply to this message. Follow-up communication and further actions as a result of this message need to be communicated with the patient directly, if the patient is not active onMyChart. If the patient is active on MyChart, they will receive notification of the communication/outcome via MyChart. * Telephone Encounter - Mago Finley PA - 03/28/2025 12:52 PM EDT No working number in chart.... Can we please get images and can move up her Garcia appt to discuss results? * Telephone Encounter - Amna Penny - 03/28/2025 11:30 AM EDT Patient Phone Message Reason for Call: Pt is calling to get MRI results that were done on March 22 at [facility]. Please advise. Best contact number and optimal time of day to reach caller: [phone] Note: Please do not reply to this message. Follow-up communication and further actions as a result of this message need to be communicated with the patient directly, if the patient is not active onMyChart. If the patient is active on MyChart, they will receive notification of the communication/outcome via MyChart. documented in this encounter Plan of Treatment Upcoming Encounters Date Type Department Care Team (Late st Contact Info) Description 05/04/2025 10:20 AM EDT Office Visit [facility] Endocrinology [address] [place] [phone] 05/24/2025 11:00 AM EDT Office Visit [place] [facility] [address], [address] [place] [address] Prisca Martinez MD [address] [place], [place] [phone] 08/18/2025 3:00 PM EDT Office Visit [facility] [address] [facility] [place] [address] Antonia Garcia MD 110 [facility] [address] [place] [address] 08/22/2025 3:00 PM EDT Ovarian Cancer Screening [facility] [address] [facility], 3rd [place] [phone] 09/29/2025 12:40 PM EST Appointment [facility] [address] [place] [phone] 09/29/2025 2:15 PM EST Office Visit [place] [facility] [address], [address]st [place] [address] Damián Garcia MD [address] [facility] [address] [place] [address] documented as of this encounter Visit Diagnoses Not on filedocumented in this encounter Additional Health Concerns Assessment Noted Time A fall risk assessment has been complete d for the patient 03/03/2025 1:41 PM EDT A Body Mass Index follow-up plan has been documented for the patient 03/06/2025 7:06 PM EDT documented as of this encounter Care Teams Railroad Wheels And Axle Inspector Relationship Specialty Start Date End Date Argelia Hughes APRN [address] [place] [id number] PCP - General 03/08/21 documented as of this encounter
--- OUTSIDE RECORDS SUMMARY | 2025-04-25 13:01 | XMS_ITS | Encounter Summary ---
Author Organization Healthcare Address [address] [place] [address] Care Team Providers Care Goldbeater Name Role Phone Argelia Hughes MEJIA Primary Care Provider [phone] Encounter Details Date Type Department Care Team (Late st Contact Info) Description 09/29/2019 Abstract [facility] Radiation 800 [facility] [id number] [place] [address] Elisa Snowden RN [facility] Social History Tobacco Use Types Packs/Day Years Used Date Smoking Tobacco: Never Assessed Comments Unknown Sex and Gender Information Value Date Recorded Sex Assigned at Not on file Legal Sex Female 7:46 PM EDT Gender Identity Not on file Sexual Orientation Not on file documented as of this encounter Plan of Treatment Upcoming Encounters Date Type Department Care Team (Late st Contact Info) Description 05/04/2025 10:20 AM EDT Office Visit [facility] Endocrinology [address] [place] [address] 05/24/2025 11:00 AM EDT Office Visit [place] [facility] [address] [place] [address] Prisca aMrtinez MD [address] [place], [place] [phone] 08/18/2025 3:00 PM EDT Office Visit [facility] [address] [place] [phone] Antonia Garcia MD [address] [address] 08/22/2025 3:00 PM EDT Ovarian Cancer Screening [facility] Gynecology [address], 3rd [place] [address] 09/29/2025 12:40 PM EST Appointment [facility] [address] [place] [address] 09/29/2025 2:15 PM EST Office Visit [place] [facility] [address] [place] [address] Damián Garcia MD [address] [place] [address] documented as of this encounter Visit Diagnoses Not on filedocumented in this encounter Care Teams Goldbeater Relationship Specialty Start Date End Date Argelia Hughes, TRACK MACHINE OPERATOR REPAIRER [address] [place] [address] PCP - General 03/08/21 documented as of this encounter
--- OUTSIDE RECORDS SUMMARY | 2025-04-25 13:01 | XMS_ITS | Encounter Summary ---
Author Organization Healthcare Address [address] [place] [address] Care Team Providers Care Heavy Equipment Rental Manager Name Role Phone Argelia Hughes BODY SHOP WORKER Primary Care Provider [phone] Encounter Details Date Type Department Care Team (Late Contact Info) Description 10/16/2022 [facility] [address] [place] [address] Argelia Hughes, BODY SHOP WORKER [address] [place] [phone] Unspecified dental caries (Primary Dx) Social History Tobacco Use Types Packs/Day Years Used Date Smoking Tobacco: Former Cigarettes Smokeless Tobacco: Never Alcohol Use Standard Drinks/Week Comments Yes 0 (1 standard drink = 0.6 oz pur e alcohol) Occ. Comments Unknown Sex and Gender Information Value Date Recorded Sex Assigned at Not on file Legal Sex Female 7:46 PM EDT Gender Identity Not on file Sexual Orientation Not on file documented as of this encounter Plan of Treatment Upcoming Encounters Date Type Department Care Team (Late Contact Info) Description 05/04/2025 10:20 AM EDT Office Visit [facility] Endocrinology [address] [place] [address] 05/24/2025 11:00 AM EDT Office Visit [facility] [address], [address] [place] [address] Prisca Martinez MD [address] [place] [address] 08/18/2025 3:00 PM EDT Office Visit [facility] [address] [place] [address] Antonia Garcia MD [address] [place] [address] 08/22/2025 3:00 PM EDT Ovarian Cancer Screening [facility] Gy[facility] [address], 3rd [place] [address] 09/29/2025 12:40 PM EST Appointment [facility] [address] [place] [address] 09/29/2025 2:15 PM EST Office Visit [place] [facility] [address], [address] [place] [address] Damián Garcia MD [address] [facility] [address] [place] [address] documented as of this encounter Visit Diagnoses Diagnosis Unspecified dental caries- Primary documented in this encounter Additional Health Concerns Assessment Noted Time A fall risk assessment has been complete d for the patient 08/21/2022 9:38 AM EDT documented as of this encounter Care Teams Heavy Equipment Rental Manager Relationship Specialty Start Date End Date Argelia Hughes APRN [address] [place], [place] [phone] PCP - General 03/08/21 documented as of this encounter
--- OUTSIDE RECORDS SUMMARY | 2025-04-25 13:01 | XMS_ITS | Encounter Summary ---
Author Organization Healthcare Address [address] [place] [address] Care Team Providers Care Mechanical Development Engineer Name Role Phone Hughes, Argelia Darin BA Primary Care Provider [phone] Encounter Details Date Type Department Care Team (Latest Contact Info) Description 03/31/2025 Travel Social History Tobacco Use Types Packs/Day Years Used Date Smoking Tobacco: Former Cigarettes 1975 Smokeless Tobacco: Never Comments:80's -90's is [...] Description 05/04/2025 10:20 AM EDT [facility] [address] [place] [address] 05/24/2025 11:00 AM EDT Office Visit [place] [facility] [address], [address] [place] [phone] Prisca Martinez MD [address] [place] [address] 08/18/2025 3:00 PM EDT Office Visit [facility] [address] [place] [address] Antonia Garcia MD [address] [place] [address] 08/22/2025 3:00 PM EDT Ovarian Cancer Screening [facility] Gy[facility] [address] 3rd [place] [address] 09/29/2025 12:40 PM EST Appointment [facility] [address] [place] [address] 09/29/2025 2:15 PM EST Office Visit [place] [facility] [address], [address] [place] [address] Damián Garcia MD [address] [facility] [address] [place] [address] documented as of this encounter Visit Diagnoses Not on filedocumented in this encounter Additional Health Concerns Assessment Noted Time A fall risk assessment has been complete d for the patient 03/31/2025 3:01 PM EDT A Body Mass Index follow-up plan has been documented for the patient 03/31/2025 3:41 PM EDT documented as of this encounter Care Teams Mechanical Development Engineer Relationship Specialty Start Date End Date Argelia Hughes APRN [address] [place] [id number] PCP - General 03/08/21 documented as of this encounter
--- OUTSIDE RECORDS SUMMARY | 2025-04-25 13:01 | XMS_ITS | Encounter Summary ---
Author Organization Healthcare Address [address] [place] [address] Care Team Providers Care Construction Project Manager Name Role Phone Argelia Hughes APRN Primary Care Provider [phone] Encounter Details Date Type Department Care Team (Late st Contact Info) Description 04/03/2025 Telephone [facility] [address], 1[address] [place] [address] Damián Garcia MD [address] [place] [address] Social History Tobacco Use Types [...] Telephone Encounter - Mago Finley PA - 04/03/2025 4:20 PM EDT I believe, since 2021 there has been persistent concern for Cushings, but this has been ruled out. * Telephone Encounter - Peyton Higginbotham PA - 04/03/2025 11:30 AM EDT Patient was concerned her bloating was being caused by her nonfunctional pit macroadenoma, I discussed with her that I contacted GI for her bloating and she is scheduled now on 05/24. In addition she is seeing Dr. 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 I discussed with her that when she had pit labs prior they were all normal but kevon has already called into Dr. Alexander requesting new labs as well. I told her to call back if she does not hear back from Dr. Alexander and we can discuss possibly ordering new pit labs but her bloating is likely related to GI issues and irregular bowel movements. * Telephone Encounter - Peyton Higginbotham PA - 04/03/2025 11:13 AM EDT No answer and cannot leave VM d/t it not being set up. * Telephone Encounter - Peyton Higginbotham PA - 04/03/2025 11:11 AM EDT I will call to see what is going on because I just saw her Thursday with Dr. Garcia * Telephone Encounter - Colton Valero - 04/03/2025 10:47 AM EDT Patient Phone Message Reason for Call: Patient calling about systems afraid it could be pitutary causing and would like to see if Dr. Garcia could see sooner Best contact number and optimal time of day to reach caller: [phone] Note: Please do not reply to this [...] Upcoming Encounters Date Type Department Care Team ([facility] st Contact Info) Description 05/04/2025 10:20 AM EDT Office Visit [facility] Endocrinology [address] [place] [address] 05/24/2025 11:00 AM EDT Office Visit [facility] Medicine Specialties [address], [address]nd [place] [address] Prisca Martinez MD [address] [place], [place] [phone] 08/18/2025 3:00 PM EDT Office Visit [facility] [address] [facility] [place] [address] Antonia Garcia MD [address] [facility] [address] [place] [address] 08/22/2025 3:00 PM EDT Ovarian Cancer Screening [facility] Gyne[facility] [address] [facility], 3rd [place] [address] 09/29/2025 12:40 PM EST Appointment [facility] Radiology [address] [place] [address] 09/29/2025 2:15 PM EST [facility] [address], 1st [place] [address] Damián Garcia MD [address] [facility] [address] [place] [address] documented as of this encounter Visit Diagnoses Not on filedocumented in this encounter Additional Health Concerns Assessment Noted Time A fall risk assessment has been complete d for the patient 03/31/2025 3:01 PM EDT A Body Mass Index follow-up plan has been documented for the patient 03/31/2025 3:41 PM EDT documented as of this encounter Care Teams Construction Project Manager Relationship Specialty Start Date End Date Argelia Hughes APRN [address] [place] [address] PCP - General 03/08/21 documented as of this encounter
--- OUTSIDE RECORDS SUMMARY | 2025-04-25 13:01 | XMS_ITS | Encounter Summary ---
Author Organization Healthcare Address [address] [place] [address] Care Team Providers Care Activities Volunteer Name Role Phone Argelia Hughes APRN Primary Care Provider [phone] Encounter Details Date Type Department Care Team (Late st Contact Info) Description 02/03/2025 Telephone [place] [facility] [address], 1[address] [place] [address] Damián Garcia MD [address] [place] [address] Social History Tobacco Use Types [...] encounter Miscellaneous Notes * Telephone Encounter - Mamie Romero S - 02/03/2025 9:52 AM EDT Patient Phone Message Reason for Call: Patient needs to cancel appt. She thought she only needed a 2 yr f/u She will need an afternoon appt as well. Best contact number and optimal time of day to reach caller: [phone] pt. Note: Please do not reply to this [...] Description 05/04/2025 10:20 AM EDT Office Visit [facility] Endocrinology [address] [place] [phone] 05/24/2025 11:00 AM EDT Office Visit [facility] Medicine Specialties [address], [address]nd [place] [phone] Prisca Martinez MD [address] [place] [address] 08/18/2025 3:00 PM EDT Office Visit [facility] [address] [place] [address] Antonia Garcia MD [address] [address] 08/22/2025 3:00 PM EDT Ovarian Cancer Screening [facility] Gynecology [address] [facility], 3rd [place] [address] 09/29/2025 12:40 PM EST Appointment [facility] Radiology [address] [place] [address] 09/29/2025 2:15 PM EST [facility] Visit [place] [facility] [address], 1st [place] [address] Damián Garcia MD [address] [facility] [address] [place] [address] documented as of this encounter Visit Diagnoses Not on filedocumented in this encounter Additional Health Concerns Assessment Noted Time A fall risk assessment has been complete d for the patient 08/12/2024 3:25 PM EDT A Body Mass Index follow-up plan has been documented for the patient 08/12/2024 4:49 PM EDT documented as of this encounter Care Teams Activities Volunteer Relationship Specialty Start Date End Date Argelia Hughes APRN [address] [place] [address] PCP - General 03/08/21 documented as of this encounter
--- OUTSIDE RECORDS SUMMARY | 2025-04-25 13:01 | XMS_ITS | Encounter Summary ---
Author Organization Healthcare Address [address] [place] [address] Care Team Providers Care Truck Sales Representative Name Role Phone HughesArgelia day Darin BA Primary Care Provider [phone] Encounter Details Date Type Department Care Team (Late Contact Info) Description 03/22/2025 Orders Only External Location [address] [place] [phone] Provider, External Social History Tobacco Use Types Packs/Day Years Used Date Smoking Tobacco: Former Cigarettes 1 1975 Smokeless Tobacco: Never Comments:80's -90's is [...] EDT Office Visit [facility] [address] [place] [address] 05/24/2025 11:00 AM EDT [facility] Medicine [facility] [address], 2nd [place] [address] Prisca Martinez MD [address] [place] [address] 08/18/2025 3:00 PM EDT Office Visit [facility] [address] [place] [address] Antonia Garcia MD [address] [place] [address] 08/22/2025 3:00 PM EDT Ovarian Cancer Screening [facility] Gynecology [address], 3rd [place] [address] 09/29/2025 12:40 PM EST Appointment [facility] Radiology [address] [place] [address] 09/29/2025 2:15 PM EST Office Visit [place] [facility] [address], 1[address] [place] [address] Damián Garcia MD [address] [place] [address] documented as of this encounter Procedures Procedure Name Priority Date/Time Associated Diagnosis Comments MR NEURO OUTSIDE IMAGES 03/22/2025 1:59 PM EDT documented in this encounter Results * MR NEURO OUTSIDE IMAGES (03/22/2025 1:59 PM EDT) Anatomical Region Laterality Modality Magnetic Resonan ce 03/22/2025 1:59 PM EDT us External Provider IMG MRI PROCEDURES Final Resul t documented in this encounter Visit Diagnoses Not on filedocumented in this encounter Additional Health Concerns Assessment Noted Time A fall risk assessment has been complete d for the patient 03/03/2025 1:41 PM EDT A Body Mass Index follow-up plan has been documented for the patient 03/06/2025 7:06 PM EDT documented as of this encounter Care Teams Truck Sales Representative Relationship Specialty Start Date End Date Areglia Hughes, MEJIA [address] [place] [address] PCP - General 03/08/21 documented as of this encounter
--- OUTSIDE RECORDS SUMMARY | 2025-04-25 13:01 | XMS_ITS | Encounter Summary ---
Author Organization Healthcare Address [address] [place] [address] Care Team Providers Care Laboratory Immunologist Name Role Phone Argelia Hughes APRN Primary Care Provider [phone] Reason for Visit * Reason Onset Date Comments HCN - Patient Message 04/03/2025 Encounter Details Date Type Department Care Team (Late st Contact Info) Description 04/03/[address] [facility] Endocrinology [address] [place] [address] Mercedez Alexander MD [address] [facility] [address] [place] [address] HCN - Patient Message Social History Tobacco Use Types Packs/Day Years Used Date Smoking Tobacco: Former Cigarettes 1 971 - 1975 Smokeless Tobacco: Never Comments:80's -90's [...] encounter Miscellaneous Notes * Telephone Encounter - Sherita Stubbs RN - 04/06/2025 11:22 AM EDT Contacted patient answered all questions patient has explained any procedures that are completed with another provider and practice needs to be addressed by that practice patient was also asking for lab work before follow-up I explained we have not seen you for over 2 years you will have to come toappointment and Dr. Alexander would evaluate what labs are needed. Patient verbalized understanding andprovided teach back Sherita Stubbs RN * Telephone Encounter - Bela Lott - 04/06/2025 10:47 AM EDT Status Update Call #1 1st call regarding the status of the initial request. Patient is returning Sherita's call Best contact number: [phone] (home) Optimal time of day to reach caller: ANYTIME Additional comments/information from caller: Note: Please do not reply to this message. Follow-up communication and further actions as a result of this message need to be communicated with the patient directly, if the patient is not active onMyChart. If the patient is active on MyChart, they will receive notification of the communication/outcome via [employer]. * Telephone Encounter - Sherita Stubbs RN - 04/06/2025 8:53 AM EDT Attempted to contact left VM for return call. Sherita Stubbs RN * Telephone Encounter - Gloria Alexander - 04/03/2025 11:10 AM EDT Clinical Concern/Question Reason for Call: patient calling about procedures, labs and scans would like to know if she has cushings of its a possibility due to tumor requesting call back Best contact number: Other: [phone] Optimal time of day to reach caller: ANYTIME Additional comments/information from caller: None Note: Please do not reply to this [...] 10:20 AM EDT Office Visit [facility] Endocrinology [address] [place] [address] 05/24/2025 11:00 AM EDT Office Visit [facility] Medicine Specialties [address], 2nd [place] [address] Prisca Martinez MD [address] [place] [address] 08/18/2025 3:00 PM EDT Office Visit [facility] [address] [facility] [place] [address] Antonia Garcia MD [address] [facility] [address] [place] [address] 08/22/2025 3:00 PM EDT Ovarian Cancer Screening [facility]ne[facility] [address] [facility], 3rd [place] [address] 09/29/2025 12:40 PM EST Appointment [facility] Radiology [address] [place] [address] 09/29/2025 2:15 PM EST Office Visit [facility] [address], 1st [place] [address] Damián Garcia MD [address] [facility] [address] [place] [phone] documented as of this encounter Visit Diagnoses Not on filedocumented in this encounter Additional Health Concerns Assessment Noted Time A fall risk assessment has been complete d for the patient 03/31/2025 3:01 PM EDT A Body Mass Index follow-up plan has been documented for the patient 03/31/2025 3:41 PM EDT documented as of this encounter Care Teams Laboratory Immunologist Relationship Specialty Start Date End Date Argelia Hughes APRN [address] [place] [address] PCP - General 03/08/21 documented as of this encounter
--- OUTSIDE RECORDS SUMMARY | 2025-04-25 13:01 | XMS_ITS | Encounter Summary ---
Author Organization Healthcare Address [address] [place] [address] Care Team Providers Care Leather Stamper Name Role Phone Argelia Hughes CHEMICAL RESEARCH ENGINEER Primary Care Provider [phone] Encounter Details Date Type Department Care Team (Late Contact Info) Description 09/26/2022 [facility] Community [facility] [address] [place] [address] Argelia Hughes, CHEMICAL RESEARCH ENGINEER [address] [place] [id number] Dental caries (Primary Dx) Social History Tobacco Use [...] Description 05/04/2025 10:20 AM EDT [facility] [address] [place] [address] 05/24/2025 11:00 AM EDT Office Visit [facility] Medicine Specialties [address], [address]nd [place] [address] Prisca Martinez MD [address] [place], [place] [phone] 08/18/2025 3:00 PM EDT Office Visit [facility] [address] [place] [address] Antonia Garcia MD [address] [place] [address] 08/22/2025 3:00 PM EDT Ovarian Cancer Screening [facility] Gynecology [address], 3rd [place] [address] 09/29/2025 12:40 PM EST Appointment [facility] Rad[facility] [address] [place] [address] 09/29/2025 2:15 PM EST Office Visit [place] [facility] [address], [address] [place] [address] Damián Garcia MD [address] [facility] [address] [place] [address] documented as of this encounter Visit Diagnoses Diagnosis Dental caries- Primary Unspecified dental caries documented in this encounter Additional Health Concerns Assessment Noted Time A fall risk assessment has been complete d for the patient 08/21/2022 9:38 AM EDT documented as of this encounter Care Teams Leather Stamper Relationship Specialty Start Date End Date Argelia Hughes APRN [address] [place], [place] [id number] PCP - General 03/08/21 documented as of this encounter
--- OUTSIDE RECORDS SUMMARY | 2025-04-25 13:01 | XMS_ITS | Encounter Summary ---
Author Organization Healthcare Address [address] [place] [address] Care Team Providers Care Rehabilitation Coordinator Name Role Phone Hughes, Argelai Darin BA Primary Care Provider [phone] Encounter Details Date Type Department Care Team (Latest Contact Info) Description 03/03/2025 Travel Social History Tobacco Use Types Packs/Day [...] Description 05/04/2025 10:20 AM EDT [facility] [address] [place] [address] 05/24/2025 11:00 AM EDT Office Visit [facility] Medicine Specialties [address], [address] [place] [address] Prisca Martinez MD [address] [place] [address] 08/18/2025 3:00 PM EDT Office Visit [facility] [address] [place] [address] Antonia Garcia MD [address] [place] [address] 08/22/2025 3:00 PM EDT Ovarian Cancer Screening [facility] Gynecology [address], 3[address] [place] [address] 09/29/2025 12:40 PM EST Appointment [facility] Rad[facility] [address] [place] [address] 09/29/2025 2:15 PM EST Office Visit [place] [facility] [address], [address] [place] [address] Damián Garcia MD [address] [facility] [address] [place] [address] documented as of this encounter Visit Diagnoses Not on filedocumented in this encounter Additional Health Concerns Assessment Noted Time A fall risk assessment has been complete d for the patient 03/03/2025 1:41 PM EDT A Body Mass Index follow-up plan has been documented for the patient 03/06/2025 7:06 PM EDT documented as of this encounter Care Teams Rehabilitation Coordinator Relationship Specialty Start Date End Date Argelia Hughes APRN [address] [place] [address] PCP - General 03/08/21 documented as of this encounter
[2025-04-25 15:45] VITALS: BMI 23.3
== END 2025-04-25 23:59 | disposition home or self-care (01) ==
LOC: DIETICIAN 12:57
PROVIDERS: PCP Family Medicine; Visit Provider Nurse Practitioner Family
DX: K58.2 Mixed irritable bowel syndrome (principal)
CPT/HCPCS: 97802

== ENCOUNTER 2025-05-26 13:25 | Outpatient (CLI) | payer MEDICARE, SELFPAY ==
--- OUTSIDE RECORDS SUMMARY | 2025-03-31 15:00 | XMS_ITS | Encounter Summary ---
Author Organization Healthcare Address [address] [place] [address] Care Team Providers Care Dental Ceramist Assistant Name Role Phone Argelia Hughes APRN Primary Care Provider [phone] Reason for Referral * Imaging (Routine) - Pending Review Specialty Diagnoses / Procedures Referred By Contac t Referred To Contact Radiology Diagnoses Pituitary macroadenoma (CMS/HCC) Procedures MR Pituitary w and wo IV Contrast Damián Garcia MD [id number] [place] [address] Phone: tel: fax: Referral ID Status Reason Start Date Expiration Date V isits Requested Visits Authorized [id number] Pending Review 03/31/2025 09/30/2026 1 1 Encounter Details Date Type Department Care Team (Late st Contact Info) Description 03/31/2025 3:00 PM EDT [facility] [address] [place] [address] Damián Garcia MD [address] [facility] [address] [place] [address] Pituitary macroadenoma (CMS/HCC) (Primary Dx) Social History Tobacco Use Types Packs/Day Years Used Date Smoking Tobacco: Former Cigarettes 1 - 1975 Smokeless Tobacco: Never Comments:80's -90's is when she stopped smoking [...] Sign Reading Time Taken Comments Blood Pressure 130/82 03/31/2025 3:01 PM EDT Pulse 79 03/31/2025 3:01 PM EDT Temperature - - Respiratory Rate - - Oxygen Saturation 98% 03/31/2025 3:01 PM EDT Inhaled Oxygen Concentration - - Weight 60.5 kg (133 lb 6.1 oz) 03/31/2025 3:01 P M EDT Height - - Body Mass Index 22.89 05/24/2024 1:32 PM EDT documented in this encounter Miscellaneous Notes * Progress Notes - Peyton Higginbotham PA - 03/31/2025 3:00 PM EDT Dear Argelia Hughes, MEJIA, We had the pleasure of seeing your patient in our neurosurgical clinic today. HISTORY OF PRESENT ILLNESS: Yessenia Israel is a 69 y.o. 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 She presents today for one month follow-up with new imaging in the setting of hallucinations. Today she is doing well, expresses she has been experiencing the hallucinations for years now. The hallucinations are more at night and she states the furniture takes shape of people. These occur nightly, but not every night does she have the same hallucinations. She is awake during these times andshe knows that they are not real. She is certain she is not dreaming. Currently taking Unisom for sl eep aide. She denies new vision changes, headaches, and focal neurologic deficits. Past medical history, surgical history, family history, social history and review of systems as well as medications were all reviewed and there are no changes. Last Recorded Vitals Visit Vitals Wt 60.5 kg (133 lb 6.1 oz) BMI 22.89 kg/m?? Smoking Status Former BSA 1.65 m?? PHYSICAL EXAM: -Constitutional: Well developed, well nourished. [...] fluent. Patient follows commands and interacts appropriately. IMAGING: I personally reviewed and independently interpreted the following: MRI Pituitary + whole brain performed on 03/22/25 demonstrated: Right cavernous residual with small interval increase in size when compared to prior MRI last February. ASSESSMENT AND PLAN: Yessenia Israel is a 69 y.o. 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 Hallucinations likely unrelated to history of radiation, there was a small interval increase of theright cavernous sinus residual. Patient has already been referred to [facility] for the hallucinations and awaiting appointment. F/u in 6 months with MRI Sella Bloating - Increased bloating with discomfort, currently taking Linzess and Metamucil to help with bowel movements. Messaged Dr. Rebolledo's staff at [facility] to get patient scheduled for a follow-up, per last note she was supposed to be scheduled a couple months after original visit on 05/24/24. Thank you. If there are any questions or concerns please feel free to contact us: [facility] Department of Neurosurgery [address] [place] [address] [place] [address] ; Cosigned by Damián Garcia MD at 04/02/2025 9:45 AM EDT Associated attestation - Damián Garcia MD - 04/02/2025 9:45 AM EDT I saw and examined the patient with the LUKAS[facility]. I agree with the assessment and plan. A substantive portion of care was provided by the LUKASZ. documented in this encounter Plan of Treatment Upcoming Encounters Date Type Department Care Team (Late st Contact Info) Description 08/18/2025 3:00 PM EDT Office Visit [facility] [address] [place] [address] Antonia Garcia MD [address] [place] [address] 08/22/2025 3:00 PM EDT Ovarian Cancer Screening [facility] [address] [place] [address] 09/29/2025 12:40 PM EST Appointment [facility] [address] [place] [address] 09/29/2025 2:15 PM EST [facility] [address] [place] [address] Damián Garcia MD [address] [facility] [address] [place] [address] 05/10/2026 10:20 AM EDT Office Visit [facility] Endocrinology [address] [place] [id number] Scheduled Orders Name Type Priority Associated Diagnoses Orde r Schedule MR Pituitary w and wo IV Contrast Imaging Routine Pituitary macroadenoma (CMS/HCC) Expected: 09/30/2025 (Approximate), Expires: 09/30/2026 documented as of this encounter Visit Diagnoses Diagnosis Pituitary macroadenoma (CMS/HCC)- Primary Benign neoplasm of pituitary gland and craniopharyngeal duct (pouch) documented in this encounter Additional Health Concerns Assessment Noted Time A fall risk assessment has been complete d for the patient 03/31/2025 3:01 PM EDT A Body Mass Index follow-up plan has been documented for the patient 03/31/2025 3:41 PM EDT documented as of this encounter Care Teams Dental Ceramist Assistant Relationship Specialty Start Date End Date Argelia Hughes APRN [address] [place] [address] PCP - General 03/08/21 documented as of this encounter
--- OUTSIDE RECORDS SUMMARY | 2025-05-04 10:20 | XMS_ITS | Encounter Summary ---
Author Organization [facility] Address [address] [place] [address] Care Team Providers Care Agile Coach Name Role Phone Argelia Hughes APRN Primary Care Provider [phone] Reason for Referral * Consultation (Routine) - Authorized Specialty Diagnoses / Procedures Referred By Dinh spangler Referred To Contact Diagnoses Pituitary macroadenoma (CMS/HCC) History of surgical removal of pituitary gland Mercedez Alexander MD [address] [address] Phone: tel: fax: Referral ID Status Reason Start Date Expiration Date V isits Requested Visits Authorized [id number] Authorized 05/04/2025 11/03/2026 1 1 Reason for Visit * Reason Comments Hyperprolactinemia * Consultation (Routine) - Closed Specialty Diagnoses / Procedures Referred By Dinh spangler Referred To Contact Endocrinology Diagnoses Pituitary tumor Gilberto Israel MD Referral ID Status Reason Start Date Expiration Date V isits Requested Visits Authorized [id number] Closed Specialty Services Required 03/23/2025 09/22/2026 1 1 Encounter Details Date Type Department Care Team (Late st Contact Info) Description 05/04/2025 10:20 AM EDT Office Visit [facility] [address] [place] [address] Mercedez Alexander MD [address] [facility] [address] [place] [address] Pituitary macroadenoma (CMS/HCC) (Primary Dx); [...] Medication Instructions amLODIPine (NORVASC) 5 mg Aspirin Buf,IuAcbk-IxHrwh-EbX, 81 MG tablet TAKE 1 TABLET DAILY. atorvastatin (Lipitor) 10 MG tablet atorvastatin (LIPITOR) 20 mg, Nightly bisoprolol (Zebeta) 5 MG tablet TAKE 1 TABLET 1 TIME EACH DAY FOR HIGH BLOOD PRESSURE bisoprolol (ZEBETA) 10 mg, Daily cabergoline (DOSTINEX) 0.25 mg, Oral, 2 times weekly Creon [id number] units capsule Take 1 capsule by mouth [...] 1 year ARCHIE Lombardi Endocrinology Fellow PGY5 [facility] [address] [place] [address], [address] [place] [address] Addendum: Latest Reference Range & Units [...] repeating PRL levels in 3 months (front attendant informed to send lab slips). Other labs [...] Description 08/18/2025 3:00 PM EDT Office Visit [facility] [address] [place] [address] Antonia Garcia MD [address] [facility] [address] [place] [address] 08/22/2025 3:00 PM EDT Ovarian Cancer Screening [facility] [address]rd [place] [address] 09/29/2025 12:40 PM EST Appointment [facility] Radiology [address] [place] [address] 09/29/2025 2:15 PM EST Office Visit [place] [facility] [address], 1st [place] [address] Damián Garcia MD [address] [facility] [address] [place] [address] 05/10/2026 10:20 AM EDT Office Visit [facility] Endocrinology [address] [place] [address] Scheduled Orders Name Type Priority Associated Diagnoses Orde r Schedule Prolactin Lab Routine Elevated prolactin level Expected: 08/09/2025 (Approximate), Expires: 11/10/2026 Scheduled Referrals Name Type Priority Associated Diagnoses Orde r Schedule Follow Up [facility] Outpatient Referral Routine Pituitary macroadenoma (CMS/HCC) History of surgical removal of pituitary gland Expected: 05/04/2026 (Approximate), Expires: 11/05/2026 documented as of this encounter Results * Cortisol (05/04/2025 10:58 AM EDT) Cortisol 12.20 Before 10am: 3.7 - 19.4. After 5pm: 2.9 - 17.3 ug/dL 05/04/2025 2:56 PM EDT [facility] Comment:Testing performed on [facility], standardized against FCI Reference Standard concentration values assigned by LC-MS/MS and verified by BCR 192 and BCR 193 certified reference materials. Blood Venous blood specimen / Unknown Venipuncture / Unknown 05/04/2025 10:58 AM EDT 05/04/2025 10:58 AM EDT us Mercedez Alexander MD LAB REF LAB BLOOD AND FLUID O RD Final Result [facility] [address] [place] [address] * ACTH (05/04/2025 10:58 AM EDT) ACTH 36.3 7.2 - 63 pg/mL 05/04/2025 2:31 PM EDT [facility] Blood Venous blood specimen / Unknown Venipuncture / Unknown 05/04/2025 10:58 AM EDT 05/04/2025 10:58 AM EDT us Mercedez Alexander MD LAB BLOOD ORDERABLES Final Re sult [facility] [address] [place] [address] * Follicle stimulating hormone (05/04/2025 10:58 AM EDT) FSH 14.5 mIU/mL 05/04/2025 2:1 2 PM EDT [facility] Blood Venous blood specimen / Unknown Venipuncture / Unknown 05/04/2025 10:58 AM EDT 05/04/2025 10:58 AM EDT Narrative [facility] - 05/04/2025 2:12 PM EDT [...] ORDERABLES Final Re sult Performing Organization Address City/[facility]/ZIP Co de Phone Number [facility] [address] [place] [address] * Luteinizing hormone (05/04/2025 10:58 AM EDT) Luteinizing Hormone 5.32 mIU/mL 05/04/2025 2:12 PM EDT [facility] Blood Venous blood specimen / Unknown Venipuncture / Unknown 05/04/2025 10:58 AM EDT 05/04/2025 10:58 AM EDT Narrative [facility] - 05/04/2025 2:12 PM EDT [...] ORDERABLES Final Re sult Performing Organization Address City/[facility] Co de Phone Number [facility] [address] [place] [address] * T4, free (05/04/2025 10:58 AM EDT) Free T4, Plasma 1.1 0.8 - 1.7 ng/dL 05/04/2025 2:10 PM EDT [facility] Blood Venous blood specimen / Unknown Venipuncture / Unknown 05/04/2025 10:58 AM EDT 05/04/2025 10:58 AM EDT Mercedez Alexander MD LAB BLOOD ORDERABLES Final Re sult Performing Organization Address [facility] Co de Phone Number [facility] [address] [place] [address] * (ABNORMAL) Prolactin (05/04/2025 10:58 AM EDT) Prolactin, Serum 53.4(H) 4.4 - 23.3 ng/mL 05/04/2025 2:12 PM EDT [facility] Blood Venous blood specimen / Unknown Venipuncture / Unknown 05/04/2025 10:58 AM EDT 05/04/2025 10:58 AM EDT Narrative [facility] - 05/04/2025 2:12 PM EDT Performed by Kimi electrochemiluminescent immunoassay which is traceable to the Prolactin 3rd IRP (WHO 84/500). Results obtained with different test methods or kits cannot be used interchangeably. us Mercedez Alexander MD LAB BLOOD ORDERABLES Final Re sult [facility] [address] [place] [address] documented in this encounter Visit Diagnoses Diagnosis [...] documented as of this encounter Care Teams Agile Coach Relationship Specialty Start Date End Date Argelia Hughes APRN [address] [place] [address] PCP - General 03/08/21 documented as of this encounter
--- OUTSIDE RECORDS SUMMARY | 2025-05-26 13:27 | XMS_ITS | Encounter Summary ---
Author Organization Healthcare Address [address] [place] [address] Care Team Providers Care Phlebotomist Name Role Phone Argelia Hughes APRN Primary Care Provider [phone] Reason for Visit * Reason Onset Date Comments HCN - Patient Message 04/03/2025 Encounter Details Date Type Department Care Team (Late st Contact Info) Description 04/03/2025 Telephone [facility] Endocrinology [address] [place] [address] Mercedez Alexander MD [address] [facility] [address] [place] [address] HCN - Patient Message Social [...] is returning Sherita's call Best contact number: [phone] (home) Optimal time of day to reach caller: ANYTIME Additional comments/information from caller: Note: Please do not reply to this message. Follow-up communication and further actions as a result of this message need to be communicated with the patient directly, if the patient is not active onMyChart. If the patient is active on MyChart, they will receive notification of the communication/outcome via Glowbl. * Telephone Encounter - Sherita Stubbs RN [...] requesting call back Best contact number: Other: [phone] Optimal time of day to reach caller: [...] Description 08/18/2025 3:00 PM EDT Office Visit [facility] [address] [place] [address] Antonia Garcia MD [address] [place] [address] [place] [address] 08/22/2025 3:00 PM EDT Ovarian Cancer Screening [facility] [address] 3rd [place] [address] 09/29/2025 12:40 PM EST Appointment [facility] Radiology [address] [place] [address] 09/29/2025 2:15 PM EST Office Visit [place] [facility] [address], [address]st [place] [address] Damián Garcia MD [address] [facility] [address] [place] [address] 05/10/2026 10:20 AM EDT Office Visit [facility] Endocrinology [address] [place] [address] documented as of this encounter Visit Diagnoses Not on filedocumented in this encounter Additional Health Concerns Assessment Noted Time A fall risk assessment has been complete d for the patient 03/31/2025 3:01 PM EDT A Body Mass Index follow-up plan has been documented for the patient 03/31/2025 3:41 PM EDT documented as of this encounter Care Teams Phlebotomist Relationship Specialty Start Date End Date Argelia Hughes, MEJIA [address] [place], [place] [id number] PCP - General 03/08/21 documented as of this encounter
--- OUTSIDE RECORDS SUMMARY | 2025-05-26 13:27 | XMS_ITS | Encounter Summary ---
Author Organization Healthcare Address [address] [place] [address] Care Team Providers Care Meat Smoker Name Role Phone HughesArgelia day Darin BA Primary Care Provider [phone] Encounter Details Date Type Department Care Team [...] 08/18/2025 3:00 PM EDT Office Visit [facility] [address] [place] [address] Antonia Garcia MD [address] [address] 08/22/2025 3:00 PM EDT Ovarian Cancer Screening [facility] [address]rd [place] [address] 09/29/2025 12:40 PM EST Appointment [facility] [address] [place] [address] 09/29/2025 2:15 PM EST Office Visit [place] [facility] [address], [address] [place] [address] Damián Garcia MD [address] [place] [address] 05/10/2026 10:20 AM EDT Office Visit [facility] Endocrinology [address] [place] [address] documented as of this encounter Visit Diagnoses Not on filedocumented in this encounter Additional Health Concerns Assessment Noted Time A fall risk assessment has been complete d for the patient 03/31/2025 3:01 PM EDT A Body Mass Index follow-up plan has been documented for the patient 03/31/2025 3:41 PM EDT documented as of this encounter Care Teams Meat Smoker Relationship Specialty Start Date End Date Argelia Hughes, MEJIA [address] [place] [address] PCP - General 03/08/21 documented as of this encounter
--- OUTSIDE RECORDS SUMMARY | 2025-05-26 13:27 | XMS_ITS | Encounter Summary ---
Author Organization Healthcare Address [address] [place] [address] Care Team Providers Care Duster Tender Name Role Phone Ellen Argelia Webster APRN Primary Care Provider [phone] Encounter Details Date Type Department Care Team (Late Contact Info) Description 03/04/2023 Telephone [facility] [address] [address] Dental, Provider, [place] [address] Social History Tobacco Use Types Packs/Day Years [...] Upcoming Encounters Date Type Department Care Team ([facility] Contact Info) Description 08/18/2025 3:00 PM EDT Office Visit [facility] [address] [place] [address] Antonia Garcia MD [address] [place] [address] [place] [address] 08/22/2025 3:00 PM EDT Ovarian Cancer Screening [facility] Gynecology [address], 3rd [place] [address] 09/29/2025 12:40 PM EST Appointment [facility] Radiology [address] [place] [address] 09/29/2025 2:15 PM EST Office Visit [place] [facility] [address] [place], [address]st [place] [address] Damián Garcia MD [address] [place] [address] [place] [address] 05/10/2026 10:20 AM EDT Office Visit [facility] Endocrinology [address] [place] [address] documented as of this encounter Visit Diagnoses Not on filedocumented in this encounter Additional Health Concerns Assessment Noted Time A fall risk assessment has been complete d for the patient 02/12/2023 10:31 AM EDT documented as of this encounter Care Teams Duster Tender Relationship Specialty Start Date End Date Argelia Hughes, DESK MAKER [address] [place] [address] PCP - General 03/08/21 documented as of this encounter
--- OUTSIDE RECORDS SUMMARY | 2025-05-26 13:27 | XMS_ITS | Encounter Summary ---
Author Organization Healthcare Address [address] [place] [address] Care Team Providers Care Jewelry Mechanic Name Role Phone Hughes, Argelia Darin BA Primary Care Provider [phone] Encounter Details Date Type Department Care Team (Late Contact Info) Description 09/29/2019 Abstract [facility] Radiation 800 [facility]. [address] [place] [address] Elisa Snowden RN [facility] Social [...] Department Care Team (Late Contact Info) Description 08/18/2025 3:00 PM EDT Office Visit [facility] [address] [place] [address] Antonia Garcia MD [address] [address] 08/22/2025 3:00 PM EDT Ovarian Cancer Screening [facility] Gynecology [address], 3rd [place] [address] 09/29/2025 12:40 PM EST Appointment [facility] Radiology [address] [place] [address] 09/29/2025 2:15 PM EST Office Visit [place] [facility] [address], [address] [place] [address] Damián Garcia MD [address] [place] [address] 05/10/2026 10:20 AM EDT Office Visit [facility] Endocrinology [address] [place] [address] documented as of this encounter Visit Diagnoses Not on filedocumented in this encounter Care Teams Jewelry Mechanic Relationship Specialty Start Date End Date Argelia Hughes, TIME PIECE REPAIRER [address] [place] [phone] PCP - General 03/08/21 documented as of this encounter
--- OUTSIDE RECORDS SUMMARY | 2025-05-26 13:27 | XMS_ITS | Encounter Summary ---
Author Organization Healthcare Address [address] [place] [address] Care Team Providers Care Oven Dauber Name Role Phone Argelia Hughes APRN Primary Care Provider [phone] Encounter Details Date Type Department Care Team (Late st Contact Info) Description 05/04/2025 [facility] [address] [place] [address] Mercedez Alexander MD 2[address] [facility] [place] [address] [place] [address] Social History Tobacco Use Types Packs/Day Years [...] encounter Miscellaneous Notes * Telephone Encounter - Monisha Lam - 05/08/2025 3:21 PM EDT Clinical Concern/Question Reason for Call: Please call and discuss lab results with PT denise Best contact number: [phone] (home) Optimal time of day to reach [...] communication/outcome via MyChart. * Telephone Encounter - Leida Blanco - 05/04/2025 3:23 PM EDT Clinical Concern/Question Reason for Call: Pt had labs done today and had a high Prolactin level. Pt expressed concern and isrequesting a callback. Best contact number: [phone] (home) Optimal time of day to reach [...] [facility] [address] [facility] [place] [address] Antonia Garcia MD [address] [place] [address] [place] [address] 08/22/2025 3:00 PM EDT Ovarian Cancer Screening [facility] [address] 3rd [place] [address] 09/29/2025 12:40 PM EST Appointment [facility] Radiology [address] [place] [address] 09/29/2025 2:15 PM EST Office Visit [place] [facility] [address], [address]st [place] [address] Damián Garcia MD [address] [place] [address] 05/10/2026 10:20 AM EDT Office Visit [facility] Endocrinology [address] [place] [address] documented as of this encounter Visit Diagnoses Not on filedocumented in this encounter Additional Health Concerns Assessment Noted Time A fall risk assessment has been complete d for the patient 03/31/2025 3:01 PM EDT A Body Mass Index follow-up plan has been documented for the patient 05/09/2025 1:21 PM EDT documented as of this encounter Care Teams Oven Dauber Relationship Specialty Start Date End Date Argelia Hughes, MEJIA [address] [place] [address] PCP - General 03/08/21 documented as of this encounter
--- OUTSIDE RECORDS SUMMARY | 2025-05-26 13:27 | XMS_ITS | Encounter Summary ---
Author Organization Healthcare Address [address] [place] [address] Care Team Providers Care Political Science Research Assistant Name Role Phone HughesArgelia day Darin BA Primary Care Provider [phone] Encounter Details Date Type Department Care Team (Late Contact Info) Description 03/22/2025 Orders Only External Location [address] [place] [phone] Provider, External Social History Tobacco Use Types [...] Description 08/18/2025 3:00 PM EDT Office Visit [facility] [address] [place] [address] Antonia Garcia MD [address] [address] 08/22/2025 3:00 PM EDT Ovarian Cancer Screening [facility] [address], 3rd [place] [address] 09/29/2025 12:40 PM EST Appointment [facility] Radiology [address] [place] [address] 09/29/2025 2:15 PM EST Office Visit [place] [facility] [address], [address] [place] [address] Damián Garcia MD [address] [facility] [address] [place] [address] 05/10/2026 10:20 AM EDT Office Visit [facility] Endocrinology [address] [place] [address] documented as of this encounter Procedures Procedure [...] documented as of this encounter Care Teams Political Science Research Assistant Relationship Specialty Start Date End Date Argelia Hughes APRN [address] [place] [address] PCP - General 03/08/21 documented as of this encounter
--- OUTSIDE RECORDS SUMMARY | 2025-05-26 13:27 | XMS_ITS | Encounter Summary ---
Author Organization Healthcare Address [address] [place] [address] Care Team Providers Care Paperhanger Assistant Name Role Phone Argelia Hughes APRN Primary Care Provider [phone] Encounter Details Date Type Department Care Team (Late st Contact Info) Description 03/28/2025 Telephone [place] [facility] [address], [address] [place] [address] Damián Garcia MD [address] [place] [address] Social History Tobacco Use Types [...] optimal time of day to reach caller: [phone] Yessenia Note: Please do not reply to [...] that were done on March 22 at [facility]. Please advise. Best contact number and optimal time of day to reach caller: [phone] Note: Please do not reply to this [...] [facility] [address] [place] [address] Antonia Garcia MD [address] [place] [address] [place] [address] 08/22/2025 3:00 PM EDT Ovarian Cancer Screening [facility] Gynecology [address], 3[address] [place] [address] 09/29/2025 12:40 PM EST Appointment [facility] Radiology [address] [place] [address] 09/29/2025 2:15 PM EST Office Visit [place] [facility] [address], [address] [place] [address] Damián Garcia MD [address] [facility] [address] [place] [address] 05/10/2026 10:20 AM EDT [facility] [address] [place] [address] documented as of this encounter Visit Diagnoses Not on filedocumented in this encounter Additional Health Concerns Assessment Noted Time A fall risk assessment has been complete d for the patient 03/03/2025 1:41 PM EDT A Body Mass Index follow-up plan has been documented for the patient 03/06/2025 7:06 PM EDT documented as of this encounter Care Teams Paperhanger Assistant Relationship Specialty Start Date End Date Argelia Hughes, LONG TERM CARE SOCIAL WORKER [address] [place] [address] PCP - General 03/08/21 documented as of this encounter
--- OUTSIDE RECORDS SUMMARY | 2025-05-26 13:27 | XMS_ITS | Encounter Summary ---
Author Organization Healthcare Address [address] [place] [address] Care Team Providers Care Mold Inspector Name Role Phone Argelia Hughes APRN Primary Care Provider [phone] Encounter Details Date Type Department Care Team (Late st Contact Info) Description 04/03/2025 Telephone [place] [facility] [address] [place] [address] Damián Garcia MD [address] [place] [address] Social History Tobacco Use Types [...] and believes her growing belly might be [place]'s Disease. I discussed with her that when [...] optimal time of day to reach caller: [phone] Note: Please do not reply to this [...] Description 08/18/2025 3:00 PM EDT Office Visit [facility] [address] [place] [address] Antonia Garcia MD [address] [place] [address] 08/22/2025 3:00 PM EDT Ovarian Cancer Screening [facility] [address], 3rd [place] [address] 09/29/2025 12:40 PM EST Appointment [facility] Radiology [address] [place] [address] 09/29/2025 2:15 PM EST Office Visit [place] [facility] [address], [address] [place] [address] Damián Garcia MD [address] [place] [address] 05/10/2026 10:20 AM EDT [facility] [address] [place] [address] documented as of this encounter Visit Diagnoses Not on filedocumented in this encounter Additional Health Concerns Assessment Noted Time A fall risk assessment has been complete d for the patient 03/31/2025 3:01 PM EDT A Body Mass Index follow-up plan has been documented for the patient 03/31/2025 3:41 PM EDT documented as of this encounter Care Teams Mold Inspector Relationship Specialty Start Date End Date Argelia Hughes, COMPOSITION PROFESSOR [address] [place], [place] [id number] PCP - General 03/08/21 documented as of this encounter
--- OUTSIDE RECORDS SUMMARY | 2025-05-26 13:27 | XMS_ITS | Encounter Summary ---
Author Organization Healthcare Address [address] [place] [address] Care Team Providers Care Physician/Internist Name Role Phone Argelia Hughes CUTTER OPERATOR TILE Primary Care Provider [phone] Encounter Details Date Type Department Care Team ([facility] Contact Info) Description 09/26/2022 Community [facility] [address] [place] [address] Argelia Hughes, CUTTER OPERATOR TILE [address] [place], [place] [id number] Dental caries (Primary Dx) Social History Tobacco [...] Upcoming Encounters Date Type Department Care Team ([facility] Contact Info) Description 08/18/2025 3:00 PM EDT Office Visit [facility] [address] [place] [address] Antonia Garcia MD [address] [address] 08/22/2025 3:00 PM EDT Ovarian Cancer Screening [facility] Gynecology 800 [facility], 3rd [place] [address] 09/29/2025 12:40 PM EST Appointment [facility] A Radiology [address] [place] [address] 09/29/2025 2:15 PM EST Office Visit [place] [facility] [address], 1st [place] [address] Damián Garcia MD [address] [place] [address] 05/10/2026 10:20 AM EDT Office Visit [facility] Endocrinology [address] [place] [address] documented as of this encounter Visit Diagnoses Diagnosis Dental caries- Primary Unspecified dental caries documented in this encounter Additional Health Concerns Assessment Noted Time A fall risk assessment has been complete d for the patient 08/21/2022 9:38 AM EDT documented as of this encounter Care Teams Physician/Internist Relationship Specialty Start Date End Date Argelia Hughes, CUTTER OPERATOR TILE [address] [place] [address] PCP - General 03/08/21 documented as of this encounter
--- OUTSIDE RECORDS SUMMARY | 2025-05-26 13:27 | XMS_ITS | Encounter Summary ---
Author Organization Healthcare Address [address] [place] [address] Care Team Providers Care Oil Heater Operator Name Role Phone Argelia Hughes APRN Primary Care Provider [phone] Encounter Details Date Type Department Care Team (Late st Contact Info) Description 05/08/2025 Telephone [facility] Endocrinology [address] [place] [address] Mercedez Alexander MD [address] [facility] [address] [place] [address] Social History Tobacco Use Types [...] encounter Miscellaneous Notes * Telephone Encounter - Leslee Casillas - 05/08/2025 12:57 PM EDT Clinical Concern/Question Reason for Call: Please call patient to discuss her lab on prolactin level Best contact number: [phone] (home) Optimal time of day to reach [...] Description 08/18/2025 3:00 PM EDT Office Visit [facility] [address] [place] [address] Antonia Garcia MD [address] [place] [address] 08/22/2025 3:00 PM EDT Ovarian Cancer Screening [facility] Gynecology [address], 3rd [place] [address] 09/29/2025 12:40 PM EST Appointment [facility] A Radiology [address] [place] [address] 09/29/2025 2:15 PM EST Office Visit [place] [facility] [address], 1st [place] [address] Damián Garcia MD [address] [facility] [address] [place] [address] 05/10/2026 10:20 AM EDT [facility] [address] [place] [address] documented as of this encounter Visit Diagnoses Not on filedocumented in this encounter Additional Health Concerns Assessment Noted Time A fall risk assessment has been complete d for the patient 03/31/2025 3:01 PM EDT A Body Mass Index follow-up plan has been documented for the patient 05/09/2025 1:21 PM EDT documented as of this encounter Care Teams Oil Heater Operator Relationship Specialty Start Date End Date Argelia Hughes, PHYSICIAN PRESIDENT [facility]0 [place] [address] PCP - General 03/08/21 documented as of this encounter
--- OUTSIDE RECORDS SUMMARY | 2025-05-26 13:27 | XMS_ITS | Encounter Summary ---
Author Organization Healthcare Address [address] [place] [address] Care Team Providers Care Pondman Name Role Phone Ellen Argelia Webster APRN Primary Care Provider [phone] Encounter Details Date Type Department Care Team (Late Contact Info) Description 03/04/2023 Telephone [facility] [address] [phone] Dental, Provider, DDS [facility] [address] Social History Tobacco Use Types Packs/Day Years [...] Upcoming Encounters Date Type Department Care Team ([facility] Contact Info) Description 08/18/2025 3:00 PM EDT Office Visit [facility] [address] [place] [address] Antonia Garcia MD [address] [place] [address] 08/22/2025 3:00 PM EDT Ovarian Cancer Screening [facility] Gynecology [address], 3rd [place] [address] 09/29/2025 12:40 PM EST Appointment [facility] A Radiology [address] [place] [address] 09/29/2025 2:15 PM EST Office Visit [place] [facility] [address], 1st [place] [address] Damián Garcia MD [address] [place] [address] 05/10/2026 10:20 AM EDT Office Visit [facility] Endocrinology [address] [place] [address] documented as of this encounter Visit Diagnoses Not on filedocumented in this encounter Additional Health Concerns Assessment Noted Time A fall risk assessment has been complete d for the patient 02/12/2023 10:31 AM EDT documented as of this encounter Care Teams Pondman Relationship Specialty Start Date End Date Argelia Hughes, COMPUTER FORENSICS INVESTIGATOR [address] [place] [address] PCP - General 03/08/21 documented as of this encounter
--- OUTSIDE RECORDS SUMMARY | 2025-05-26 13:27 | XMS_ITS | Encounter Summary ---
Author Organization Healthcare Address [address] [place] [address] Care Team Providers Care Dean Of Women Name Role Phone Argelia Hughes FASHION ILLUSTRATOR Primary Care Provider [phone] Encounter Details Date Type Department Care Team ([facility] Contact Info) Description 10/16/2022 Community [facility] Community Practice [address] [place] [address] Argelia Hughes, FASHION ILLUSTRATOR [address] [place], [place] [phone] Unspecified dental caries (Primary Dx) Social History [...] Description 08/18/2025 3:00 PM EDT Office Visit [facility] [address] [place] [address] Antonia Garcia MD [address] [address] 08/22/2025 3:00 PM EDT Ovarian Cancer Screening [facility] Gynecology 800 [facility], 3rd [place] [address] 09/29/2025 12:40 PM EST Appointment [facility] Radiology [address] [place] [address] 09/29/2025 2:15 PM EST Office Visit [place] [facility] [address], 1st [place] [address] Damián Garcia MD [address] [place] [address] 05/10/2026 10:20 AM EDT Office Visit [facility] Endocrinology [address] [place] [address] documented as of this encounter Visit Diagnoses Diagnosis Unspecified dental caries- Primary documented in this encounter Additional Health Concerns Assessment Noted Time A fall risk assessment has been complete d for the patient 08/21/2022 9:38 AM EDT documented as of this encounter Care Teams Dean Of Women Relationship Specialty Start Date End Date Argelia Hughes, FASHION ILLUSTRATOR [address] [place] [address] PCP - General 03/08/21 documented as of this encounter
--- OUTSIDE RECORDS SUMMARY | 2025-05-26 13:27 | XMS_ITS | Encounter Summary ---
Author Organization Healthcare Address [address] [place] [address] Care Team Providers Care Crime Scene Investigator Name Role Phone HughesArgelia day Darin BA Primary Care Provider [phone] Encounter Details Date Type Department Care Team (Latest Contact Info) Description 05/04/2025 Travel Social History Tobacco Use Types Packs/Day [...] Description 08/18/2025 3:00 PM EDT Office Visit [facility] [address] [place] [address] Antonia Garcia MD [address] [address] 08/22/2025 3:00 PM EDT Ovarian Cancer Screening [facility] Gynecology [address], 3rd [place] [address] 09/29/2025 12:40 PM EST Appointment [facility] Radiology [address] [place] [address] 09/29/2025 2:15 PM EST Office Visit [place] [facility] [address], 1st [place] [address] Damián Garcia MD [address] [place] [place] [address] 05/10/2026 10:20 AM EDT Office Visit [facility] Endocrinology [address] [place] [address] documented as of this encounter Visit Diagnoses Not on filedocumented in this encounter Additional Health Concerns Assessment Noted Time A fall risk assessment has been complete d for the patient 03/31/2025 3:01 PM EDT A Body Mass Index follow-up plan has been documented for the patient 05/09/2025 1:21 PM EDT documented as of this encounter Care Teams Crime Scene Investigator Relationship Specialty Start Date End Date Argelia Hughes, MEJIA [address] [place] [address] PCP - General 03/08/21 documented as of this encounter
--- OUTSIDE RECORDS SUMMARY | 2025-05-26 13:27 | XMS_ITS | Clinical Summary ---
Author Organization [facility] Address [address] [place] [address] Care Team Providers Care Dye Reel Operator Helper Name Role Phone Argelia Hughes APRN Primary Care Provider [phone] Allergies Active Allergy Reactions Criticality Noted Date [...] (Lipitor) 10 MG tablet 0 Active Aspirin Buf,CaCarb-MgCarb- MgO, 81 MG tablet TAKE 1 TABLET DAILY. 0 Active lisinopril 10 MG tablet 2 tablets (20 mg). 2 Active LORazepam (Ativan) 0.5 MG tablet TAKE 1 TABLET 3 TIMES EACH DAY NEEDED 2 Active bisoprolol (Zebeta) 5 MG tablet TAKE 1 TABLET 1 TIME EACH DAY FOR HIGH BLOOD PRESSURE 2 Active Creon 79822-12712 units capsule Take 1 capsule by mouth [...] (Lopressor) 50 MG tablet Take by mouth. Active Linzess 72 MCG capsule capsule take one capsule (72 mcg) by mouth daily 5 Active metoprolol succinate XL (Toprol-XL) 100 MG 24 hr tablet 5 Active pantoprazole (Protonix) 40 MG EC tablet 1 tablet. 4 Active lisinopril 20 MG tablet Take 1 tablet by mouth daily. 5 Active Simethicone (Phazyme Ultimate) 500 MG capsule Take by mouth. Active levothyroxine (Synthroid, Levoxyl) 25 MCG tabletIndications: Postoperative hypothyroidism Take 1 tablet by mouth daily. 90 tablet 3 5 Active cabergoline (Dostinex) 0.5 MG tabletIndications: Elevated prolactin level Take 0.5 tablets by mouth 2 times a week. 12 tablet 3 5 026 Active levothyroxine (Synthroid, Levoxyl) 25 MCG tablet TAKE 1 TABLET ONCE A DAY IN THE MORNING ON AN EMPTY STOMACH. 2 025 Discontin ued(Reord er) cabergoline (Dostinex) 0.5 MG tabletIndications: Elevated prolactin level Take 0.5 tablets (0.25 mg total) by mouth 2 (two) times a week. 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 06/20/2019 Encounters Date Type Department Care Team Description 05/08/2025 Telephone [facility] Endocrinology [address] [place] [address] Mercedez Alexander MD 05/04/2025 10:20 AM EDT Office Visit [facility] Endocrinology [address] [place] [address] Mercedez Alexander MD Pituitary macroadenoma (CMS/HCC) (Primary Dx); History of surgical removal of pituitary gland; Elevated prolactin level; Postoperative hypothyroidism 05/04/2025 Telephone [facility] Endocrinology [address] [place] [address] Mercedez Alexander MD 05/04/2025 Travel 04/03/2025 Telephone [facility] Endocrinology [address] [place] [address] Mercedez Alexander MD HCN - Patient Message 04/03/2025 Telephone [facility] [address], 1st [place] [address] Damián Garcia MD 03/31/2025 3:00 PM EDT Office Visit [facility] [address], 1st [place] [address] Damián Garcia MD Pituitary macroadenoma (CMS/HCC) (Primary Dx) 03/31/2025 Travel 03/28/2025 Telephone [facility] [address], 1st [place] [address] Damián Garcia MD 03/22/2025 Orders Only External Location [address] [place] [address] Provider, External 03/03/2025 1:00 PM EDT Office Visit [place] [facility] [address], [address] [place] [address] Damián Garcia MD Pituitary macroadenoma (CMS/HCC) (Primary Dx); S/P brain surgery; Hallucinations; Memory changes 03/03/2025 Travel from Last 3 Months Immunizations Immunization Administration [...] Cigarettes 1 - 1975 Smokeless Tobacco: Never Tobacco [...] Pulse 68 05/04/2025 9:58 AM EDT Temperature 36.6 C (97.9 F) 05/24/2024 1:32 PM EDT Respiratory Rate 18 03/04/2024 10:38 AM EDT Oxygen Saturation 98% 03/31/2025 3:01 PM EDT Inhaled Oxygen Concentration - - Weight 60.1 kg (132 lb 7.9 oz) 05/04/2025 9:58 A M EDT Height 162.6 cm (5' 4 ) 05/24/2024 1:32 PM EDT Body Mass Index 22.74 05/24/2024 1:32 PM EDT Plan of Treatment Upcoming Encounters Date Type Department Care Team (Late st Contact Info) Description 08/18/2025 3:00 PM EDT Office Visit [facility] [address] [place] [address] Antonia Garcia MD [address] [place] [address] 08/22/2025 3:00 PM EDT Ovarian Cancer Screening [facility] Gynecology [address], 3rd [place] [address] 09/29/2025 12:40 PM EST Appointment [facility] Radiology [address] [place] [address] 09/29/2025 2:15 PM EST Office Visit [place] [facility] [address], [address] [place] [address] Damián Garcia MD [address] [place] [address] 05/10/2026 10:20 AM EDT Office Visit [facility] Endocrinology [address] [place] [address] Health Maintenance Due Date Last Done Comments [facility]-Bone Density Scan 1955 [facility]-Hepatitis C Screening 1955 [facility]-Medicare Annual Wellness (AWV) 1955 [facility]-Infant/Child/Adol SDOH Screenings 1955 [facility]-VKZEF-24 Vaccine (#1) 1960 [facility]- SDOH Screenings 1973 [facility]-Adult SDOH Screenings 1973 [facility]-DTaP,Tdap,and Td Vaccines (1 - Tdap) 1974 CT Colonography 2000 Colonoscopy 2000 FIT-DNA 2000 FIT 2000 FOBT 2000 Sigmoidoscopy 2000 [facility]-Colorectal Cancer Screening 2000 [facility]-Breast Cancer Screening 2005 [facility]-Zoster Vaccines (1 of 2) 2005 [facility]-RSV Vaccine: 60+ Years or (1 - Risk 60-74 years 1-dose series) 2015 [facility]-Depression Screening 05/24/2025 05/24/2024 [facility]-Influenza Vaccine (#1) 06/26/202508/19, 07/24/2023, 07/23/2022, Additional history exists [facility]-Cervical Cancer Screening Discontinued [facility]-HPV/Cotest Discontinued 08/21/1999, 12/13/1998 [facility]-Pap Smear Discontinued 08/21/1999, 12/13/1998 [facility]-Pneumococcal Vaccine: 50+ Years Completed 05/30/2020, 03/05/2018 HPV Vaccines Aged Out No longer eligi [...] Procedure Name Priority Date/Time Associated Diagnosis Comments PROLACTIN, SERUM Routine 05/04/2025 10:5 8 AM EDT History of surgical removal of pituitary gland FREE T4, PLASMA Routine 05/04/2025 10:58 AM EDT History of surgical removal of pituitary gland LUTEINIZING HORMONE, SERUM Routine 05/04 10:58 AM EDT History of surgical removal of pituitary gland FOLLICLE STIMULATING HORMONE, SERUM Routine 05/04/2025 10:58 AM EDT History of surgical removal of pituitary gland ADRENOCORTICOTROPIC HORMONE (ACTH) Routine 05/04/2025 10:58 AM EDT History of surgical removal of pituitary gland CORTISOL Routine 05/04/2025 10:58 AM EDT History of surgical removal of pituitary gland MR NEURO OUTSIDE IMAGES 03/22/20 25 1:59 PM EDT CYTO DATA CONVERSION Routine 08/21/1999 12:00 AM EDT from Last 3 Months or Most Recently Relevant to Health Maintenance Results * (ABNORMAL) Prolactin (05/04/2025 10:58 AM EDT) Prolactin, Serum 53.4(H) 4.4 - 23.3 ng/mL 05/04/2025 2:12 PM EDT [facility] Blood Venous blood specimen / Unknown Venipuncture / Unknown 05/04/2025 10:58 AM EDT 05/04/2025 10:58 AM EDT Narrative [facility] - 05/04/2025 2:12 PM EDT Performed by Kimi electrochemiluminescent immunoassay which is traceable to the Prolactin 3rd IRP (WHO 84/500). Results obtained with different test methods or kits cannot be used interchangeably. Mercedez Alexander MD LAB BLOOD ORDERABLES Final Re sult Performing Organization Address City/[facility]/ZIP Co de Phone Number [facility] [address] [place] [address] * ACTH (05/04/2025 10:58 AM EDT) [facility] ACTH 36.3 7.2 - 63 pg/mL 05/04/2025 2:31 PM EDT [facility] Blood Venous blood specimen / Unknown Venipuncture / Unknown 05/04/2025 10:58 AM EDT 05/04/2025 10:58 AM EDT Mercedez Alexander MD LAB BLOOD ORDERABLES Final Re sult [facility] [address] [place] [address] * T4, free (05/04/2025 10:58 AM EDT) Free T4, Plasma 1.1 0.8 - 1.7 ng/dL 05/04/2025 2:10 PM EDT [facility] Blood Venous blood specimen / Unknown Venipuncture / Unknown 05/04/2025 10:58 AM EDT 05/04/2025 10:58 AM EDT us Mercedez Alexander MD LAB BLOOD ORDERABLES Final Re sult [facility] [address] [place] [address] * Luteinizing hormone (05/04/2025 10:58 AM EDT) Luteinizing Hormone 5.32 mIU/mL 05/04/2025 2:12 PM EDT [facility] Blood Venous blood specimen / Unknown Venipuncture / Unknown 05/04/2025 10:58 AM EDT 05/04/2025 10:58 AM EDT Narrative [facility] - 05/04/2025 2:12 PM EDT Female Reference Ranges: Deny Stage 1: < 9.4 mIU/mL Deny Stage 2: < 16.1 mIU/mL Deny Stage 3: < 23.1 mIU/mL Deny Stage 4-5: < 19.2 mIU/mL Adult Female >17 years: Follicular: 2.4 - 12.6 mIU/mL Midcycle: 14.0 - 95.6 mIU/mL Luteal: 1.0 - 11.5 mIU/mL Postmenopause: 7.7 - 58.5 mIU/mL us Mercedez Alexander MD LAB BLOOD ORDERABLES Final Re sult [facility] [address] [place] [address] * Follicle stimulating hormone (05/04/2025 10:58 AM EDT) FSH 14.5 mIU/mL 05/04/2025 2:1 2 PM EDT [facility] Blood Venous blood specimen / Unknown Venipuncture / Unknown 05/04/2025 10:58 AM EDT 05/04/2025 10:58 AM EDT Narrative [facility] - 05/04/2025 2:12 PM EDT [...] - 134.8 mIU/mL : low to undetectable us Mercedez Alexander MD LAB BLOOD ORDERABLES Final Re sult [facility] [address] [place] [address] * Cortisol (05/04/2025 10:58 AM EDT) Cortisol 12.20 Before 10am: 3.7 - 19.4. After 5pm: 2.9 - 17.3 ug/dL 05/04/2025 2:56 PM EDT [facility] Comment:Testing performed on Salgado Security Attendant, standardized against DETENTION Reference Standard concentration values assigned by LC-MS/MS and verified by BCR 192 and BCR 193 certified reference materials. Blood Venous blood specimen / Unknown Venipuncture / Unknown 05/04/2025 10:58 AM EDT 05/04/2025 10:58 AM EDT us Mercedez Alexander MD LAB REF LAB BLOOD AND FLUID O RD Final Result [facility] [address] [place] [address] * MR NEURO OUTSIDE IMAGES (03/22/2025 1:59 PM EDT) Anatomical Region Laterality Modality Magnetic Resonan ce 03/22/2025 1:59 PM EDT External Provider IMG MRI PROCEDURES Final Resul t * Cytology (08/21/1999 12:00 AM EDT) 08/21/1999 08/22/1999 Narrative [facility] - 09/17/1999 12:00 AM EST [facility] MR #: [id number] [facility] [place] [id number] 1955 (Age: 44) FW Collect Date: 08/21/1999 00:00 Receipt Date: 08/22/1999 00:00 Page 1 DEPARTMENT OF PATHOLOGY AND LABORATORY MEDICINE CYTOPATHOLOGY REPORT Email: [email or web address] * Converted Case * This report may [...] results is suggested (please call Microbiology at [phone] for results). CLINICAL INFORMATION: Menstrual History: {Not Provided} Date of Last Menstrual Period: {Not Provided} SPECIMEN DESCRIPTION: A: CERVICAL/VAGINAL SMEAR, PAP ICD: F: {Not Entered} SNOMED CODES: 1; [id number] In cases where a pathologist has signed out the report, the service has been rendered in part by a resident. The signing pathologist has performed and is responsible for the reported pathologic evaluation. Norman Hughes MD LAB PATHOLOGY ORDERABLES Final Result [facility] from Last 3 Months or Most Recently Relevant to Health Maintenance Insurance [facility] MEDIC[facility] Care Teams Dye Reel Operator Helper Relationship Specialty Start Date End Date Argelia Hughes, BURLING AND JOINING SUPERVISOR [address] [place] [id number] PCP - General 03/08/21
--- NOTE | 2025-05-26 14:15 | US_ITS ---
PROCEDURE INFORMATION: Exam: US Left Breast, Complete MG Left Diagnostic Breast Tomosynthesis Exam date and time: 05/26/2025 2:06 PM Age: 69 years old Clinical indication: Left breast palpable lump; Left breast thickening; PT states nipple discharge and she has elevated prolactin and pituatary tumor-- PT doesnt feel the area as well as she did last week TECHNIQUE: Imaging protocol: Complete ultrasound of all four quadrants of the left breast and the retroareolar regions, including ultrasound of the axilla when performed. Left Diagnostic tomosynthesis and 2D mammography including computer-aided detection (CAD) when performed. Unilateral or bilateral exam. COMPARISON: US BREAST LT COMPLETE 07/29/2023 2:52 PM Mammogram dated 06/14/2024 FINDINGS: MAMMOGRAPHY: Breast composition: The breasts are heterogeneously dense, which may obscure small masses. Breast mammogram findings: There is no stellate mass, architectural distortion or suspicious microcalcifications to suggest malignancy. No skin thickening or axillary adenopathy. A skin marker was placed over an area of palpable concern in the anterior left approximate 12 o'clock axis. No suspicious findings on routine or spot compression views ULTRASOUND: Breast ultrasound findings: Sonographic images of the left breast including the retroareolar region, all 4 quadrants and the axilla do not demonstrate any solid masses. This is with particular attention to the 12 o'clock axis 2 cm from the nipple where the patient reports a palpable abnormality. Hypoechoic mass in the left retroareolar region measuring 0.5 x 0.3 x 0.5 cm likely reflects a debris-filled cyst or portion of duct. No architectural distortion or acoustical shadowing. No skin thickening or axillary adenopathy. IMPRESSION: Probably benign incidental left retro areolar mass. A six-month follow-up targeted left breast ultrasound is recommended to ensure stability over time. No focal findings of the area of palpable concern.Further evaluation of a palpable abnormality should be based on clinical grounds regardless of radiographic findings or lack thereof. ASSESSMENT: BI-RADS Category 3: Probably benign.
== END 2025-05-26 23:59 | disposition home or self-care (01) ==
LOC: RAD 13:25
PROVIDERS: PCP Family Medicine; Visit Provider Family Medicine
DX: N63.42 Unspecified lump in left breast, subareolar (principal); N64.4 Mastodynia; R92.332 Mammographic heterogeneous density, left breast
CPT/HCPCS: 76641; 77061; 77065; G0279

== ENCOUNTER 2025-06-19 15:59 | Outpatient (CLI) | payer MEDICARE, SELFPAY ==
--- OUTSIDE RECORDS SUMMARY | 2025-05-04 10:20 | XMS_ITS | Encounter Summary ---
Author Organization [facility] Address [address] [place] [address] Care Team Providers Care Commercial Census Taker Name Role Phone Argelia Hughes APRN Primary Care Provider [phone] Reason for Referral * Consultation (Routine) - Authorized Specialty Diagnoses / Procedures Referred By Dinh spangler Referred To Contact Diagnoses Pituitary macroadenoma (CMS/HCC) History of surgical removal of pituitary gland Mercedez Alexander MD [address] [address] Phone: tel: fax: Referral ID Status Reason Start Date Expiration Date V isits Requested Visits Authorized [id number] Authorized 05/04/2025 11/03/2026 1 1 Reason for Visit * Reason Comments Hyperprolactinemia * Consultation (Routine) - Closed Specialty Diagnoses / Procedures Referred By Dinh spangler Referred To Contact Endocrinology Diagnoses Pituitary tumor Gilberto Israel MD Referral ID Status Reason Start Date Expiration Date V isits Requested Visits Authorized [id number] Closed Specialty Services Required 03/23/2025 09/22/2026 1 1 Encounter Details Date Type Department Care Team (Late st Contact Info) Description 05/04/2025 10:20 AM EDT Office Visit [facility] [address] [place] [address] Mercedez Alexander MD [address] [facility] [address] [place] [address] Pituitary macroadenoma (CMS/HCC) (Primary Dx); History of surgical removal of pituitary gland; Elevated prolactin level; Postoperative hypothyroidism Social History Tobacco Use Types Packs/Day Years Used Date Smoking Tobacco: Former Cigarettes 1 1975 Smokeless Tobacco: Never Tobacco Cessation:Counseling Given: [...] Sign Reading Time Taken Comments Blood Pressure 115/81 05/04/2025 9:58 AM EDT Pulse 68 05/04/2025 9:58 AM EDT Temperature - - Respiratory Rate - - Oxygen Saturation - - Inhaled Oxygen Concentration - - Weight 60.1 kg (132 lb 7.9 oz) 05/04/2025 9:58 A M EDT Height - - Body Mass Index 22.74 05/24/2024 1:32 PM EDT documented in this encounter Miscellaneous Notes * Progress Notes - Justin Hernandez MBBS - 05/04/2025 10:20 AM EDT Subjective: Chief Complaint: galactorrhea HPI Yesseniatayo Israel is a 69 y.o. female who presents to clinic for a follow up visit. Pt was previously seen in 01/2023. 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 Jose BOTELLO - initial MRI (05/2019): 2.8 x 1.8 x 2.1cm - PRL (2019): 27 - MRI (02/2022): stable size of residual tumor but increased cystic degeneration - most recent MRI ( 02/2025): right cavernous residual mass with small interval increase in size when compared to prior MRI last February - she has undergone mammogram in 06/06/2022: no ultrasound or mammographic evidence of malignancy. Repeat in 1 year. - pt was started on cabergoline 0.25mg twice weekly in 11/2022 - she tolerated the medication well, with no side effects - She stopped taking the medication in 02/2023 after her prolactin levels dropped to around 1.1 in 01/2023 - she denies any headaches/vision changes - she feels that her breasts are heavy and her nipples are retracting; denies any galactorrhea - she also reports some weight gain - patient has seen Neurosurgery recently in March 2025 who will follow up in 6 months with repeat MRI; have recommended psychiatry follow up for hallucinations and GI follow up for bloating # Hypothyroidism - pt is currently taking levothyroxine 25mcg daily - takes in AM along with her other morning meds (including vitamins), and waits 1-2 hours before eating Medical History, Family History, and Social History reviewed and unchanged since last visit. ROS Review of Systems Constitutional: Positive for fatigue, weight gain. Negative for appetite change, chills, diaphoresis, fever HENT: Negative for congestion, rhinorrhea and sore throat. Eyes: Negative for visual disturbance. Respiratory: Negative for cough and shortness of breath. Cardiovascular: Negative for chest pain, palpitations and leg swelling. Gastrointestinal: Negative for abdominal pain, constipation, diarrhea, nausea and vomiting, positive for bloating Endocrine: Negative for cold intolerance, heat intolerance, polydipsia, polyphagia and polyuria, positive for breast heaviness Genitourinary: Negative. Musculoskeletal: Negative. Skin: Negative. Neurological: Negative for tremors, weakness, numbness and headaches. Psychiatric/Behavioral: positive for hallucinations Objective: Vitals Visit Vitals BP 115/81 Pulse 68 Wt 60.1 kg (132 lb 7.9 oz) BMI 22.74 kg/m?? Physical Exam Physical Exam Constitutional: Appearance: Normal appearance. She is normal weight. Eyes: General: No scleral icterus. Pulmonary: Effort: Pulmonary effort is normal. Neurological: General: No focal deficit present. Mental Status: She is alert and oriented to person, place, and time. Psychiatric: Mood and Affect: Mood normal. Behavior: Behavior normal. Thought Content: Thought content normal. Judgment: Judgment normal. Current Medications Current Outpatient Medications Medication Instructions amLODIPine (NORVASC) 5 mg Aspirin Buf,MoDyly-JmRoeg-[id number], 81 MG tablet TAKE 1 TABLET DAILY. atorvastatin (Lipitor) 10 MG tablet atorvastatin (LIPITOR) 20 mg, Nightly bisoprolol (Zebeta) 5 MG tablet TAKE 1 TABLET 1 TIME EACH DAY FOR HIGH BLOOD PRESSURE bisoprolol (ZEBETA) 10 mg, Daily cabergoline (DOSTINEX) 0.25 mg, Oral, 2 times weekly Creon [id number] units capsule Take 1 capsule by mouth three times a day with meals levothyroxine (Synthroid, Levoxyl) 25 MCG tablet TAKE 1 TABLET ONCE A DAY IN THE MORNING ON AN EMPTY STOMACH. Linzess 72 MCG capsule capsule take one capsule (72 mcg) by mouth daily lisinopril 10 MG tablet 2 tablets (20 mg). lisinopril 40 mg, Daily lisinopril 20 mg, Daily LORazepam (Ativan) 0.5 MG tablet TAKE 1 TABLET 3 TIMES EACH DAY NEEDED metoprolol succinate XL (Toprol-XL) 100 MG 24 hr tablet metoprolol tartrate (Lopressor) 50 MG tablet Take by mouth. pantoprazole (PROTONIX) 40 mg sertraline (ZOLOFT) 25 mg, Nightly Simethicone (Phazyme Ultimate) 500 MG capsule Take by mouth. Most Recent Labs Latest Reference Range & Units 02/12/23 11:40 Prolactin 4.4 - 23.3 ng/mL 1.1 (L) Assessment Yessenia was seen today for hyperprolactinemia. 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 Garcia, cont - initial MRI (05/2019): 2.8 x 1.8 x 2.1cm - PRL (2018): 27, (2021): 46.8, (2022): 1.1 - most recent MRI (02/2025): Right cavernous residual with small interval increase in size when compared to prior MRI last February - pt was started on cabergoline 0.25mg twice weekly in , she tolerated the medication well, with no side effects - She stopped taking the medication in 02/2023 after her prolactin levels dropped to around 1.1 in 01/2023 - she denies any headaches/vision changes, however feels that her breasts are heavy and her nipplesare retracting; denies any galactorrhea - Saw Neurosurgery recently in March 2025 who will follow up in 6 months with repeat MRI; have recommended psychiatry follow up for hallucinations and GI follow up for bloating PLAN: - Repeat evaluation for hypopituitarism including prolactin, free T4, ACTH, cortisol, FSH and LH levels - depending on above lab results, will plan on restarting cabergoline # Hypothyroidism - cont levothyroxine 25mcg daily - TFT normal in 07/2022 - discussed with her to take LT4 on an empty stomach by itself with water, and waiting at least 30-40mins before taking her other meds or eating - repeat free T4 today to determine the need for dose adjustment if required Follow up: 1 year ARCHIE Lombardi Endocrinology Fellow PGY5 [facility] [address] [place] [address], [address] [place] [phone] Addendum: Latest Reference Range & Units 05/04/25 10:58 Free T4 0.8 - 1.7 ng/dL 1.1 Cortisol Before 10am: 3.7 - 19.4. After 5pm: 2.9 - 17.3 ug/dL 12.20 ACTH 7.2 - 63 pg/mL 36.3 Follicle Stimulating Hormone mIU/mL 14.5 LH mIU/mL 5.32 Prolactin 4.4 - 23.3 ng/mL 53.4 (H) (H): Data is abnormally high Communicated above lab results to patient. Explained to her that in view of normal free T4 levels, she can continue taking same dose of levothyroxine. Also for elevated prolactin levels, recommend starting cabergoline 0.25 mg twice weekly (prescriptions sent) and repeating PRL levels in 3 months (front office supervisor informed to send lab slips). Other labs including ACTH, cortisol, FSH and LH were unremarkable. She understood and agreed to the plan. Recommended to let us know if she has any side effects with the new medication. ARCHIE Lombardi, PGY 5, Endocrinology Fellow Cosigned by Mercedez Alexander MD at 05/09/2025 1:21 PM EDT Associated attestation - Mercedez Alexander MD - 05/09/2025 1:21 PM EDT I saw and evaluated the patient with the resident/fellow. I discussed the case with the resident/fellow and agree with the findings and plan as documented. documented in this encounter Plan of Treatment Upcoming Encounters Date Type Department Care Team (Late st Contact Info) Description 08/18/2025 3:00 PM EDT Office Visit [facility] [address] [facility] [place] [phone] Antonia Garcia MD [address] [facility] [address] [place] [phone] 08/22/2025 3:00 PM EDT Ovarian Cancer Screening [facility] [address] [place] [address] 09/29/2025 12:40 PM EST Appointment [facility] [address] [place] [address] 09/29/2025 2:15 PM EST Office Visit [facility] [address], [address] [place] [address] Damián Garcia MD [address] [facility] [address] [place] [address] 05/10/2026 10:20 AM EDT Office Visit [facility] End[facility] [address] [place] [address] Scheduled Orders Name Type Priority Associated Diagnoses Orde r Schedule Prolactin Lab Routine Elevated prolactin level Expected: 08/09/2025 (Approximate), Expires: 11/10/2026 Scheduled Referrals Name Type Priority Associated Diagnoses Orde r Schedule Follow Up [facility] Outpatient Referral Routine Pituitary macroadenoma (CMS/HCC) History of surgical removal of pituitary gland Expected: 05/04/2026 (Approximate), Expires: 11/05/2026 documented as of this encounter Results * Cortisol (05/04/2025 10:58 AM EDT) Cortisol 12.20 Before 10am: 3.7 - 19.4. After 5pm: 2.9 - 17.3 ug/dL 05/04/2025 2:56 PM EDT [facility] Comment:Testing performed on [employer], standardized against [employer] Reference Standard concentration values assigned by LC-MS/MS and verified by BCR 192 and BCR 193 certified reference materials. Blood Venous blood specimen / Unknown Venipuncture / Unknown 05/04/2025 10:58 AM EDT 05/04/2025 10:58 AM EDT us Mercedez Alexander MD LAB REF LAB BLOOD AND FLUID O RD Final Result [facility] [address] [place] [address] * ACTH (05/04/2025 10:58 AM EDT) ACTH 36.3 7.2 - 63 pg/mL 05/04/2025 2:31 PM EDT [facility] Blood Venous blood specimen / Unknown Venipuncture / Unknown 05/04/2025 10:58 AM EDT 05/04/2025 10:58 AM EDT us Mercedez Alexander MD LAB BLOOD ORDERABLES Final Re sult [facility] [address] [place] [address] * Follicle stimulating hormone (05/04/2025 10:58 AM EDT) FSH 14.5 mIU/mL 05/04/2025 2:1 2 PM EDT [facility] Blood Venous blood specimen / Unknown Venipuncture / Unknown 05/04/2025 10:58 AM EDT 05/04/2025 10:58 AM EDT Narrative [facility] - 05/04/2025 2:12 PM EDT FSH Female Reference Ranges: Deny Stage 1: 0.6 - 8.4 mIU/mL Deny Stage 2: 0.6 - 8.9 mIU/mL Deny Stage 3: 0.5 - 8.9 mIU/mL Deny Stage 4-5: 0.7 - 9.3 mIU/mL Adult Female >17 years: Follicular: 3.5 - 12.5 mIU/mL Midcycle: 4.7 - 21.5 mIU/mL Luteal: 1.7 - 7.7 mIU/mL Postmenopause: 25.8 - 134.8 mIU/mL : low to undetectable Mercedez Alexander MD LAB BLOOD ORDERABLES Final Re sult Performing Organization Address City/[facility]/ZIP Co de Phone Number [facility] [address] [place] [address] * Luteinizing hormone (05/04/2025 10:58 AM EDT) Luteinizing Hormone 5.32 mIU/mL 05/04/2025 2:12 PM EDT [facility] Blood Venous blood specimen / Unknown Venipuncture / Unknown 05/04/2025 10:58 AM EDT 05/04/2025 10:58 AM EDT Narrative [facility] - 05/04/2025 2:12 PM EDT Female Reference Ranges: Deny Stage 1: < 9.4 mIU/mL Deny Stage 2: < 16.1 mIU/mL Deny Stage 3: < 23.1 mIU/mL Deny Stage 4-5: < 19.2 mIU/mL Adult Female >17 years: Follicular: 2.4 - 12.6 mIU/mL Midcycle: 14.0 - 95.6 mIU/mL Luteal: 1.0 - 11.5 mIU/mL Postmenopause: 7.7 - 58.5 mIU/mL Mercedez Alexander MD LAB BLOOD ORDERABLES Final Re sult Performing Organization Address City/[facility] Co de Phone Number [facility] [address] [place] [address] * T4, free (05/04/2025 10:58 AM EDT) Free T4, Plasma 1.1 0.8 - 1.7 ng/dL 05/04/2025 2:10 PM EDT [facility] Blood Venous blood specimen / Unknown Venipuncture / Unknown 05/04/2025 10:58 AM EDT 05/04/2025 10:58 AM EDT Mercedez Alexander MD LAB BLOOD ORDERABLES Final Re sult Performing Organization Address [facility] Co de Phone Number [facility] [address] [place] [address] * (ABNORMAL) Prolactin (05/04/2025 10:58 AM EDT) Prolactin, Serum 53.4(H) 4.4 - 23.3 ng/mL 05/04/2025 2:12 PM EDT [facility] Blood Venous blood specimen / Unknown Venipuncture / Unknown 05/04/2025 10:58 AM EDT 05/04/2025 10:58 AM EDT Narrative [facility] - 05/04/2025 2:12 PM EDT Performed by Kimi electrochemiluminescent immunoassay which is traceable to the Prolactin 3rd IRP (WHO 84/500). Results obtained with different test methods or kits cannot be used interchangeably. us Mercedez Alexander MD LAB BLOOD ORDERABLES Final Re sult [facility] [address] [place] [address] documented in this encounter Visit Diagnoses Diagnosis Pituitary macroadenoma (CMS/HCC)- Primary Benign neoplasm of pituitary gland and craniopharyngeal duct (pouch) History of surgical removal of pituitary gland Elevated prolactin level Postoperative hypothyroidism Postsurgical hypothyroidism documented in this encounter Additional Health Concerns Assessment Noted Time A fall risk assessment has been complete d for the patient 03/31/2025 3:01 PM EDT A Body Mass Index follow-up plan has been documented for the patient 05/09/2025 1:21 PM EDT documented as of this encounter Care Teams Commercial Census Taker Relationship Specialty Start Date End Date Argelia Hughes APRN [address] [place] [address] PCP - General 03/08/21 documented as of this encounter
--- OUTSIDE RECORDS SUMMARY | 2025-06-19 16:02 | XMS_ITS | Encounter Summary ---
Author Organization Healthcare Address [address] [place] [address] Care Team Providers Care Metallurgical Engineering Technician Name Role Phone Argelia Hughes SPOT WELDER LINE Primary Care Provider [phone] Encounter Details Date Type Department Care Team ([facility] Contact Info) Description 10/16/2022 Community [facility] Community Practice [address] [place] [address] Argelia Hughes, SPOT WELDER LINE [address] [place], [place] [id number] Unspecified dental caries (Primary Dx) Social History [...] Description 08/18/2025 3:00 PM EDT Office Visit [facility] [address] [place] [address] Antonia Garcia MD [address] [address] 08/22/2025 3:00 PM EDT Ovarian Cancer Screening [facility] Gynecology 800 [facility], 3rd [place] [address] 09/29/2025 12:40 PM EST Appointment P[facility] A Radiology [address] [place] [address] 09/29/2025 2:15 PM EST Office Visit [place] [facility] [address], 1st [place] [address] Damián Garcia MD [address] [place] [address] 05/10/2026 10:20 AM EDT Office Visit [facility] Endocrinology [address] [place] [address] documented as of this encounter Visit Diagnoses Diagnosis Unspecified dental caries- Primary documented in this encounter Additional Health Concerns Assessment Noted Time A fall risk assessment has been complete d for the patient 08/21/2022 9:38 AM EDT documented as of this encounter Care Teams Metallurgical Engineering Technician Relationship Specialty Start Date End Date Argelia Hughes, SPOT WELDER LINE [address] [place] [address] PCP - General 03/08/21 documented as of this encounter
--- OUTSIDE RECORDS SUMMARY | 2025-06-19 16:02 | XMS_ITS | Encounter Summary ---
Author Organization Healthcare Address [address] [place] [address] Care Team Providers Care Marketing Clerk Name Role Phone Argelia Hughes APRN Primary Care Provider [phone] Encounter Details Date Type Department Care Team (Late st Contact Info) Description 05/04/2025 [facility] [address] [place] [address] Mercedez Alexander MD 2[address] [facility] [address] [place] [address] Social History Tobacco Use Types [...] results with PT denise Best contact number: [phone] (home) Optimal time of day to reach [...] and isrequesting a callback. Best contact number: [phone] (home) Optimal time of day to reach [...] Description 08/18/2025 3:00 PM EDT Office Visit [facility] [address] [facility] [place] [address] Antonia Garcia MD [address] [place] [address] 08/22/2025 3:00 PM EDT Ovarian Cancer Screening [facility] Gynecology [address], 3rd [place] [address] 09/29/2025 12:40 PM EST Appointment P[facility] A Radiology [address] [place] [address] 09/29/2025 2:15 PM EST Office Visit [place] [facility] [address], 1st [place] [address] Damián Garcia MD [address] [place] [address] 05/10/2026 10:20 AM EDT Office Visit [facility] Endocrinology [address] [place] [address] documented as of this encounter Visit Diagnoses Not on filedocumented in this encounter Additional Health Concerns Assessment Noted Time A fall risk assessment has been complete d for the patient 03/31/2025 3:01 PM EDT A Body Mass Index follow-up plan has been documented for the patient 05/09/2025 1:21 PM EDT documented as of this encounter Care Teams Marketing Clerk Relationship Specialty Start Date End Date Argelia Hughes, MEJIA [address] [place] [address] PCP - General 03/08/21 documented as of this encounter
--- OUTSIDE RECORDS SUMMARY | 2025-06-19 16:02 | XMS_ITS | Encounter Summary ---
Author Organization Healthcare Address [address] [place] [address] Care Team Providers Care Water Reclamation Systems Operator Name Role Phone HughesArgelia day Darin BA Primary Care Provider [phone] Encounter Details Date Type Department Care Team (Late Contact Info) Description 09/29/2019 Abstract [facility] CC Radiation 800 [facility]. [address] [place] [address] Elisa Snowden RN [facility] Social [...] Description 08/18/2025 3:00 PM EDT Office Visit [facility] [address] [place] [address] Antonia Garcia MD [address] [address] 08/22/2025 3:00 PM EDT Ovarian Cancer Screening [facility] Gynecology [address], 3rd [place] [address] 09/29/2025 12:40 PM EST Appointment [facility] A Radiology [address] [place] [address] 09/29/2025 2:15 PM EST Office Visit [place] [facility] [address], 1st [place] [address] Damián Garcia MD [address] [place] [address] 05/10/2026 10:20 AM EDT Office Visit [facility] Endocrinology [address] [place] [address] documented as of this encounter Visit Diagnoses Not on filedocumented in this encounter Care Teams Water Reclamation Systems Operator Relationship Specialty Start Date End Date Argelia Hughes, SUPERINTENDENT STATIONS [address] [place] [id number] PCP - General 03/08/21 documented as of this encounter
--- OUTSIDE RECORDS SUMMARY | 2025-06-19 16:02 | XMS_ITS | Encounter Summary ---
Author Organization Healthcare Address [address] [place] [address] Care Team Providers Care Industrial Aerial Installer Name Role Phone Argelia Hughes APRN Primary Care Provider [phone] Encounter Details Date Type Department Care Team (Late st Contact Info) Description 04/03/2025 Telephone [place] [facility] [address], 1st [place] [address] Damián Garcia MD [address] [place] [address] Social History Tobacco Use Types [...] and believes her growing belly might be Eitan's Disease. I discussed with her that when [...] optimal time of day to reach caller: [phone] Note: Please do not reply to this [...] Description 08/18/2025 3:00 PM EDT Office Visit [facility] [address] [place] [address] Antonia Garcia MD [address] [place] [address] 08/22/2025 3:00 PM EDT Ovarian Cancer Screening [facility] Gynecology [address], 3rd [place] [address] 09/29/2025 12:40 PM EST Appointment [facility] A Radiology [address] [place] [address] 09/29/2025 2:15 PM EST Office Visit [place] [facility] [address], 1st [place] [address] Damián Garcia MD [address] [place] [address] 05/10/2026 10:20 AM EDT [facility] [address] [place] [address] documented as of this encounter Visit Diagnoses Not on filedocumented in this encounter Additional Health Concerns Assessment Noted Time A fall risk assessment has been complete d for the patient 03/31/2025 3:01 PM EDT A Body Mass Index follow-up plan has been documented for the patient 03/31/2025 3:41 PM EDT documented as of this encounter Care Teams Industrial Aerial Installer Relationship Specialty Start Date End Date Argelia Hughes, SENIOR CONSTRUCTION PROJECT MANAGER [address] [place], [place] [phone] PCP - General 03/08/21 documented as of this encounter
--- OUTSIDE RECORDS SUMMARY | 2025-06-19 16:02 | XMS_ITS | Encounter Summary ---
Author Organization Healthcare Address [address] [place] [address] Care Team Providers Care Casino Host Name Role Phone Argelia Hughes APRN Primary Care Provider [phone] Encounter Details Date Type Department Care Team (Late st Contact Info) Description 03/28/2025 Telephone [facility] [address], 1st [place] [address] Damián Garcia MD [address] [place] [address] Social History Tobacco Use Types [...] optimal time of day to reach caller: [phone] Yessenia Note: Please do not reply to [...] that were done on March 22 at [facility]. Please advise. Best contact number and optimal time of day to reach caller: [phone] Note: Please do not reply to this [...] Description 08/18/2025 3:00 PM EDT Office Visit [facility] [address] [place] [address] Antonia Garcia MD [address] [place] [address] 08/22/2025 3:00 PM EDT Ovarian Cancer Screening [facility] Gynecology [address], 3rd [place] [address] 09/29/2025 12:40 PM EST Appointment [facility] A Radiology [address] [place] [address] 09/29/2025 2:15 PM EST Office Visit [place] [facility] [address], 1st [place] [address] Damián Garcia MD [address] [facility] [address] [place] [address] 05/10/2026 10:20 AM EDT [facility] [address] [place] [address] documented as of this encounter Visit Diagnoses Not on filedocumented in this encounter Additional Health Concerns Assessment Noted Time A fall risk assessment has been complete d for the patient 03/03/2025 1:41 PM EDT A Body Mass Index follow-up plan has been documented for the patient 03/06/2025 7:06 PM EDT documented as of this encounter Care Teams Casino Host Relationship Specialty Start Date End Date Argelia Hughes, MANAGER SOURCING [address] [place] [address] PCP - General 03/08/21 documented as of this encounter
--- OUTSIDE RECORDS SUMMARY | 2025-06-19 16:02 | XMS_ITS | Encounter Summary ---
Author Organization Healthcare Address [address] [place] [address] Care Team Providers Care Concreting Supervisor Name Role Phone HughesArgelia day Darin BA Primary Care Provider [phone] Encounter Details Date Type Department Care Team [...] Description 08/18/2025 3:00 PM EDT Office Visit [facility] Care [address] [place] [address] Antonia Garcia MD [address] [address] 08/22/2025 3:00 PM EDT Ovarian Cancer Screening [facility] Gynecology [address], 3rd [place] [address] 09/29/2025 12:40 PM EST Appointment [facility] A Radiology [address] [place] [address] 09/29/2025 2:15 PM EST Office Visit [place] [facility] [address], 1st [place] [address] Damián Garcia MD [address] [place] [address] 05/10/2026 10:20 AM EDT Office Visit [facility] Endocrinology [address] [place] [address] documented as of this encounter Visit Diagnoses Not on filedocumented in this encounter Additional Health Concerns Assessment Noted Time A fall risk assessment has been complete d for the patient 03/31/2025 3:01 PM EDT A Body Mass Index follow-up plan has been documented for the patient 05/09/2025 1:21 PM EDT documented as of this encounter Care Teams Concreting Supervisor Relationship Specialty Start Date End Date Argelia Hughes, MEJIA [address] [place] [address] PCP - General 03/08/21 documented as of this encounter
--- OUTSIDE RECORDS SUMMARY | 2025-06-19 16:02 | XMS_ITS | Clinical Summary ---
Author Organization [facility] Address [address] [place] [address] Care Team Providers Care Recycler Forklift Driver Truck Driver Name Role Phone Argelia Hughes APRN Primary Care Provider [phone] Allergies Active Allergy Reactions Criticality Noted Date [...] (Lipitor) 10 MG tablet 0 Active Aspirin Buf,RlRzwl-YrOnlw-E gO, 81 MG tablet TAKE 1 TABLET DAILY. 0 Active lisinopril 10 MG tablet 2 tablets (20 mg). 2 Active LORazepam (Ativan) 0.5 MG tablet TAKE 1 TABLET 3 TIMES EACH DAY NEEDED 2 Active bisoprolol (Zebeta) 5 MG tablet TAKE 1 TABLET 1 TIME EACH DAY FOR HIGH BLOOD PRESSURE 2 Active Creon 83469-38[address] units capsule Take 1 capsule by mouth [...] mouth. Active levothyroxine (Synthroid, Levoxyl) 25 MCG tabletIndications:P ostoperative hypothyroidism Take 1 tablet by mouth daily. 90 tablet 3 5 Active cabergoline (Dostinex) 0.5 MG tabletIndications:E levated prolactin level Take 0.5 tablets by mouth 2 times a week. 12 tablet 3 5 05/11/20 26 Active Active Problems Problem Noted Date Diagnosed Date [...] Type Department Care Team Description 05/08/2025 Telephone [facility] Endocrinology [address] [place] [address] Mercedez Alexander MD 05/04/2025 10:20 AM EDT Office Visit [facility] Endocrinology [address] [place] [address] Mercedez Alexander MD Pituitary macroadenoma (CMS/HCC) (Primary Dx); History of surgical removal of pituitary gland; Elevated prolactin level; Postoperative hypothyroidism 05/04/2025 Telephone [facility] Endocrinology [address] [place] [address] Mercedez Alexander MD 05/04/2025 Travel 04/03/2025 Telephone [facility] Endocrinology [address] [place] [address] Mercedez Alexander MD HCN - Patient Message 04/03/2025 Telephone [facility] [address], 1st [place] [address] Damián Garcia MD 03/31/2025 3:00 PM EDT Office Visit [facility] [address], [address]st [place] [address] Damián Garcia MD Pituitary macroadenoma (CMS/HCC) (Primary Dx) 03/31/2025 Travel 03/28/2025 Telephone [facility] [address], [address]st [place] [address] Damián Garcia MD 03/22/2025 Orders Only External Location [address] [place] [address] Provider, External from Last 3 Months Immunizations Immunization Administration [...] 1 971 - 1975 Smokeless Tobacco: Never Tobacco Cessation:Counseling [...] Description 08/18/2025 3:00 PM EDT Office Visit [facility] Care [address] [place] [address] Antonia Garcia MD [address] [phone] 08/22/2025 3:00 PM EDT Ovarian Cancer Screening [facility] Gynecology [address], 3rd [place] [address] 09/29/2025 12:40 PM EST Appointment [facility] A Radiology [address] [place] [address] 09/29/2025 2:15 PM EST Office Visit [place] [facility] [address], 1st [place] [address] Damián Garcia MD [address] [place] [address] 05/10/2026 10:20 AM EDT Office Visit [facility] Endocrinology [address] [place] [address] Health Maintenance Due Date Last Done Comments [facility]-Bone Density Scan 1955 [facility]-Hepatitis C Screening 1955 [facility]-Medicare Annual Wellness (AWV) 1955 [facility]-/Child/Adol SDOH Screenings 1955 [id number] Vaccine (#1) 1960 [facility]- SDOH Screenings 1973 [...] - 23.3 ng/mL 05/04/2025 2:12 PM EDT [facility] Blood Venous blood specimen / Unknown Venipuncture / Unknown 05/04/2025 10:58 AM EDT 05/04/2025 10:58 AM EDT Narrative [facility] - 05/04/2025 2:12 PM EDT Performed by Kimi electrochemiluminescent immunoassay which is traceable to the Prolactin 3rd IRP (WHO 84/500). Results obtained with different test methods or kits cannot be used interchangeably. us Mercedez Alexander MD LAB BLOOD ORDERABLES Final Re sult Performing Organization Address [facility] Co de Phone Number [facility] [address] [place] [address] * ACTH (05/04/2025 10:58 AM EDT) ACTH 36.3 7.2 - 63 pg/mL 05/04/2025 2:31 PM EDT [facility] Blood Venous blood specimen / Unknown Venipuncture / Unknown 05/04/2025 10:58 AM EDT 05/04/2025 10:58 AM EDT us Mercedez Alexander MD LAB BLOOD ORDERABLES Final Re sult Performing Organization Address [facility] Co de Phone Number [facility] [address] [place] [address] * T4, free (05/04/2025 10:58 AM EDT) Free T4, Plasma 1.1 0.8 - 1.7 ng/dL 05/04/2025 2:10 PM EDT [facility] Blood Venous blood specimen / Unknown Venipuncture / Unknown 05/04/2025 10:58 AM EDT 05/04/2025 10:58 AM EDT us Mercedez Alexander MD LAB BLOOD ORDERABLES Final Re sult Performing Organization Address [facility] Co de Phone Number [facility] [address] [place] [address] * Luteinizing hormone (05/04/2025 10:58 AM EDT) Luteinizing Hormone 5.32 mIU/mL 05/04/2025 2:12 PM EDT [facility] Blood Venous blood specimen / Unknown Venipuncture / Unknown 05/04/2025 10:58 AM EDT 05/04/2025 10:58 AM EDT Narrative [facility] - 05/04/2025 2:12 PM EDT [...] MD LAB BLOOD ORDERABLES Final Re sult [facility] [address] [place] [address] * Follicle stimulating hormone (05/04/2025 10:58 AM EDT) FSH 14.5 mIU/mL 05/04/2025 2:1 2 PM EDT [facility] Blood Venous blood specimen / Unknown Venipuncture / Unknown 05/04/2025 10:58 AM EDT 05/04/2025 10:58 AM EDT Narrative [facility] - 05/04/2025 2:12 PM EDT [...] ORDERABLES Final Re sult Performing Organization Address [facility] Co de Phone Number [facility] [address] [place] [address] * Cortisol (05/04/2025 10:58 AM EDT) [facility] Cortisol 12.20 Before 10am: 3.7 - 19.4. After 5pm: 2.9 - 17.3 ug/dL 05/04/2025 2:56 PM EDT [facility] Comment:Testing performed on [employer] Range Attendant, standardized against PRISON Reference Standard concentration values assigned by LC-MS/MS and verified by BCR 192 and BCR 193 certified reference materials. Blood Venous blood specimen / Unknown Venipuncture / Unknown 05/04/2025 10:58 AM EDT 05/04/2025 10:58 AM EDT Mercedez Alexander MD LAB REF LAB BLOOD AND FLUID O RD Final Result Performing Organization Address [facility] Co de Phone Number [facility] [address] [place] [address] * MR NEURO OUTSIDE IMAGES (03/22/2025 1:59 PM EDT) Anatomical Region Laterality Modality Magnetic Resonan ce 03/22/2025 1:59 PM EDT us External Provider IMG MRI PROCEDURES Final Resul t * Cytology (08/21/1999 12:00 AM EDT) 08/21/1999 08/22/1999 Narrative [facility] - 09/17/1999 12:00 AM EST [facility] MR #: [id number] [facility] [place] [address] 1955 (Age: 44) FW Collect Date: 08/21/1999 00:00 Receipt Date: 08/22/1999 00:00 Page 1 DEPARTMENT OF PATHOLOGY AND LABORATORY MEDICINE CYTOPATHOLOGY REPORT Email: [email or web address] [email or web address] * Converted Case * This report may [...] results is suggested (please call Microbiology at [phone] for results). CLINICAL INFORMATION: Menstrual History: {Not Provided} Date of Last Menstrual Period: {Not Provided} SPECIMEN DESCRIPTION: A: CERVICAL/VAGINAL SMEAR, PAP ICD: F: {Not Entered} SNOMED CODES: 1; [id number] [id number] In cases where a pathologist has signed out the report, the service has been rendered in part by a resident. The signing pathologist has performed and is responsible for the reported pathologic evaluation. Norman Hughes MD LAB PATHOLOGY ORDERABLES Final Result [facility] from Last 3 Months or Most Recently Relevant to Health Maintenance [facility] [employer] MEDICARE Care Teams Recycler Forklift Driver Truck Driver Relationship Specialty Start Date End Date Argelia Hughes APRN [address] [place] [address] PCP - General 03/08/21
--- OUTSIDE RECORDS SUMMARY | 2025-06-19 16:02 | XMS_ITS | Encounter Summary ---
Author Organization Healthcare Address [address] [place] [address] Care Team Providers Care Merchandising Manager Name Role Phone Argelia Hughes ASSOCIATE DIRECTOR REGULATORY AFFAIRS Primary Care Provider [phone] Encounter Details Date Type Department Care Team ([facility] Contact Info) Description 09/26/2022 Community [facility] Community Practice [address] [place] [address] Argelia Hughes, ASSOCIATE DIRECTOR REGULATORY AFFAIRS [address] [place], [place] [id number] Dental caries (Primary Dx) Social History Tobacco [...] Encounters Date Type Department Care Team ([facility] Contact Info) Description 08/18/2025 3:00 PM EDT Office Visit [facility] Advanced Eye Care [address] [place] [address] Antonia Garcia MD [address] [address] 08/22/2025 3:00 PM EDT Ovarian Cancer Screening [facility] Gynecology 800 [facility], 3rd [place] [address] 09/29/2025 12:40 PM EST Appointment [facility] A Radiology [address] [place] [address] 09/29/2025 2:15 PM EST Office Visit [place] [facility] [address], 1st [place] [address] Damián Garcia MD [address] [place] [address] 05/10/2026 10:20 AM EDT Office Visit [facility] Endocrinology [address] [place] [address] documented as of this encounter Visit Diagnoses Diagnosis Dental caries- Primary Unspecified dental caries documented in this encounter Additional Health Concerns Assessment Noted Time A fall risk assessment has been complete d for the patient 08/21/2022 9:38 AM EDT documented as of this encounter Care Teams Merchandising Manager Relationship Specialty Start Date End Date Argelia Hughes, ASSOCIATE DIRECTOR REGULATORY AFFAIRS [address] [place] [address] PCP - General 03/08/21 documented as of this encounter
--- OUTSIDE RECORDS SUMMARY | 2025-06-19 16:02 | XMS_ITS | Encounter Summary ---
Author Organization Healthcare Address [address] [place] [address] Care Team Providers Care Brazing Machine Tender Name Role Phone Ellen Argelia Webster APRN Primary Care Provider [phone] Encounter Details Date Type Department Care Team (Late Contact Info) Description 03/04/2023 Telephone [facility] [address] [phone] Dental, Provider, DDS Counts include 234 beds at the [facility] [place] [address] Social History Tobacco Use Types Packs/Day Years [...] Upcoming Encounters Date Type Department Care Team ([facility] Contact Info) Description 08/18/2025 3:00 PM EDT Office Visit [facility] Advanced Eye Care [address] [place] [address] Antonia Garcia MD [address] [place] [address] 08/22/2025 3:00 PM EDT Ovarian Cancer Screening [facility] Gynecology [address], 3rd [place] [address] 09/29/2025 12:40 PM EST Appointment [facility] A Radiology [address] [place] [address] 09/29/2025 2:15 PM EST Office Visit [place] [facility] [address], 1st [place] [address] Damián Garcia MD [address] [place] [address] 05/10/2026 10:20 AM EDT Office Visit [facility] Endocrinology [address] [place] [address] documented as of this encounter Visit Diagnoses Not on filedocumented in this encounter Additional Health Concerns Assessment Noted Time A fall risk assessment has been complete d for the patient 02/12/2023 10:31 AM EDT documented as of this encounter Care Teams Brazing Machine Tender Relationship Specialty Start Date End Date Argelia Hughes, SECOND GRADE TEACHER [address] [place] [address] PCP - General 03/08/21 documented as of this encounter
--- OUTSIDE RECORDS SUMMARY | 2025-06-19 16:02 | XMS_ITS | Encounter Summary ---
Author Organization Healthcare Address [address] [place] [address] Care Team Providers Care Button Station Worker Name Role Phone Argelia Hughes APRN Primary Care Provider [phone] Encounter Details Date Type Department Care Team (Late st Contact Info) Description 05/08/2025 Telephone [facility] Endocrinology [address] [place] [address] Mercedez Alexander MD [address] [facility] [address] [place] [address] Social History Tobacco Use Types [...] lab on prolactin level Best contact number: [phone] (home) Optimal time of day to reach [...] Description 08/18/2025 3:00 PM EDT Office Visit [facility] [address] [place] [address] Antonia Garcia MD [address] [place] [address] 08/22/2025 3:00 PM EDT Ovarian Cancer Screening [facility] Gyne[facility] [address], 3rd [place] [address] 09/29/2025 12:40 PM EST Appointment [facility] A Radiology [address] [place] [address] 09/29/2025 2:15 PM EST [facility] Visit [facility] [address], 1st [place] [address] Damián Garcia MD [address] [facility] [address] [place] [address] 05/10/2026 10:20 AM EDT [facility] [address] [place] [address] documented as of this encounter Visit Diagnoses Not on filedocumented in this encounter Additional Health Concerns Assessment Noted Time A fall risk assessment has been complete d for the patient 03/31/2025 3:01 PM EDT A Body Mass Index follow-up plan has been documented for the patient 05/09/2025 1:21 PM EDT documented as of this encounter Care Teams Button Station Worker Relationship Specialty Start Date End Date Argelia Hughes, CAPTAIN WAITER [facility] [place] [address] PCP - General 03/08/21 documented as of this encounter
--- OUTSIDE RECORDS SUMMARY | 2025-06-19 16:02 | XMS_ITS | Encounter Summary ---
Author Organization Healthcare Address [address] [place] [address] Care Team Providers Care Auto Salvage Worker Name Role Phone Ellen Argelia Webster APRN Primary Care Provider [phone] Encounter Details Date Type Department Care Team (Late Contact Info) Description 03/04/2023 Telephone [facility] [address] [phone] Dental, Provider, DDS [facility] [place] [address] Social History Tobacco Use Types Packs/Day Years [...] Upcoming Encounters Date Type Department Care Team ([facility] Contact Info) Description 08/18/2025 3:00 PM EDT Office Visit [facility] [address] [place] [address] Antonia Garcia MD [address] [place] [address] [place] [address] 08/22/2025 3:00 PM EDT Ovarian Cancer Screening [facility] Gynecology [address], 3rd [place] [address] 09/29/2025 12:40 PM EST Appointment [facility] A Radiology [address] [place] [address] 09/29/2025 2:15 PM EST Office Visit [place] [facility] [address], 1st [place] [address] Damián Garcia MD [address] [place] [address] 05/10/2026 10:20 AM EDT Office Visit [facility] Endocrinology [address] [place] [address] documented as of this encounter Visit Diagnoses Not on filedocumented in this encounter Additional Health Concerns Assessment Noted Time A fall risk assessment has been complete d for the patient 02/12/2023 10:31 AM EDT documented as of this encounter Care Teams Auto Salvage Worker Relationship Specialty Start Date End Date Argelia Hughes, KENNEL SUPERVISOR [address] [place] [address] PCP - General 03/08/21 documented as of this encounter
== END 2025-06-19 23:59 | disposition home or self-care (01) ==
LOC: RAD 16:00
PROVIDERS: PCP Family Medicine; Visit Provider Family Medicine
DX: Z12.31 Encounter for screening mammogram for malignant neoplasm of breast (principal)
CPT/HCPCS: 77063; 77067

== ENCOUNTER 2025-07-03 11:50 | Outpatient (CLI) | payer MEDICARE, SELFPAY ==
--- OUTSIDE RECORDS SUMMARY | 2025-05-04 10:20 | XMS_ITS | Encounter Summary ---
Author Organization [facility] Address [address] [place] [address] Care Team Providers Care Corporate Events Director Name Role Phone Argelia Hughes APRN Primary Care Provider [phone] Reason for Referral * Consultation (Routine) - Authorized Specialty Diagnoses / Procedures Referred By Dinh spangler Referred To Contact Diagnoses Pituitary macroadenoma (CMS/HCC) History of surgical removal of pituitary gland Mercedez Alexander MD [address] [address] Phone: tel: fax: Referral ID Status Reason Start Date Expiration Date V isits Requested Visits Authorized [id number] Authorized 05/04/2025 11/03/2026 1 1 Reason for Visit * Reason Comments Hyperprolactinemia * Consultation (Routine) - Closed Specialty Diagnoses / Procedures Referred By Dinh spangler Referred To Contact Endocrinology Diagnoses Pituitary tumor Gilberto Israel MD Referral ID Status Reason Start Date Expiration Date V isits Requested Visits Authorized [id number] Closed Specialty Services Required 03/23/2025 09/22/2026 1 1 Encounter Details Date Type Department Care Team (Late st Contact Info) Description 05/04/2025 10:20 AM EDT Office Visit [facility] [address] [place] [address] Mercedez Alexander MD [address] [facility] [address] [place] [address] Pituitary macroadenoma (CMS/HCC) (Primary Dx); [...] Medication Instructions amLODIPine (NORVASC) 5 mg Aspirin Buf,FgRtqi-PxJght-FjU, 81 MG tablet TAKE 1 TABLET DAILY. atorvastatin (Lipitor) 10 MG tablet atorvastatin (LIPITOR) 20 mg, Nightly bisoprolol (Zebeta) 5 MG tablet TAKE 1 TABLET 1 TIME EACH DAY FOR HIGH BLOOD PRESSURE bisoprolol (ZEBETA) 10 mg, Daily cabergoline (DOSTINEX) 0.25 mg, Oral, 2 times weekly Creon [id number] units capsule Take 1 capsule by mouth [...] 1 year ARCHIE Lombardi Endocrinology Fellow PGY5 [facility] [address] [place] [address], [address] [place] [phone] Addendum: Latest Reference Range & Units [...] repeating PRL levels in 3 months (front end architect informed to send lab slips). Other labs [...] Description 08/18/2025 3:00 PM EDT Office Visit [facility] [address] [facility] [place] [phone] Antonia Garcia MD [address] [facility] [address] [place] [phone] 08/22/2025 3:00 PM EDT Ovarian Cancer Screening [facility] [address] [place] [address] 09/29/2025 12:40 PM EST Appointment [facility] [address] [place] [address] 09/29/2025 2:15 PM EST Office Visit [facility] [address] [place] [address] Damián Garcia MD [address] [facility] [address] [place] [address] 05/10/2026 10:20 AM EDT Office Visit [facility] Endocrinology [address] [place] [address] Scheduled Orders Name Type Priority Associated Diagnoses Orde r Schedule Prolactin Lab Routine Elevated prolactin level Expected: 08/09/2025 (Approximate), Expires: 11/10/2026 Scheduled Referrals Name Type Priority Associated Diagnoses Orde r Schedule Follow Up [facility] Outpatient Referral Routine Pituitary macroadenoma (CMS/HCC) History of surgical removal of pituitary gland Expected: 05/04/2026 (Approximate), Expires: 11/05/2026 documented as of this encounter Results * Cortisol (05/04/2025 10:58 AM EDT) Cortisol 12.20 Before 10am: 3.7 - 19.4. After 5pm: 2.9 - 17.3 ug/dL 05/04/2025 2:56 PM EDT [facility] Comment:Testing performed on [employer], standardized against [facility] Reference Standard concentration values assigned by LC-MS/MS and verified by BCR 192 and BCR 193 certified reference materials. Blood Venous blood specimen / Unknown Venipuncture / Unknown 05/04/2025 10:58 AM EDT 05/04/2025 10:58 AM EDT us Mercedez Alexander MD LAB REF LAB BLOOD AND FLUID O RD Final Result [facility] [address] [place] [address] * ACTH (05/04/2025 10:58 AM EDT) ACTH 36.3 7.2 - 63 pg/mL 05/04/2025 2:31 PM EDT [facility] Blood Venous blood specimen / Unknown Venipuncture / Unknown 05/04/2025 10:58 AM EDT 05/04/2025 10:58 AM EDT us Mercedez Alexander MD LAB BLOOD ORDERABLES Final Re sult [facility] [address] [place] [address] * Follicle stimulating hormone (05/04/2025 10:58 AM EDT) FSH 14.5 mIU/mL 05/04/2025 2:1 2 PM EDT [facility] Blood Venous blood specimen / Unknown Venipuncture / Unknown 05/04/2025 10:58 AM EDT 05/04/2025 10:58 AM EDT Narrative [facility] - 05/04/2025 2:12 PM EDT FSH Female Reference Ranges: Deny Stage 1: 0.6 - 8.4 mIU/mL Deny Stage 2: 0.6 - 8.9 mIU/mL Deny Stage 3: 0.5 - 8.9 mIU/mL Dney Stage 4-5: 0.7 - 9.3 mIU/mL Adult Female >17 years: Follicular: 3.5 - 12.5 mIU/mL Midcycle: 4.7 - 21.5 mIU/mL Luteal: 1.7 - 7.7 mIU/mL Postmenopause: 25.8 - 134.8 mIU/mL : low to undetectable Mercedez Alexander MD LAB BLOOD ORDERABLES Final Re sult Performing Organization Address City/[facility]/ZIP Co de Phone Number [facility] [address] [place] [address] * Luteinizing hormone (05/04/2025 10:58 AM EDT) Luteinizing Hormone 5.32 mIU/mL 05/04/2025 2:12 PM EDT [facility] Blood Venous blood specimen / Unknown Venipuncture / Unknown 05/04/2025 10:58 AM EDT 05/04/2025 10:58 AM EDT Narrative [facility] - 05/04/2025 2:12 PM EDT Female [...] ORDERABLES Final Re sult Performing Organization Address City/[facility] Co de Phone Number [facility] [address] [place] [address] * T4, free (05/04/2025 10:58 AM EDT) Free T4, Plasma 1.1 0.8 - 1.7 ng/dL 05/04/2025 2:10 PM EDT [facility] Blood Venous blood specimen / Unknown Venipuncture / Unknown 05/04/2025 10:58 AM EDT 05/04/2025 10:58 AM EDT Mercedez Alexander MD LAB BLOOD ORDERABLES Final Re sult Performing Organization Address [facility] Co de Phone Number [facility] [address] [place] [address] * (ABNORMAL) Prolactin (05/04/2025 10:58 AM EDT) Prolactin, Serum 53.4(H) 4.4 - 23.3 ng/mL 05/04/2025 2:12 PM EDT [facility] Blood Venous blood specimen / Unknown Venipuncture / Unknown 05/04/2025 10:58 AM EDT 05/04/2025 10:58 AM EDT Narrative [facility] - 05/04/2025 2:12 PM EDT Performed by Kimi electrochemiluminescent immunoassay which is traceable to the Prolactin 3rd IRP (WHO 84/500). Results obtained with different test methods or kits cannot be used interchangeably. us Mercedez Alexander MD LAB BLOOD ORDERABLES Final Re sult [facility] [address] [place] [address] documented in this encounter Visit Diagnoses Diagnosis [...] documented as of this encounter Care Teams Corporate Events Director Relationship Specialty Start Date End Date Argelia Hughes APRN [address] [place] [address] PCP - General 03/08/21 documented as of this encounter
--- OUTSIDE RECORDS SUMMARY | 2025-07-03 11:53 | XMS_ITS | Encounter Summary ---
Author Organization Healthcare Address [address] [place] [address] Care Team Providers Care Reel Man Name Role Phone HughesArgelia day Darin BA Primary Care Provider [phone] Encounter Details Date Type Department Care Team [...] Description 08/18/2025 3:00 PM EDT Office Visit [facility] [address] [place] [address] Antonia Garcia MD [address] [address] 08/22/2025 3:00 PM EDT Ovarian Cancer Screening [facility] [address], 3rd [place] [address] 09/29/2025 12:40 PM EST Appointment [facility] A Radiology [address] [place] [address] 09/29/2025 2:15 PM EST Office Visit [place] [facility] [address], 1st [place] [address] Damián Garcia MD [address] [place] [address] 05/10/2026 10:20 AM EDT Office Visit [facility] Endocrinology [address] [place] [address] documented as of this encounter Visit Diagnoses Not on filedocumented in this encounter Additional Health Concerns Assessment Noted Time A fall risk assessment has been complete d for the patient 03/31/2025 3:01 PM EDT A Body Mass Index follow-up plan has been documented for the patient 05/09/2025 1:21 PM EDT documented as of this encounter Care Teams Reel Man Relationship Specialty Start Date End Date Argelia Hughes, MEJIA [address] [place] [address] PCP - General 03/08/21 documented as of this encounter
--- OUTSIDE RECORDS SUMMARY | 2025-07-03 11:53 | XMS_ITS | Clinical Summary ---
Author Organization [facility] Address [address] [place] [address] Care Team Providers Care Wash Rack Operator Name Role Phone Argelia Hughes APRN Primary Care Provider [phone] Allergies Active Allergy Reactions Criticality Noted Date [...] (Lipitor) 10 MG tablet 0 Active Aspirin Buf,PuHoia-RyNxbn-B gO, 81 MG tablet TAKE 1 TABLET DAILY. 0 Active lisinopril 10 MG tablet 2 tablets (20 mg). 2 Active LORazepam (Ativan) 0.5 MG tablet TAKE 1 TABLET 3 TIMES EACH DAY NEEDED 2 Active bisoprolol (Zebeta) 5 MG tablet TAKE 1 TABLET 1 TIME EACH DAY FOR HIGH BLOOD PRESSURE 2 Active Creon 98592-[address]272 units capsule Take 1 capsule by mouth [...] Encounters Date Type Department Care Team Description 06/28/2025 Telephone [facility] [address], [address]st [place] [address] Damián Garcia MD 05/08/2025 Telephone [facility] Endocrinology [address] [place] [address] Mercedez Alexander MD 05/04/2025 10:20 AM EDT Office Visit [facility] Endocrinology [address] [place] [address] Mercedez Alexander MD Pituitary macroadenoma (CMS/HCC) (Primary Dx); History of surgical removal of pituitary gland; Elevated prolactin level; Postoperative hypothyroidism 05/04/2025 Telephone [facility] Endocrinology [address] [place] [address] Mercedez Alexander MD 05/04/2025 Travel 04/03/2025 Telephone [facility] Endocrinology [address] [place] [address] Mercedez Alexander MD HCN - Patient Message 04/03/2025 Telephone [facility] [address], [address]st [place] [address] Damián Garcia MD from Last 3 Months [...] Description 08/18/2025 3:00 PM EDT Office Visit [facility] [address] [place] [address] Antonia Garcia MD [address] [place] [address] 08/22/2025 3:00 PM EDT Ovarian Cancer Screening [facility] [address], 3rd [place] [address] 09/29/2025 12:40 PM EST Appointment [facility] Radiology [address] [place] [address] 09/29/2025 2:15 PM EST [facility] [address], [address] [place] [address] Damián Garcia MD [address] [place] [address] 05/10/2026 10:20 AM EDT Office Visit [facility] Endocrinology [address] [place] [address] Health Maintenance Due Date Last Done Comments [facility]-Bone Density Scan 1955 [facility]-Hepatitis C Screening 1955 [facility]-Medicare Annual Wellness (AWV) 1955 [facility]-/Child/Adol SDOH Screenings 1955 [facility]-PARLL-50 Vaccine (#1) 1960 [facility]- SDOH Screenings 1973 [...] History of surgical removal of pituitary gland CYTO DATA CONVERSION Routine 08/21/1999 12:00 AM EDT from Last 3 Months or Most Recently Relevant to Health Maintenance Results * (ABNORMAL) Prolactin (05/04/2025 10:58 AM EDT) Prolactin, Serum 53.4(H) 4.4 - 23.3 ng/mL 05/04/2025 2:12 PM EDT [facility] Blood Venous blood specimen / Unknown Venipuncture / Unknown 05/04/2025 10:58 AM EDT 05/04/2025 10:58 AM EDT Narrative [facility] - 05/04/2025 2:12 PM EDT Performed by Kimi electrochemiluminescent immunoassay which is traceable to the Prolactin 3rd IRP (WHO 84/500). Results obtained with different test methods or kits cannot be used interchangeably. us Mercedez Alexander MD LAB BLOOD ORDERABLES Final Re sult [facility] [address] [place] [address] * ACTH (05/04/2025 10:58 AM EDT) ACTH 36.3 7.2 - 63 pg/mL 05/04/2025 2:31 PM EDT [facility] Blood Venous blood specimen / Unknown Venipuncture / Unknown 05/04/2025 10:58 AM EDT 05/04/2025 10:58 AM EDT Mercedez Alexander MD LAB BLOOD ORDERABLES Final Re sult Performing Organization Address City/[facility]/ZIP Co de Phone Number [facility] [address] [place] [address] * T4, free (05/04/2025 10:58 AM EDT) Free T4, Plasma 1.1 0.8 - 1.7 ng/dL 05/04/2025 2:10 PM EDT [facility] Blood Venous blood specimen / Unknown Venipuncture / Unknown 05/04/2025 10:58 AM EDT 05/04/2025 10:58 AM EDT Mercedez Alexander MD LAB BLOOD ORDERABLES Final Re sult Performing Organization Address City/[facility]/ZIP Co de Phone Number [facility] [address] [place] [address] * Luteinizing hormone (05/04/2025 10:58 AM EDT) Luteinizing Hormone 5.32 mIU/mL 05/04/2025 2:12 PM EDT [facility] Blood Venous blood specimen / Unknown Venipuncture / Unknown 05/04/2025 10:58 AM EDT 05/04/2025 10:58 AM EDT Narrative [facility] - 05/04/2025 2:12 PM [...] MD LAB BLOOD ORDERABLES Final Re sult [facility] [address] [place] [address] * Follicle stimulating hormone (05/04/2025 10:58 AM EDT) FSH 14.5 mIU/mL 05/04/2025 2:1 2 PM EDT [facility] Blood Venous blood specimen / Unknown Venipuncture / Unknown 05/04/2025 10:58 AM EDT 05/04/2025 10:58 AM EDT Narrative [facility] - 05/04/2025 2:12 PM [...] ORDERABLES Final Re sult Performing Organization Address City/[facility]/ZIP Co de Phone Number [facility] [address] [place] [address] * Cortisol (05/04/2025 10:58 AM EDT) Cortisol 12.20 Before 10am: 3.7 - 19.4. After 5pm: 2.9 - 17.3 ug/dL 05/04/2025 2:56 PM EDT [facility] Comment:Testing performed on [place], standardized against [facility] Reference Standard concentration values assigned by LC-MS/MS and verified by BCR 192 and BCR 193 certified reference materials. Blood Venous blood specimen / Unknown Venipuncture / Unknown 05/04/2025 10:58 AM EDT 05/04/2025 10:58 AM EDT Mercedez Alexander MD LAB REF LAB BLOOD AND FLUID O RD Final Result Performing Organization Address [facility] Co de Phone Number [facility] [address] [place] [address] * Cytology (08/21/1999 12:00 AM EDT) 08/21/1999 08/22/1999 Narrative [facility] - 09/17/1999 12:00 AM EST [facility] MR #: [id number] [facility] JHONATAN AMBAR Cristhian [place], [place] [address] 1955 (Age: 44) FW Collect Date: 08/21/1999 00:00 Receipt Date: 08/22/1999 00:00 Page 1 DEPARTMENT OF PATHOLOGY AND LABORATORY MEDICINE CYTOPATHOLOGY REPORT Email: [email or web address] * Converted Case * This report may [...] results is suggested (please call Microbiology at [phone] for results). CLINICAL INFORMATION: Menstrual History: {Not Provided} Date of Last Menstrual Period: {Not Provided} SPECIMEN DESCRIPTION: A: CERVICAL/VAGINAL SMEAR, PAP ICD: F: {Not Entered} SNOMED CODES: 1; [id number] In cases where a pathologist has signed out the report, the service has been rendered in part by a resident. The signing pathologist has performed and is responsible for the reported pathologic evaluation. Norman Hughes MD LAB PATHOLOGY ORDERABLES Final Result [facility] from Last 3 Months or Most Recently Relevant to Health Maintenance [facility] [employer] MEDICARE Care Teams Wash Rack Operator Relationship Specialty Start Date End Date Argelia Hughes APRN [address] [place] [address] PCP - General 03/08/21
--- OUTSIDE RECORDS SUMMARY | 2025-07-03 11:53 | XMS_ITS | Encounter Summary ---
Author Organization Healthcare Address [address] [place] [address] Care Team Providers Care Rubber Boots And Shoes Repairer Name Role Phone Argelia Hughes APRN Primary Care Provider [phone] Encounter Details Date Type Department Care Team (Late st Contact Info) Description 05/04/2025 [facility] [address] [place] [address] Mercedez Alexander MD [address] [facility] [address] [place] [address] Social History Tobacco Use Types [...] results with PT denise Best contact number: [phone] (home) Optimal time of day to reach [...] and isrequesting a callback. Best contact number: [phone] (home) Optimal time of day to reach [...] Description 08/18/2025 3:00 PM EDT Office Visit [facility] [address] [facility] [place] [address] Antonia Garcia MD [address] [place] [address] 08/22/2025 3:00 PM EDT Ovarian Cancer Screening [facility] [address], 3rd [place] [address] 09/29/2025 12:40 PM EST Appointment [facility] Radiology [address] [place] [address] 09/29/2025 2:15 PM EST Office Visit [place] [facility] [address], 1st [place] [address] Damián Garcia MD [address] [place] [address] 05/10/2026 10:20 AM EDT Office Visit [facility] Endocrinology [address] [place] [address] documented as of this encounter Visit Diagnoses Not on filedocumented in this encounter Additional Health Concerns Assessment Noted Time A fall risk assessment has been complete d for the patient 03/31/2025 3:01 PM EDT A Body Mass Index follow-up plan has been documented for the patient 05/09/2025 1:21 PM EDT documented as of this encounter Care Teams Rubber Boots And Shoes Repairer Relationship Specialty Start Date End Date Argelia Hughes, MEJIA [address] [place] [address] PCP - General 03/08/21 documented as of this encounter
--- OUTSIDE RECORDS SUMMARY | 2025-07-03 11:53 | XMS_ITS | Encounter Summary ---
Author Organization Healthcare Address [address] [place] [address] Care Team Providers Care Painter Interior Finish Name Role Phone Ellen Argelia Webster APRN Primary Care Provider [phone] Encounter Details Date Type Department Care Team (Late Contact Info) Description 03/04/2023 Telephone [facility] under water assistant Clinic [address] [phone] Dental, Provider, DDS [facility] [place] [address] Social History Tobacco Use Types Packs/Day Years [...] Upcoming Encounters Date Type Department Care Team ([facility] Contact Info) Description 08/18/2025 3:00 PM EDT Office Visit [facility] [address] [place] [address] Antonia Garcia MD [address] [place] [address] 08/22/2025 3:00 PM EDT Ovarian Cancer Screening [facility] Gynecology [address], 3rd [place] [address] 09/29/2025 12:40 PM EST Appointment [facility] Radiology [address] [place] [address] 09/29/2025 2:15 PM EST Office Visit [place] [facility] [address], [address]st [place] [address] Damián Garcia MD [address] [place] [address] 05/10/2026 10:20 AM EDT Office Visit [facility] Endocrinology [address] [place] [address] documented as of this encounter Visit Diagnoses Not on filedocumented in this encounter Additional Health Concerns Assessment Noted Time A fall risk assessment has been complete d for the patient 02/12/2023 10:31 AM EDT documented as of this encounter Care Teams Painter Interior Finish Relationship Specialty Start Date End Date Argelia Hughes, SAP SOLUTIONS ARCHITECT [address] [place] [address] PCP - General 03/08/21 documented as of this encounter
--- OUTSIDE RECORDS SUMMARY | 2025-07-03 11:53 | XMS_ITS | Encounter Summary ---
Author Organization Healthcare Address [address] [place] [address] Care Team Providers Care Senior Contracts Manager Name Role Phone Argelia Hughes TARE WORKER Primary Care Provider [phone] Encounter Details Date Type Department Care Team ([facility] Contact Info) Description 10/16/2022 Community [facility] [address] [place] [address] Argelia Hughes, TARE WORKER [address] [place], [place] [id number] Unspecified dental caries (Primary Dx) Social History [...] Description 08/18/2025 3:00 PM EDT Office Visit [facility] [address] [place] [address] Antonia Garcia MD [address] [address] 08/22/2025 3:00 PM EDT Ovarian Cancer Screening [facility] Gyne[facility] [address] [facility], 3rd [place] [address] 09/29/2025 12:40 PM EST Appointment [facility] Radiology [address] [place] [address] 09/29/2025 2:15 PM EST Office Visit [place] [facility] [address], [address]st [place] [address] Damián Garcia MD [address] [place] [address] 05/10/2026 10:20 AM EDT Office Visit [facility] Endocrinology [address] [place] [address] documented as of this encounter Visit Diagnoses Diagnosis Unspecified dental caries- Primary documented in this encounter Additional Health Concerns Assessment Noted Time A fall risk assessment has been complete d for the patient 08/21/2022 9:38 AM EDT documented as of this encounter Care Teams Senior Contracts Manager Relationship Specialty Start Date End Date Argelia Hughes, TARE WORKER [address] [place] [address] PCP - General 03/08/21 documented as of this encounter
--- OUTSIDE RECORDS SUMMARY | 2025-07-03 11:53 | XMS_ITS | Encounter Summary ---
Author Organization Healthcare Address [address] [place] [address] Care Team Providers Care Honing Machine Operator Semiautomatic Name Role Phone Ellen Argelia Webster APRN Primary Care Provider [phone] Encounter Details Date Type Department Care Team (Late Contact Info) Description 03/04/2023 Telephone [facility]SB milled lumber grader Clinic [address] [phone] Dental, Provider, DDS [facility] [place] [address] Social History Tobacco Use Types Packs/Day Years [...] Upcoming Encounters Date Type Department Care Team ([facility] Contact Info) Description 08/18/2025 3:00 PM EDT Office Visit [facility] [address] [place] [address] Antonia Garcia MD [address] [place] [address] 08/22/2025 3:00 PM EDT Ovarian Cancer Screening [facility] Gynecology [address], 3rd [place] [address] 09/29/2025 12:40 PM EST Appointment [facility] Radiology [address] [place] [address] 09/29/2025 2:15 PM EST Office Visit [place] [facility] [address], [address]st [place] [address] Damián Garcia MD [address] [place] [address] 05/10/2026 10:20 AM EDT Office Visit [facility] Endocrinology [address] [place] [address] documented as of this encounter Visit Diagnoses Not on filedocumented in this encounter Additional Health Concerns Assessment Noted Time A fall risk assessment has been complete d for the patient 02/12/2023 10:31 AM EDT documented as of this encounter Care Teams Honing Machine Operator Semiautomatic Relationship Specialty Start Date End Date Argelia Hughes, DRY CLEANING ATTENDANT [address] [place] [address] PCP - General 03/08/21 documented as of this encounter
--- OUTSIDE RECORDS SUMMARY | 2025-07-03 11:53 | XMS_ITS | Encounter Summary ---
Author Organization Healthcare Address [address] [place] [address] Care Team Providers Care Ship Pilot Dispatcher Name Role Phone Hughes, Argelia Darin BA Primary Care Provider [phone] Encounter Details Date Type Department Care Team (Late Contact Info) Description 09/29/2019 Abstract [facility] Radiation [address] [facility]. [id number] [place] [address] Elisa Snowden RN [facility] Social [...] Description 08/18/2025 3:00 PM EDT Office Visit [facility] [address] [place] [address] Antonia Garcia MD [address] [address] 08/22/2025 3:00 PM EDT Ovarian Cancer Screening [facility] Gynecology [address], 3rd [place] [address] 09/29/2025 12:40 PM EST Appointment [facility] Radiology [address] [place] [address] 09/29/2025 2:15 PM EST Office Visit [place] [facility] [address], [address] [place] [address] Damián Garcia MD [address] [place] [address] 05/10/2026 10:20 AM EDT Office Visit [facility] Endocrinology [address] [place] [address] documented as of this encounter Visit Diagnoses Not on filedocumented in this encounter Care Teams Ship Pilot Dispatcher Relationship Specialty Start Date End Date Argelia Hughes, CADD DRAFTER [address] [place] [id number] PCP - General 03/08/21 documented as of this encounter
--- OUTSIDE RECORDS SUMMARY | 2025-07-03 11:53 | XMS_ITS | Encounter Summary ---
Author Organization Healthcare Address [address] [place] [address] Care Team Providers Care Putty And Caulking Supervisor Name Role Phone Argelia Hughes APRN Primary Care Provider [phone] Encounter Details Date Type Department Care Team (Late st Contact Info) Description 06/28/2025 Telephone [place] [facility] [address], [address] [place] [address] Damián Garcia MD [address] [place] [address] Social History Tobacco Use Types [...] Telephone Encounter - Mago Finley PA - 06/29/2025 11:09 AM EDT Not related to residual tumor, but could be more sensitive to nose bleeds bc of the past surgery, not a red flag. =) If starts becoming more frequent rec ENT for evaluation. =) * Telephone Encounter - Hemalatha Amna R - 06/28/2025 4:30 PM EDT Patient Phone Message Reason for Call: Pt is calling and states that she had a bloody nose for 2 days reports when she blew her nose therewere small clots in it and she is asking if this would be caused by her tumor? She is asking for a call to discuss. Please advise. Best contact number and optimal time of day to reach caller: [phone] Note: Please do not reply to this message. Follow-up communication and further actions as a result of this message need to be communicated with the patient directly, if the patient is not active onMyChart. If the patient is active on MyChart, they will receive notification of the communication/outcome via Orbiter[employer]. documented in this encounter Plan of Treatment Upcoming Encounters Date Type Department Care Team (Late st Contact Info) Description 08/18/2025 3:00 PM EDT Office Visit [facility] [address] [facility] [place] [address] Antonia Garcia MD [address] [place] [address] 08/22/2025 3:00 PM EDT Ovarian Cancer Screening [facility] [address] [place] [address] 09/29/2025 12:40 PM EST Appointment [facility] [address] [place] [phone] 09/29/2025 2:15 PM EST Office Visit [place] [facility] [address] [place] [address] Damián Garcia MD [address] [place] [address] 05/10/2026 10:20 AM EDT [facility] [address] [place] [address] documented as of this encounter Visit Diagnoses Not on filedocumented in this encounter Additional Health Concerns Assessment Noted Time A fall risk assessment has been complete d for the patient 03/31/2025 3:01 PM EDT A Body Mass Index follow-up plan has been documented for the patient 05/09/2025 1:21 PM EDT documented as of this encounter Care Teams Putty And Caulking Supervisor Relationship Specialty Start Date End Date Argelia Hughes APRN [address] [place] [address] PCP - General 03/08/21 documented as of this encounter
--- OUTSIDE RECORDS SUMMARY | 2025-07-03 11:53 | XMS_ITS | Encounter Summary ---
Author Organization Healthcare Address [address] [place] [address] Care Team Providers Care Aviation Project Engineer Name Role Phone Argelia Hughes APRN Primary Care Provider [phone] Encounter Details Date Type Department Care Team (Late st Contact Info) Description 04/03/2025 Telephone [place] [facility] [address], [address] [place] [address] Damián Garcia MD [address] [place] [address] Social History Tobacco Use Types [...] optimal time of day to reach caller: [phone] Note: Please do not reply to this [...] 08/18/2025 3:00 PM EDT Office Visit [facility] [address] [place] [address] Antonia Garcia MD [address] [place] [address] 08/22/2025 3:00 PM EDT Ovarian Cancer Screening [facility] [address], [address] [place] [address] 09/29/2025 12:40 PM EST Appointment [facility] [address] [place] [phone] 09/29/2025 2:15 PM EST Office Visit [place] [facility] [address], [address] [place] [address] Damián Garcia MD [address] [place] [address] 05/10/2026 10:20 AM EDT [facility] [address] [place] [phone] documented as of this encounter Visit Diagnoses Not on filedocumented in this encounter Additional Health Concerns Assessment Noted Time A fall risk assessment has been complete d for the patient 03/31/2025 3:01 PM EDT A Body Mass Index follow-up plan has been documented for the patient 03/31/2025 3:41 PM EDT documented as of this encounter Care Teams Aviation Project Engineer Relationship Specialty Start Date End Date Argelia Hughes, SUPERVISOR WEAVING [address] [place], [place] [id number] PCP - General 03/08/21 documented as of this encounter
--- OUTSIDE RECORDS SUMMARY | 2025-07-03 11:53 | XMS_ITS | Encounter Summary ---
Author Organization Healthcare Address [address] [place] [address] Care Team Providers Care Assembler Hydraulic Backhoe Name Role Phone Argelia Hughes APRN Primary Care Provider [phone] Encounter Details Date Type Department Care Team (Late st Contact Info) Description 05/08/2025 Telephone [facility] Endocrinology [address] [place] [address] Mercedez Alexander MD [address] [facility] [address] [place] [address] Social History Tobacco Use Types [...] lab on prolactin level Best contact number: [phone] (home) Optimal time of day to reach [...] Description 08/18/2025 3:00 PM EDT Office Visit [facility] [address] [place] [address] Antonia Garcia MD [address] [place] [address] 08/22/2025 3:00 PM EDT Ovarian Cancer Screening [facility] [address] [place] [address] 09/29/2025 12:40 PM EST Appointment [facility] [address] [place] [phone] 09/29/2025 2:15 PM EST Office Visit [place] [facility] [address], [address] [place] [address] Damián Garcia MD [address] [facility] [address] [place] [address] 05/10/2026 10:20 AM EDT [facility] [address] [place] [address] documented as of this encounter Visit Diagnoses Not on filedocumented in this encounter Additional Health Concerns Assessment Noted Time A fall risk assessment has been complete d for the patient 03/31/2025 3:01 PM EDT A Body Mass Index follow-up plan has been documented for the patient 05/09/2025 1:21 PM EDT documented as of this encounter Care Teams Assembler Hydraulic Backhoe Relationship Specialty Start Date End Date Argelia Hughes, CLINICAL REHABILITATION SPECIALIST [facility] [address] [place] [address] PCP - General 03/08/21 documented as of this encounter
--- OUTSIDE RECORDS SUMMARY | 2025-07-03 11:53 | XMS_ITS | Encounter Summary ---
Author Organization Healthcare Address [address] [place] [address] Care Team Providers Care Newspaper Illustrator Name Role Phone Argelia Hughes ONCOLOGY PHYSICIAN Primary Care Provider [phone] Encounter Details Date Type Department Care Team ([facility] Contact Info) Description 09/26/2022 [facility] [address] [place] [address] Argelia Hughes, ONCOLOGY PHYSICIAN [address] [place], [place] [id number] Dental caries (Primary Dx) Social History Tobacco [...] Upcoming Encounters Date Type Department Care Team ([facility] Contact Info) Description 08/18/2025 3:00 PM EDT Office Visit [facility] [address] [place] [address] Antonia Garcia MD [address] [address] 08/22/2025 3:00 PM EDT Ovarian Cancer Screening [facility] [address] [facility], 3rd [place] [address] 09/29/2025 12:40 PM EST Appointment [facility] [address] [place] [address] 09/29/2025 2:15 PM EST Office Visit [place] [facility] [address], [address] [place] [address] Damián Garcia MD [address] [place] [address] 05/10/2026 10:20 AM EDT Office Visit [facility] Endocrinology [address] [place] [address] documented as of this encounter Visit Diagnoses Diagnosis Dental caries- Primary Unspecified dental caries documented in this encounter Additional Health Concerns Assessment Noted Time A fall risk assessment has been complete d for the patient 08/21/2022 9:38 AM EDT documented as of this encounter Care Teams Newspaper Illustrator Relationship Specialty Start Date End Date Argelia Hughes, ONCOLOGY PHYSICIAN [address] [place] [id number] PCP - General 03/08/21 documented as of this encounter
--- NOTE | 2025-07-03 12:09 | XR_ITS ---
FINAL REPORT CLINICAL HISTORY: COugh COMPARISON: 03/08/2024 FINDINGS: 2 views of the chest were obtained . The heart is normal in size. The mediastinum is within normal limits. The lungs are clear. There is no pneumothorax. Osseous structures are unremarkable. IMPRESSION: No acute cardiopulmonary process. Reviewed, Interpreted and Dictated by Mela James MD Transcribed by Katia Wisdom Authenticated and [facility]
[2025-07-03 12:28] LABS: Hematocrit 43.7 % (37.0-47.0); Hemoglobin 14.5 g/dL (12.2-16.2); Immature Granulocytes % 0.3 %; Mean Corpuscular HGB Conc 33.2 g/dL (31.8-35.4); Mean Corpuscular Hemoglobin 30.6 pg (27.0-31.2); Mean Corpuscular Volume 92.2 fl (81-99); Nucleated Red Blood Cells % 0 %; Platelet Count 215 K/mm3 (142-424); Red Blood Count 4.74 M/mm3 (4.20-5.40); Red Cell Distribution Width-SD 44.9 fL; White Blood Count 7.5 K/mm3 (4.8-10.8)
[2025-07-06 18:10] LABS: I006-IgE Cockroach, German <0.10 kU/L (Class 0); T006-IgE Cedar, Mountain <0.10 kU/L (Class 0); T007-IgE Oak, White <0.10 kU/L (Class 0); T008-IgE Elm, American <0.10 kU/L (Class 0); T015-IgE Ash, White <0.10 kU/L (Class 0); T022-IgE Pecan, Hickory <0.10 kU/L (Class 0); W001-IgE Ragweed, Short <0.10 kU/L (Class 0); W011-IgE Thistle, Russian <0.10 kU/L (Class 0); W014-IgE Pigweed, Common <0.10 kU/L (Class 0)
== END 2025-07-03 23:59 | disposition home or self-care (01) ==
LOC: LAB 11:51
PROVIDERS: PCP Family Medicine; Visit Provider Internal Medicine Pulmonary Disease
DX: J30.9 Allergic rhinitis, unspecified (principal); R06.02 Shortness of breath
CPT/HCPCS: 36415; 71046; 82785; 85025; 86003

== ENCOUNTER 2025-08-10 12:08 | Day surgery (SDC) | payer MEDICARE, SELFPAY ==
[2025-08-04 13:40] VITALS: BMI 23.0
--- NOTE | 2025-08-09 16:54 | EXP.HP ---
History of Present Illness *Admission Date: 08/10/25 *History of present illness: Mrs. Israel is a 70-year-old female who is here for diagnostic EGD. The patient has had worsening bloating, abdominal distention, heartburn and reflux. She has increased pantoprazole to twice daily and switch to Voquezna. The patient did have an EGD with [facility] in November 2021 and had nonerosive GERD with mild to moderate esophageal dysmotility and small 1 to 2 cm hiatal hernia. She also had some reactive gastropathy from bile reflux and some mild chronic gastritis. Her biopsies at that time had shown H. pylori which was successfully treated and her H. pylori breath test at 3 months was negative. She has had a normal C13 sucrose breath test. The examination is deemed medically necessary for diagnostic EGD. The patient has been seen, interviewed and examined prior to the procedure by both myself and the anesthesia provider. [facility] Disclaimer: The information contained in this section may have been updated after the patient was seen, as this information can be updated by other users. Medical History Breast tenderness in female GERD (gastroesophageal reflux disease) Hx of pituitary neoplasm SOB (shortness of breath) Multiple lung nodules on CT Dyspnea on exertion Chest pain Thyroid disease Depression Hyperlipidemia Hypertension Anxiety Family history of heart disease Ex-smoker Coronary artery calcification seen on CT scan Abnormal EKG Dyspnea Surgical History Hx of appendectomy Hx of cardiac cath H/O section History of colonoscopy History of hysterectomy Family History Mother Cancer Breast Ca Other No significant family history Social History (Updated 08/10/25 @ 12:28 by Sherin Rodriguez RN) Smoking Status: Former smoker tobacco type: cigarettes packs per day: 1 years smoked: 3 second hand exposure: No alcohol intake: current alcohol intake frequency: a few times a week substance use type: denies use current occupational status: retired Travel in the last 8 weeks?: None household members: spouse housing: house current occupational exposures/hazards: No caffeine: Yes physical activity: walking do you feel safe at home: Yes victim of physical abuse: No victim of emotional abuse: No victim of sexual abuse: No would you like helpful sources: No Have you lived/traveled outside US in past 30 days?: No Contact w/someone who lives/traveled outside US past 30 days?: No Exposure to someone with infectious disease in past 14 days?: No Do you have a fever (greater than 100.4 F or 38 C)?: No Have you tested positive for COVID-19?: No Exposed to someone with COVID-19 in past 14 days?: No Do you have a sore throat?: No Do you have a cough?: No Do you have any weakness?: No Are you experiencing any nausea/vomitting?: No Do you have any diarrhea?: No Are you experiencing any unusual bleeding?: No Do you have any muscle aches/pain?: No Do you have any abdominal pain?: No Are you experiencing loss of taste or smell?: No Other Medical History Have you received the Flu Vaccine for this season: No Have you received the Pneumonia Vaccine: Yes Review of Systems Review of Systems Review of systems (narrative): Negative *Cardiovascular Comments: Negative *Gastrointestinal Comments: Negative *Genitourinary Comments: Negative *Musculoskeletal Comments: Negative *Neurologic Comments: Negative Meds Home Medications and Allergies Home Medications ?Medication ?Instructions ?Recorded ?Confirmed ?Type aspirin 81 mg tablet,delayed 81 mg PO DAILY 09/25/20 08/10/25 History release (Adult Low Dose Aspirin) amlodipine 5 mg tablet (Norvasc) 5 mg PO DAILY #90 tabs 01/13/25 08/10/25 Rx lisinopril 20 mg tablet 20 mg PO DAILY #90 tabs 01/13/25 08/10/25 Rx metoprolol succinate 100 mg 100 mg PO DAILY #90 tabs 01/13/25 08/10/25 Rx tablet,extended release 24 hr pantoprazole 40 mg tablet,delayed 40 mg PO DAILY #90 tabs 01/13/25 08/10/25 Rx release levothyroxine 25 mcg tablet 25 mcg PO DAILY thyroid 90 days 04/17/25 08/10/25 Rx #90 tabs linaclotide 72 mcg capsule 72 mcg PO DAILY #90 caps 05/10/25 08/10/25 Rx (Linzess) cabergoline 0.5 mg tablet 0.25 mg PO ONCE My prolactin 05/11/25 08/10/25 History atorvastatin 20 mg tablet 20 mg PO HS #30 tabs 06/08/25 08/10/25 Rx lorazepam 1 mg tablet 1 mg PO TID PRN Anxiety #60 tabs 06/10/25 08/10/25 Rx cetirizine 10 mg tablet See Rx Instructions .Route 07/31/25 08/10/25 Rx .COMPLEX #30 tabs mroceq-mwkyykhs-jrdaan(pork)24,000-76,000-120,000 See Rx Instructions .Route 08/02/25 08/10/25 Rx unit capsule,del rel (Creon) .COMPLEX #200 caps New Prescriptions to Start Prescriptions: Allergies Allergy/AdvReac Type Severity Reaction Status Date / Time pravastatin Allergy Mild Unknown Verified 08/10/25 12:37 allergy reaction nitrofurantoin (From Allergy Unknown Verified 08/10/25 12:37 Macrobid) allergy reaction paroxetine (From Paxil) Allergy Unknown Verified 08/10/25 12:37 allergy reaction sulfamethoxazole (From Allergy Unknown Verified 08/10/25 12:37 Bactrim) allergy reaction trimethoprim (From Bactrim) Allergy Unknown Verified 08/10/25 12:37 allergy reaction Exam *Routine HEENT Exam Head: Present normocephalic Eye: Present EOMI and PERRL ENT: Present mucous membranes moist *Routine Neck Exam Neck: Present supple *Routine Respiratory Exam Respiratory: Present CTA bilaterally *Routine Cardiovascular Exam Cardiovascular: Present RRR *Routine Abdominal Exam Abdominal: Present soft and normoactive bowel sounds; Absent tenderness *Routine Rectal Exam Rectal:: deferred *Routine Genitalia Exam Genitalia:: deferred *Routine Extremities Exam Extremities: Absent cyanosis, clubbing or edema *Routine Skin Exam Skin: Present warm; Absent rash *Routine Neurological Exam Neurological: Present alert and oriented X3 Assessment and Plan *Assessment and plan (1) Abdominal distension: Status: Acute Category: Medical Code(s): R14.0 - Abdominal distension (gaseous) (2) GERD (gastroesophageal reflux disease): Status: Acute Qualifiers: Esophagitis presence: without esophagitis Qualified Code(s): K21.9 - Gastro-esophageal reflux disease without esophagitis Category: Medical Code(s): K21.9 - Gastro-esophageal reflux disease without esophagitis (3) Exocrine pancreatic insufficiency: Status: Acute Category: Medical Code(s): K86.81 - Exocrine pancreatic insufficiency (4) Heartburn: Status: Acute Category: Medical Code(s): R12 - Heartburn (5) Abdominal bloating: Status: Acute Category: Medical Code(s): R14.0 - Abdominal distension (gaseous) (6) History of Helicobacter pylori infection: Status: Acute Category: Medical Code(s): Z86.19 - Personal history of other infectious and parasitic diseases Plan A/P: 1. Worsening heartburn and reflux with abdominal distention and bloating is the preprocedural diagnosis. The patient does have a prior history of H. pylori and EPI. The patient will be anesthetized/sedated using MAC sedation. The patient has been seen and examined. Cardiac and lung assessment prior to the examination is stable. Proceed with planned diagnostic EGD.
--- NOTE | 2025-08-10 07:18 | HMH.PROCNOTE ---
[facility] Procedure Note Date: 08/10/25 Time: 14:16 Procedure Note:: Upper Endoscopy Procedure Report: Esophagogastroduodenoscopy with cold biopsies Endoscopost: Naeem Jones II, MD Referring Physician: Gilberto Israel MD Date of Procedure: August 10, 2025 Equipment: Olympus GIF-1100 standard upper endoscope Sedation: MAC sedation Indications: Mrs. Israel is a 70-year-old female who is here for diagnostic EGD. The patient has had worsening bloating and abdominal distention. She does have heartburn and reflux and she has increased pantoprazole to twice daily and switch to Voquezna. The patient has had early satiety and some epigastric discomfort. She reports minor belching. She also reports alternating constipation with diarrhea. She reports no nausea or dysphagia. The patient did have an EGD with al in November 2021 and had nonerosive GERD with mild to moderate esophageal dysmotility and small 1 to 2 cm hiatal hernia. She also had some reactive gastropathy from bile reflux and some mild chronic gastritis. Her biopsies at that time had shown H. pylori which was successfully treated and her H. pylori breath test at 3 months was negative. She has had a normal C13 sucrose breath test. The examination is deemed medically necessary for diagnostic EGD. Procedure: Prior to the procedure, a history and physical exam was performed, and patient's medications and allergies were reviewed. The risks, benefits and alternatives of the sedation and procedure were discussed with the patient. All questions were answered and informed consent was obtained. The patient was brought to the procedure room. Patient identification and proposed procedure were verified by the physician and the nurse. The patient was placed in a left lateral decubitus position and the scope was passed under direct vision. Throughout the procedure, the patient's blood pressure, pulse, and oxygen saturations were monitored continuously. The upper GI endoscopy was accomplished without difficulty. The patient tolerated the procedure well. Findings: The scope was passed directly into the upper esophagus and advanced to the third portion of the duodenum. The post bulbar duodenum and duodenal bulb were normal with normal mucosa and conniventes. 2 cold biopsies were taken from the second portion of the duodenum for the disaccharidase assay. The scope was withdrawn through a normal duodenal bulb and pylorus into the stomach. There was linear reactive gastropathy of the antrum. A cold biopsy was taken from the antrum. The body and fundus of the stomach are grossly normal. Upon retroflexion there was a 3 to 4 cm hiatal hernia (medium size). The scope was then withdrawn into the esophagus. There was no evidence of reflux esophagitis or Reece's. There were tertiary contractions and evidence of mild esophageal dysmotility. The remainder of the esophageal mucosa was normal. Impression: 1. Nonerosive GERD with mild esophageal dysmotility and medium sized 3 to 4 cm hiatal hernia 2. Mild linear reactive gastropathy of antrum Plan: I will follow-up the biopsies and disaccharidase assay. Most of her symptoms of dyspepsia and reflux are related to and driven by lower intestinal gas pressure gradients/high gas pressure buildup resulting in backflow of bile and peptic fluid from the duodenum into the stomach (duodenal reflux). This gas production (carbon dioxide, hydrogen, methane, etc.) from the lower intestinal tract is the byproduct of colonic bacterial fermentation. This colonic fermentation occurs when there is more carbohydrate (dietary starches, sugars and high residue plant fiber) substrate that does not get digested (in the middle or small intestine) or occurs when there is colonic fecal buildup and colonic bacterial overgrowth. This indeed leads to bloating and the gas pressure buildup with gas pressure gradients that do drive backflow and dyspepsia. We will discuss treatment options.
[2025-08-10 12:25] VITALS: BP 124/77; PULSE 69; RESP 16; TEMP 36.6; O2SAT 98; BMI 23.0
[2025-08-10] MEDS: LACTATED RINGERS 1000ML 1,000 ML 50 ML IV (12:41)
--- NOTE | 2025-08-10 13:58 | P.PNANES_ITS ---
[facility] Disclaimer: The information contained in this section may have been updated after the patient was seen, as this information can be updated by other users. Medical History Breast tenderness in female GERD (gastroesophageal reflux disease) Hx of pituitary neoplasm SOB (shortness of breath) Multiple lung nodules on CT Dyspnea on exertion Chest pain Thyroid disease Depression Hyperlipidemia Hypertension Anxiety Family history of heart disease Ex-smoker Coronary artery calcification seen on CT scan Abnormal EKG Dyspnea Surgical History Hx of appendectomy Hx of cardiac cath H/O section History of colonoscopy History of hysterectomy Family History Mother Cancer Breast Ca Other No significant family history Social History (Updated 08/10/25 @ 12:28 by Sherin Rodriguez RN) Smoking Status: Former smoker tobacco type: cigarettes packs per day: 1 years smoked: 3 second hand exposure: No alcohol intake: current alcohol intake frequency: a few times a week substance use type: denies use current occupational status: retired Travel in the last 8 weeks?: None household members: spouse housing: house current occupational exposures/hazards: No caffeine: Yes physical activity: walking do you feel safe at home: Yes victim of physical abuse: No victim of emotional abuse: No victim of sexual abuse: No would you like helpful sources: No Have you lived/traveled outside US in past 30 days?: No Contact w/someone who lives/traveled outside US past 30 days?: No Exposure to someone with infectious disease in past 14 days?: No Do you have a fever (greater than 100.4 F or 38 C)?: No Have you tested positive for COVID-19?: No Exposed to someone with COVID-19 in past 14 days?: No Do you have a sore throat?: No Do you have a cough?: No Do you have any weakness?: No Are you experiencing any nausea/vomitting?: No Do you have any diarrhea?: No Are you experiencing any unusual bleeding?: No Do you have any muscle aches/pain?: No Do you have any abdominal pain?: No Are you experiencing loss of taste or smell?: No [facility] Anesthesia Checklist Patient Identification Patient Identification: Arm Band Structural Data Admitted From: Home Planned Operative Procedure/s: EGD Consent for Planned Operative Procedure(s) Verified: Yes Verified Documents: Surgical Consent and History and Physical NPO Status Verified Time NPO: 00:00 Additional verifications Anesthesia Reactions: No Hx Blood Transfusions: No Blood Transfusion Reaction: No Airway Assessment Mallampati Score:: Class I C-Spine Mobility Assessed: Yes TMJ Mobility Assessed: Yes Dentition: Poor Dentition Neurological Assessment Level of Consciousness: Awake, Alert and Appropriate Anesthesia Plan Anesthesia Risk discussed: Yes Anesthesia Plan: Verified ASA Class: II Anesthesia Type: MAC
[2025-08-10 14:19] VITALS: BP 104/71; PULSE 71; RESP 16; TEMP 36.6; O2SAT 94
[2025-08-10 14:29] VITALS: BP 97/68; PULSE 70; RESP 16; TEMP 36.6; O2SAT 95
[2025-08-10 14:39] VITALS: BP 109/77; PULSE 64; RESP 18; TEMP 36.6; O2SAT 97
[2025-08-10 14:49] VITALS: BP 102/70; PULSE 66; RESP 18; TEMP 36.6; O2SAT 96
[2025-08-16 18:39] LABS: Interpretation Notes (.); Lactase 38.67 (>/= 14.0); Maltase 158.26 (>/= 110.0); Palatinase 9.31 (>/= 8.5); Reference Notes (.); Sucrase 32.22 (>/= 25.0)
== END 2025-08-10 15:24 | disposition home or self-care (01) ==
PROVIDERS: PCP Family Medicine; Visit Provider Internal Medicine Gastroenterology
PROC: 0DJ08ZZ Inspection of Upper Intestinal Tract, Via Natural or Artificial Opening Endoscopic (ICD-10-PCS; CPT 43239; principal; 2025-08-10 14:00)
DX: K21.9 Gastro-esophageal reflux disease without esophagitis (principal); K29.50 Unspecified chronic gastritis without bleeding; K22.4 Dyskinesia of esophagus; K44.9 Diaphragmatic hernia without obstruction or gangrene; K31.89 Other diseases of stomach and duodenum; K86.81 Exocrine pancreatic insufficiency; E07.9 Disorder of thyroid, unspecified; I10 Essential (primary) hypertension; E78.5 Hyperlipidemia, unspecified; I25.10 Atherosclerotic heart disease of native coronary artery without angina pectoris; Z79.82 Long term (current) use of aspirin; Z88.2 Allergy status to sulfonamides; Z86.19 Personal history of other infectious and parasitic diseases; Z87.891 Personal history of nicotine dependence; Z88.8 Allergy status to other drugs, medicaments and biological substances; Z88.1 Allergy status to other antibiotic agents
CPT/HCPCS: 43239; 82657; 88305; 88342; J2003; J2704; J7120